=== PATIENT | male | born 1960 | race Caucasian/White ===

== ENCOUNTER 2020-10-18 13:08 | Inpatient (IN) | payer OTHER ==
[2020-10-18] MEDS ORDERED: NALOXONE 0.4 MG/ML 1 ML VIAL IVP STA (13:23)
[2020-10-18] MEDS ORDERED: ATROPINE SULFATE 0.1 MG/ML 10ML SYRINGE IV STA (13:24)
--- NOTE | 2020-10-18 13:26 | ED ---
General Adult HPI - General Chief complaint: Syncope Stated complaint: unresponsive Time Seen by Provider: 10/18/20 13:16 Source: EMS Mode of arrival: EMS Limitations: altered mental status - History of Present Illness Initial comments: Patient presents to the ED by ambulance for evaluation. Per EMS, the patient's friend found the patient in his residence unresponsive today and called for an ambulance. Per EMS, the patient has been minimally responsive since they have been with him. Per EMS, the patient was noted to be in sinus bradycardia with a heart rate in the 30s, so they attempted transcutaneous pacing. Per EMS, patient was given Versed 4 mg IV prior to attempted pacing. Patient was given a dose of atropine 0.5 mg IV on arrival to the ED, and his heart rate is currently in the 60s. Patient is minimally responsive at this time. Patient's blood glucose is in the 150s. Patient was given a dose of IV Narcan on arrival to the ED without any change in his condition. Patient is noted to be mildly hypothermic on arrival to the ED and external heating has been applied by ED nursing staff. Patient is unable to provide any history at this time secondary to altered mentation. - Related Data Allergies Allergy/AdvReac Type Severity Reaction Status Date / Time Unable to Assess Allergy Verified 10/18/20 13:23 Review of Systems ROS Statement: Those systems with pertinent positive or pertinent negative responses have been documented in the HPI. ROS Other: All systems not noted in ROS Statement are negative. Limitations: ROS unobtainable due to patients medical condition Past Medical History Past Medical History: Unable to Obtain History of Any Multi-Drug Resistant Organisms: None Reported Past Surgical History: Unable to Obtain Smoking Status: Unknown if ever smoked Past Alcohol Use History: Unable to Obtain Past Drug Use History: Unable to Obtain General Exam Limitations: altered mental status General appearance: other (Patient moans to painful stimulus, but is otherwise unresponsive) Head exam: Present: atraumatic, normocephalic Eye exam: Present: normal appearance, PERRL ENT exam: Present: mucous membranes moist Neck exam: Present: normal inspection, other (Trachea is in midline) Respiratory exam: Present: other (Equal breath sounds bilaterally; patient is tachypneic). Absent: wheezes, rales, rhonchi, stridor Cardiovascular Exam: Present: regular rate, normal rhythm, normal heart sounds, other (Normal radial pulses bilaterally) GI/Abdominal exam: Present: soft. Absent: distended, guarding Extremities exam: Absent: pedal edema Back exam: Present: normal inspection Neurological exam: Present: other (Patient is unresponsive except to painful stimulus; patient is moving all 4 extremities spontaneously; patient localizes to pain in all 4 extremities; pupils equal round and reactive to light) Skin exam: Present: dry, intact, normal color, other (Cool) Course Vital Signs 10/18/20 10/18/20 10/18/20 13:11 13:25 13:28 Temperature 94.1 F L 93.7 F L Pulse Rate 74 72 Respiratory 36 H 36 H 30 H Rate Blood Pressure 93/53 136/59 O2 Sat by Pulse 75 L 97 Oximetry 10/18/20 10/18/20 10/18/20 14:09 15:14 15:39 Temperature 93.9 F L 95.4 F L Pulse Rate 75 77 74 Respiratory 24 18 Rate Blood Pressure 132/74 137/77 O2 Sat by Pulse 95 93 L Oximetry - Reevaluation(s) Reevaluation #1: 10/18/20 13:54 Patient is now much more responsive and answering questions appropriately. Patient is able to tell me his name. Patient admits to feeling somewhat dyspneic, but he denies having any other symptoms at this time. Patient denies having any pain, fever, headache, chest pain, cough or cold symptoms, abdominal pain, nausea or vomiting, or any other symptoms or complaints. Patient denies alcohol or drug abuse. 10/18/20 15:37 Case, H&P, test results and ED management thus far were discussed with Dr. De Leon (cardiology). He agrees with heparin anticoagulation and hospital admission. He has no further recommendations at this time. 10/18/20 15:39 Patient remains alert and responsive. Patient's tachypnea has now improved. Patient's temperature has been improving with external warming measures. Patient denies development of any new symptoms while in the ED. Patient is aware of his test results, and he agrees with hospital admission at this time. 10/18/20 15:42 Case, H&P, test results, ED management thus far and my discussion with Dr. De Leon as above were discussed with Dr. Lewis. He accepts hospital admission. He agrees with cardiology and nephrology consultations. He has no further recommendations at this time. EKG Findings - EKG Comments: EKG Findings:: EKG is somewhat limited secondary to motion artifact (multiple attempts have been made); normal sinus rhythm, no ectopy, ventricular rate of 77 bpm, normal IN and QRS intervals, normal QT interval, lateral ST and T-wave abnormality Medical Decision Making - Medical Decision Making Patient is noted to have an elevated troponin of 15.4, which I suspect is likely secondary to NSTEMI. Patient denies having any chest pain. Patient has been treated with oral aspirin, as well as IV heparin anticoagulation. Cardiology has been consulted. Patient is also noted to have an elevated creatinine and a potassium level of 6.9. Patient was treated with IV calcium, as well as potassium lowering medications in the ED. A nephrology consultation order has been placed. Patient is also noted to have bilateral pulmonary infiltrates and leukocytosis. Patient has been treated with IV antibiotics in the ED. Patient's Covid is negative. I suspect that the patient's altered mental status noted on arrival to the ED was likely secondary to the IV Versed that he was given by EMS. Patient is currently alert and answering questions appropriately. Dr. Lewis has accepted hospital admission. - Lab Data Result diagrams: 10/18/20 13:34 10/18/20 13:34 Lab Results 10/18/20 10/18/20 10/18/20 Range/Units 13:14 13:34 13:34 WBC 16.5 H (3.8-10.6) k/uL RBC 4.07 L (4.30-5.90) m/uL Hgb 12.3 L (13.0-17.5) gm/dL Hct 40.5 (39.0-53.0) % MCV 99.6 (80.0-100.0) fL MCH 30.2 (25.0-35.0) pg MCHC 30.3 L (31.0-37.0) g/dL RDW 14.4 (11.5-15.5) % Plt Count 250 (150-450) k/uL MPV 8.7 Neutrophils % 87 % Lymphocytes % 6 % Monocytes % 6 % Eosinophils % 0 % Basophils % 0 % Neutrophils # 14.3 H (1.3-7.7) k/uL Lymphocytes # 1.0 (1.0-4.8) k/uL Monocytes # 1.0 (0-1.0) k/uL Eosinophils # 0.0 (0-0.7) k/uL Basophils # 0.0 (0-0.2) k/uL Hypochromasia Slight Macrocytosis Slight PT 11.9 (9.0-12.0) sec INR 1.1 (<1.2) APTT 21.1 L (22.0-30.0) sec D-Dimer 0.60 H (<0.60) mg/L FEU VBG pH (7.31-7.41) VBG pCO2 (37-51) mmHg VBG HCO3 (24-28) mmol/L Sodium (137-145) mmol/L Potassium (3.5-5.1) mmol/L Chloride (98-107) mmol/L Carbon Dioxide (22-30) mmol/L Anion Gap mmol/L BUN (9-20) mg/dL Creatinine (0.66-1.25) mg/dL Est GFR (CKD-EPI)AfAm (>60 ml/min/1.73 sqM) Est GFR (CKD-EPI)NonAf (>60 ml/min/1.73 sqM) Glucose (74-99) mg/dL POC Glucose (mg/dL) 158 H (75-99) mg/dL POC Glu Tool Filer Hand ID [place] Andersen Plasma Lactic Acid David (0.7-2.0) mmol/L Calcium (8.4-10.2) mg/dL Magnesium (1.6-2.3) mg/dL Total Bilirubin (0.2-1.3) mg/dL AST (17-59) U/L ALT (4-49) U/L Alkaline Phosphatase (38-126) U/L Ammonia (<30) umol/L Creatine Kinase (55-170) U/L Troponin I (0.000-0.034) ng/mL Total Protein (6.3-8.2) g/dL Albumin (3.5-5.0) g/dL Lipase (23-300) U/L TSH (0.465-4.680) mIU/L Urine Color Urine Appearance (Clear) Urine pH (5.0-8.0) Ur Specific [place] (1.001-1.035) Urine Protein (Negative) Urine Glucose (UA) (Negative) Urine Ketones (Negative) Urine Blood (Negative) Urine Nitrite (Negative) Urine Bilirubin (Negative) Urine Urobilinogen (<2.0) mg/dL Ur Leukocyte Esterase (Negative) Urine RBC (0-5) /hpf Urine WBC (0-5) /hpf Ur Squamous Epith Cells (0-4) /hpf Urine Bacteria (None) /hpf Hyaline Casts (0-2) /lpf Urine Mucus (None) /hpf Urine Yeast (Budding) (None) /hpf Urine Opiates Screen (NotDetected) Ur Oxycodone Screen (NotDetected) Urine Methadone Screen (NotDetected) Ur Propoxyphene Screen (NotDetected) Ur Barbiturates Screen (NotDetected) U Tricyclic Antidepress (NotDetected) Ur Phencyclidine Scrn (NotDetected) Ur Amphetamines Screen (NotDetected) U Methamphetamines Scrn (NotDetected) U Benzodiazepines Scrn (NotDetected) Urine Cocaine Screen (NotDetected) U Marijuana (THC) Screen (NotDetected) Serum Alcohol mg/dL Coronavirus (PCR) (Not Detectd) 10/18/20 10/18/20 10/18/20 Range/Units 13:34 13:34 13:34 WBC (3.8-10.6) k/uL RBC (4.30-5.90) m/uL Hgb (13.0-17.5) gm/dL Hct (39.0-53.0) % MCV (80.0-100.0) fL MCH (25.0-35.0) pg MCHC (31.0-37.0) g/dL RDW (11.5-15.5) % Plt Count (150-450) k/uL MPV Neutrophils % % Lymphocytes % % Monocytes % % Eosinophils % % Basophils % % Neutrophils # (1.3-7.7) k/uL Lymphocytes # (1.0-4.8) k/uL Monocytes # (0-1.0) k/uL Eosinophils # (0-0.7) k/uL Basophils # (0-0.2) k/uL Hypochromasia Macrocytosis PT (9.0-12.0) sec INR (<1.2) APTT (22.0-30.0) sec D-Dimer (<0.60) mg/L FEU VBG pH (7.31-7.41) VBG pCO2 (37-51) mmHg VBG HCO3 (24-28) mmol/L Sodium 139 (137-145) mmol/L Potassium 6.9 H* (3.5-5.1) mmol/L Chloride 106 (98-107) mmol/L Carbon Dioxide 20 L (22-30) mmol/L Anion Gap 13 mmol/L BUN 63 H (9-20) mg/dL Creatinine 4.38 H (0.66-1.25) mg/dL Est GFR (CKD-EPI)AfAm 16 (>60 ml/min/1.73 sqM) Est GFR (CKD-EPI)NonAf 14 (>60 ml/min/1.73 sqM) Glucose 153 H (74-99) mg/dL POC Glucose (mg/dL) (75-99) mg/dL POC Glu Tool Filer Hand ID Plasma Lactic Acid David (0.7-2.0) mmol/L Calcium 8.8 (8.4-10.2) mg/dL Magnesium 3.4 H (1.6-2.3) mg/dL Total Bilirubin 0.5 (0.2-1.3) mg/dL AST 302 H (17-59) U/L ALT 324 H (4-49) U/L Alkaline Phosphatase 58 (38-126) U/L Ammonia (<30) umol/L Creatine Kinase 353 H (55-170) U/L Troponin I 15.400 H* (0.000-0.034) ng/mL Total Protein 6.1 L (6.3-8.2) g/dL Albumin 3.5 (3.5-5.0) g/dL Lipase 35 (23-300) U/L TSH 1.590 (0.465-4.680) mIU/L Urine Color Yellow Urine Appearance Cloudy (Clear) Urine pH 5.5 (5.0-8.0) Ur Specific [place] 1.022 (1.001-1.035) Urine Protein 2+ H (Negative) Urine Glucose (UA) Negative (Negative) Urine Ketones Trace H (Negative) Urine Blood Trace H (Negative) Urine Nitrite Negative (Negative) Urine Bilirubin Negative (Negative) Urine Urobilinogen 2.0 (<2.0) mg/dL Ur Leukocyte Esterase Negative (Negative) Urine RBC 2 (0-5) /hpf Urine WBC 4 (0-5) /hpf Ur Squamous Epith Cells <1 (0-4) /hpf Urine Bacteria Rare H (None) /hpf Hyaline Casts 79 H (0-2) /lpf Urine Mucus Rare H (None) /hpf Urine Yeast (Budding) Occasional H (None) /hpf Urine Opiates Screen Not Detected (NotDetected) Ur Oxycodone Screen Not Detected (NotDetected) Urine Methadone Screen Not Detected (NotDetected) Ur Propoxyphene Screen Not Detected (NotDetected) Ur Barbiturates Screen Not Detected (NotDetected) U Tricyclic Antidepress Not Detected (NotDetected) Ur Phencyclidine Scrn Not Detected (NotDetected) Ur Amphetamines Screen Not Detected (NotDetected) U Methamphetamines Scrn Not Detected (NotDetected) U Benzodiazepines Scrn Not Detected (NotDetected) Urine Cocaine Screen Not Detected (NotDetected) U Marijuana (THC) Screen Not Detected (NotDetected) Serum Alcohol <10 mg/dL Coronavirus (PCR) (Not Detectd) 10/18/20 10/18/20 10/18/20 Range/Units 13:34 13:34 13:34 WBC (3.8-10.6) k/uL RBC (4.30-5.90) m/uL Hgb (13.0-17.5) gm/dL Hct (39.0-53.0) % MCV (80.0-100.0) fL MCH (25.0-35.0) pg MCHC (31.0-37.0) g/dL RDW (11.5-15.5) % Plt Count (150-450) k/uL MPV Neutrophils % % Lymphocytes % % Monocytes % % Eosinophils % % Basophils % % Neutrophils # (1.3-7.7) k/uL Lymphocytes # (1.0-4.8) k/uL Monocytes # (0-1.0) k/uL Eosinophils # (0-0.7) k/uL Basophils # (0-0.2) k/uL Hypochromasia Macrocytosis PT (9.0-12.0) sec INR (<1.2) APTT (22.0-30.0) sec D-Dimer (<0.60) mg/L FEU VBG pH 7.21 L (7.31-7.41) VBG pCO2 49 (37-51) mmHg VBG HCO3 19 L (24-28) mmol/L Sodium (137-145) mmol/L Potassium (3.5-5.1) mmol/L Chloride (98-107) mmol/L Carbon Dioxide (22-30) mmol/L Anion Gap mmol/L BUN (9-20) mg/dL Creatinine (0.66-1.25) mg/dL Est GFR (CKD-EPI)AfAm (>60 ml/min/1.73 sqM) Est GFR (CKD-EPI)NonAf (>60 ml/min/1.73 sqM) Glucose (74-99) mg/dL POC Glucose (mg/dL) (75-99) mg/dL POC Glu [employer]iler Hand ID Plasma Lactic Acid David 4.3 H* (0.7-2.0) mmol/L Calcium (8.4-10.2) mg/dL Magnesium (1.6-2.3) mg/dL Total Bilirubin (0.2-1.3) mg/dL AST (17-59) U/L ALT (4-49) U/L Alkaline Phosphatase (38-126) U/L Ammonia 14 (<30) umol/L Creatine Kinase (55-170) U/L Troponin I (0.000-0.034) ng/mL Total Protein (6.3-8.2) g/dL Albumin (3.5-5.0) g/dL Lipase (23-300) U/L TSH (0.465-4.680) mIU/L Urine Color Urine Appearance (Clear) Urine pH (5.0-8.0) Ur Specific [place] (1.001-1.035) Urine Protein (Negative) Urine Glucose (UA) (Negative) Urine Ketones (Negative) Urine Blood (Negative) Urine Nitrite (Negative) Urine Bilirubin (Negative) Urine Urobilinogen (<2.0) mg/dL Ur Leukocyte Esterase (Negative) Urine RBC (0-5) /hpf Urine WBC (0-5) /hpf Ur Squamous Epith Cells (0-4) /hpf Urine Bacteria (None) /hpf Hyaline Casts (0-2) /lpf Urine Mucus (None) /hpf Urine Yeast (Budding) (None) /hpf Urine Opiates Screen (NotDetected) Ur Oxycodone Screen (NotDetected) Urine Methadone Screen (NotDetected) Ur Propoxyphene Screen (NotDetected) Ur Barbiturates Screen (NotDetected) U Tricyclic Antidepress (NotDetected) Ur Phencyclidine Scrn (NotDetected) Ur Amphetamines Screen (NotDetected) U Methamphetamines Scrn (NotDetected) U Benzodiazepines Scrn (NotDetected) Urine Cocaine Screen (NotDetected) U Marijuana (THC) Screen (NotDetected) Serum Alcohol mg/dL Coronavirus (PCR) Not Detected (Not Detectd) - Radiology Data Radiology results: report reviewed (Chest x-ray: Diffuse bilateral infiltrates with pleural effusion correlate for diffuse pneumonia versus pulmonary edema) Critical Care Time Critical Care Time: Yes Total Critical Care Time: 80 (NSTEMI, hyperkalemia, renal insufficiency) Disposition Clinical Impression: Altered mental status, Sinus bradycardia, Hypothermia, Hyperkalemia, Renal ins ufficiency, Non-ST elevation [place] (NSTEMI) Narrative: Suspected pneumonia Disposition: ADMITTED IP TO THIS [facility] Condition: Stable Is patient prescribed a controlled substance at d/c from ED?: No Referrals: None,Stated [Primary Care Provider] - 1-2 days Time of Disposition: 15:43
[2020-10-18 13:35] LABS: Glucose,Whole Blood 158 mg/dL (75-99)
[2020-10-18 13:51] LABS: VBG PH 7.21 (7.31-7.41)
--- NOTE | 2020-10-18 13:55 | XR ---
EXAMINATION TYPE: XR chest 1V portable DATE OF EXAM: 10/18/2020 COMPARISON: NONE HISTORY: Altered mental status TECHNIQUE: Single frontal view of the chest is obtained. FINDINGS: Diffuse bilateral interstitial pattern with large areas of consolidation greater on the ri ght and small effusion. Atherosclerotic change aorta. No pneumonia thorax. Artifact overlies the righ t chest. IMPRESSION: Diffuse bilateral infiltrates with pleural effusion correlate for diffuse pneumonia vers us pulmonary edema.
[2020-10-18 14:02] LABS: ALT 324 U/L (4-49); AST 302 U/L (17-59); African American GFR (CKD) 16 (>60 ml/min/1.73 sqM); Albumin 3.5 g/dL (3.5-5.0); Alcohol <10 mg/dL; Alkaline Phosphatase 58 U/L (38-126); Anion Gap 13 mmol/L; Blood Urea Nitrogen 63 mg/dL (9-20); Calcium 8.8 mg/dL (8.4-10.2); Carbon Dioxide 20 mmol/L (22-30); Chloride 106 mmol/L (98-107); Creatine Kinase 353 U/L (55-170); Glucose 153 mg/dL (74-99); Lipase 35 U/L (23-300); Magnesium 3.4 mg/dL (1.6-2.3); Non-African American GFR(CKD) 14 (>60 ml/min/1.73 sqM); Sodium 139 mmol/L (137-145); Total Bilirubin 0.5 mg/dL (0.2-1.3); Total Protein 6.1 g/dL (6.3-8.2)
[2020-10-18 14:05] LABS: Appearance,Urine Cloudy (Clear); Bacteria,Urine Rare /hpf; Bilirubin,Urine Negative (Negative); Blood,Urine Trace (Negative); Budding Yeast,Urine Occasional /hpf; Color,Urine Yellow; Glucose,Urine (UA) Negative (Negative); Hyaline Casts,Urine 79 /lpf (0-2); Ketones,Urine Trace (Negative); Leukocyte Esterase,Urine Negative (Negative); Mucus,Urine Rare /hpf; Nitrite,Urine Negative (Negative); PH, Urine 5.5 (5.0-8.0); Protein,Urine 2+ (Negative); RBC,Urine 2 /hpf (0-5); Specific Gravity,Urine 1.022 (1.001-1.035); Squamous Epithelial Cell,Urine <1 /hpf (0-4); WBC,Urine 4 /hpf (0-5)
[2020-10-18 14:08] LABS: Lactic Acid, Venous 4.3 mmol/L (0.7-2.0)
[2020-10-18 14:09] LABS: Basophils % (A) 0 %; Eosinophils % (A) 0 %; HCT 40.5 % (39.0-53.0); HGB 12.3 gm/dL (13.0-17.5); Hypochromasia Slight; Lymphocytes % (A) 6 %; MCH 30.2 pg (25.0-35.0); MCHC 30.3 g/dL (31.0-37.0); MCV 99.6 fL (80.0-100.0); Macrocytosis Slight; Mean Platelet Volume 8.7; Monocytes % (A) 6 %; Neutrophils # (A) 14.3 k/uL (1.3-7.7); Neutrophils % (A) 87 %; Platelet Count 250 k/uL (150-450); RBC 4.07 m/uL (4.30-5.90); RDW 14.4 % (11.5-15.5); WBC 16.5 k/uL (3.8-10.6)
[2020-10-18 14:10] LABS: Amphetamine Screen,Urine Not Detected (NotDetected); Barbiturate Screen,Urine Not Detected (NotDetected); Benzodiazepines Screen,Urine Not Detected (NotDetected); Cocaine Screen,Urine Not Detected (NotDetected); Methadone Screen, Urine Not Detected (NotDetected); Opiate Screen,Urine Not Detected (NotDetected); Oxycodone Screen, Urine Not Detected (NotDetected); Phencyclidine Screen,Urine Not Detected (NotDetected); Potassium 6.9 mmol/L (3.5-5.1); Tricyclic Antidepressant,Urine Not Detected (NotDetected); Urn Cannabinoid Scrn Not Detected (NotDetected)
[2020-10-18] MEDS ORDERED: PIPERACILLIN-TAZOBACTAM 3.375 GM in SODIUM CHLORIDE 0.9% 100 ML IVPB STA (14:10)
[2020-10-18] MEDS ORDERED: SODIUM BICARB 8.4% 50 ML SYR (1 MEQ/ML) IV STA (14:11)
[2020-10-18] MEDS ORDERED: CALCIUM CHLORIDE 100 MG/ML 10 ML SYRINGE IVP STA (14:11)
[2020-10-18] MEDS ORDERED: DEXTROSE 50% SYRINGE 50 ML IVP STA ×2 (14:16→22:34)
[2020-10-18] MEDS ORDERED: ALBUTEROL NEBULIZED 2.5 MG/3 ML INHALATION STA (14:16)
[2020-10-18] MEDS ORDERED: INSULIN REGULAR 100 UNIT/ML VIAL (IV) IV STA (14:16)
[2020-10-18] MEDS ORDERED: VANCOMYCIN IV PER PHARMACY 1 EACH MISC MISCELLANE STA (14:17)
[2020-10-18 14:18] LABS: INR 1.1 (<1.2); Prothrombin Time 11.9 sec (9.0-12.0)
[2020-10-18 14:24] LABS: Partial Thromboplastin Time 21.1 sec (22.0-30.0)
[2020-10-18] MEDS ORDERED: VANCOMYCIN 1,500 MG in SODIUM CHLORIDE 0.9% 250 ML IVPB ONE (14:45)
--- NOTE | 2020-10-18 15:16 | CT ---
EXAMINATION TYPE: CT brain wo con DATE OF EXAM: 10/18/2020 COMPARISON: None HISTORY: Per RN found unresponsive with decreased heart rate. CT DLP: 1217.4 mGycm Automated exposure control for dose reduction was used. Images were obtained without contrast. There is cerebral cortical atrophy. There are small areas of hypodensity in the periventricular white matter. There is mucosal thickening in the ethmoid and right maxillary sinus. The calvarium appears intact. IMPRESSION: Cerebral atrophy. White matter hypodensity in the right thalamus and right internal capsule consisten t with chronic small vessel ischemia. No hemorrhage. Sinusitis. There are expansile changes of the right maxillary sinus consistent with a mucocele. There is mild thickening of the lateral wall right maxillary sinus.
[2020-10-18] MEDS ORDERED: HEPARIN SODIUM 1,000 UN/ML (10ML VL) IV PRN (15:29)
[2020-10-18] MEDS ORDERED: HEPARIN SODIUM 1,000 UN/ML (10ML VL) IV ONE (15:29)
[2020-10-18] MEDS ORDERED: ASPIRIN 81 MG PO STA (15:29)
[2020-10-18] MEDS ORDERED: ALBUTEROL NEBULIZED 2.5 MG/3 ML INHALATION SCH (16:00)
[2020-10-18] MEDS ORDERED: NALOXONE 0.4 MG/ML 1 ML VIAL IV PRN (16:34)
[2020-10-18] MEDS ORDERED: IPRATROPIUM-ALBUTEROL 3 ML NEB INHALATION PRN (16:35)
[2020-10-18] MEDS ORDERED: SODIUM CHLORIDE 0.9% 1,000 ML IV SCH (16:45)
[2020-10-18] MEDS ORDERED: SODIUM CHLORIDE 0.9% 1,000 ML IV STA ×2 (16:49→16:55)
--- NOTE | 2020-10-18 16:58 | P.HPIM ---
History of Present Illness H&P Date: 10/18/20 Chief Complaint: unresponsive 59 y/o male with unknown PMH presented earlier today after he was found in his residence unresponsive by his friend today. Per EMS, the patient was. Per EMS, the patient was noted to be in sinus bradycardia with a heart rate in the 30s, so they attempted transcutaneous pacing. Patient was also given a dose of atropine 0.5 mg IV. Patient is able to answer questions currently but he is confused and not coherent. He is not able to give a reliable hx. He was given a dose of IV Narcan on arrival to the ED without any change in his condition. Patient was also noted to be hypothermic on arrival to the ED with a temp of 94. The temp improved with bare hugger. Labs eval revealed WBC 86129, Cr 4.35, K 6.9, lactate 4.3, Trop 15. AST and ALT in the 300 range. Covid negative. Urine tox negative. Head CT showed no acute intracranial pathology. CXR showed diffuse infiltrates vs. edema. Review of Systems Complete review of system performed pertinent positives per HPI otherwise negative Past Medical History Past Medical History: Unable to Obtain History of Any Multi-Drug Resistant Organisms: None Reported Past Surgical History: Unable to Obtain Smoking Status: Unknown if ever smoked Past Alcohol Use History: Unable to Obtain Past Drug Use History: Unable to Obtain Medications and Allergies Allergies Allergy/AdvReac Type Severity Reaction Status Date / Time Unable to Assess Allergy Verified 10/18/20 13:23 Physical Exam Vitals: Vital Signs Temp Pulse Resp BP Pulse Ox 10/18/20 15:53 74 10/18/20 15:39 74 10/18/20 15:14 95.4 F L 77 18 137/77 93 L 10/18/20 14:09 93.9 F L 75 24 132/74 95 10/18/20 13:28 93.7 F L 72 30 H 136/59 97 10/18/20 13:25 36 H 10/18/20 13:11 94.1 F L 74 36 H 93/53 75 L Intake and Output 10/18/20 10/18/20 10/18/20 06:59 14:59 22:59 Other: Weight 80.286 kg Constitutional: No acute distress, conversant, pleasant Eyes:Anicteric sclerae, moist conjunctiva, no lid-lag, PERRLA, ENMT: Oropharynx clear, no erythema, exudates Neck: Supple, FROM, no masses, or JVD, No carotid bruits, No thyromegaly Lungs: Bilateral diffuse wheezing and rhonchi. Clear to percussion, Normal respiratory effort, no accessory muscle use Cardiovascular: Heart regular in rate and rhythm, No murmurs, gallops, or rubs, No peripheral edema Abdominal: Soft, nontender, no guarding, rebound or rigidity, Normoactive bowel sounds, No hepatomegaly, No splenomegaly, No palpable mass Skin: Normal temperature, tone, texture, turgor, no induration, No subcutaneous nodules, No rash, lesions, No ulcers Extremities: No digital cyanosis, No clubbing, Pedal pulses intact and symmetrical, Radial pulses intact and symmetrical, No calf tenderness Psychiatric: Alert and oriented to self only, impaired judgement Neuro: Muscles Strength 5/5 in all 4 extremities, Sensation to light touch grossly present throughout, Cranial nerves II-XII grossly intact, no focal sensory deficits Results CBC & Chem 7: 10/18/20 13:34 10/18/20 13:34 Labs: Abnormal Lab Results - Last 24 Hours (Table) 10/18/20 10/18/20 10/18/20 Range/Units 13:14 13:34 13:34 WBC 16.5 H (3.8-10.6) k/uL RBC 4.07 L (4.30-5.90) m/uL Hgb 12.3 L (13.0-17.5) gm/dL MCHC 30.3 L (31.0-37.0) g/dL Neutrophils # 14.3 H (1.3-7.7) k/uL APTT 21.1 L (22.0-30.0) sec D-Dimer 0.60 H (<0.60) mg/L FEU VBG pH (7.31-7.41) VBG HCO3 (24-28) mmol/L Potassium (3.5-5.1) mmol/L Carbon Dioxide (22-30) mmol/L BUN (9-20) mg/dL Creatinine (0.66-1.25) mg/dL Glucose (74-99) mg/dL POC Glucose (mg/dL) 158 H (75-99) mg/dL Plasma Lactic Acid David (0.7-2.0) mmol/L Magnesium (1.6-2.3) mg/dL AST (17-59) U/L ALT (4-49) U/L Creatine Kinase (55-170) U/L Troponin I (0.000-0.034) ng/mL Total Protein (6.3-8.2) g/dL Urine Protein (Negative) Urine Ketones (Negative) Urine Blood (Negative) Urine Bacteria (None) /hpf Hyaline Casts (0-2) /lpf Urine Mucus (None) /hpf Urine Yeast (Budding) (None) /hpf 10/18/20 10/18/20 10/18/20 Range/Units 13:34 13:34 13:34 WBC (3.8-10.6) k/uL RBC (4.30-5.90) m/uL Hgb (13.0-17.5) gm/dL MCHC (31.0-37.0) g/dL Neutrophils # (1.3-7.7) k/uL APTT (22.0-30.0) sec D-Dimer (<0.60) mg/L FEU VBG pH (7.31-7.41) VBG HCO3 (24-28) mmol/L Potassium 6.9 H* (3.5-5.1) mmol/L Carbon Dioxide 20 L (22-30) mmol/L BUN 63 H (9-20) mg/dL Creatinine 4.38 H (0.66-1.25) mg/dL Glucose 153 H (74-99) mg/dL POC Glucose (mg/dL) (75-99) mg/dL Plasma Lactic Acid David (0.7-2.0) mmol/L Magnesium 3.4 H (1.6-2.3) mg/dL AST 302 H (17-59) U/L ALT 324 H (4-49) U/L Creatine Kinase 353 H (55-170) U/L Troponin I 15.400 H* (0.000-0.034) ng/mL Total Protein 6.1 L (6.3-8.2) g/dL Urine Protein 2+ H (Negative) Urine Ketones Trace H (Negative) Urine Blood Trace H (Negative) Urine Bacteria Rare H (None) /hpf Hyaline Casts 79 H (0-2) /lpf Urine Mucus Rare H (None) /hpf Urine Yeast (Budding) Occasional H (None) /hpf 10/18/20 10/18/20 Range/Units 13:34 13:34 WBC (3.8-10.6) k/uL RBC (4.30-5.90) m/uL Hgb (13.0-17.5) gm/dL MCHC (31.0-37.0) g/dL Neutrophils # (1.3-7.7) k/uL APTT (22.0-30.0) sec D-Dimer (<0.60) mg/L FEU VBG pH 7.21 L (7.31-7.41) VBG HCO3 19 L (24-28) mmol/L Potassium (3.5-5.1) mmol/L Carbon Dioxide (22-30) mmol/L BUN (9-20) mg/dL Creatinine (0.66-1.25) mg/dL Glucose (74-99) mg/dL POC Glucose (mg/dL) (75-99) mg/dL Plasma Lactic Acid David 4.3 H* (0.7-2.0) mmol/L Magnesium (1.6-2.3) mg/dL AST (17-59) U/L ALT (4-49) U/L Creatine Kinase (55-170) U/L Troponin I (0.000-0.034) ng/mL Total Protein (6.3-8.2) g/dL Urine Protein (Negative) Urine Ketones (Negative) Urine Blood (Negative) Urine Bacteria (None) /hpf Hyaline Casts (0-2) /lpf Urine Mucus (None) /hpf Urine Yeast (Budding) (None) /hpf Assessment and Plan Plan: Acute severe sepsis Blood cultures sent in the ER IV fluids at 125 cc/hr Repeat lactate Keep bare hugger for hypothermia, monitor WBC CAP with diffuse wheezing Acute hypxic respiratory failrue Check ABG 100 NRB mask Start cefepime and vancomycin Blood cx as above PRIYANK with hyperkalemia IV fluids as above Elevated K treated in the ER, will repeat shortly Avoid nephrotoxic meds Follow cr in am Consult nephrology NSTEMI, sinus bradycardia D/W cardiology Cycle troponin Given aspirin in the ER Heparin gtt Further management per cardio Admitted to inpatient expected length of stay more than 2 midnights
[2020-10-18] MEDS ORDERED: CEFEPIME 1 GM in SODIUM CHLORIDE 0.9% 50 ML IVPB ONE (17:00)
[2020-10-18 17:11] LABS: ABG HCO3 24 mmol/L (21-25); ABG Oxygen Saturation 90.1 % (94-97); ABG PCO2 46 mmHg (35-45); ABG PH 7.33 (7.35-7.45); ABG PO2 61 mmHg (83-108); ABG TCO2 25 mmol/L (19-24); Allen Test Performed? Yes
[2020-10-18] MEDS: HEPARIN SOD,PORK IN 0.45% NACL 25,000 UNIT in 0.45% NACL 1 250ML.BAG IV SCH (17:12)
[2020-10-18] MEDS ORDERED: methylPREDNISolone SOD SUCCI 40 MG/ML 1 ML VIAL IV SCH (18:00)
[2020-10-18] MEDS ORDERED: VANCOMYCIN IV PER PHARMACY 1 EACH MISC MISCELLANE PRN (19:25)
[2020-10-18 19:27] LABS: Basophils % (A) 0 %; Eosinophils # (A) 0.1 k/uL (0-0.7); Eosinophils % (A) 0 %; HCT 39.3 % (39.0-53.0); HGB 12.9 gm/dL (13.0-17.5); Lymphocytes # (A) 1.3 k/uL (1.0-4.8); Lymphocytes % (A) 7 %; MCHC 32.7 g/dL (31.0-37.0); MCV 97.6 fL (80.0-100.0); Mean Platelet Volume 8.1; Monocytes % (A) 5 %; Neutrophils # (A) 16.9 k/uL (1.3-7.7); Neutrophils % (A) 87 %; Platelet Count 220 k/uL (150-450); RBC 4.02 m/uL (4.30-5.90); RDW 13.7 % (11.5-15.5); WBC 19.4 k/uL (3.8-10.6)
[2020-10-18] MEDS: methylPREDNISolone SOD SUCCI 40 MG/ML 1 ML VIAL IV SCH (19:27)
[2020-10-18 19:32] LABS: INR 1.2 (<1.2); Partial Thromboplastin Time 87.3 sec (22.0-30.0); Prothrombin Time 12.6 sec (9.0-12.0)
[2020-10-18 19:44] LABS: Potassium 5.6 mmol/L (3.5-5.1)
[2020-10-18 19:45] LABS: Albumin 3.8 g/dL (3.5-5.0); Calcium 9.6 mg/dL (8.4-10.2); Total Bilirubin 0.3 mg/dL (0.2-1.3)
[2020-10-18] MEDS: IPRATROPIUM-ALBUTEROL 3 ML NEB INHALATION SCH (20:16)
[2020-10-18] MEDS ORDERED: INSULIN REGULAR 100 UNIT/ML VIAL (IV) IV ONE (22:34)
[2020-10-19] MEDS: methylPREDNISolone SOD SUCCI 40 MG/ML 1 ML VIAL IV SCH ×4 (02:33→19:56)
--- NOTE | 2020-10-19 02:41 | XR ---
EXAM: XR Chest, 1 View CLINICAL HISTORY: ITS.REASON XR Reason: worsening hypoxemia TECHNIQUE: Frontal view of the chest. COMPARISON: 10/18/20 1347 hrs. FINDINGS: Lungs: Bilateral perihilar and lower lung interstitial and airspace disease. Similar to the prior. Pleural space: Unremarkable. No pneumothorax. Heart: Unremarkable. No cardiomegaly. Mediastinum: Unremarkable. Bones/joints: Unremarkable. IMPRESSION: Bilateral perihilar and lower lung interstitial and airspace disease. Similar to the prior. May represent pneumonia and/or pulmonary edema.
--- NOTE | 2020-10-19 03:34 | P.EN ---
patient developed tachycardia in the 130s range, EKG confirmed new onset afib patient is refusing any further treatment to the condition, i explained to him the new diagnosis , ppting factors, and prognosis . patient verbalized understanding, and he was firm regarding not starting any other treatments for it. he is concerned that this would prolong his hospital stay, and / or increase his medical bill. I tried to explain that we have social workers that can help in this matter, and that his health should be his priority at this time. However, patient firmly insisted that he understands but still refuses to start any treatment . his heart rate seemed to be averaging in the low 100, I explained that if it stays in the >125 range , then we will have to start him on a medication.
[2020-10-19 04:01] LABS: Basophils % (A) 0 %; Eosinophils % (A) 0 %; HCT 37.6 % (39.0-53.0); HGB 12.6 gm/dL (13.0-17.5); Lymphocytes # (A) 0.5 k/uL (1.0-4.8); Lymphocytes % (A) 3 %; MCH 32.8 pg (25.0-35.0); MCHC 33.6 g/dL (31.0-37.0); MCV 97.4 fL (80.0-100.0); Mean Platelet Volume 8.7; Monocytes # (A) 0.7 k/uL (0-1.0); Monocytes % (A) 4 %; Neutrophils # (A) 17.3 k/uL (1.3-7.7); Neutrophils % (A) 93 %; Platelet Count 221 k/uL (150-450); RBC 3.86 m/uL (4.30-5.90); RDW 13.6 % (11.5-15.5); WBC 18.7 k/uL (3.8-10.6)
[2020-10-19 04:31] LABS: INR 1.1 (<1.2); Prothrombin Time 11.9 sec (9.0-12.0)
[2020-10-19 04:35] LABS: Albumin 3.4 g/dL (3.5-5.0); Calcium 8.8 mg/dL (8.4-10.2); Potassium 4.9 mmol/L (3.5-5.1); Total Bilirubin 0.3 mg/dL (0.2-1.3); Total Protein 6.2 g/dL (6.3-8.2)
[2020-10-19] MEDS ORDERED: CEFEPIME 1 GM in SODIUM CHLORIDE 0.9% 50 ML IVPB SCH (06:00)
--- NOTE | 2020-10-19 08:18 | XR ---
EXAMINATION TYPE: XR chest 1V portable DATE OF EXAM: 10/19/2020 COMPARISON: 10/19/2020 HISTORY: Shortness of breath FINDINGS: There are bilateral pleural effusions with cardiomegaly and bibasilar infiltrate. There is a diffuse interstitial pattern. IMPRESSION: 1. Correlate for CHF or diffuse pneumonia.
[2020-10-19] MEDS: IPRATROPIUM-ALBUTEROL 3 ML NEB INHALATION SCH ×4 (08:42→19:45)
[2020-10-19] MEDS ORDERED: FUROSEMIDE 10 MG/ML 4 ML VIAL IV STA (09:53)
--- NOTE | 2020-10-19 11:39 | CONS ---
CONSULTATION REASON FOR CONSULT: Renal failure. HISTORY OF PRESENT ILLNESS: The patient is a 59-year-old male who was admitted to the hospital as he was found unresponsive by his friend. He was noted to be significantly bradycardic with heart rate in the 30s. Temperature was low currently and patient was maintained on a Katerine Hugger. He was dyspneic and started on BiPAP. His COVID PCR is negative. Serum creatinine was 4.35 and potassium was 6.9. On initial admission troponin was 15. Chest x-ray shows bilateral infiltrates. Patient currently has an indwelling Gann catheter. He has had about 150 mL documented. Blood pressure has not been low. His systolic blood pressure around 120s to 130s mmHg. However, it was low at 93/53 on initial admission. At this time patient is not able to give me a detailed history. His serum creatinine was 4.38 on admission. We do not have any prior labs available for comparison. Potassium was 6.9. It is down to 4.9 now. The patient has not received any IV Lasix. In fact, he got fluid boluses post admission. He is maintained on steroids as well. Last night, patient developed atrial fibrillation with RVR with heart rate in the 120s. However, he refused to take any medications and his heart rate is now about 115-117 beats per minute. PAST MEDICAL HISTORY: Unable to obtain. PAST SURGICAL HISTORY: Unable to obtain. Medication list is also not available. ALLERGIES: None. EXAMINATION: Patient is currently sleeping. He is arousable but goes back to sleep. He is maintained on BiPAP. Blood pressure this morning 135/89, heart rate 116 per minute. His O2 sats are 98%. Examination of the heart S1, S2. Examination of the lungs, bilateral breath sounds are heard. Decreased breath sounds at bases. Abdomen is soft, nontender. Examination of lower extremities shows no evidence of edema. 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 LAB: Show sodium 141, potassium 4.9, chloride 108, CO2 is 21, BUN 75, creatinine 4.68, hemoglobin 12.6 g/dL, troponin of 20.3. UA shows 2+ protein, casts 79, bacteria rare. ASSESSMENT: 1. Acute kidney injury versus chronic kidney disease, possibly cardiorenal and component of acute kidney injury, rule out obstructive uropathy. We will monitor urine output and check ultrasound of the kidneys, place Gann catheter, add diuretics and check ultrasound of the kidneys. 2. Acute hypoxic respiratory failure, currently maintained on BiPAP. Etiology congestive heart failure with possible pneumonia as well, maintained on antibiotics. 3. Atrial fibrillation with rapid ventricular response, heart rate now 115-117. Patient has refused to be started on any medications. 4. Hyperkalemia associated with acute kidney injury on admission, currently improved. 5. Non ST elevation myocardial infarction, maintained on IV heparin. 6. Severe bradycardia on initial admission with heart rate in the 30s, being followed by Cardiology, improved with correction of hyperkalemia. PLAN: Diurese patient. Monitor urine output. Check ultrasound of the kidneys. Avoid nephrotoxic medications. We will try to obtain further history when patient is more awake. Thank you for this consultation. Will continue to follow the patient with you during his hospitalization. MARIN / KELLYN: [id number] /
[2020-10-19] MEDS ORDERED: VANCOMYCIN 1,500 MG in SODIUM CHLORIDE 0.9% 250 ML IVPB ONE (12:00)
[2020-10-19] MEDS: PIPERACILLIN-TAZOBACTAM 3.375 GM in SODIUM CHLORIDE 0.9% 100 ML IVPB SCH (12:04)
[2020-10-19] MEDS: HEPARIN SOD,PORK IN 0.45% NACL 25,000 UNIT in 0.45% NACL 1 250ML.BAG IV SCH (14:08)
--- NOTE | 2020-10-19 14:50 | P.PN ---
Subjective Progress Note Date: 10/19/20 (Delayed charting seen at 10:30) Principal diagnosis: decreased responsiveness Patient is a 59-year-old male with history of hypertension, chronic constipation, ongoing tobacco abuse who was brought in after being found unresponsive. EMS noted that he was bradycardic with a heart rate in the 30s and attempted transcutaneous pacing. He was given a dose of atropine. They also attempted a dose of Narcan on arrival to the ED without change in condition. He was found to be hypothermic with a temperature of 94 and was placed on a bear hugger. He was hypoxic requiring a nonrebreather. Initial laboratory analysis showed white blood cell count 16.5, hemoglobin 12.3, d-dimer 0.6, potassium 6.9, BUN 63, creatinine 4.38, lactic acid 4.3, troponin 15.4, AST 302, ALT 324, and BNP was 34,300. Urine drug screen was negative. It and urinalysis seemed consistent with dehydration. Initial chest x-ray showed diffuse bilateral infiltrates with pleural effusion. CT head showed cerebral atrophy consistent with small vessel ischemic changes, and right maxillary sinu sitis. Cardiology was contacted. Patient had blood cultures sent and was started on IV fluids for possible sepsis. He was diagnosed with community- acquired pneumonia and started on vancomycin and cefepime. He was also found have achy I versus chronic kidney disease with hyperkalemia and nephrology was consulted. Non-STEMI was discussed with cardiology was started on a heparin drip and given aspirin. He was admitted to the ICU for further monitoring, but was held in the ER as ICU overflow. On the morning of 10/19 he was also noted to go into A. fib with RVR but refused treatment. On the morning of 10/19 patient more awake and alert. He denied any chest pain, shortness breath, nausea, or vomiting. He states he feels "fine". He states he takes a bunch of medications he is unsure which one. He reports that he last saw his primary care physician about 4-[address] is [address] Cervantes. General: ill appearing, no distress, appears at stated age Derm: warm, dry Head: atraumatic, normocephalic, symmetric Eyes: EOMI, no lid lag, anicteric sclera Mouth: no lip lesion, mucus membranes moist Cardiovascular: S1S2 reg, no murmur, positive posterior tibial pulse bilateral, Lungs: Rhonchi bilateral bases , no accessory muscle use Abdominal: soft, nontender to palpation, no guarding, no appreciable organomegaly Ext: no gross muscle atrophy, trace edema, no contractures Neuro: CN II-XI grossly intact, no focal neuro deficits Psych: Alert, oriented, appropriate affect Community-acquired pneumonia with diffuse wheezing, severe sepsis - Await blood cultures - Transition from Vanco and cefepime transitioned to zosyn by pulmonary, add doxycycline - Pulmonary recommendations - Check sputum culture - Mucinex -Patient's Propulsid troponin was elevated at 3.5 leading to possible bacterial pneumonia -COVID-19 testing was negative Non-STEMI, status post bradycardia, A. fib with RVR -Continue with heparin drip -Cardiology recommendations -Aspirin, Lipitor -Start beta marjan -Check echocardiogram, suspect pulmonary edema versus drop ejection fraction, continue Lasix PRIYANK vs CKD - Unknown baseline creatinine -Consider getting records from Dr. Cervantes's office on Tuesday -Nephrology recommendations -Avoid additional nephrotoxic agents -Hold losartan, hydrochlorothiazide, and furosemide -Continue with Lasix Acute hypoxic respiratory failure secondary to above -Continue with BiPAP, wean O2 as able -Pulmonary recommendations Hypertension -Hold losartan, hydrochlorothiazide, and Lasix secondary to a cat -Hold Norvasc will metoprolol initiated -Follow blood pressures Tobacco abuse -Cessation Anemia, mild, undetermined baseline -Follow CBC -No indication for transfusion at this time Shock liver likely secondary to hypoperfusion -Follow liver enzymes -If does not continue to improve consider hepatitis profile Hyperkalemia, resolved Altered mentation, resolved DVT prophylaxis: Heparin drip Discussed with: Patient, nursing, cardiology Anticipated discharge: 5-[address]: Home health versus nursing home A total of 65 minutes was spent on the care of this complex patient more than 50% of the time was spent in counseling and care coordination. Objective - Vital Signs Vital signs: Vital Signs Temp 98.6 F 10/19/20 11:06 Pulse 105 H 10/19/20 14:10 Resp 22 10/19/20 14:10 BP 124/82 10/19/20 14:10 Pulse Ox 96 10/19/20 14:10 Intake & Output 10/18/20 10/19/20 10/19/20 18:59 06:59 18:59 Intake Total 201.672 Output Total 150 650 Balance -150 -448.328 Weight 80.286 kg Intake: Intake, IV Titration 201.672 Amount Heparin Sod,Pork in 0.45% 201.672 NaCl 25,000 unit In 0.45 % NaCl 1 250ml.bag @ 12 UNITS/KG/HR 9.634 mls/hr IV .Q24H [facility] Rx#: [id number] Output: Urine 150 650 - Labs CBC & Chem 7: 10/19/20 03:47 10/19/20 03:47 Labs: Abnormal Lab Results - Last 24 Hours (Table) 10/18/20 10/18/20 10/18/20 Range/Units 13:34 16:57 19:10 WBC 19.4 H (3.8-10.6) k/uL RBC 4.02 L (4.30-5.90) m/uL Hgb 12.9 L (13.0-17.5) gm/dL Hct (39.0-53.0) % Neutrophils # 16.9 H (1.3-7.7) k/uL Lymphocytes # (1.0-4.8) k/uL PT (9.0-12.0) sec INR (<1.2) APTT (22.0-30.0) sec ABG pH 7.33 L (7.35-7.45) ABG pCO2 46 H (35-45) mmHg ABG pO2 61 L (83-108) mmHg ABG Total CO2 25 H (19-24) mmol/L ABG O2 Saturation 90.1 L (94-97) % Potassium (3.5-5.1) mmol/L Chloride (98-107) mmol/L Carbon Dioxide (22-30) mmol/L BUN (9-20) mg/dL Creatinine (0.66-1.25) mg/dL Glucose (74-99) mg/dL AST (17-59) U/L ALT (4-49) U/L Creatine Kinase (55-170) U/L Troponin I 15.400 H* (0.000-0.034) ng/mL Total Protein (6.3-8.2) g/dL Albumin (3.5-5.0) g/dL Procalcitonin (0.02-0.09) ng/mL 0510/18/20 10/18/20 Range/Units 19:10 19:10 19:10 WBC (3.8-10.6) k/uL RBC (4.30-5.90) m/uL Hgb (13.0-17.5) gm/dL Hct (39.0-53.0) % Neutrophils # (1.3-7.7) k/uL Lymphocytes # (1.0-4.8) k/uL PT 12.6 H (9.0-12.0) sec INR 1.2 H (<1.2) APTT 87.3 H (22.0-30.0) sec ABG pH (7.35-7.45) ABG pCO2 (35-45) mmHg ABG pO2 (83-108) mmHg ABG Total CO2 (19-24) mmol/L ABG O2 Saturation (94-97) % Potassium (3.5-5.1) mmol/L Chloride (98-107) mmol/L Carbon Dioxide (22-30) mmol/L BUN (9-20) mg/dL Creatinine (0.66-1.25) mg/dL Glucose (74-99) mg/dL AST (17-59) U/L ALT (4-49) U/L Creatine Kinase 378 H (55-170) U/L Troponin I 20.300 H* (0.000-0.034) ng/mL Total Protein (6.3-8.2) g/dL Albumin (3.5-5.0) g/dL Procalcitonin (0.02-0.09) ng/mL 10/18/20 10/18/20 10/18/20 Range/Units 19:10 22:57 22:57 WBC (3.8-10.6) k/uL RBC (4.30-5.90) m/uL Hgb (13.0-17.5) gm/dL Hct (39.0-53.0) % Neutrophils # (1.3-7.7) k/uL Lymphocytes # (1.0-4.8) k/uL PT (9.0-12.0) sec INR (<1.2) APTT 54.5 H (22.0-30.0) sec ABG pH (7.35-7.45) ABG pCO2 (35-45) mmHg ABG pO2 (83-108) mmHg ABG Total CO2 (19-24) mmol/L ABG O2 Saturation (94-97) % Potassium 5.6 H (3.5-5.1) mmol/L Chloride (98-107) mmol/L Carbon Dioxide (22-30) mmol/L BUN 66 H (9-20) mg/dL Creatinine 4.47 H (0.66-1.25) mg/dL Glucose 102 H (74-99) mg/dL AST 742 H (17-59) U/L ALT 816 H (4-49) U/L Creatine Kinase 352 H (55-170) U/L Troponin I (0.000-0.034) ng/mL Total Protein (6.3-8.2) g/dL Albumin (3.5-5.0) g/dL Procalcitonin (0.02-0.09) ng/mL 10/18/20 10/19/20 10/19/20 Range/Units 22:57 03:47 03:47 WBC 18.7 H (3.8-10.6) k/uL RBC 3.86 L (4.30-5.90) m/uL Hgb 12.6 L (13.0-17.5) gm/dL Hct 37.6 L (39.0-53.0) % Neutrophils # 17.3 H (1.3-7.7) k/uL Lymphocytes # 0.5 L (1.0-4.8) k/uL PT (9.0-12.0) sec INR (<1.2) APTT (22.0-30.0) sec ABG pH (7.35-7.45) ABG pCO2 (35-45) mmHg ABG pO2 (83-108) mmHg ABG Total CO2 (19-24) mmol/L ABG O2 Saturation (94-97) % Potassium (3.5-5.1) mmol/L Chloride 108 H (98-107) mmol/L Carbon Dioxide 21 L (22-30) mmol/L BUN 75 H (9-20) mg/dL Creatinine 4.68 H (0.66-1.25) mg/dL Glucose 183 H (74-99) mg/dL AST 433 H (17-59) U/L ALT 630 H (4-49) U/L Creatine Kinase 295 H (55-170) U/L Troponin I 17.400 H* (0.000-0.034) ng/mL Total Protein 6.2 L (6.3-8.2) g/dL Albumin 3.4 L (3.5-5.0) g/dL Procalcitonin (0.02-0.09) ng/mL 10/19/20 10/19/20 Range/Units 03:47 06:08 WBC (3.8-10.6) k/uL RBC (4.30-5.90) m/uL Hgb (13.0-17.5) gm/dL Hct (39.0-53.0) % Neutrophils # (1.3-7.7) k/uL Lymphocytes # (1.0-4.8) k/uL PT (9.0-12.0) sec INR (<1.2) APTT 53.1 H (22.0-30.0) sec ABG pH (7.35-7.45) ABG pCO2 (35-45) mmHg ABG pO2 (83-108) mmHg ABG Total CO2 (19-24) mmol/L ABG O2 Saturation (94-97) % Potassium (3.5-5.1) mmol/L Chloride (98-107) mmol/L Carbon Dioxide (22-30) mmol/L BUN (9-20) mg/dL Creatinine (0.66-1.25) mg/dL Glucose (74-99) mg/dL AST (17-59) U/L ALT (4-49) U/L Creatine Kinase (55-170) U/L Troponin I (0.000-0.034) ng/mL Total Protein (6.3-8.2) g/dL Albumin (3.5-5.0) g/dL Procalcitonin 3.51 H (0.02-0.09) ng/mL Microbiology - Last 24 Hours (Table) 10/18/20 14:49 Blood Culture - Final Blood
[2020-10-19] MEDS: DOXYCYCLINE 100 MG CAP PO SCH ×2 (15:24→19:57)
--- NOTE | 2020-10-19 15:35 | P.CNPUL ---
History of Present Illness Consult date: 10/19/20 Requesting physician: Baljeet Lewis Reason for consult: other (ICU management) Chief complaint: Unresponsiveness History of present illness: This is a 59-year-old white male with history of hypertension, chronic atrial fibrillation, patient is primarily a patient of Dr. Cervantes, patient was found unresponsive. EMS arrived to the scene patient was bradycardic, unresponsive and his heart rate was in the 30s. Attempted transcutaneous pacing, given atropine, given Narcan and brought into the ER. There was no change in his condition. Upon arrival to the ER, patient was found to be hypothermic, chest x-ray showed pulmonary edema cannot rule out underlying pneumonia. Patient was placed on a nonrebreather mask initially and later transitioned to BiPAP. Labs showed evidence of elevated BNP consistent with a picture of acute pulmonary edema his urine drug screen was negative. Lactic acid was elevated at 4.3. BUN was 63 and creatinine 4.38 consistent with acute kidney injury. D-dimer was 0.6. WBC count 16.5. CT of the head showed cerebral atrophy and right maxillary sinusitis. Patient was placed empirically on antibiotics which I have changed to Zosyn and discontinued his vancomycin and cefepime. A shunt was also noted to be hyperkalemic secondary to his acute kidney injury and his troponin was significantly elevated consistent with non-ST elevation myocardial infarcti on hence the patient was started on heparin and given aspirin. I saw the patient in the ER, and I had a long discussion with the patient about his condition, patient was noted to be in atrial fibrillation with RVR, and that is being addressed by cardiology on the case. Patient clearly requested that he has DO NOT RESUSCITATE CODE STATUS,, and according to the other physician's note patient even refused treatment of his atrial fibrillation with RVR. During my evaluation, patient was on BiPAP with IPAP of 12 and EPAP of 6 and on 70% FiO2, he was also on heparin drip. Based on the clinical history, his shortness of breath was relatively acute, it started around 2 AM few hours before the patient was brought into the ER unresponsive and bradycardic. Denied any symptoms to suggest ongoing pneumonia prior to this presentation that is no cough no fever no chills no hemoptysis but he did have some vague chest discomfort prior to all of this. Review of Systems Constitutional: Negative HEENT: Negative Cardiac: As noted in HPI Pulmonary: As noted in HPI GI: Negative Genitourinary: Negative Muscular skeletal: Negative Hematologic: Negative Endocrine: Negative Psychiatric: Negative Neurologic: Negative Skin: Negative Past Medical History Past Medical History: Unable to Obtain History of Any Multi-Drug Resistant Organisms: None Reported Past Surgical History: Unable to Obtain Smoking Status: Unknown if ever smoked Past Alcohol Use History: Unable to Obtain Past Drug Use History: Unable to Obtain Medications and Allergies Home Medications Medication Instructions Recorded Confirmed Type Docusate [Colace] 100 mg PO BID PRN 10/19/20 10/19/20 History Furosemide [Lasix] 20 mg PO DAILY PRN 10/19/20 10/19/20 History Losartan-Hctz 50-12.5 mg [Hyzaar 1 tab PO DAILY 10/19/20 10/19/20 History 50-12.5] amLODIPine [Norvasc] 10 mg PO DAILY 10/19/20 10/19/20 History polyethylene glycoL 3350 [Miralax] 17 gm PO DAILY PRN 10/19/20 10/19/20 History Allergies Allergy/AdvReac Type Severity Reaction Status Date / Time No Known Allergies Allergy Unverified 10/19/20 11:10 Physical Exam Vitals: Vital Signs Temp Pulse Resp BP Pulse Ox 10/19/20 15:09 106 H 21 125/74 96 10/19/20 14:10 105 H 22 124/82 96 10/19/20 12:00 98 18 126/76 95 10/19/20 11:49 94 10/19/20 11:34 97 10/19/20 11:06 98.6 F 108 H 21 124/62 96 10/19/20 10:05 112 H 22 139/50 95 10/19/20 09:33 116 H 18 135/89 98 10/19/20 08:52 101 H 10/19/20 08:42 90 10/19/20 08:00 114 H 18 120/70 98 10/19/20 07:16 112 H 18 124/62 95 10/19/20 06:47 98 F 117 H 20 124/78 94 L 10/19/20 06:19 98.1 F 10/19/20 05:32 114 H 18 117/84 94 L 10/19/20 04:34 97.3 F L 110 H 18 129/82 92 L 10/19/20 03:35 125 H 10/19/20 03:33 109 H 26 H 123/72 94 L 10/19/20 02:35 97.4 F L 77 26 H 128/72 90 L 10/19/20 02:01 78 10/19/20 01:46 75 10/19/20 01:35 75 L 10/19/20 01:30 75 20 116/72 88 L 10/19/20 00:35 97.5 F L 72 20 112/64 92 L 10/18/20 23:36 97.1 F L 94 18 124/76 92 L 10/18/20 22:44 92 18 127/67 95 10/18/20 21:33 89 18 125/74 90 L 10/18/20 20:38 97.5 F L 90 18 134/77 92 L 10/18/20 20:21 86 10/18/20 19:23 98.3 F 82 20 137/78 96 10/18/20 17:15 97.0 F L 77 18 134/72 92 L 10/18/20 16:00 74 18 133/77 96 10/18/20 15:53 74 10/18/20 15:39 74 Intake and Output 10/19/20 10/19/20 10/19/20 06:59 14:59 22:59 Intake Total 201.672 Output Total 150 650 Balance -150 -448.328 Intake: Intake, IV Titration 201.672 Amount Heparin Sod,Pork in 0.45% 201.672 NaCl 25,000 unit In 0.45 % NaCl 1 250ml.bag @ 12 UNITS/KG/HR 9.634 mls/hr IV .Q24H [facility] Rx#: [id number] Output: Urine 150 650 Constitutional: Revealed a 59-year-old white male on BiPAP, minimal shortness of breath noted with conversation mostly Eyes PERRLA, EOMI, nonicteric. ENMT: Dry mucous membranes, otherwise unremarkable. Neck: Supple no neck masses no JVD no stridor. Lungs: Crackles and wheezes noted bilaterally. Symmetrical chest expansion. Cardiovascular: Distant S1 and S2, irregular irregular rhythm, no S3 gallop. Abdominal: Obese, soft, nontender, no megaly, no rebound no guarding. Skin: No rashes, no ulcers, dry skin is noted. Extremities: No clubbing edema or cyanosis. Psychiatric: Normal mood, affect, normal mental status examination neurologic: Alert and oriented 3 focal deficits. Results - Laboratory Findings CBC and BMP: 10/19/20 03:47 10/19/20 03:47 ABG ABG pH 7.33 (7.35-7.45) L 10/18/20 16:57 ABG pCO2 46 mmHg (35-45) H 10/18/20 16:57 ABG pO2 61 mmHg (83-108) L 10/18/20 16:57 ABG O2 Saturation 90.1 % (94-97) L 10/18/20 16:57 PT/INR, D-dimer PT 11.9 sec (9.0-12.0) 10/19/20 03:47 INR 1.1 (<1.2) 10/19/20 03:47 D-Dimer 0.60 mg/L FEU (<0.60) H 10/18/20 13:34 Abnormal lab findings: Abnormal Labs 10/18/20 10/18/20 10/18/20 13:14 13:34 13:34 WBC 16.5 H RBC 4.07 L Hgb 12.3 L Hct MCHC 30.3 L Neutrophils # 14.3 H Lymphocytes # PT INR APTT 21.1 L D-Dimer 0.60 H ABG pH ABG pCO2 ABG pO2 ABG Total CO2 ABG O2 Saturation VBG pH VBG HCO3 Potassium Chloride Carbon Dioxide BUN Creatinine Glucose POC Glucose (mg/dL) 158 H Plasma Lactic Acid David Magnesium AST ALT Creatine Kinase Troponin I Total Protein Albumin Procalcitonin Urine Protein Urine Ketones Urine Blood Urine Bacteria Hyaline Casts Urine Mucus Urine Yeast (Budding) 10/18/20 10/18/20 10/18/20 13:34 13:34 13:34 WBC RBC Hgb Hct MCHC Neutrophils # Lymphocytes # PT INR APTT D-Dimer ABG pH ABG pCO2 ABG pO2 ABG Total CO2 ABG O2 Saturation VBG pH VBG HCO3 Potassium 6.9 H* Chloride Carbon Dioxide 20 L BUN 63 H Creatinine 4.38 H Glucose 153 H POC Glucose (mg/dL) Plasma Lactic Acid David Magnesium 3.4 H AST 302 H ALT 324 H Creatine Kinase 353 H Troponin I 15.400 H* Total Protein 6.1 L Albumin Procalcitonin Urine Protein 2+ H Urine Ketones Trace H Urine Blood Trace H Urine Bacteria Rare H Hyaline Casts 79 H Urine Mucus Rare H Urine Yeast (Budding) Occasional H 10/18/20 10/18/20 10/18/20 13:34 13:34 16:57 WBC RBC Hgb Hct MCHC Neutrophils # Lymphocytes # PT INR APTT D-Dimer ABG pH 7.33 L ABG pCO2 46 H ABG pO2 61 L ABG Total CO2 25 H ABG O2 Saturation 90.1 L VBG pH 7.21 L VBG HCO3 19 L Potassium Chloride Carbon Dioxide BUN Creatinine Glucose POC Glucose (mg/dL) Plasma Lactic Acid David 4.3 H* Magnesium AST ALT Creatine Kinase Troponin I Total Protein Albumin Procalcitonin Urine Protein Urine Ketones Urine Blood Urine Bacteria Hyaline Casts Urine Mucus Urine Yeast (Budding) 10/18/20 10/18/20 10/18/20 19:10 19:10 19:10 WBC 19.4 H RBC 4.02 L Hgb 12.9 L Hct MCHC Neutrophils # 16.9 H Lymphocytes # PT 12.6 H INR 1.2 H APTT 87.3 H D-Dimer ABG pH ABG pCO2 ABG pO2 ABG Total CO2 ABG O2 Saturation VBG pH VBG HCO3 Potassium Chloride Carbon Dioxide BUN Creatinine Glucose POC Glucose (mg/dL) Plasma Lactic Acid David Magnesium AST ALT Creatine Kinase 378 H Troponin I Total Protein Albumin Procalcitonin Urine Protein Urine Ketones Urine Blood Urine Bacteria Hyaline Casts Urine Mucus Urine Yeast (Budding) 10/18/20 10/18/20 10/18/20 19:10 19:10 22:57 WBC RBC Hgb Hct MCHC Neutrophils # Lymphocytes # PT INR APTT 54.5 H D-Dimer ABG pH ABG pCO2 ABG pO2 ABG Total CO2 ABG O2 Saturation VBG pH VBG HCO3 Potassium 5.6 H Chloride Carbon Dioxide BUN 66 H Creatinine 4.47 H Glucose 102 H POC Glucose (mg/dL) Plasma Lactic Acid David Magnesium AST 742 H ALT 816 H Creatine Kinase Troponin I 20.300 H* Total Protein Albumin Procalcitonin Urine Protein Urine Ketones Urine Blood Urine Bacteria Hyaline Casts Urine Mucus Urine Yeast (Budding) 10/18/20 10/18/20 10/19/20 22:57 22:57 03:47 WBC RBC Hgb Hct MCHC Neutrophils # Lymphocytes # PT INR APTT D-Dimer ABG pH ABG pCO2 ABG pO2 ABG Total CO2 ABG O2 Saturation VBG pH VBG HCO3 Potassium Chloride 108 H Carbon Dioxide 21 L BUN 75 H Creatinine 4.68 H Glucose 183 H POC Glucose (mg/dL) Plasma Lactic Acid David Magnesium AST 433 H ALT 630 H Creatine Kinase 352 H 295 H Troponin I 17.400 H* Total Protein 6.2 L Albumin 3.4 L Procalcitonin Urine Protein Urine Ketones Urine Blood Urine Bacteria Hyaline Casts Urine Mucus Urine Yeast (Budding) 10/19/20 10/19/20 10/19/20 03:47 03:47 06:08 WBC 18.7 H RBC 3.86 L Hgb 12.6 L Hct 37.6 L MCHC Neutrophils # 17.3 H Lymphocytes # 0.5 L PT INR APTT 53.1 H D-Dimer ABG pH ABG pCO2 ABG pO2 ABG Total CO2 ABG O2 Saturation VBG pH VBG HCO3 Potassium Chloride Carbon Dioxide BUN Creatinine Glucose POC Glucose (mg/dL) Plasma Lactic Acid David Magnesium AST ALT Creatine Kinase Troponin I Total Protein Albumin Procalcitonin 3.51 H Urine Protein Urine Ketones Urine Blood Urine Bacteria Hyaline Casts Urine Mucus Urine Yeast (Budding) - Diagnostic Findings Chest x-ray: image reviewed (Chest x-ray reviewed, consistent with pulmonary edema, underlying pneumonia is not entirely ruled out and felt to be less likely based on the clinical history.) Assessment and Plan Assessment: Impression: Acute hypoxic respiratory failure secondary to acute pulmonary edema and non-ST elevation myocardial infarction, with elevated troponin and elevated BNP level. Suspect aspiration pneumonia since the patient was unresponsive upon presentatio n and he was extremely bradycardic, but no clinical history to suggest pneumonia symptoms prior to this episode of unresponsiveness. Atrial fibrillation with RVR being addressed by cardiology. Suspect acute kidney injury/acute tubular necrosis , related to his cardiac presentation and bradycardia upon his initial presentation. Hypothermia, may be cardiac-related could also be related to sepsis, exact etiology is not clear, further workup is necessary including serum cortisol level and thyroid profile, and echocardiogram which is pending. History of benign essential hypertension Suspect underlying COPD, possible acute exacerbation of COPD Shock liver secondary to hypoperfusion upon his initial presentation. Acute hyperkalemia secondary to acute kidney injury Recommendation: Continue BiPAP. Continue antibiotics/Zosyn Bronchodilators in the form of [facility] to address his atrial fibrillation, I'm strongly recommending that the patient gets Cardizem or amiodarone. Echocardiogram to assess LV function patient may even eventually require further cardiac workup including cardiac catheterization although the patient may be extremely reluctant to do so. Continue heparin. Discussed CODE STATUS with the patient he requested to be DO NOT RESUSCITATE. Admit to ICU, and closely monitor his hemodynamic status. Renal status. Daily chest x-rays, daily labs, and awaiting the results of the echocardiogram. Prognosis is definitely poor and guarded. We'll continue to follow. Critical care time is over 1 hour. Time with Patient: Greater than 30
[2020-10-19] MEDS: FUROSEMIDE 10 MG/ML 4 ML VIAL IV SCH (19:56)
--- NOTE | 2020-10-19 20:34 | P.CRDCN ---
History of Present Illness History of present illness: HISTORY OF PRESENTING ILLNESS This is a pleasant 59-year-old with past medical history significant for stroke 1 year ago, hypertension, hyperlipidemia who presents after being found unrespon marie. Patient states that he does not recall any of the events that got him to the hospital. He states he remembered being near his friend and then woke up in the ambulance confused. Was found by his friend unresponsive and therefore called EMS. Patient was minimally responsive for EMS with sinus bradycardia, heart rates in the 30s and therefore they started transcutaneously pacing him and was also given Versed to help with sedation during pacing and also given atropine 0.5 mg IV. When patient arrived to emergency department he was minimally responsive, blood glucose was in the 150s, he was given IV Narcan without much change. He was noted to be mildly hypothermic and was rewarmed. Patient then became much more responsive and denied any chest pain, pressure, mildly short of breath. Patient states he had been feeling fairly well last few days, no recent fevers, chills, cough. Patient had extensive workup in the emergency department with white blood cell count 16.5, hemoglobin 12.3, d-dimer 0.6, potassium 6.9, BUN 63, creatinine 4.3, lactic acid 4.3, magnesium 3.4, troponin 15.4, 20.3, 17.4, AST 302, ALT 324, curtis virus not detected, urine drug screen negative. Brain CT showed cerebral atrophy, white matter hypodensity in the right thalamus and right internal capsule consistent with chronic small vessel ischemia, no hemorrhage. Chest x- ray showed diffuse bilateral infiltrates with pleural effusion correlate for pneumonia versus pulmonary edema. Patient was noted to go into atrial fibrillation in the emergency department and apparently had been refusing treatment for this. He is concerned about his medical bills. He was seen by nephrology. His blood pressure has been predominantly well-controlled. He denies any recent NSAID use. He is currently on BiPAP. He has had minimal urine output. He was given IV Lasix earlier today. Potassium is improved today at 4.9, creatinine 4.68, AST and ALT elevated, pro-BMP 32,000, pro-calcitonin 3.5 blood culture 1 of 2 is positive for coag-negative staph. EKG on admission shows normal sinus rhythm, Q waves V1 through V3, somewhat biphasic T waves V4 through V5. REVIEW OF SYSTEMS At the time of my exam: CONSTITUTIONAL: Denies fever or chills. CARDIOVASCULAR: Denies chest pain, +shortness of breath, denies orthopnea, PND or palpitations. RESPIRATORY: Denies cough. GASTROINTESTINAL: Denies abdominal pain, diarrhea, constipation, nausea or vomiting. MUSCULOSKELETAL: Denies myalgias. NEUROLOGIC: Denies numbness, tingling or weakness. ENDOCRINE: Denies fatigue, weight change, polydipsia or polyurina. GENITOURINARY: Denies burning, hematuria or urgency with micturation. HEMATOLOGIC: Denies history of anemia or bleeding. PHYSICAL EXAMINATION Vital signs reviewed. CONSTITUTIONAL: No apparent distress, ill appearing, poor insight HEENT: Head is normocephalic. Pupils are equal, round. Sclerae anicteric. Mucous membranes of the mouth are moist. No JVD. No carotid bruit. CHEST EXAMINATION: + Bilateral crackles at bases HEART EXAMINATION: Regular rate and rhythm. S1, S2 heard. No murmurs, gallops or rub. ABDOMEN: Soft, nontender. Positive bowel sounds. EXTREMITIES: 2+ peripheral pulses, no lower extremity edema and no calf tenderness. NEUROLOGIC EXAMINATION: Patient is awake, alert and oriented x3. ASSESSMENT 1. Non-STEMI 2. Syncope, unclear presentation however patient found unresponsive with heart rates in the 30s. May be related to hyperkalemia. 3. Bradycardia on presentation, unclear if this is related to hyperkalemia 4. Acute kidney injury, unclear baseline 5. History of stroke per patient 6. New-onset atrial fibrillation 7. Acute on chronic heart failure, unclear systolic or diastolic likely exacerbated by acute renal failure 8. Elevated liver enzymes, rule out hepatic congestion 9. Bilateral infiltrates on x-ray, rule out congestion versus pneumonia. Pro-calcitonin noted to be elevated PLAN Patient with unclear clinical picture of presentation. Mainly he was found unresponsive and has numerous abnormalities including new acute renal failure, non-STEMI. Currently he is denying any chest pain or pressure. EKG concerning for ischemia with ST depressions, biphasic T waves and Q waves anterior septal leads. Given no current chest pain we will continue to treat medically with heparin drip. It appears he is gone into new onset atrial fibrillation. Contin ue to monitor closely. Check 2-D echo. Nephrology recommendations. She did. Diuresis as able. Beta marjan if able. Past Medical History Past Medical History: Unable to Obtain History of Any Multi-Drug Resistant Organisms: None Reported Past Surgical History: Unable to Obtain Smoking Status: Unknown if ever smoked Past Alcohol Use History: Unable to Obtain Past Drug Use History: Unable to Obtain Medications and Allergies Home Medications Medication Instructions Recorded Confirmed Type Docusate [Colace] 100 mg PO BID PRN 10/19/20 10/19/20 History Furosemide [Lasix] 20 mg PO DAILY PRN 10/19/20 10/19/20 History Losartan-Hctz 50-12.5 mg [Hyzaar 1 tab PO DAILY 10/19/20 10/19/20 History 50-12.5] amLODIPine [Norvasc] 10 mg PO DAILY 10/19/20 10/19/20 History polyethylene glycoL 3350 [Miralax] 17 gm PO DAILY PRN 10/19/20 10/19/20 History Allergies Allergy/AdvReac Type Severity Reaction Status Date / Time No Known Allergies Allergy Unverified 10/19/20 11:10 Physical Exam Vitals: Vital Signs Temp Pulse Resp BP Pulse Ox 10/19/20 20:02 75 22 135/69 94 L 10/19/20 19:51 82 10/19/20 19:45 80 10/19/20 17:56 98.6 F 75 20 138/77 94 L 10/19/20 16:12 82 10/19/20 16:00 98.4 F 82 22 119/90 95 10/19/20 15:52 80 10/19/20 15:09 106 H 21 125/74 96 10/19/20 14:10 105 H 22 124/82 96 10/19/20 12:00 98 18 126/76 95 10/19/20 11:49 94 10/19/20 11:34 97 10/19/20 11:06 98.6 F 108 H 21 124/62 96 10/19/20 10:05 112 H 22 139/50 95 10/19/20 09:33 116 H 18 135/89 98 10/19/20 08:52 101 H 10/19/20 08:42 90 10/19/20 08:00 114 H 18 120/70 98 10/19/20 07:16 112 H 18 124/62 95 10/19/20 06:47 98 F 117 H 20 124/78 94 L 10/19/20 06:19 98.1 F 10/19/20 05:32 114 H 18 117/84 94 L 10/19/20 04:34 97.3 F L 110 H 18 129/82 92 L 10/19/20 03:35 125 H 10/19/20 03:33 109 H 26 H 123/72 94 L 10/19/20 02:35 97.4 F L 77 26 H 128/72 90 L 10/19/20 02:01 78 10/19/20 01:46 75 10/19/20 01:35 75 L 10/19/20 01:30 75 20 116/72 88 L 10/19/20 00:35 97.5 F L 72 20 112/64 92 L 10/18/20 23:36 97.1 F L 94 18 124/76 92 L 10/18/20 22:44 92 18 127/67 95 10/18/20 21:33 89 18 125/74 90 L 10/18/20 20:38 97.5 F L 90 18 134/77 92 L 10/18/20 20:21 86 Intake and Output 10/19/20 10/19/20 10/19/20 06:59 14:59 22:59 Intake Total 201.672 Output Total 150 650 300 Balance -150 -448.328 -300 Intake: Intake, IV Titration 201.672 Amount Heparin Sod,Pork in 0.45% 201.672 NaCl 25,000 unit In 0.45 % NaCl 1 250ml.bag @ 12 UNITS/KG/HR 9.634 mls/hr IV .Q24H [facility] Rx#: [id number] Output: Urine 150 650 300 Results 10/19/20 03:47 10/19/20 03:47 Cardiac Enzymes 10/18/20 10/19/20 Range/Units 22:57 03:47 AST 433 H (17-59) U/L Troponin I 17.400 H* (0.000-0.034) ng/mL Coagulation 10/18/20 10/19/20 10/19/20 Range/Units 22:57 03:47 06:08 PT 11.9 (9.0-12.0) sec APTT 54.5 H 53.1 H (22.0-30.0) sec CBC 10/19/20 Range/Units 03:47 WBC 18.7 H (3.8-10.6) k/uL RBC 3.86 L (4.30-5.90) m/uL Hgb 12.6 L (13.0-17.5) gm/dL Hct 37.6 L (39.0-53.0) % Plt Count 221 (150-450) k/uL Comprehensive Metabolic Panel 10/19/20 Range/Units 03:47 Sodium 141 (137-145) mmol/L Potassium 4.9 (3.5-5.1) mmol/L Chloride 108 H (98-107) mmol/L Carbon Dioxide 21 L (22-30) mmol/L BUN 75 H (9-20) mg/dL Creatinine 4.68 H (0.66-1.25) mg/dL Glucose 183 H (74-99) mg/dL Calcium 8.8 (8.4-10.2) mg/dL AST 433 H (17-59) U/L ALT 630 H (4-49) U/L Alkaline Phosphatase 60 (38-126) U/L Total Protein 6.2 L (6.3-8.2) g/dL Albumin 3.4 L (3.5-5.0) g/dL Current Medications Generic Name Dose Route Start Last Admin Trade Name Freq PRN Reason Stop Dose Admin Albuterol/Ipratropium 3 ml 10/18/20 20:00 10/19/20 19:45 Ipratropium-Albuterol 3 Ml Neb INHALATION 3 ml RT-QID NIKO Administration Albuterol/Ipratropium 3 ml 10/18/20 16:35 10/19/20 01:46 Ipratropium-Albuterol 3 Ml Neb INHALATION 3 ml RT-Q2H PRN Administration Shortness Of Breath Or Wheezing Doxycycline Monohydrate 100 mg 10/19/20 14:41 10/19/20 19:57 Doxycycline 100 Mg Cap PO 100 mg BID NIKO Administration Furosemide 40 mg 10/19/20 21:00 10/19/20 19:56 Furosemide 10 Mg/Ml 4 Ml Vial IV 40 mg Q12HR NIKO Administration Heparin Sodium (Porcine) 0 unit 10/18/20 15:29 Heparin Sodium 1,000 Un/Ml (10ml Vl) IV PER PROTOCOL PRN Low PTT Protocol Heparin Sodium/Sodium Chloride 250 mls @ 9.634 mls/hr 10/18/20 15:30 10/19/20 14:08 25,000 unit/ Sodium Chloride IV 12 units/kg/hr .Q24H NIKO 9.634 mls/hr Administration Protocol 12 UNITS/KG/HR Piperacillin Sod/Tazobactam 100 mls @ 25 mls/hr 10/19/20 12:00 10/19/20 12:04 Sod 3.375 gm/ Sodium Chloride IVPB 25 mls/hr Q12HR@0000,1200 NIKO Administration Methylprednisolone Sodium Succinate 40 mg 10/18/20 20:00 10/19/20 19:56 Methylprednisolone Sod Succi 40 Mg/Ml 1 Ml Vial IV 40 mg Q6H NIKO Administration Naloxone HCl 0.2 mg 10/18/20 16:34 Naloxone 0.4 Mg/Ml 1 Ml Vial IV Q2M PRN Opioid Reversal Intake and Output 10/19/20 10/19/20 10/19/20 06:59 14:59 22:59 Intake Total 201.672 Output Total 150 650 300 Balance -150 -448.328 -300 Intake: Intake, IV Titration 201.672 Amount Heparin Sod,Pork in 0.45% 201.672 NaCl 25,000 unit In 0.45 % NaCl 1 250ml.bag @ 12 UNITS/KG/HR 9.634 mls/hr IV .Q24H [facility] Rx#: [id number] Output: Urine 150 650 300 10/19/20 03:47 10/19/20 03:47
[2020-10-19 21:16] LABS: Glucose,Whole Blood 192 mg/dL (75-99)
[2020-10-20] MEDS: methylPREDNISolone SOD SUCCI 40 MG/ML 1 ML VIAL IV SCH ×2 (00:15→05:49)
[2020-10-20] MEDS: PIPERACILLIN-TAZOBACTAM 3.375 GM in SODIUM CHLORIDE 0.9% 100 ML IVPB SCH ×2 (00:15→11:21)
[2020-10-20 04:13] LABS: HCT 35.2 % (39.0-53.0); HGB 11.8 gm/dL (13.0-17.5); MCH 31.9 pg (25.0-35.0); MCHC 33.5 g/dL (31.0-37.0); MCV 95.4 fL (80.0-100.0); Mean Platelet Volume 8.8; Platelet Count 188 k/uL (150-450); RDW 13.7 % (11.5-15.5); WBC 11.5 k/uL (3.8-10.6)
[2020-10-20 04:36] LABS: Calcium 8.8 mg/dL (8.4-10.2); Magnesium 3.1 mg/dL (1.6-2.3); Potassium 4.8 mmol/L (3.5-5.1)
[2020-10-20 06:45] LABS: Glucose,Whole Blood 165 mg/dL (75-99)
[2020-10-20] MEDS: INSULIN ASPART (NovoLOG) 100 UNIT/ML VIAL SQ SCH ×4 (06:47→20:36)
[2020-10-20] MEDS: IPRATROPIUM-ALBUTEROL 3 ML NEB INHALATION SCH ×4 (07:44→20:04)
--- NOTE | 2020-10-20 08:42 | XR ---
EXAMINATION TYPE: XR chest 1V portable DATE OF EXAM: 10/20/2020 COMPARISON: Chest x-ray 10/19/2020 HISTORY: Congestive heart failure TECHNIQUE: Single frontal view of the chest is obtained. FINDINGS: Perihilar vascular indistinctness, abnormal increased attenuation present greater the lung bases. No evident pneumothorax. There is blunting the right costophrenic angle. Cardiac mediastinal silhouette shows a similar appearance, aorta is dense. There are overlying leads. There is interval i mproved aeration, improvement visualization of left hemidiaphragm. IMPRESSION: Findings consistent with congestive heart failure, probable associated effusion. Suspect some interval improvement in aeration.
[2020-10-20] MEDS: FUROSEMIDE 10 MG/ML 4 ML VIAL IV SCH (08:44)
[2020-10-20] MEDS: METOPROLOL TARTRATE 12.5 MG TAB PO SCH ×2 (08:44→20:36)
[2020-10-20] MEDS: DOXYCYCLINE 100 MG CAP PO SCH (08:45)
--- NOTE | 2020-10-20 10:51 | P.PN ---
Subjective Progress Note Date: 10/20/20 Principal diagnosis: Unresponsiveness This is a 59-year-old white male with history of hypertension, chronic atrial fibrillation, patient is primarily a patient of Dr. Cervantes, patient was found unresponsive. EMS arrived to the scene patient was bradycardic, unresponsive and his heart rate was in the 30s. Attempted transcutaneous pacing, given atropine, given Narcan and brought into the ER. There was no change in his condition. Upon arrival to the ER, patient was found to be hypothermic, chest x-ray showed pulmonary edema cannot rule out underlying pneumonia. Patient was placed on a nonrebreather mask initially and later transitioned to BiPAP. Labs showed evidence of elevated BNP consistent with a picture of acute pulmonary edema his urine drug screen was negative. Lactic acid was elevated at 4.3. BUN was 63 and creatinine 4.38 consistent with acute kidney injury. D-dimer was 0.6. WBC count 16.5. CT of the head showed cerebral atrophy and right maxillary sinusitis. Patient was placed empirically on antibiotics which I have changed to Zosyn and discontinued his vancomycin and cefepime. A shunt was also noted to be hyperkalemic secondary to his acute kidney injury and his troponin was significantly elevated consistent with non-ST elevation myocardial infarction hence the patient was started on heparin and given aspirin. I saw the patient in the ER, and I had a long discussion with the patient about his condition, patient was noted to be in atrial fibrillation with RVR, and that is being addressed by cardiology on the case. Patient clearly requested that he has DO NOT RESUSCITATE CODE STATUS,, and according to the other physician's note patient even refused treatment of his atrial fibrillation with RVR. During my evaluation, patient was on BiPAP with IPAP of 12 and EPAP of 6 and on 70% FiO2, he was also on heparin drip. Based on the clinical history, his shortness of breath was relatively acute, it started around 2 AM few hours before the patient was brought into the ER unresponsive and bradycardic. Denied any symptoms to suggest ongoing pneumonia prior to this presentation that is no cough no fever no chills no hemoptysis but he did have some vague chest discomfort prior to all of this. On 10/20/2020 patient seen in follow-up in the intensive care unit, on today's exam he is awake and alert, in no acute distress, he is answering questions appropriately, breathing after we, he is on 2 L of oxygen, with a pulse ox of 93%, he did not wear BiPAP last night however based on patient's history and presentation he could benefit from BiPAP support at bedtime, he is currently on 0.9 normal saline at a rate of 20 and her per hour, and heparin drip per weight- based protocol, no complaints of chest discomfort, no cough or hemoptysis, his been afebrile, he is in A. fib and the rate is still tachycardic ranging from 91-124 BPM, cardiology is following, and patient is currently on October All 12.5 mg twice daily. She did receive 1 dose of IV Lasix yesterday per nephrology, has diuresed in the last 24 hours he is in -1.7 NET fluid balance. Today's chest x- ray shows perihilar vascular indistinctness, blunting of the right costophrenic angle, interval improved aeration and improved visualization of the left hemidiaphragm. Today's labs have been reviewed, there is improvement in patient's white blood cell count and it is down to 11.500 today's labs, hemoglobin is 11.8, sodium is 140, potassium is 4.8, chloride is 109, CO2 is 18, BUN of 92, and creatinine is 4.9. Patient remains on empiric antibiotics in the form of Zosyn for possibility of pneumonia. His blood culture showed coagulase negative staph likely related to contamination, patient has been afebrile. Objective - Vital Signs Vital signs: Vital Signs Temp 98.2 F 10/20/20 08:00 Pulse 91 10/20/20 10:00 Resp 13 10/20/20 10:00 BP 116/74 10/20/20 10:00 Pulse Ox 93 L 10/20/20 10:00 Intake & Output 10/19/20 10/20/20 10/20/20 18:59 06:59 18:59 Intake Total 201.672 140 80 Output Total 950 1145 310 Balance -748.328 -1005 -230 Weight 79.7 kg Intake: IV 140 80 KVO 140 80 Intake, IV Titration 201.672 Amount Heparin Sod,Pork in 0.45% 201.672 NaCl 25,000 unit In 0.45 % NaCl 1 250ml.bag @ 12 UNITS/KG/HR 9.634 mls/hr IV .Q24H [facility] Rx#: [id number] Output: Urine 950 1145 310 Other: Voiding Method Indwelling Catheter Indwelling Catheter - Exam GENERAL EXAM: Alert, very pleasant, 59-year-old white male, on 93 L of oxygen and a pulse ox of 93-96%, comfortable in no apparent distress. HEAD: Normocephalic/atraumatic. EYES: Normal reaction of pupils, equal size. Conjunctiva pink, sclera white. NOSE: Clear with pink turbinates. THROAT: No erythema or exudates. NECK: No masses, no JVD, no thyroid enlargement, no adenopathy. CHEST: No chest wall deformity. Symmetrical expansion. LUNGS: Equal air entry with diminished breath sounds at the bases, with a few scattered rales CVS: Irregular rate and rhythm, normal S1 and S2, no gallops, no murmurs, no rubs ABDOMEN: Soft, nontender. No hepatosplenomegaly, normal bowel sounds, no guarding or rigidity. EXTREMITIES: No clubbing, no edema, no cyanosis, 2+ pulses and upper and lower extremities. MUSCULOSKELETAL: Muscle strength and tone normal. SPINE: No scoliosis or deformity SKIN: No rashes CENTRAL NERVOUS SYSTEM: Alert and oriented -3. No focal deficits, tone is normal in all 4 extremities. PSYCHIATRIC: Alert and oriented -3. Appropriate affect. Intact judgment and insight. - Labs CBC & Chem 7: 10/20/20 03:16 10/20/20 03:16 Labs: Abnormal Lab Results - Last 24 Hours (Table) 10/19/20 10/19/20 10/20/20 Range/Units 03:47 21:13 03:16 WBC 11.5 H (3.8-10.6) k/uL RBC 3.70 L (4.30-5.90) m/uL Hgb 11.8 L (13.0-17.5) gm/dL Hct 35.2 L (39.0-53.0) % APTT (22.0-30.0) sec Chloride (98-107) mmol/L Carbon Dioxide (22-30) mmol/L BUN (9-20) mg/dL Creatinine (0.66-1.25) mg/dL Glucose (74-99) mg/dL POC Glucose (mg/dL) 192 H (75-99) mg/dL Phosphorus (2.5-4.5) mg/dL Magnesium (1.6-2.3) mg/dL Procalcitonin 3.51 H (0.02-0.09) ng/mL 10/20/20 10/20/20 10/20/20 Range/Units 03:16 03:16 06:43 WBC (3.8-10.6) k/uL RBC (4.30-5.90) m/uL Hgb (13.0-17.5) gm/dL Hct (39.0-53.0) % APTT 44.8 H (22.0-30.0) sec Chloride 109 H (98-107) mmol/L Carbon Dioxide 18 L (22-30) mmol/L BUN 92 H (9-20) mg/dL Creatinine 4.90 H (0.66-1.25) mg/dL Glucose 166 H (74-99) mg/dL POC Glucose (mg/dL) 165 H (75-99) mg/dL Phosphorus 6.0 H (2.5-4.5) mg/dL Magnesium 3.1 H (1.6-2.3) mg/dL Procalcitonin (0.02-0.09) ng/mL Microbiology - Last 24 Hours (Table) 10/18/20 14:49 Blood Culture Gram Stain - Preliminary Blood Blood Culture - Preliminary Coagulase Negative Staph 10/18/20 14:49 Blood Culture - Final Blood Assessment and Plan Plan: Assessment: #1. Acute hypoxic respiratory failure secondary to acute pulmonary edema and non-ST elevated myocardial infarction, with elevated troponin and elevated BNP level #2. Suspect aspiration pneumonia, patient is currently covered with Zosyn #3. Altered level of consciousness, likely related to pneumonia with sepsis, and his mentation has improved. Brain CT showed no acute intracranial findings, but did show right maxillary sinusitis, and cerebral cortical atrophy #4. Acute kidney injury related to acute tubular necrosis #5. Hypothermia, could be related to pneumonia and sepsis, and could be related acute myocardial infarction, TSH level was within normal limits, no serum cortisol is available, currently patient is normothermic #6. History of benign essential hypertension #7. Suspect underlying COPD, with the possibility of acute exacerbation of COPD #8. Shock liver secondary to hypoperfusion #9. Acute hyperkalemia related to acute kidney injury, improving Plan: Patient is currently on 2-3 L of supplemental oxygen Use BiPAP support at bedtime Continue current antibiotics Hemodynamically stable Rate control medications and anticoagulation per cardiology Continue prednisone Stable for transfer out of intensive care unit today to [facility] care I performed a history & physical examination of the patient and discussed their management with my nurse practitioner, Rhoda Romero. I reviewed the nurse practitioner's note and agree with the documented findings and plan of care. Lung sounds are positive for diminished breath sounds with mild wheezing, and bibasilar crackles. The findings and the impression was discussed with the patient. I attest to the documentation by the nurse practitioner. Time with Patient: Greater than 30
--- NOTE | 2020-10-20 10:52 | PN ---
PROGRESS NOTE Patient is seen for followup for renal failure, most likely acute on top of chronic. We do not have any previous labs available for comparison. The patient was admitted to the hospital with dyspnea, hypoxic respiratory failure, serum creatinine 4.38 on admission. His chest x-ray showed evidence of CHF. Patient has been diuresed. His creatinine is up to 4.9. He is, however, off of BiPAP and feeling better. Currently maintained on 3 L nasal cannula. The patient has a Gann catheter, 24-hour urine output of about 2.0 L. Blood pressure has not been low systolic around 120 to 130. There is one reading of 95 mmHg early this morning. The patient denies any prior history of kidney diseases. PHYSICAL EXAMINATION: On examination today, blood pressure is 124/84, heart rate 124 per minute. He is afebrile. EXAMINATION OF THE HEART: S1, S2. EXAMINATION OF THE LUNGS: Bilateral breath sounds are heard. Decreased breath sounds at bases. No crackles or wheezing is heard. Abdomen is soft, nontender. Examination of lower extremities shows trace edema bilaterally. [employer] exam grossly intact. LABS: Labs show sodium 140, potassium 4.8, chloride 109, CO2 is 18, BUN 92, creatinine 4.9, hemoglobin 11.8 g/dL. Albumin 3.4. Random vancomycin level 10.6. Blood cultures grew coagulase-negative Staph. ASSESSMENT: 1. Acute kidney injury, acute tubular necrosis/cardiorenal. There were a couple of episodes of hypotension noted. The patient has been maintained on IV Lasix since yesterday. I will decrease it to once a day today. We will call Dr. Cervantes's office who is his PCP for his previous labs and baseline renal function. UA shows evidence of protein and trace blood. Ultrasound of the kidneys will be ordered as well. 2. Possible underlying chronic kidney disease secondary to nephrosclerosis. 3. Gram-positive bacteremia. Will await further cultures and susceptibility. PLAN: Check ultrasound of the kidneys and obtain previous labs from Dr. Cervantes's office. Repeat labs in a.m. Decrease Lasix to once a day. MMODL / IJN: [id number] /
[2020-10-20] MEDS: ASPIRIN 81 MG PO SCH (11:20)
--- NOTE | 2020-10-20 12:00 | P.PN ---
Subjective Progress Note Date: 10/20/20 HISTORY OF PRESENT ILLNESS: This is a pleasant 59-year-old with past medical history significant for stroke 1 year ago, hypertension, hyperlipidemia who presents after being found u nresponsive. Patient states that he does not recall any of the events that got him to the hospital. He states he remembered being near his friend and then woke up in the ambulance confused. Was found by his friend unresponsive and therefore called EMS. Patient was minimally responsive for EMS with sinus bradycardia, heart rates in the 30s and therefore they started transcutaneously pacing him and was also given Versed to help with sedation during pacing and also given atropine 0.5 mg IV. When patient arrived to emergency department he was minimally responsive, blood glucose was in the 150s, he was given IV Narcan without much change. He was noted to be mildly hypothermic and was rewarmed. Patient then became much more responsive and denied any chest pain, pressure, mildly short of breath. Patient states he had been feeling fairly well last few days, no recent fevers, chills, cough. Patient had extensive workup in the emergency department with white blood cell count 16.5, hemoglobin 12.3, d-dimer 0.6, potassium 6.9, BUN 63, creatinine 4.3, lactic acid 4.3, magnesium 3.4, troponin 15.4, 20.3, 17.4, AST 302, ALT 324, curtis virus not detected, urine drug screen negative. Brain CT showed cerebral atrophy, white matter hypodensity in the right thalamus and right internal cap calixto consistent with chronic small vessel ischemia, no hemorrhage. Chest x-ray showed diffuse bilateral infiltrates with pleural effusion correlate for pneumonia versus pulmonary edema. Patient was noted to go into atrial fibrillation in the emergency department and apparently had been refusing tr eatment for this. He is concerned about his medical bills. He was seen by nephrology. His blood pressure has been predominantly well-controlled. He denies any recent NSAID use. He is currently on BiPAP. He has had minimal urine output. He was given IV Lasix earlier today. Potassium is improved today at 4.9, creatinine 4.68, AST and ALT elevated, pro-BMP 32,000, pro-calcitonin 3.5 blood culture 1 of 2 is positive for coag-negative staph. EKG on admission shows normal sinus rhythm, Q waves V1 through V3, somewhat biphasic T waves V4 through V5. 10/20/2020 Patient examined this morning in the ICU. Patient remains in atrial fibrillation with controlled ventricular rates. He remains on IV heparin. Creatinine continues to increase. Creatinine 4.90 today. He remains on IV lasix 40mg daily per nephrology. PHYSICAL EXAM: VITAL SIGNS: Reviewed. GENERAL: Well-developed in no acute distress. NECK: Supple. No JVD or thyromegaly LUNGS: Respirations even and unlabored. Lungs diminished bilaterally. HEART: Irregular rate and rhythm. S1 and S2 heard. EXTREMITIES: Normal range of motion. No clubbing or cyanosis. Peripheral pulses intact. No lower extremity edema ASSESSMENT: 1. Non-STEMI 2. Syncope, unclear presentation however patient found unresponsive with heart rates in the 30s. May be related to hyperkalemia. 3. Bradycardia on presentation, unclear if this is related to hyperkalemia 4. Acute kidney injury, unclear baseline 5. History of stroke per patient 6. New-onset paroxysmal atrial fibrillation 7. Acute on chronic heart failure, unclear systolic or diastolic likely exacerbated by acute renal failure 8. Elevated liver enzymes, rule out hepatic congestion 9. Bilateral infiltrates on x-ray, rule out congestion versus pneumonia. Pro- calcitonin noted to be elevated 10. Ischemic cardiomyopathy PLAN: Continue IV heparin for today Continue telemetry monitoring Begin low dose beta marjan. Increase as tolerated Continue IV lasix per nephrology Monitor kidney function Begin aspirin 81mg daily Statin on hold secondary to LFTs CHAPARRO/ARB on hold due to acute renal failure Patient will require cardiac catheterization when he is medically stable Further recommendations pending patient's course Nurse practitioner note has been reviewed by physician. Signing provider agrees with the documented findings, assessment, and plan of care. Objective - Vital Signs Vital signs: Vital Signs Temp 98.2 F 10/20/20 08:00 Pulse 94 10/20/20 11:49 Resp 13 10/20/20 10:00 BP 116/74 10/20/20 10:00 Pulse Ox 93 L 10/20/20 10:00 Intake & Output 10/19/20 10/20/20 10/20/20 18:59 06:59 18:59 Intake Total 201.672 140 80 Output Total 950 1145 310 Balance -748.328 -1005 -230 Weight 79.7 kg Intake: IV 140 80 KVO 140 80 Intake, IV Titration 201.672 Amount Heparin Sod,Pork in 0.45% 201.672 NaCl 25,000 unit In 0.45 % NaCl 1 250ml.bag @ 12 UNITS/KG/HR 9.634 mls/hr IV .Q24H [facility] Rx#: [id number] Output: Urine 950 1145 310 Other: Voiding Method Indwelling Catheter Indwelling Catheter - Labs CBC & Chem 7: 10/20/20 03:16 10/20/20 03:16 Labs: Abnormal Lab Results - Last 24 Hours (Table) 10/19/20 10/19/20 10/20/20 Range/Units 03:47 21:13 03:16 WBC 11.5 H (3.8-10.6) k/uL RBC 3.70 L (4.30-5.90) m/uL Hgb 11.8 L (13.0-17.5) gm/dL Hct 35.2 L (39.0-53.0) % APTT (22.0-30.0) sec Chloride (98-107) mmol/L Carbon Dioxide (22-30) mmol/L BUN (9-20) mg/dL Creatinine (0.66-1.25) mg/dL Glucose (74-99) mg/dL POC Glucose (mg/dL) 192 H (75-99) mg/dL Phosphorus (2.5-4.5) mg/dL Magnesium (1.6-2.3) mg/dL Procalcitonin 3.51 H (0.02-0.09) ng/mL 10/20/20 10/20/20 10/20/20 Range/Units 03:16 03:16 06:43 WBC (3.8-10.6) k/uL RBC (4.30-5.90) m/uL Hgb (13.0-17.5) gm/dL Hct (39.0-53.0) % APTT 44.8 H (22.0-30.0) sec Chloride 109 H (98-107) mmol/L Carbon Dioxide 18 L (22-30) mmol/L BUN 92 H (9-20) mg/dL Creatinine 4.90 H (0.66-1.25) mg/dL Glucose 166 H (74-99) mg/dL POC Glucose (mg/dL) 165 H (75-99) mg/dL Phosphorus 6.0 H (2.5-4.5) mg/dL Magnesium 3.1 H (1.6-2.3) mg/dL Procalcitonin (0.02-0.09) ng/mL Microbiology - Last 24 Hours (Table) 10/18/20 14:49 Blood Culture Gram Stain - Preliminary Blood Blood Culture - Preliminary Coagulase Negative Staph 10/18/20 14:49 Blood Culture - Final Blood
--- NOTE | 2020-10-20 12:19 | ECHOF ---
Referral Reason:elevated troponin MEASUREMENTS -------- HEIGHT: 170.2 cm WEIGHT: 79.4 kg BP: 119/79 RVIDd: 2.0 cm (< 3.3) IVSd: 1.3 cm (0.6 - 1.1) LVIDd: 4.4 cm (3.9 - 5.3) LVPWd: 1.5 cm (0.6 - 1.1) IVSs: 1.4 cm LVIDs: 3.6 cm LVPWs: 2.2 cm Ao Diam: 2.7 cm (2.0 - 3.7) AV Cusp: 1.6 cm (1.5 - 2.6) LA Diam: 3.9 cm (2.7 - 3.8) MV EXCURSION: 19.783 mm (> 18.000) MV EF SLOPE: 138 mm/s (70 - 150) EPSS: 0.7 cm RAP: 5.00 mmHg RVSP: 11.42 mmHg FINDINGS -------- This was a technically difficult study with suboptimal views. The left ventricular size is normal. There is moderate concentric left ventricular hypertrophy. O verall left ventricular systolic function is severely impaired with, an EF between 20 - 25 %. Basal Segment Prasad only. Consider TAKATSUBO/apical ballooning syndrome The right ventricle is normal in size. The left atrial size is normal. The right atrial size is normal. xx ml of Lumason was utilized for enhancement of images. The aortic valve is trileaflet and appears structurally normal. The mitral valve is normal. There is trace mitral regurgitation. The tricuspid valve appears structurally normal. Trace tricuspid regurgitation present. Right yanni tricular systolic pressure is normal at < 35 mmHg. There is no pulmonic regurgitation present. The aortic root size is normal. Normal inferior vena cava with normal inspiratory collapse consistent with estimated right atrial pre ssure of 5 mmHg. There is no pericardial effusion. CONCLUSIONS -------- 1. The left ventricular size is normal. 2. There is moderate concentric left ventricular hypertrophy. 3. Overall left ventricular systolic function is severely impaired with, an EF between 20 - 25 %. 4. Basal Segment Prasad only. 5. There is trace mitral regurgitation. 6. Trace tricuspid regurgitation present. 7. There is no pericardial effusion. CERTIFIED SUBSTANCE ABUSE COUNSELOR: Nona Joseph RDCS
[2020-10-20 13:00] LABS: Glucose,Whole Blood 280 mg/dL (75-99)
--- NOTE | 2020-10-20 16:09 | P.PN ---
Subjective 68-year-old the male came in unresponsive found to be bradycardic with heart rates in 30s and the patient is found to have renal failure with highly elevated potassium which is believed to be responsible for his bradycardia. Patient also has elevated troponins patient is on heparin drip. Cardiology is following the patient. Patient baseline creatinine is not available at this time. Patient is also being treated for aspiration pneumonia with Zosyn. Patient has blood cultures that were positive for coag is negative staph which is a contamination. Patient does have leukocytosis doesn't have any fever. Patient had an echo cardiac exam which showed ejection fraction of 20-25% and takatsubo syndrome. Patient chest x-ray showing pulmonary edema patient is on IV Lasix at this time in patient does have some proteinuria concern for chronic kidney disease unable to stage at this time. She is also being treated for non-ST elevation micro infarction with the heparin drip patient the troponin went up to as high as 20. Patient doesn't want any further intervention for this doesn't want cardiac catheterization. Constitutional: Denied any fatigue denied any fever. Cardio vascular: denied any chest pain, palpitations Gastrointestinal denied any nausea vomiting Pulmonary: Denied any shortness of breath cough Neurologic denied any new focal deficits All inpatient medications were reviewed and appropriate changes in these medications as dictated in the interval history and assessment and plan. Objective - Vital Signs Vital signs: Vital Signs Temp 98.2 F 10/20/20 08:00 Pulse 92 10/20/20 15:43 Resp 18 10/20/20 12:00 BP 123/66 10/20/20 12:00 Pulse Ox 94 L 10/20/20 12:00 Intake & Output 10/19/20 10/20/20 10/20/20 18:59 06:59 18:59 Intake Total 201.672 140 80 Output Total 950 1145 310 Balance -748.328 -1005 -230 Weight 79.7 kg Intake: IV 140 80 KVO 140 80 Intake, IV Titration 201.672 Amount Heparin Sod,Pork in 0.45% 201.672 NaCl 25,000 unit In 0.45 % NaCl 1 250ml.bag @ 12 UNITS/KG/HR 9.634 mls/hr IV .Q24H [facility] Rx#: [id number] Output: Urine 950 1145 310 Other: Voiding Method Indwelling Catheter Indwelling Catheter - Exam PHYSICAL EXAMINATION: GENERAL: The patient is alert and oriented x3, not in any acute distress. Well developed, well nourished. HEENT: Pupils are round and equally reacting to light. EOMI. No scleral icterus. No conjunctival pallor. Normocephalic, atraumatic. No pharyngeal erythema. No thyromegaly. CARDIOVASCULAR: S1 and S2 present. No murmurs, rubs, or gallops. PULMONARY: Chest is clear to auscultation, no wheezing or crackles. ABDOMEN: Soft, nontender, nondistended, normoactive bowel sounds. No palpable organomegaly. MUSCULOSKELETAL: No joint swelling or deformity. EXTREMITIES: No cyanosis, clubbing, does have bilateral pitting pedal edema NEUROLOGICAL: Gross neurological examination did not reveal any focal deficits. SKIN: No rashes. - Labs CBC & Chem 7: 10/20/20 03:16 10/20/20 03:16 Labs: Abnormal Lab Results - Last 24 Hours (Table) 10/19/20 10/20/20 10/20/20 Range/Units 21:13 03:16 03:16 WBC 11.5 H (3.8-10.6) k/uL RBC 3.70 L (4.30-5.90) m/uL Hgb 11.8 L (13.0-17.5) gm/dL Hct 35.2 L (39.0-53.0) % APTT (22.0-30.0) sec Chloride 109 H (98-107) mmol/L Carbon Dioxide 18 L (22-30) mmol/L BUN 92 H (9-20) mg/dL Creatinine 4.90 H (0.66-1.25) mg/dL Glucose 166 H (74-99) mg/dL POC Glucose (mg/dL) 192 H (75-99) mg/dL Phosphorus 6.0 H (2.5-4.5) mg/dL Magnesium 3.1 H (1.6-2.3) mg/dL 10/20/20 10/20/20 10/20/20 Range/Units 03:16 06:43 12:58 WBC (3.8-10.6) k/uL RBC (4.30-5.90) m/uL Hgb (13.0-17.5) gm/dL Hct (39.0-53.0) % APTT 44.8 H (22.0-30.0) sec Chloride (98-107) mmol/L Carbon Dioxide (22-30) mmol/L BUN (9-20) mg/dL Creatinine (0.66-1.25) mg/dL Glucose (74-99) mg/dL POC Glucose (mg/dL) 165 H 280 H (75-99) mg/dL Phosphorus (2.5-4.5) mg/dL Magnesium (1.6-2.3) mg/dL Microbiology - Last 24 Hours (Table) 10/18/20 14:49 Blood Culture Gram Stain - Preliminary Blood Blood Culture - Preliminary Coagulase Negative Staph 10/18/20 14:49 Blood Culture - Final Blood Assessment and Plan Plan: -Acute hypoxic respiratory failure: Secondary to congestive heart failure with systolic dysfunction with acute exacerbation. Patient systolic dysfunction is probably secondary to takatsubo syndrome. Patient is being can you done IV Lasix at this time. -Elevated troponins with possibly of non-ST elevation myocardial infarction and troponin elevation can be secondary to stress-induced cardiomyopathy. Patient doesn't want any cardiac catheterization and stenting at this time and patient is presently on heparin aspirin and Lipitor -Renal failure with possibly acute tubular necrosis or cardiorenal syndrome patient is being continued on IV Lasix. Monitor kidney function nephrology is following the patient possibly of chronic kidney disease cannot stage C Lorena as baseline creatinine is unknown. Patient does have some proteinuria -Possible aspiration pneumonia for which patient is on Zosyn which will be continued swelling culture is pending -Hypertension -Elevated liver enzymes her transaminitis secondary to hepatic congestion -Bradycardia probably secondary to hyperkalemia which is again from renal dysfunction. -Metabolic encephalopathy which improved
--- NOTE | 2020-10-20 16:30 | US ---
EXAMINATION TYPE: US kidneys/renal and bladder DATE OF EXAM: 10/20/2020 COMPARISON: NONE CLINICAL HISTORY: RF. Exam done portable. EXAM MEASUREMENTS: Right Kidney: 9.3 x 4.9 x 4.0 cm Left Kidney: 9.5 x 6.3 x 5.7 cm Right Kidney: No hydronephrosis or masses seen Left Kidney: No hydronephrosis or masses seen Bladder: Gann catheter There is no evidence for hydronephrosis at this point in time. No nephrolithiasis is seen. No shanon s are identified. The urinary bladder is anechoic. There is a Gann catheter within urinary bladder. IMPRESSION: 1. No hydronephrosis or shadowing renal calculi. There is a Gann catheter within the urinary bladder .
[2020-10-20 16:45] LABS: Glucose,Whole Blood 217 mg/dL (75-99)
[2020-10-20] MEDS: HEPARIN SOD,PORK IN 0.45% NACL 25,000 UNIT in 0.45% NACL 1 250ML.BAG IV SCH (16:56)
[2020-10-20 20:18] LABS: Glucose,Whole Blood 268 mg/dL (75-99)
[2020-10-20 21:44] VITALS: RESP 18
[2020-10-21] MEDS: PIPERACILLIN-TAZOBACTAM 3.375 GM in SODIUM CHLORIDE 0.9% 100 ML IVPB SCH ×2 (00:25→13:18)
[2020-10-21 06:09] LABS: Glucose,Whole Blood 191 mg/dL (75-99)
[2020-10-21] MEDS: INSULIN ASPART (NovoLOG) 100 UNIT/ML VIAL SQ SCH ×4 (06:30→20:51)
[2020-10-21] MEDS: IPRATROPIUM-ALBUTEROL 3 ML NEB INHALATION SCH ×4 (07:23→19:55)
[2020-10-21] MEDS ORDERED: FUROSEMIDE 10 MG/ML 4 ML VIAL IV SCH (09:00)
[2020-10-21] MEDS: METOPROLOL TARTRATE 12.5 MG TAB PO SCH (09:48)
[2020-10-21] MEDS: ASPIRIN 81 MG PO SCH (09:48)
[2020-10-21 09:49] LABS: Calcium 8.5 mg/dL (8.4-10.2); Potassium 4.3 mmol/L (3.5-5.1)
[2020-10-21] MEDS: predniSONE 10 MG TAB PO SCH (09:49)
--- NOTE | 2020-10-21 11:35 | P.PN ---
Subjective Progress Note Date: 10/21/20 HISTORY OF PRESENT ILLNESS: This is a pleasant 59-year-old with past medical history significant for stroke 1 year ago, hypertension, hyperlipidemia who presents after being found u nresponsive. Patient states that he does not recall any of the events that got him to the hospital. He states he remembered being near his friend and then woke up in the ambulance confused. Was found by his friend unresponsive and therefore called EMS. Patient was minimally responsive for EMS with sinus bradycardia, heart rates in the 30s and therefore they started transcutaneously pacing him and was also given Versed to help with sedation during pacing and also given atropine 0.5 mg IV. When patient arrived to emergency department he was minimally responsive, blood glucose was in the 150s, he was given IV Narcan without much change. He was noted to be mildly hypothermic and was rewarmed. Patient then became much more responsive and denied any chest pain, pressure, mildly short of breath. Patient states he had been feeling fairly well last few days, no recent fevers, chills, cough. Patient had extensive workup in the emergency department with white blood cell count 16.5, hemoglobin 12.3, d-dimer 0.6, potassium 6.9, BUN 63, creatinine 4.3, lactic acid 4.3, magnesium 3.4, troponin 15.4, 20.3, 17.4, AST 302, ALT 324, curtis virus not detected, urine drug screen negative. Brain CT showed cerebral atrophy, white matter hypodensity in the right thalamus and right internal cap calixto consistent with chronic small vessel ischemia, no hemorrhage. Chest x-ray showed diffuse bilateral infiltrates with pleural effusion correlate for pneumonia versus pulmonary edema. Patient was noted to go into atrial fibrillation in the emergency department and apparently had been refusing tr eatment for this. He is concerned about his medical bills. He was seen by nephrology. His blood pressure has been predominantly well-controlled. He denies any recent NSAID use. He is currently on BiPAP. He has had minimal urine output. He was given IV Lasix earlier today. Potassium is improved today at 4.9, creatinine 4.68, AST and ALT elevated, pro-BMP 32,000, pro-calcitonin 3.5 blood culture 1 of 2 is positive for coag-negative staph. EKG on admission shows normal sinus rhythm, Q waves V1 through V3, somewhat biphasic T waves V4 through V5. 10/20/2020 Patient examined this morning in the ICU. Patient remains in atrial fibrillation with controlled ventricular rates. He remains on IV heparin. Creatinine continues to increase. Creatinine 4.90 today. He remains on IV lasix 40mg daily per nephrology. 10/21/2020 Patient examined this morning. He has been transferred to . He is in sinus mechanism this morning. He remains on IV heparin. Creatinine 4.99. He remains on IV lasix 40mg daily per nephrology. PHYSICAL EXAM: VITAL SIGNS: Reviewed. GENERAL: Well-developed in no acute distress. NECK: Supple. No JVD or thyromegaly LUNGS: Respirations even and unlabored. Lungs diminished bilaterally. HEART: Regular rate and rhythm. S1 and S2 heard. EXTREMITIES: Normal range of motion. No clubbing or cyanosis. Peripheral pulses intact. No lower extremity edema ASSESSMENT: 1. Non-STEMI 2. Syncope, unclear presentation however patient found unresponsive with heart rates in the 30s. May be related to hyperkalemia. 3. Bradycardia on presentation, unclear if this is related to hyperkalemia, resolved 4. Acute kidney injury, unclear baseline 5. History of stroke per patient 6. New-onset paroxysmal atrial fibrillation 7. Acute on chronic heart failure, unclear systolic or diastolic likely exacerbated by acute renal failure 8. Elevated liver enzymes, rule out hepatic congestion 9. Bilateral infiltrates on x-ray, rule out congestion versus pneumonia. Pro- calcitonin noted to be elevated 10. Ischemic cardiomyopathy PLAN: Continue IV heparin. Begin Coumadin per pharmacy dosing. Continue telemetry monitoring Increase metoprolol to 25mg BID Continue IV lasix per nephrology Monitor kidney function Continue aspirin 81mg daily Statin on hold secondary to LFTs CHAPARRO/ARB on hold due to acute renal failure Patient will require cardiac catheterization when he is medically stable Further recommendations pending patient's course Nurse practitioner note has been reviewed by physician. Signing provider agrees with the documented findings, assessment, and plan of care. Objective - Vital Signs Vital signs: Vital Signs Temp 97.9 F 10/21/20 04:00 Pulse 94 10/21/20 07:36 Resp 18 10/21/20 04:00 BP 118/62 10/21/20 04:00 Pulse Ox 95 10/21/20 04:00 Intake & Output 10/20/20 10/21/20 10/21/20 18:59 06:59 18:59 Intake Total 970 20 404.581 Output Total 1385 700 Balance -415 -680 404.581 Weight 75.6 kg Intake: IV 140 20 Invasive Line 3 20 KVO 80 heparin 60 Intake, IV Titration 350 164.581 Amount Heparin Sod,Pork in 0.45% 250 164.581 NaCl 25,000 unit In 0.45 % NaCl 1 250ml.bag @ 12 UNITS/KG/HR 9.634 mls/hr IV .Q24H [facility] Rx#: [id number] Piperacillin-Tazobactam 3 100 .375 gm In Sodium Chloride 0.9% 100 ml @ 25 mls/hr IVPB Q12HR@0000, 1200 [facility] Rx#:[id number] Oral 480 240 Output: Urine 1385 700 Uretheral (Gann) 300 Other: Voiding Method Indwelling Catheter Urinal # Voids 1 - Labs CBC & Chem 7: 10/20/20 03:16 10/21/20 07:30 Labs: Abnormal Lab Results - Last 24 Hours (Table) 10/20/20 10/20/20 10/20/20 Range/Units 12:58 16:43 20:12 APTT (22.0-30.0) sec Chloride (98-107) mmol/L Carbon Dioxide (22-30) mmol/L BUN (9-20) mg/dL Creatinine (0.66-1.25) mg/dL Glucose (74-99) mg/dL POC Glucose (mg/dL) 280 H 217 H 268 H (75-99) mg/dL 10/21/20 10/21/20 10/21/20 Range/Units 06:05 07:30 07:30 APTT 39.6 H (22.0-30.0) sec Chloride 109 H (98-107) mmol/L Carbon Dioxide 21 L (22-30) mmol/L BUN 100 H (9-20) mg/dL Creatinine 4.99 H (0.66-1.25) mg/dL Glucose 141 H (74-99) mg/dL POC Glucose (mg/dL) 191 H (75-99) mg/dL Microbiology - Last 24 Hours (Table) 10/18/20 14:49 Blood Culture Gram Stain - Final Blood Blood Culture - Final Coagulase Negative Staph Coagulase Negative Staph#2
--- NOTE | 2020-10-21 11:44 | PN ---
PROGRESS NOTE Patient is seen for followup for chronic kidney disease/acute kidney injury. The patient is being diuresed. His creatinine has increased further to 4.9. He denies any chest pains or shortness of breath. Lasix was decreased yesterday to once a day. I will discontinue the Lasix for now. We still do not have his previous labs available for comparison. Urine output for 24 hours was about 2 L. PHYSICAL EXAMINATION: On examination today, blood pressure was 130/66, heart rate 80 per minute. Patient is afebrile. EXAMINATION OF THE HEART: S1, S2. EXAMINATION OF THE LUNGS: Bilateral breath sounds are heard. Abdomen is soft, nontender. Examination lower extremities shows no significant edema. 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 LABS: Labs show sodium of 142, potassium 4.3, chloride 109, CO2 is 21, BUN 100, creatinine 4.9. ASSESSMENT: 1. Acute kidney injury component of cardiorenal acute kidney injury as well, status post diuresis. Lasix was decreased yesterday I will discontinue the Lasix for now. Ultrasound is unremarkable. We still trying to obtain previous labs for comparison of renal function. His ejection fraction is 20% to 25% on echocardiogram this admission. 2. Cardiomyopathy, ejection fraction 20% to 25%. 3. Congestive heart failure, acute on top of chronic, mostly systolic. 4. Gram-positive bacteremia. Blood culture grew coagulase-negative Staph, most likely contaminant. Patient was on vancomycin which is now discontinued. 5. Non ST elevation myocardial infarction. 6. New onset paroxysmal atrial fibrillation. 7. Bradycardia on initial admission. 8. Hyperkalemia associated with acute kidney injury on initial admission, currently improved. PLAN: Hold Lasix. Consider adding dobutamine. However, patient's volume status has currently improved. Therefore, we could hold off on the dobutamine at least for now. Repeat labs in a.m. and try to obtain old labs to establish patient's baseline renal function. MMODL / IJN: [id number] /
[2020-10-21 11:50] LABS: Glucose,Whole Blood 162 mg/dL (75-99)
--- NOTE | 2020-10-21 13:37 | P.PN ---
Subjective Progress Note Date: 10/21/20 Principal diagnosis: Non-ST segment elevation myocardial infarction, renal failure. This is a 59-year-old white male with history of hypertension, chronic atrial fibrillation, patient is primarily a patient of Dr. Cervantes, patient was found unresponsive. EMS arrived to the scene patient was bradycardic, unresponsive and his heart rate was in the 30s. Attempted transcutaneous pacing, given atropine, given Narcan and brought into the ER. There was no change in his condition. Upon arrival to the ER, patient was found to be hypothermic, chest x-ray showed pulmonary edema cannot rule out underlying pneumonia. Patient was placed on a nonrebreather mask initially and later transitioned to BiPAP. Labs showed evidence of elevated BNP consistent with a picture of acute pulmonary edema his urine drug screen was negative. Lactic acid was elevated at 4.3. BUN was 63 and creatinine 4.38 consistent with acute kidney injury. D-dimer was 0.6. WBC count 16.5. CT of the head showed cerebral atrophy and right maxillary sinusitis. Patient was placed empirically on antibiotics which I have changed to Zosyn and discontinued his vancomycin and cefepime. A shunt was also noted to be hyperkalemic secondary to his acute kidney injury and his troponin was significantly elevated consistent with non-ST elevation myocardial infarction hence the patient was started on heparin and given aspirin. I saw the patient in the ER, and I had a long discussion with the patient about his condition, patient was noted to be in atrial fibrillation with RVR, and that is being addressed by cardiology on the case. Patient clearly requested that he has DO NOT RESUSCITATE CODE STATUS,, and according to the other physician's note patient even refused treatment of his atrial fibrillation with RVR. During my evaluation, patient was on BiPAP with IPAP of 12 and EPAP of 6 and on 70% FiO2, he was also on heparin drip. Based on the clinical history, his shortness of breath was relatively acute, it started around 2 AM few hours before the patient was brought into the ER unresponsive and bradycardic. Denied any symptoms to suggest ongoing pneumonia prior to this presentation that is no cough no fever no chills no hemoptysis but he did have some vague chest discomfort prior to all of this. On 10/20/2020 patient seen in follow-up in the intensive care unit, on today's exam he is awake and alert, in no acute distress, he is answering questions appropriately, breathing after we, he is on 2 L of oxygen, with a pulse ox of 93%, he did not wear BiPAP last night however based on patient's history and presentation he could benefit from BiPAP support at bedtime, he is currently on 0.9 normal saline at a rate of 20 and her per hour, and heparin drip per weight- based protocol, no complaints of chest discomfort, no cough or hemoptysis, his been afebrile, he is in A. fib and the rate is still tachycardic ranging from 91-124 BPM, cardiology is following, and patient is currently on October All 12.5 mg twice daily. She did receive 1 dose of IV Lasix yesterday per nephrology, has diuresed in the last 24 hours he is in -1.7 NET fluid balance. Today's chest x- ray shows perihilar vascular indistinctness, blunting of the right costophrenic angle, interval improved aeration and improved visualization of the left hemidiaphragm. Today's labs have been reviewed, there is improvement in patient's white blood cell count and it is down to 11.500 today's labs, hemoglobin is 11.8, sodium is 140, potassium is 4.8, chloride is 109, CO2 is 18, BUN of 92, and creatinine is 4.9. Patient remains on empiric antibiotics in the form of Zosyn for possibility of pneumonia. His blood culture showed coagulase negative staph likely related to contamination, patient has been afebrile. Progress note dated 10/21/2020. The patient is seen today on the general medical floor. He is in room 356. Yesterday, he was in the intensive care unit. The patient seemed be doing much better. Currently, temperature 97.3, heart rate 80, respiratory rate 18, pressure 130/66, and 2 L saturation is 94%. Lab data today includes a sodium 142, potassium 4.3, chlorides 109, CO2 21, anion gap 12, BUN 100 and creatinine 4.99. Blood cultures from October 18 show coag-negative staph. He remains on Zosyn as an antibiotic. In addition, the patient is going to be started on Coumadin per cardiology. Objective - Vital Signs Vital signs: Vital Signs Temp 97.3 F L 10/21/20 08:00 Pulse 80 10/21/20 08:00 Resp 18 10/21/20 08:00 BP 130/66 10/21/20 08:00 Pulse Ox 94 L 10/21/20 08:00 Intake & Output 10/20/20 10/21/20 10/21/20 18:59 06:59 18:59 Intake Total 970 20 414.581 Output Total 1385 700 Balance -415 -680 414.581 Weight 75.6 kg Intake: IV 140 20 10 Invasive Line 3 20 10 KVO 80 heparin 60 Intake, IV Titration 350 164.581 Amount Heparin Sod,Pork in 0.45% 250 164.581 NaCl 25,000 unit In 0.45 % NaCl 1 250ml.bag @ 12 UNITS/KG/HR 9.634 mls/hr IV .Q24H [facility] Rx#: [id number] Piperacillin-Tazobactam 3 100 .375 gm In Sodium Chloride 0.9% 100 ml @ 25 mls/hr IVPB Q12HR@0000, 1200 [facility] Rx#:[id number] Oral 480 240 Output: Urine 1385 700 Uretheral (Gann) 300 Other: Voiding Method Indwelling Catheter Urinal # Voids 1 - Exam No acute distress, oriented 3. Currently on 2 L nasal cannula, without conversational dyspnea or use of accessory muscles. HEENT examination is grossly unremarkable. Neck supple. Full range of motion. No adenopathy thyromegaly or neck vein distention. Cardiovascular examination reveals an irregular rhythm and rate. S1-S2 normal. No S3 or S4. No discernible murmur noted. Heart rate is 80 bpm. Heart sounds are distant. Lungs reveal mild bibasilar crackles. A few scattered rhonchi. No wheezes. Breath sounds equal bilaterally. Abdomen soft bowel sounds are heard. No masses or tenderness. Extremities are intact. No cyanosis clubbing or edema. Skin is without rash or lesion. Neurologic examination is brief but nonfocal. - Labs CBC & Chem 7: 10/20/20 03:16 10/21/20 07:30 Labs: Abnormal Lab Results - Last 24 Hours (Table) 10/20/20 10/20/20 10/21/20 Range/Units 16:43 20:12 06:05 APTT (22.0-30.0) sec Chloride (98-107) mmol/L Carbon Dioxide (22-30) mmol/L BUN (9-20) mg/dL Creatinine (0.66-1.25) mg/dL Glucose (74-99) mg/dL POC Glucose (mg/dL) 217 H 268 H 191 H (75-99) mg/dL 10/21/20 10/21/20 10/21/20 Range/Units 07:30 07:30 11:49 APTT 39.6 H (22.0-30.0) sec Chloride 109 H (98-107) mmol/L Carbon Dioxide 21 L (22-30) mmol/L BUN 100 H (9-20) mg/dL Creatinine 4.99 H (0.66-1.25) mg/dL Glucose 141 H (74-99) mg/dL POC Glucose (mg/dL) 162 H (75-99) mg/dL Microbiology - Last 24 Hours (Table) 10/18/20 14:49 Blood Culture Gram Stain - Final Blood Blood Culture - Final Coagulase Negative Staph Coagulase Negative Staph#2 Assessment and Plan Assessment: #1. Acute hypoxic respiratory failure secondary to acute pulmonary edema and non-ST elevated myocardial infarction, with elevated troponin and elevated BNP level. #2. Suspect aspiration pneumonia, patient is currently covered with Zosyn. #3. Altered level of consciousness, likely related to pneumonia with sepsis, and his mentation has improved. Brain CT showed no acute intracranial findings, but did show right maxillary sinusitis, and cerebral cortical atrophy. #4. Acute kidney injury related to acute tubular necrosis. #5. Hypothermia, could be related to pneumonia and sepsis, and could be related acute myocardial infarction, TSH level was within normal limits, no serum cortisol is available, currently patient is normothermic. #6. History of benign essential hypertension. #7. Suspect underlying COPD, with the possibility of acute exacerbation of COPD. #8. Shock liver secondary to hypoperfusion. #9. Acute hyperkalemia related to acute kidney injury, improving. Plan: Plan dated 10/21/2020. The patient's doing much better. The patient has been started on Coumadin as per cardiology. IV heparin will be discontinued. The patient clinically is stable. Only on 2 L nasal cannula. He does use BiPAP support at bedtime. The patient's medications, labs, and problem list are all reviewed. The patient was in the intensive care unit yesterday. Today he is out on the floor. Additional recommendations and suggestions are forthcoming. Prognosis is guarded. We'll follow the patient and make recommendations were appropriate. Time with Patient: Less than 30
--- NOTE | 2020-10-21 13:41 | CT ---
EXAMINATION TYPE: CT brain wo con DATE OF EXAM: 10/21/2020 HISTORY: confusion CT DLP: 1091.4 mGycm. Automated Exposure Control for Dose Reduction was Utilized. TECHNIQUE: CT scan of the head is performed without contrast. COMPARISON: CT brain 3 days ago. FINDINGS: There is no acute intracranial hemorrhage or midline shift identified. There is moderate diffuse ventricular and sulcal prominence consistent with diffuse age-related cerebral atrophy. Ther e is moderate low-attenuation in the periventricular white matter consistent with chronic small vesse l ischemic change. Visualized portion of right maxillary sinus is heterogeneous material expanding si nus without bony destruction similar to prior. [id number] mucosal thickening throughout the eth moid sinuses bilaterally redemonstrated. IMPRESSION: No acute intracranial hemorrhage or midline shift. There is moderate diffuse cerebral a trophy and chronic small vessel ischemic change redemonstrated. No significant change from prior.
--- NOTE | 2020-10-21 14:18 | P.PN ---
Subjective 68-year-old the male came in unresponsive found to be bradycardic with heart rates in 30s and the patient is found to have renal failure with highly elevated potassium which is believed to be responsible for his bradycardia. Patient also has elevated troponins patient is on heparin drip. Cardiology is following the patient. Patient baseline creatinine is not available at this time. Patient is also being treated for aspiration pneumonia with Zosyn. Patient has blood cultures that were positive for coag is negative staph which is a contamination. Patient does have leukocytosis doesn't have any fever. Patient had an echo cardiac exam which showed ejection fraction of 20-25% and takatsubo syndrome. Patient chest x-ray showing pulmonary edema patient is on IV Lasix at this time in patient does have some proteinuria concern for chronic kidney disease unable to stage at this time. She is also being treated for non-ST elevation micro infarction with the heparin drip patient the troponin went up to as high as 20. Patient doesn't want any further intervention for this doesn't want cardiac catheterization. 10/21/2020 Patient remains on IV Lasix urinating well. Patient was pretty status significantly improved. Patient may is on IV antibiotics and the patient was started on Coumadin by cardiology patient remains on IV heparin. Constitutional: Denied any fatigue denied any fever. Cardio vascular: denied any chest pain, palpitations Gastrointestinal denied any nausea vomiting Pulmonary: Denied any shortness of breath cough Neurologic denied any new focal deficits All inpatient medications were reviewed and appropriate changes in these medications as dictated in the interval history and assessment and plan. Objective - Vital Signs Vital signs: Vital Signs Temp 97.3 F L 10/21/20 08:00 Pulse 80 10/21/20 08:00 Resp 18 10/21/20 08:00 BP 130/66 10/21/20 08:00 Pulse Ox 94 L 10/21/20 08:00 Intake & Output 10/20/20 10/21/20 10/21/20 18:59 06:59 18:59 Intake Total 970 20 414.581 Output Total 1385 700 450 Balance -415 -680 -35.419 Weight 75.6 kg Intake: IV 140 20 10 Invasive Line 3 20 10 KVO 80 heparin 60 Intake, IV Titration 350 164.581 Amount Heparin Sod,Pork in 0.45% 250 164.581 NaCl 25,000 unit In 0.45 % NaCl 1 250ml.bag @ 12 UNITS/KG/HR 9.634 mls/hr IV .Q24H [facility] Rx#: [id number] Piperacillin-Tazobactam 3 100 .375 gm In Sodium Chloride 0.9% 100 ml @ 25 mls/hr IVPB Q12HR@0000, 1200 [facility] Rx#:[id number] Oral 480 240 Output: Urine 1385 700 450 Uretheral (Gann) 300 Other: Voiding Method Indwelling Catheter Urinal # Voids 1 - Exam PHYSICAL EXAMINATION: GENERAL: The patient is alert and oriented x3, not in any acute distress. Well developed, well nourished. HEENT: Pupils are round and equally reacting to light. EOMI. No scleral icterus. No conjunctival pallor. Normocephalic, atraumatic. No pharyngeal erythema. No thyromegaly. CARDIOVASCULAR: S1 and S2 present. No murmurs, rubs, or gallops. PULMONARY: Chest is clear to auscultation, no wheezing or crackles. ABDOMEN: Soft, nontender, nondistended, normoactive bowel sounds. No palpable organomegaly. MUSCULOSKELETAL: No joint swelling or deformity. EXTREMITIES: No cyanosis, clubbing, does have bilateral pitting pedal edema NEUROLOGICAL: Gross neurological examination did not reveal any focal deficits. SKIN: No rashes. - Labs CBC & Chem 7: 10/20/20 03:16 10/21/20 07:30 Labs: Abnormal Lab Results - Last 24 Hours (Table) 10/20/20 10/20/20 10/21/20 Range/Units 16:43 20:12 06:05 APTT (22.0-30.0) sec Chloride (98-107) mmol/L Carbon Dioxide (22-30) mmol/L BUN (9-20) mg/dL Creatinine (0.66-1.25) mg/dL Glucose (74-99) mg/dL POC Glucose (mg/dL) 217 H 268 H 191 H (75-99) mg/dL 10/21/20 10/21/20 10/21/20 Range/Units 07:30 07:30 11:49 APTT 39.6 H (22.0-30.0) sec Chloride 109 H (98-107) mmol/L Carbon Dioxide 21 L (22-30) mmol/L BUN 100 H (9-20) mg/dL Creatinine 4.99 H (0.66-1.25) mg/dL Glucose 141 H (74-99) mg/dL POC Glucose (mg/dL) 162 H (75-99) mg/dL Microbiology - Last 24 Hours (Table) 10/18/20 14:49 Blood Culture Gram Stain - Final Blood Blood Culture - Final Coagulase Negative Staph Coagulase Negative Staph#2 Assessment and Plan Plan: -Acute hypoxic respiratory failure: Secondary to congestive heart failure with systolic dysfunction with acute exacerbation. Patient systolic dysfunction is probably secondary to takatsubo syndrome. Patient is being can you done IV Lasix at this time. -Elevated troponins with possibly of non-ST elevation myocardial infarction and troponin elevation can be secondary to stress-induced cardiomyopathy. Patient doesn't want any cardiac catheterization and stenting at this time and patient is presently on heparin aspirin and Lipitor -Renal failure with possibly acute tubular necrosis or cardiorenal syndrome patient is being continued on IV Lasix. Monitor kidney function nephrology is following the patient possibly of chronic kidney disease cannot stage C [place] as baseline creatinine is unknown. Patient does have some proteinuria -Possible aspiration pneumonia for which patient is on Zosyn which will be cont inued swelling culture is pending -Hypertension -Elevated liver enzymes her transaminitis secondary to hepatic congestion -Bradycardia probably secondary to hyperkalemia which is again from renal dysf unction. -Metabolic encephalopathy which improved Positive blood cultures secondary to contamination patient has a coagulase- negative staph. No further intervention at this time antibiotics are not needed
--- NOTE | 2020-10-21 16:38 | US ---
EXAMINATION TYPE: US carotid duplex BILAT DATE OF EXAM: 10/21/2020 COMPARISON: NONE CLINICAL HISTORY: CVA, AMS, Syncope. poor historian, AMS EXAM MEASUREMENTS: RIGHT: Peak Systolic Velocity (PSV) cm/sec ----- Right CCA: 69.7 ----- Right ICA: 128.8 ----- Right ECA: 146.1 ICA/CCA ratio: 1.8 RIGHT: End Diastole cm/sec ----- Right CCA: 11.5 ----- Right ICA: 28.4 ----- Right ECA: 27.6 LEFT: Peak Systolic Velocity (PSV) cm/sec ----- Left CCA: 72.6 ----- Left ICA: 153.1 ----- Left ECA: 247.9 ICA/CCA ratio: 2.1 LEFT: End Diastole cm/sec ----- Left CCA: 11.8 ----- Left ICA: 23.0 ----- Left ECA: 15.1 VERTEBRALS (direction of flow): Right Vertebral: Antegrade Left Vertebral: Antegrade Rhythm: Arrhythmia Bilateral wall thickening. Plaque seen in bilateral CCAs and bulbs. Bilateral elevated ECA velociti es. Left significant stenosis. IMPRESSION: Moderate to severe atherosclerotic changes bilaterally . Significant stenosis in the l eft internal carotid artery estimated greater than 50%. Further investigation with CTA or MRA of the neck is likely warranted. Note is made of underlying arrhythmia during real-time scanning per technol ogist. Correlate clinically. Criteria for Assigning % of Stenosis / Diameter reduction (Estimation based on the indirect measurements of the internal carotid artery velocities (ICA PSV). 1. Normal (no stenosis)=ICA PSV < 125 cm/s: ratio < 2.0: ICA EDV<40 cm/s. 2. Less than 50% stenosis=ICA PSV < 125 cm/s: ratio < 2.0: ICA EDV<40 cm/s. 3. 50 to 69% stenosis=ICA PSV of 125 to 230 cm/s: ration 2.0 ? 4.0: ICA EDV 40-100 cm/s. 4. Greater than 70% stenosis to near occlusion= ICA PSV > 230 cm/s: ratio > 4.0: ICA EDV > 100 cm/s. 5. Near occlusion= ICA PSV velocities may be low or undetectable: variable ratio and ICA EDV. 6. Total occlusion=unable to detect flow.
[2020-10-21 17:02] LABS: Glucose,Whole Blood 235 mg/dL (75-99)
[2020-10-21] MEDS: HEPARIN SOD,PORK IN 0.45% NACL 25,000 UNIT in 0.45% NACL 1 250ML.BAG IV SCH (17:42)
[2020-10-21] MEDS ORDERED: WARFARIN 5 MG TAB PO ONE (18:00)
[2020-10-21 20:37] LABS: Glucose,Whole Blood 153 mg/dL (75-99)
[2020-10-21] MEDS: METOPROLOL TARTRATE 25 MG TAB PO SCH (20:50)
[2020-10-21] MEDS ORDERED: polyethylene glycoL 3350 17 GM POWD.PACK PO SCH (21:00)
[2020-10-22] MEDS: PIPERACILLIN-TAZOBACTAM 3.375 GM in SODIUM CHLORIDE 0.9% 100 ML IVPB SCH ×2 (01:30→14:21)
[2020-10-22 06:19] LABS: Glucose,Whole Blood 120 mg/dL (75-99)
[2020-10-22] MEDS: INSULIN ASPART (NovoLOG) 100 UNIT/ML VIAL SQ SCH ×2 (06:25→14:09)
[2020-10-22 08:15] LABS: INR 1.2 (<1.2); Prothrombin Time 12.1 sec (9.0-12.0)
[2020-10-22 08:36] LABS: Albumin 3.6 g/dL (3.5-5.0); Calcium 8.9 mg/dL (8.4-10.2); Potassium 4.4 mmol/L (3.5-5.1); Total Bilirubin 0.5 mg/dL (0.2-1.3); Total Protein 6.1 g/dL (6.3-8.2)
[2020-10-22] MEDS: IPRATROPIUM-ALBUTEROL 3 ML NEB INHALATION SCH ×3 (08:43→15:32)
[2020-10-22] MEDS: ASPIRIN 81 MG PO SCH (09:02)
[2020-10-22] MEDS: METOPROLOL TARTRATE 25 MG TAB PO SCH (09:02)
[2020-10-22] MEDS: predniSONE 10 MG TAB PO SCH (09:03)
--- NOTE | 2020-10-22 09:03 | CDI ---
Documentation Clarification Form Date: 10/22/2020 08:40:30 AM From: Marilee Vieyra RN CCDS Admit Date: 10/18/2020 03:44:00 PM Patient Name: Eber Andersen Visit Number: [id number] Discharge Date: ATTENTION: The Clinical Documentation Specialists (CDI) and [facility] Coding Staff appreciate your assistance in clarifying documentation. Please respond to the clarification below the line at the bottom and electronically sign. The CDI & [facility] Coding staff will review the response and follow-up if needed. Please note: Queries are made part of the Legal Health Record. If you have any questions, please contact the author of this message via ITS. Dr. Sachin Irene Sepsis is documented 10/18 in the H&P but is not noted in subsequent documentation. Clarification is requested. History/Risk Factors: 59-year-old male presents to the ED via EMS after being found unresponsive by his friend. EMS found patient bradycardic heart rate in 30s. Admitting Diagnosis: Acute severe sepsis, CAP and NSTEMI. H&P 10/18 Clinical Indicators: VSS 10/18: B/P 93/53, HR 74, Temp 94.1 F Oral, RR 36, SpO2 75% Non-Rebreather 15L Labs 10/18: Wbc 16.5, Neutrophils 14.3, Bun 63, Cr 4.38, Lactic acid 4.3, Troponin 15.000, BNP 32031. CXR 10/18: Diffuse bilateral infiltrates with pleural effusion correlate for diffuse pneumonia versus pulmonary edema. Blood Culture 10/18: Coagulase Negative Staph. Treatment: 10/18 Cefepime HCL 1gm IVPB x1; 10/19 Cefepime 1gm IVPB Q12H d/cd 10/19. 10/18 Zosyn 3.375gm IVPB x1; 10/19 Zosyn 3.375gm IVPB Q12HR current, 10/18 Vancomycin 1,500mg IVPB x 1, Fluids: 10/18 0.9ns 125cc/hr Q8HR d/c 10/18. Please clarify if the Sepsis is: [ ] Sepsis confirmed, remains under treatment [ ] Sepsis confirmed, resolved [ ] Sepsis ruled out [ ] Other condition, please specify [ ] Unable to determine (Template Last Revised: August 2020) Sepsis confirmed, remains under treatment MTDD
--- NOTE | 2020-10-22 10:14 | P.CNNES ---
History of Present Illness Consult date: 10/21/20 Requesting physician: Sachin Irene Reason for Consult: Rule out CVA, confusion, aphasia History of Present Illness: Patient is a 59-year-old right-handed male came to the hospital actually on 10/18/2020, after patient's friend found the patient in his residence unresponsive. He had been minimally responsive since he was noted to be in sinus bradycardia with heart rate in the 30s. Patient's blood glucose was in 150. Patient was noted to be hypothermic. He was noted to be in acute renal failure, with hyperkalemia. Patient was also started on treatment for aspiration pneumonia with Zosyn. Patient was also diagnosed with acute hypoxic respiratory failure, secondary to congestive heart failure with systolic dysfunction with acute exacerbation. Patient's systolic dysfunction was probably secondary to Takatsubo syndrome. This morning when the nurse went to see him, patient was having difficulty with comprehension and expression. He was able to follow basic commands, but does not seem to comprehend questions to answer is appropriately. Patient does have history of a stroke, unsure of patient's baseline. Patient's computed tomography scan of head showed no acute intracranial hemorrhage or midline shift. There is moderate diffuse cerebral atrophy and chronic small vessel ischemic change redemonstrated. No significant change from prior. 2-D echo has been completed, in which his ejection fraction is 20-25%. Moderate concentric LVH and normal left-ventricular size. Abdominal ultrasound showed no hydronephrosis or shadowing renal calculi. There is a Gann catheter within the urinary bladder. Patient's blood test shows normal electrolytes, BUN is 100, creatinine 4.99. WBC 11.5 hemoglobin 11.8, platelets 188. INR 1.2, PTT 92.4. PH 7.33, pCO2 46, pO2 61. AST is 433, AST 630. Troponin is highly elevated 17.4. Urine drug screen negative. Blood alcohol level negative. Peacock virus PCR negative. Patient does admit that he lives by himself. Not able to provide any other hist ory. Review of Systems ROS unobtainable: due to mental status Past Medical History Past Medical History: CVA/TIA History of Any Multi-Drug Resistant Organisms: None Reported Past Surgical History: No Surgical Hx Reported Past Anesthesia/Blood Transfusion Reactions: No Reported Reaction Past Psychological History: No Psychological Hx Reported Smoking Status: Current every day smoker Past Alcohol Use History: Unable to Obtain Past Drug Use History: Unable to Obtain Medications and Allergies Home Medications Medication Instructions Recorded Confirmed Type Docusate [Colace] 100 mg PO BID PRN 10/19/20 10/19/20 History polyethylene glycoL 3350 [Miralax] 17 gm PO DAILY PRN 10/19/20 10/19/20 History Albuterol Inhaler [Ventolin Hfa 2 puff INHALATION RT-QID PRN #1 10/22/20 Rx Inhaler] inhaler Amoxicillin/Potassium Clav 1 tab PO Q12HR 4 Days #8 tab 10/22/20 Rx [Augmentin 875-125 Tablet] Budesonide-Formot 160-4.5 Mcg 2 puff INHALATION BID #1 inhaler 10/22/20 Rx [Symbicort 160-4.5 Mcg Inhaler] Furosemide [Lasix] 40 mg PO DAILY PRN #30 tab 10/22/20 Rx Losartan [Cozaar] 50 mg PO DAILY #30 tab 10/22/20 Rx Metoprolol Tartrate [Lopressor] 25 mg PO BID #60 tab 10/22/20 Rx Tiotropium [place] [Spiriva] 1 cap INHALATION DAILY #1 device 10/22/20 Rx Warfarin [Coumadin] 5 mg PO ONCE@1800 #30 tab 10/22/20 Rx Allergies Allergy/AdvReac Type Severity Reaction Status Date / Time No Known Allergies Allergy Unverified 10/19/20 11:10 Physical Examination - Vital Signs Vital Signs: Vital Signs Temp Pulse Pulse Resp BP Pulse Ox 10/21/20 08:00 97.3 F L 80 18 130/66 94 L 10/21/20 07:36 94 10/21/20 07:26 90 10/21/20 04:00 97.9 F 80 18 118/62 95 10/21/20 00:00 97.9 F 78 18 123/64 94 L 10/20/20 20:14 86 10/20/20 20:04 85 96 10/20/20 20:00 97.8 F 91 18 137/72 95 10/20/20 16:20 93 17 102/46 93 L 10/20/20 15:43 92 10/20/20 15:32 90 Intake and Output 10/20/20 10/21/20 10/21/20 22:59 06:59 14:59 Intake Total 740 10 414.581 Output Total 1075 700 450 Balance -335 -690 -35.419 Intake: IV 10 10 10 Invasive Line 3 10 10 10 Intake, IV Titration 250 164.581 Amount Heparin Sod,Pork in 0.45% 250 164.581 NaCl 25,000 unit In 0.45 % NaCl 1 250ml.bag @ 12 UNITS/KG/HR 9.634 mls/hr IV .Q24H [facility] Rx#: [id number] Oral 480 240 Output: Urine 1075 700 450 Uretheral (Gann) 300 Other: Voiding Method Urinal Urinal Weight 75.6 kg On examination patient is a middle aged male, laying in the bed, appears to be in mild distress. Patient is having expressive aphasia. He states few sentences which makes sense. "I just want to go home". "I don't know what the hell you call.." And then stopped without completing sentence. Patient knows his name Eber. States he is 54 years old. He knows that he is in [place] in [place] does not know the name of the hospital. When I asked about the month, states and when I asked about a year, states Tuesday. States his last name is Jeronimo. Patient could name objects like a pen, thumb. For eyeglasses, patient states "Dr. prescription". For gloves patient states "rubber", could not explain further. On cranial examination pupils are round and reacting, visual cardozo appears full, face is symmetric, tongue protrudes to the midline. Palatal elevation is normal, hearing is decreased, shoulder shrug normal on muscle strength testing there is no obvious drift. The strength appears normal in the arms and legs. Reflexes are 1+ in the upper limbs, 1 at the knees, 0 ankles and plantars downgoing. Sensory to touch appears equal although was not consistent. No obvious ataxia for [id number] testing, tone and bulk of muscles normal. No obvious bruit, S1 and S2 audible. Abdomen soft nontender. Chest is clear. Results - Laboratory Findings CBC and BMP: 10/20/20 03:16 10/22/20 06:54 Abnormal Lab Findings: Abnormal Labs 10/18/20 10/18/20 10/18/20 13:14 13:34 13:34 WBC 16.5 H RBC 4.07 L Hgb 12.3 L Hct MCHC 30.3 L Neutrophils # 14.3 H Lymphocytes # PT INR APTT 21.1 L D-Dimer 0.60 H ABG pH ABG pCO2 ABG pO2 ABG Total CO2 ABG O2 Saturation VBG pH VBG HCO3 Potassium Chloride Carbon Dioxide BUN Creatinine Glucose POC Glucose (mg/dL) 158 H Plasma Lactic Acid David Phosphorus Magnesium AST ALT Creatine Kinase Troponin I Total Protein Albumin Procalcitonin Urine Protein Urine Ketones Urine Blood Urine Bacteria Hyaline Casts Urine Mucus Urine Yeast (Budding) 10/18/20 10/18/20 10/18/20 13:34 13:34 13:34 WBC RBC Hgb Hct MCHC Neutrophils # Lymphocytes # PT INR APTT D-Dimer ABG pH ABG pCO2 ABG pO2 ABG Total CO2 ABG O2 Saturation VBG pH VBG HCO3 Potassium 6.9 H* Chloride Carbon Dioxide 20 L BUN 63 H Creatinine 4.38 H Glucose 153 H POC Glucose (mg/dL) Plasma Lactic Acid David Phosphorus Magnesium 3.4 H AST 302 H ALT 324 H Creatine Kinase 353 H Troponin I 15.400 H* Total Protein 6.1 L Albumin Procalcitonin Urine Protein 2+ H Urine Ketones Trace H Urine Blood Trace H Urine Bacteria Rare H Hyaline Casts 79 H Urine Mucus Rare H Urine Yeast (Budding) Occasional H 10/18/20 10/18/20 10/18/20 13:34 13:34 16:57 WBC RBC Hgb Hct MCHC Neutrophils # Lymphocytes # PT INR APTT D-Dimer ABG pH 7.33 L ABG pCO2 46 H ABG pO2 61 L ABG Total CO2 25 H ABG O2 Saturation 90.1 L VBG pH 7.21 L VBG HCO3 19 L Potassium Chloride Carbon Dioxide BUN Creatinine Glucose POC Glucose (mg/dL) Plasma Lactic Acid David 4.3 H* Phosphorus Magnesium AST ALT Creatine Kinase Troponin I Total Protein Albumin Procalcitonin Urine Protein Urine Ketones Urine Blood Urine Bacteria Hyaline Casts Urine Mucus Urine Yeast (Budding) 10/18/20 10/18/20 10/18/20 19:10 19:10 19:10 WBC 19.4 H RBC 4.02 L Hgb 12.9 L Hct MCHC Neutrophils # 16.9 H Lymphocytes # PT 12.6 H INR 1.2 H APTT 87.3 H D-Dimer ABG pH ABG pCO2 ABG pO2 ABG Total CO2 ABG O2 Saturation VBG pH VBG HCO3 Potassium Chloride Carbon Dioxide BUN Creatinine Glucose POC Glucose (mg/dL) Plasma Lactic Acid David Phosphorus Magnesium AST ALT Creatine Kinase 378 H Troponin I Total Protein Albumin Procalcitonin Urine Protein Urine Ketones Urine Blood Urine Bacteria Hyaline Casts Urine Mucus Urine Yeast (Budding) 10/18/20 10/18/20 10/18/20 19:10 19:10 22:57 WBC RBC Hgb Hct MCHC Neutrophils # Lymphocytes # PT INR APTT 54.5 H D-Dimer ABG pH ABG pCO2 ABG pO2 ABG Total CO2 ABG O2 Saturation VBG pH VBG HCO3 Potassium 5.6 H Chloride Carbon Dioxide BUN 66 H Creatinine 4.47 H Glucose 102 H POC Glucose (mg/dL) Plasma Lactic Acid David Phosphorus Magnesium AST 742 H ALT 816 H Creatine Kinase Troponin I 20.300 H* Total Protein Albumin Procalcitonin Urine Protein Urine Ketones Urine Blood Urine Bacteria Hyaline Casts Urine Mucus Urine Yeast (Budding) 10/18/20 10/18/20 10/19/20 22:57 22:57 03:47 WBC RBC Hgb Hct MCHC Neutrophils # Lymphocytes # PT INR APTT D-Dimer ABG pH ABG pCO2 ABG pO2 ABG Total CO2 ABG O2 Saturation VBG pH VBG HCO3 Potassium Chloride 108 H Carbon Dioxide 21 L BUN 75 H Creatinine 4.68 H Glucose 183 H POC Glucose (mg/dL) Plasma Lactic Acid David Phosphorus Magnesium AST 433 H ALT 630 H Creatine Kinase 352 H 295 H Troponin I 17.400 H* Total Protein 6.2 L Albumin 3.4 L Procalcitonin Urine Protein Urine Ketones Urine Blood Urine Bacteria Hyaline Casts Urine Mucus Urine Yeast (Budding) 10/19/20 10/19/20 10/19/20 03:47 03:47 06:08 WBC 18.7 H RBC 3.86 L Hgb 12.6 L Hct 37.6 L MCHC Neutrophils # 17.3 H Lymphocytes # 0.5 L PT INR APTT 53.1 H D-Dimer ABG pH ABG pCO2 ABG pO2 ABG Total CO2 ABG O2 Saturation VBG pH VBG HCO3 Potassium Chloride Carbon Dioxide BUN Creatinine Glucose POC Glucose (mg/dL) Plasma Lactic Acid David Phosphorus Magnesium AST ALT Creatine Kinase Troponin I Total Protein Albumin Procalcitonin 3.51 H Urine Protein Urine Ketones Urine Blood Urine Bacteria Hyaline Casts Urine Mucus Urine Yeast (Budding) 10/19/20 10/20/20 10/20/20 21:13 03:16 03:16 WBC 11.5 H RBC 3.70 L Hgb 11.8 L Hct 35.2 L MCHC Neutrophils # Lymphocytes # PT INR APTT D-Dimer ABG pH ABG pCO2 ABG pO2 ABG Total CO2 ABG O2 Saturation VBG pH VBG HCO3 Potassium Chloride 109 H Carbon Dioxide 18 L BUN 92 H Creatinine 4.90 H Glucose 166 H POC Glucose (mg/dL) 192 H Plasma Lactic Acid David Phosphorus 6.0 H Magnesium 3.1 H AST ALT Creatine Kinase Troponin I Total Protein Albumin Procalcitonin Urine Protein Urine Ketones Urine Blood Urine Bacteria Hyaline Casts Urine Mucus Urine Yeast (Budding) 10/20/20 10/20/20 10/20/20 03:16 06:43 12:58 WBC RBC Hgb Hct MCHC Neutrophils # Lymphocytes # PT INR APTT 44.8 H D-Dimer ABG pH ABG pCO2 ABG pO2 ABG Total CO2 ABG O2 Saturation VBG pH VBG HCO3 Potassium Chloride Carbon Dioxide BUN Creatinine Glucose POC Glucose (mg/dL) 165 H 280 H Plasma Lactic Acid David Phosphorus Magnesium AST ALT Creatine Kinase Troponin I Total Protein Albumin Procalcitonin Urine Protein Urine Ketones Urine Blood Urine Bacteria Hyaline Casts Urine Mucus Urine Yeast (Budding) 10/20/20 10/20/20 10/21/20 16:43 20:12 06:05 WBC RBC Hgb Hct MCHC Neutrophils # Lymphocytes # PT INR APTT D-Dimer ABG pH ABG pCO2 ABG pO2 ABG Total CO2 ABG O2 Saturation VBG pH VBG HCO3 Potassium Chloride Carbon Dioxide BUN Creatinine Glucose POC Glucose (mg/dL) 217 H 268 H 191 H Plasma Lactic Acid David Phosphorus Magnesium AST ALT Creatine Kinase Troponin I Total Protein Albumin Procalcitonin Urine Protein Urine Ketones Urine Blood Urine Bacteria Hyaline Casts Urine Mucus Urine Yeast (Budding) 10/21/20 10/21/20 10/21/20 07:30 07:30 11:49 WBC RBC Hgb Hct MCHC Neutrophils # Lymphocytes # PT INR APTT 39.6 H D-Dimer ABG pH ABG pCO2 ABG pO2 ABG Total CO2 ABG O2 Saturation VBG pH VBG HCO3 Potassium Chloride 109 H Carbon Dioxide 21 L BUN 100 H Creatinine 4.99 H Glucose 141 H POC Glucose (mg/dL) 162 H Plasma Lactic Acid David Phosphorus Magnesium AST ALT Creatine Kinase Troponin I Total Protein Albumin Procalcitonin Urine Protein Urine Ketones Urine Blood Urine Bacteria Hyaline Casts Urine Mucus Urine Yeast (Budding) Assessment and Plan Assessment: * Altered mental status, with expressive aphasia. Rule out CVA. Rule out toxic metabolic encephalopathy. * Acute renal failure * Acute hypoxic respiratory failure secondary to acute pulmonary edema in non-ST elevated IA. * Pneumonia, possible sepsis. * Acute IA * CHF due to Taktsubo * Hypertension * COPD * Shock liver Plan: * We will check carotid Doppler to rule out carotid stenosis. * MRI of the brain, MRA of head to evaluate for acute stroke, rule out intracranial stenosis. * EEG rule out epileptiform activity. * CT head showed no acute process. * 2-D echo from 10/20/2020 showed normal left-ventricular size. Moderate concentric LVH. EF is between 20-25%. Basal segmental vadim only. Trace MR. * Patient is currently on heparin IV, however PTT subtherapeutic 39.6, heparin infusion has been also started on Coumadin and aspirin 81 mg. INR is 1.1. * We will follow.
--- NOTE | 2020-10-22 10:55 | PN ---
PROGRESS NOTE Patient is seen for followup for acute kidney injury with possible underlying chronic kidney disease as well. We do not have a baseline creatinine. The patient was admitted with hypoxic respiratory failure. He was diuresed initially. Serum creatinine peaked at 4.9. It is now decreasing back to 4.6. Admission creatinine was 4.38. PHYSICAL EXAMINATION: On examination today, patient is comfortable, awake. He is not in any acute distress. Blood pressure 126/84, heart rate 84 per minute. He is afebrile. EXAMINATION OF THE HEART: S1, S2. EXAMINATION OF LUNGS: Decreased breath sounds at bases. Abdomen is soft, nontender. Examination of lower extremities shows no significant edema. 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 LABS: Labs show sodium 144, potassium 4.4, BUN 96, creatinine 4.6. INR was 1.2. ASSESSMENT: 1. Acute kidney injury, most likely cardiorenal, currently slightly improved with decreased dose of diuretics. Lasix is currently on hold. 2. Coagulase-negative staphylococcus bacteremia most likely contaminant. 3. Cardiomyopathy, ejection fraction 20% to 25%. 4. Congestive heart failure acute on top of chronic, mostly systolic. 5. Non ST elevation myocardial infarction. 6. New onset paroxysmal atrial fibrillation, currently being anticoagulated. INR was 1.2, Coumadin was started yesterday. 7. Hyperkalemia on initial admission, currently resolved. 8. Bradycardia associated with hyperkalemia, now resolved. PLAN: Still awaiting baseline creatinine from PCPs office. May continue off of Lasix for now. The patient will need close followup as outpatient. MMODL / IJN: [id number] /
[2020-10-22 11:25] VITALS: TEMP 97.5
[2020-10-22 11:45] LABS: Glucose,Whole Blood 163 mg/dL (75-99)
--- NOTE | 2020-10-22 11:54 | P.PN ---
Subjective Progress Note Date: 10/22/20 HISTORY OF PRESENT ILLNESS: This is a pleasant 59-year-old with past medical history significant for stroke 1 year ago, hypertension, hyperlipidemia who presents after being found u nresponsive. Patient states that he does not recall any of the events that got him to the hospital. He states he remembered being near his friend and then woke up in the ambulance confused. Was found by his friend unresponsive and therefore called EMS. Patient was minimally responsive for EMS with sinus bradycardia, heart rates in the 30s and therefore they started transcutaneously pacing him and was also given Versed to help with sedation during pacing and also given atropine 0.5 mg IV. When patient arrived to emergency department he was minimally responsive, blood glucose was in the 150s, he was given IV Narcan without much change. He was noted to be mildly hypothermic and was rewarmed. Patient then became much more responsive and denied any chest pain, pressure, mildly short of breath. Patient states he had been feeling fairly well last few days, no recent fevers, chills, cough. Patient had extensive workup in the emergency department with white blood cell count 16.5, hemoglobin 12.3, d-dimer 0.6, potassium 6.9, BUN 63, creatinine 4.3, lactic acid 4.3, magnesium 3.4, troponin 15.4, 20.3, 17.4, AST 302, ALT 324, curtis virus not detected, urine drug screen negative. Brain CT showed cerebral atrophy, white matter hypodensity in the right thalamus and right internal cap calixto consistent with chronic small vessel ischemia, no hemorrhage. Chest x-ray showed diffuse bilateral infiltrates with pleural effusion correlate for pneumonia versus pulmonary edema. Patient was noted to go into atrial fibrillation in the emergency department and apparently had been refusing tr eatment for this. He is concerned about his medical bills. He was seen by nephrology. His blood pressure has been predominantly well-controlled. He denies any recent NSAID use. He is currently on BiPAP. He has had minimal urine output. He was given IV Lasix earlier today. Potassium is improved today at 4.9, creatinine 4.68, AST and ALT elevated, pro-BMP 32,000, pro-calcitonin 3.5 blood culture 1 of 2 is positive for coag-negative staph. EKG on admission shows normal sinus rhythm, Q waves V1 through V3, somewhat biphasic T waves V4 through V5. 10/20/2020 Patient examined this morning in the ICU. Patient remains in atrial fibrillation with controlled ventricular rates. He remains on IV heparin. Creatinine continues to increase. Creatinine 4.90 today. He remains on IV lasix 40mg daily per nephrology. 10/21/2020 Patient examined this morning. He has been transferred to . He is in sinus mechanism this morning. He remains on IV heparin. Creatinine 4.99. He remains on IV lasix 40mg daily per nephrology. 10/22/2020 Patient examined this morning at the bedside. Patient is adament that he is leaving the hospital today and states he feels he is being held against this w ill at this facility. Patient remains on IV heparin. Coumadin started yesterday. INR 1.2. He remains in atrial fibrillation with controlled ventricular rates. PHYSICAL EXAM: VITAL SIGNS: Reviewed. GENERAL: Well-developed in no acute distress. NECK: Supple. No JVD or thyromegaly LUNGS: Respirations even and unlabored. Lungs diminished bilaterally. HEART: Regular rate and rhythm. S1 and S2 heard. EXTREMITIES: Normal range of motion. No clubbing or cyanosis. Peripheral pulses intact. No lower extremity edema ASSESSMENT: 1. Non-STEMI 2. Syncope, unclear presentation however patient found unresponsive with heart rates in the 30s. May be related to hyperkalemia. 3. Bradycardia on presentation, unclear if this is related to hyperkalemia, resolved 4. Acute kidney injury, unclear baseline 5. History of stroke per patient 6. New-onset paroxysmal atrial fibrillation 7. Acute on chronic heart failure, unclear systolic or diastolic likely exacerbated by acute renal failure 8. Elevated liver enzymes, rule out hepatic congestion 9. Bilateral infiltrates on x-ray, rule out congestion versus pneumonia. Pro- calcitonin noted to be elevated 10. Ischemic cardiomyopathy PLAN: Continue IV heparin. Continue Coumadin per pharmacy dosing. Continue telemetry monitoring Continue metoprolol to 25mg BID Monitor kidney function Continue aspirin 81mg daily Statin on hold secondary to LFTs CHAPARRO/ARB on hold due to acute renal failure Recommend cardiac catheterization when he is medically stable, however he is r efusing. Further recommendations pending patient's course Nurse practitioner note has been reviewed by physician. Signing provider agrees with the documented findings, assessment, and plan of care. Objective - Vital Signs Vital signs: Vital Signs Temp 97.5 F L 10/22/20 08:00 Pulse 80 10/22/20 08:55 Resp 18 10/22/20 08:00 BP 131/74 10/22/20 08:00 Pulse Ox 100 10/22/20 08:00 Intake & Output 10/21/20 10/22/20 10/22/20 18:59 06:59 18:59 Intake Total 510.000 140.794 Output Total 1175 250 Balance -665.000 -109.206 Weight 74 kg Intake: IV 20 20 Invasive Line 3 20 20 Intake, IV Titration 250.000 120.794 Amount Heparin Sod,Pork in 0.45% 250.000 120.794 NaCl 25,000 unit In 0.45 % NaCl 1 250ml.bag @ 12 UNITS/KG/HR 9.634 mls/hr IV .Q24H [facility] Rx#: [id number] Oral 240 Output: Urine 1175 250 Other: Voiding Method Urinal Urinal - Labs CBC & Chem 7: 10/20/20 03:16 10/22/20 06:54 Labs: Abnormal Lab Results - Last 24 Hours (Table) 10/21/20 10/21/20 10/21/20 Range/Units 11:49 16:48 16:51 PT (9.0-12.0) sec INR (<1.2) APTT 32.2 H (22.0-30.0) sec Chloride (98-107) mmol/L BUN (9-20) mg/dL Creatinine (0.66-1.25) mg/dL Glucose (74-99) mg/dL POC Glucose (mg/dL) 162 H 235 H (75-99) mg/dL AST (17-59) U/L ALT (4-49) U/L Total Protein (6.3-8.2) g/dL 10/21/20 10/22/20 10/22/20 Range/Units 20:33 01:38 06:17 PT (9.0-12.0) sec INR (<1.2) APTT 92.4 H (22.0-30.0) sec Chloride (98-107) mmol/L BUN (9-20) mg/dL Creatinine (0.66-1.25) mg/dL Glucose (74-99) mg/dL POC Glucose (mg/dL) 153 H 120 H (75-99) mg/dL AST (17-59) U/L ALT (4-49) U/L Total Protein (6.3-8.2) g/dL 10/22/20 10/22/20 10/22/20 Range/Units 06:54 06:54 09:03 PT 12.1 H (9.0-12.0) sec INR 1.2 H (<1.2) APTT 44.4 H (22.0-30.0) sec Chloride 109 H (98-107) mmol/L BUN 96 H (9-20) mg/dL Creatinine 4.66 H (0.66-1.25) mg/dL Glucose 118 H (74-99) mg/dL POC Glucose (mg/dL) (75-99) mg/dL AST 71 H (17-59) U/L ALT 354 H (4-49) U/L Total Protein 6.1 L (6.3-8.2) g/dL Microbiology - Last 24 Hours (Table) 10/18/20 14:49 Blood Culture Gram Stain - Final Blood Blood Culture - Final Coagulase Negative Staph Coagulase Negative Staph#2
--- NOTE | 2020-10-22 13:57 | P.PN ---
Subjective Progress Note Date: 10/22/20 Principal diagnosis: Non-ST segment elevation myocardial infarction, renal failure This is a 59-year-old white male with history of hypertension, chronic atrial fibrillation, patient is primarily a patient of Dr. Cervantes, patient was found unresponsive. EMS arrived to the scene patient was bradycardic, unresponsive and his heart rate was in the 30s. Attempted transcutaneous pacing, given atropine, given Narcan and brought into the ER. There was no change in his condition. Upon arrival to the ER, patient was found to be hypothermic, chest x-ray showed pulmonary edema cannot rule out underlying pneumonia. Patient was placed on a nonrebreather mask initially and later transitioned to BiPAP. Labs showed evidence of elevated BNP consistent with a picture of acute pulmonary edema his urine drug screen was negative. Lactic acid was elevated at 4.3. BUN was 63 and creatinine 4.38 consistent with acute kidney injury. D-dimer was 0.6. WBC count 16.5. CT of the head showed cerebral atrophy and right maxillary sinusitis. Patient was placed empirically on antibiotics which I have changed to Zosyn and discontinued his vancomycin and cefepime. A shunt was also noted to be hyperkalemic secondary to his acute kidney injury and his troponin was significantly elevated consistent with non-ST elevation myocardial infarction hence the patient was started on heparin and given aspirin. I saw the patient in the ER, and I had a long discussion with the patient about his condition, patient was noted to be in atrial fibrillation with RVR, and that is being addressed by cardiology on the case. Patient clearly requested that he has DO NOT RESUSCITATE CODE STATUS,, and according to the other physician's note patient even refused treatment of his atrial fibrillation with RVR. During my evaluation, patient was on BiPAP with IPAP of 12 and EPAP of 6 and on 70% FiO2, he was also on heparin drip. Based on the clinical history, his shortness of breath was relatively acute, it started around 2 AM few hours before the patient was brought into the ER unresponsive and bradycardic. Denied any symptoms to suggest ongoing pneumonia prior to this presentation that is no cough no fever no chills no hemoptysis but he did have some vague chest discomfort prior to all of this. On 10/20/2020 patient seen in follow-up in the intensive care unit, on today's exam he is awake and alert, in no acute distress, he is answering questions appropriately, breathing after we, he is on 2 L of oxygen, with a pulse ox of 93%, he did not wear BiPAP last night however based on patient's history and presentation he could benefit from BiPAP support at bedtime, he is currently on 0.9 normal saline at a rate of 20 and her per hour, and heparin drip per weight- based protocol, no complaints of chest discomfort, no cough or hemoptysis, his been afebrile, he is in A. fib and the rate is still tachycardic ranging from 91-124 BPM, cardiology is following, and patient is currently on October All 12.5 mg twice daily. She did receive 1 dose of IV Lasix yesterday per nephrology, has diuresed in the last 24 hours he is in -1.7 NET fluid balance. Today's chest x- ray shows perihilar vascular indistinctness, blunting of the right costophrenic angle, interval improved aeration and improved visualization of the left hemidiaphragm. Today's labs have been reviewed, there is improvement in derick temple's white blood cell count and it is down to 11.500 today's labs, hemoglobin is 11.8, sodium is 140, potassium is 4.8, chloride is 109, CO2 is 18, BUN of 92, and creatinine is 4.9. Patient remains on empiric antibiotics in the form of Zosyn for possibility of pneumonia. His blood culture showed coagulase negative staph likely related to contamination, patient has been afebrile. Progress note dated 10/21/2020. The patient is seen today on the general medical floor. He is in room 356. Yesterday, he was in the intensive care unit. The patient seemed be doing much better. Currently, temperature 97.3, heart rate 80, respiratory rate 18, pressure 130/66, and 2 L saturation is 94%. Lab data today includes a sodium 142, potassium 4.3, chlorides 109, CO2 21, anion gap 12, BUN 100 and creatinine 4.99. Blood cultures from October 18 show coag-negative staph. He remains on Zosyn as an antibiotic. In addition, the patient is going to be started on Coumadin per cardiology. The patient is seen today 10/22/2020 in follow-up on the selective care unit. He is currently resting fairly comfortably in bed. Awake and alert in no acute distress. Currently on 2 L nasal cannula and maintaining O2 saturation in the 90s. 0.9 normal saline at 20 ML's per hour. Remains on Zosyn. Carotid Dopplers revealed moderate to severe atherosclerotic changes bilaterally. Computed tomography scan of the brain revealed no acute intracranial hemorrhage or midline shift. Moderate diffuse cerebral atrophy and chronic small vessel changes remain demonstrated. No significant change from previous. Blood culture with coag-negative staph. INR 1.2. Sodium 134. Potassium 4.4. Creatinine 4.66. AST 71. ALT 354. He remains on a heparin drip. Continued on bronchodilators, prednisone. Initiated on warfarin. Objective - Vital Signs Vital signs: Vital Signs Temp 97.5 F L 10/22/20 08:00 Pulse 82 10/22/20 12:00 Resp 18 10/22/20 08:00 BP 131/74 10/22/20 08:00 Pulse Ox 100 10/22/20 08:00 Intake & Output 10/21/20 10/22/20 10/22/20 18:59 06:59 18:59 Intake Total 510.000 140.794 10 Output Total 1175 250 Balance -665.000 -109.206 10 Weight 74 kg Intake: IV 20 20 10 Invasive Line 3 20 20 10 Intake, IV Titration 250.000 120.794 Amount Heparin Sod,Pork in 0.45% 250.000 120.794 NaCl 25,000 unit In 0.45 % NaCl 1 250ml.bag @ 12 UNITS/KG/HR 9.634 mls/hr IV .Q24H [facility] Rx#: [id number] Oral 240 Output: Urine 1175 250 Other: Voiding Method Urinal Urinal Urinal - Exam No acute distress, oriented 3. Pleasant 59-year-old gentleman. Currently on 2 L nasal cannula, without conversational dyspnea or use of accessory muscles. HEENT examination is grossly unremarkable. Neck supple. Full range of motion. No adenopathy thyromegaly or neck vein distention. Cardiovascular examination reveals an irregular rhythm and rate. S1-S2 normal. No S3 or S4. No discernible murmur noted. Heart rate is 80 bpm. Heart sounds are distant. Lungs reveal mild bibasilar crackles. A few scattered rhonchi. No wheezes. Breath sounds equal bilaterally. Abdomen soft bowel sounds are heard. No masses or tenderness. Extremities are intact. No cyanosis clubbing or edema. Skin is without rash or lesion. Neurologic examination is brief but nonfocal. - Labs CBC & Chem 7: 10/20/20 03:16 10/22/20 06:54 Labs: Abnormal Lab Results - Last 24 Hours (Table) 10/21/20 10/21/20 10/21/20 Range/Units 16:48 16:51 20:33 PT (9.0-12.0) sec INR (<1.2) APTT 32.2 H (22.0-30.0) sec Chloride (98-107) mmol/L BUN (9-20) mg/dL Creatinine (0.66-1.25) mg/dL Glucose (74-99) mg/dL POC Glucose (mg/dL) 235 H 153 H (75-99) mg/dL AST (17-59) U/L ALT (4-49) U/L Total Protein (6.3-8.2) g/dL 10/22/20 10/22/20 10/22/20 Range/Units 01:38 06:17 06:54 PT 12.1 H (9.0-12.0) sec INR 1.2 H (<1.2) APTT 92.4 H (22.0-30.0) sec Chloride (98-107) mmol/L BUN (9-20) mg/dL Creatinine (0.66-1.25) mg/dL Glucose (74-99) mg/dL POC Glucose (mg/dL) 120 H (75-99) mg/dL AST (17-59) U/L ALT (4-49) U/L Total Protein (6.3-8.2) g/dL 10/22/20 10/22/20 10/22/20 Range/Units 06:54 09:03 11:44 PT (9.0-12.0) sec INR (<1.2) APTT 44.4 H (22.0-30.0) sec Chloride 109 H (98-107) mmol/L BUN 96 H (9-20) mg/dL Creatinine 4.66 H (0.66-1.25) mg/dL Glucose 118 H (74-99) mg/dL POC Glucose (mg/dL) 163 H (75-99) mg/dL AST 71 H (17-59) U/L ALT 354 H (4-49) U/L Total Protein 6.1 L (6.3-8.2) g/dL Microbiology - Last 24 Hours (Table) 10/18/20 14:49 Blood Culture Gram Stain - Final Blood Blood Culture - Final Coagulase Negative Staph Coagulase Negative Staph#2 Assessment and Plan Assessment: 1 Acute hypoxic respiratory failure secondary to acute pulmonary edema and non- ST elevated myocardial infarction, with elevated troponin and elevated BNP level. 2 Suspect aspiration pneumonia, patient is currently covered with Zosyn. 3 Altered level of consciousness, likely related to pneumonia with sepsis, and his mentation has improved. Brain CT showed no acute intracranial findings, but did show right maxillary sinusitis, and cerebral cortical atrophy. 4 Acute kidney injury related to acute tubular necrosis. 5 Hypothermia, could be related to pneumonia and sepsis, and could be related acute myocardial infarction, TSH level was within normal limits, no serum c ortisol is available, currently patient is normothermic. 6 History of benign essential hypertension. 7 Suspect underlying COPD, with the possibility of acute exacerbation of COPD. 8 Shock liver secondary to hypoperfusion. 9 Acute hyperkalemia related to acute kidney injury, improving. Plan: The patient was seen and evaluated by Dr. Guzman He is currently stable from the pulmonary standpoint Titrate down the FiO2 as tolerated Continue Zosyn Transitioning to warfarin We will see as needed I, the cosigning physician, performed a history & physical examination of the p atient. Lungs sounds with few scattered rhonchi. Maintaining good O2 saturations in the 90s on 2 L/m per nasal cannula. I discussed the assessment and plan of care with my nurse practitioner, Virgen Rhodes. I attest to the above note as dictated by her.
[2020-10-22 14:39] VITALS: BP 142/77
--- NOTE | 2020-10-22 15:25 | P.DS ---
Providers Date of admission: 10/18/20 15:44 Attending physician: Tara Arango Consults: 10/18/20 15:45 Consult Physician Urgent Consulting Provider: Adair De Leon Consult Reason/Comments: NSTEMI, sinus bradycardia Do you want consulting provider notified?: Already Contacted Consult Physician Urgent Consulting Provider: Sridevi Lee Consult Reason/Comments: renal insufficiency, hyperkalemia Do you want consulting provider notified?: Yes 10/18/20 17:06 Consult Physician Urgent Consulting Provider: Gary Nathan Consult Reason/Comments: ICU Management Do you want consulting provider notified?: Yes 10/19/20 03:34 Consult Physician Routine Consulting Provider: Norman Rhodes Consult Reason/Comments: new onset a fib Do you want consulting provider notified?: Yes, Notify in am 10/21/20 12:23 Consult Physician Routine Consulting Provider: Dusty Valdez Consult Reason/Comments: R/O CVA, confusion , aphasia Do you want consulting provider notified?: Yes Primary care physician: Billy Horan [facility] Course: 68-year-old the male came in unresponsive found to be bradycardic with heart rates in 30s and the patient is found to have renal failure with highly elevated potassium which is believed to be responsible for his bradycardia. Patient also has elevated troponins patient is on heparin drip. Cardiology is following the patient. Patient baseline creatinine is not available at this time. Patient is also being treated for aspiration pneumonia with Zosyn. Patient has blood cultures that were positive for coag is negative staph which is a contamination. Patient does have leukocytosis doesn't have any fever. Patient had an echo cardiac exam which showed ejection fraction of 20-25% and takatsubo syndrome. Patient chest x-ray showing pulmonary edema patient is on IV Lasix at this time in patient does have some proteinuria concern for chronic kidney disease unable to stage at this time. She is also being treated for non-ST elevation microinfarction with the heparin drip patient the troponin went up to as high as 20. Patient doesn't want any further intervention for this doesn't want cardiac catheterization. 10/21/2020 Patient remains on IV Lasix urinating well. Patient was pretty status significantly improved. Patient may is on IV antibiotics and the patient was started on Coumadin by cardiology patient remains on IV heparin. 10/22/2020 I believe one more day of possible additional benefit the patient but patient is not willing to stay in the hospital patient will be discharged today on the oral Lasix 40 mg as recorded by nephrology. Patient will be discharged on Coumadin and repeat INR will be obtained in about the 3-4 days. Basic volley profile will be up and is a patient appears to be highly noncompliant. Extensive counseling was provided. Patient was confused yesterday this confusion improved today. As her confusion neurology evaluated the patient recommended MRI but patient is not willing to get an MRI. Etiology of the head did not show any significant abnormality. Carotid Doppler was done as today which did show about 50% stenosis on the left. Internal carotid and some moderate atherosclerotic changes in the right internal carotid PHYSICAL EXAMINATION: GENERAL: The patient is alert and oriented x3, not in any acute distress. Well developed, well nourished. HEENT: Pupils are round and equally reacting to light. EOMI. No scleral icterus. No conjunctival pallor. Normocephalic, atraumatic. No pharyngeal erythema. No thyromegaly. CARDIOVASCULAR: S1 and S2 present. No murmurs, rubs, or gallops. PULMONARY: Chest is clear to auscultation, no wheezing or crackles. ABDOMEN: Soft, nontender, nondistended, normoactive bowel sounds. No palpable organomegaly. MUSCULOSKELETAL: No joint swelling or deformity. EXTREMITIES: No cyanosis, clubbing, does have bilateral pitting pedal edema NEUROLOGICAL: Gross neurological examination did not reveal any focal deficits. SKIN: No rashes. Assessment and Plan Plan: -Acute hypoxic respiratory failure: Secondary to congestive heart failure with systolic dysfunction with acute exacerbation. Patient systolic dysfunction is probably secondary to takatsubo syndrome. Patient is being can you done IV Lasix at this time. -Elevated troponins with possibly of non-ST elevation myocardial infarction and troponin elevation can be secondary to stress-induced cardiomyopathy. Patient doesn't want any cardiac catheterization and stenting at this time and patient is presently on heparin aspirin and Lipitor -Renal failure with possibly acute tubular necrosis or cardiorenal syndrome she was a valid by nephrology and patient will follow-up with nephrology as an outpatient. -Possible aspiration pneumonia for which she is being discharged on the fourth more days of Augmentin -Hypertension -Elevated liver enzymes her transaminitis secondary to hepatic congestion -Bradycardia probably secondary to hyperkalemia which is again from renal d ysfunction. -Metabolic encephalopathy which improved Positive blood cultures secondary to contamination patient has a coagulase- negative staph. No further intervention at this time antibiotics are not needed Patient Condition at Discharge: Stable Plan - Discharge Summary Discharge Rx Participant: No New Discharge Prescriptions: New Tiotropium [place] [Spiriva] 1 cap INHALATION DAILY #1 device Amoxicillin/Potassium Clav [Augmentin 875-125 Tablet] 1 tab PO Q12HR 4 Days #8 tab Warfarin [Coumadin] 5 mg PO ONCE@1800 #30 tab Losartan [Cozaar] 50 mg PO DAILY #30 tab Metoprolol Tartrate [Lopressor] 25 mg PO BID #60 tab Budesonide-Formot 160-4.5 Mcg [Symbicort 160-4.5 Mcg Inhaler] 2 puff I NHALATION BID #1 inhaler Albuterol Inhaler [Ventolin Hfa Inhaler] 2 puff INHALATION RT-QID PRN #1 inhaler PRN Reason: Shortness Of Breath Or Wheezing Continue polyethylene glycoL 3350 [Miralax] 17 gm PO DAILY PRN PRN Reason: Constipation Docusate [Colace] 100 mg PO BID PRN PRN Reason: Constipation Changed Furosemide [Lasix] 40 mg PO DAILY PRN #30 tab PRN Reason: Edema Discontinued amLODIPine [Norvasc] 10 mg PO DAILY Losartan-Hctz 50-12.5 mg [Hyzaar 50-12.5] 1 tab PO DAILY Discharge Medication List Docusate [Colace] 100 mg PO BID PRN 10/19/20 [History] polyethylene glycoL 3350 [Miralax] 17 gm PO DAILY PRN 10/19/20 [History] Albuterol Inhaler [Ventolin Hfa Inhaler] 2 puff INHALATION RT-QID PRN #1 inhaler 10/22/20 [Rx] Amoxicillin/Potassium Clav [Augmentin 875-125 Tablet] 1 tab PO Q12HR 4 Days #8 tab 10/22/20 [Rx] Budesonide-Formot 160-4.5 Mcg [Symbicort 160-4.5 Mcg Inhaler] 2 puff INHALATION BID #1 inhaler 10/22/20 [Rx] Furosemide [Lasix] 40 mg PO DAILY PRN #30 tab 10/22/20 [Rx] Losartan [Cozaar] 50 mg PO DAILY #30 tab 10/22/20 [Rx] Metoprolol Tartrate [Lopressor] 25 mg PO BID #60 tab 10/22/20 [Rx] Tiotropium [place] [Spiriva] 1 cap INHALATION DAILY #1 device 10/22/20 [Rx] Warfarin [Coumadin] 5 mg PO ONCE@1800 #30 tab 10/22/20 [Rx] Follow up Appointment(s)/Referral(s): Sridevi Lee MD [STAFF PHYSICIAN] - 11/12/20 9:20 am (With nurse practitioner, Elizabeth) Tom Cervantes MD [Primary Care Provider] - 10/29/20 10:30 am Adair De Leon DO [STAFF PHYSICIAN] - 1 Week (Office will call to make a follow-up appointment) [facility], [NON-STAFF] - Ambulatory/Diagnostic Orders: Basic Metabolic Panel [LAB.AMB] Time Frame: 3 Days, Location: None Selected Prothrombin Time INR [LAB.AMB] Time Frame: 3 Days, Location: None Selected Discharge/Stand Alone Forms: Who Do I Call? Discharge Disposition: HOME SELF-CARE
[2020-10-22 15:44] VITALS: PULSE 82
[2020-10-22] MEDS ORDERED: WARFARIN 5 MG TAB PO ONE (18:00)
== END 2020-10-22 17:12 | disposition home or self-care (01) | DRG 871 ==
LOC: EC 13:08 → 3SCARD 15:44 → 2SICU 17:05 → 3SCARD 10-20 10:58
PROVIDERS: ADMIT Hospitalist; ATTEND Hospitalist
PROC: 5A09457 Assistance with Respiratory Ventilation, 24-96 Consecutive Hours, Continuous Positive Airway Pressure (ICD-10-PCS; principal; 2020-10-19)
DX: A41.89 Other specified sepsis (principal); I21.4 Non-ST elevation (NSTEMI) myocardial infarction; N17.0 Acute kidney failure with tubular necrosis; J96.01 Acute respiratory failure with hypoxia; J69.0 Pneumonitis due to inhalation of food and vomit; K72.00 Acute and subacute hepatic failure without coma; G93.41 Metabolic encephalopathy; I50.43 Acute on chronic combined systolic (congestive) and diastolic (congestive) heart failure; I13.0 Hypertensive heart and chronic kidney disease with heart failure and stage 1 through stage 4 chronic kidney disease, or unspecified chronic kidney disease; I48.20 Chronic atrial fibrillation, unspecified; R47.01 Aphasia; R65.20 Severe sepsis without septic shock; E87.5 Hyperkalemia; N18.9 Chronic kidney disease, unspecified; R00.1 Bradycardia, unspecified; R68.0 Hypothermia, not associated with low environmental temperature; Z20.822 Contact with and (suspected) exposure to COVID-19; I48.0 Paroxysmal atrial fibrillation; Z66 Do not resuscitate; J32.0 Chronic maxillary sinusitis; D64.9 Anemia, unspecified; E78.5 Hyperlipidemia, unspecified; E86.0 Dehydration; I25.5 Ischemic cardiomyopathy; J44.9 Chronic obstructive pulmonary disease, unspecified; Z79.01 Long term (current) use of anticoagulants; Z79.51 Long term (current) use of inhaled steroids; Z86.73 Personal history of transient ischemic attack (TIA), and cerebral infarction without residual deficits; F17.200 Nicotine dependence, unspecified, uncomplicated; K76.1 Chronic passive congestion of liver
CPT/HCPCS: 36415; 36600; 70450; 71045; 76770; 80048; 80053; 80202; 80306; 80320; 81001; 82140; 82550; 82803; 82805; 83605; 83690; 83735; 83880; 84100; 84145; 84443; 84484; 85025; 85027; 85379; 85610; 85730; 87040; 87635; 93005; 93306; 93880; 94640; 94660; 94760; 96365; 96375; 99291; 99292

== ENCOUNTER 2021-04-24 11:31 | Emergency (ER) | payer OTHER ==
[2021-04-24 12:11] VITALS: TEMP 97.9
[2021-04-24 12:58] LABS: Albumin 4.8 g/dL (3.5-5.0); Calcium 9.4 mg/dL (8.4-10.2); Potassium 4.7 mmol/L (3.5-5.1); Total Bilirubin 0.4 mg/dL (0.2-1.3)
[2021-04-24 13:05] LABS: Basophils # (A) 0.1 k/uL (0-0.2); Basophils % (A) 1 %; Eosinophils # (A) 0.3 k/uL (0-0.7); Eosinophils % (A) 5 %; HGB 12.6 gm/dL (13.0-17.5); Lymphocytes # (A) 1.9 k/uL (1.0-4.8); Lymphocytes % (A) 29 %; MCH 32.2 pg (25.0-35.0); MCV 92.1 fL (80.0-100.0); Monocytes # (A) 0.5 k/uL (0-1.0); Monocytes % (A) 7 %; Neutrophils # (A) 3.5 k/uL (1.3-7.7); Neutrophils % (A) 53 %; Platelet Count 348 k/uL (150-450); RDW 13.8 % (11.5-15.5); WBC 6.5 k/uL (3.8-10.6)
--- NOTE | 2021-04-24 14:02 | ED ---
Recheck HPI - General Chief Complaint: Recheck/Abnormal Lab/Rx Stated Complaint: Kidney problems Time Seen by Provider: 04/24/21 12:15 Source: patient, RN notes reviewed Mode of arrival: wheelchair Limitations: no limitations - History of Present Illness Initial Comments: Patient is a 60-year-old male that presents to the emergency department complaining of abnormal labs at routine checkup at his primary care. He notes he was called by his primary care doctor Dr. Cervantes who told to come emergency room to get redraw's of his labs. Patient denied any symptoms or complaints at this time. He was otherwise well-appearing in no apparent distress. He denied chest pain shortness of breath headache nausea vomiting diarrhea constipation fever fatigue chills. - Related Data Home Medications Medication Instructions Recorded Confirmed Ascorbic Acid [Vitamin C] 500 mg PO DAILY 04/24/21 04/24/21 Aspirin EC [Ecotrin] 325 mg PO DAILY 04/24/21 04/24/21 Budesonide-Formot 160-4.5 Mcg 2 puff INHALATION RT-BID 04/24/21 04/24/21 [Symbicort 160-4.5 Mcg Inhaler] Cholecalciferol [Vitamin D3 (25 50 mcg PO DAILY 04/24/21 04/24/21 Mcg = 1000 Iu)] Clindamycin [Cleocin] 150 mg PO TID 04/24/21 04/24/21 Folic Acid 0.4 mg PO DAILY 04/24/21 04/24/21 Furosemide [Lasix] 20 mg PO BID 04/24/21 04/24/21 Losartan-Hctz 50-12.5 mg [Hyzaar 1 tab PO DAILY 04/24/21 04/24/21 50-12.5] Nystatin 100,000 Unit/ml Susp 4 ml PO QID 04/24/21 04/24/21 [Mycostatin Oral Susp] Super Beta Prostate 1 tab PO BID 04/24/21 04/24/21 Warfarin [Coumadin] 5 mg PO DAILY 04/24/21 04/24/21 Zinc 50 mg PO DAILY 04/24/21 04/24/21 Previous Rx's Medication Instructions Recorded Albuterol Inhaler [Ventolin Hfa 2 puff INHALATION RT-QID PRN #1 10/22/20 Inhaler] inhaler Metoprolol Tartrate [Lopressor] 25 mg PO BID #60 tab 10/22/20 Allergies Allergy/AdvReac Type Severity Reaction Status Date / Time No Known Allergies Allergy Verified 04/24/21 13:25 Review of Systems ROS Statement: Those systems with pertinent positive or pertinent negative responses have been documented in the HPI. ROS Other: All systems not noted in ROS Statement are negative. Past Medical History Past Medical History: CVA/TIA, Hypertension History of Any Multi-Drug Resistant Organisms: None Reported Past Surgical History: No Surgical Hx Reported Past Anesthesia/Blood Transfusion Reactions: No Reported Reaction Past Psychological History: No Psychological Hx Reported Smoking Status: Current every day smoker Past Alcohol Use History: None Reported Past Drug Use History: None Reported General Exam Limitations: no limitations General appearance: alert, in no apparent distress Head exam: Present: atraumatic, normocephalic, normal inspection Eye exam: Present: normal appearance, PERRL, EOMI. Absent: scleral icterus, conjunctival injection, periorbital swelling ENT exam: Present: normal exam, mucous membranes moist Neck exam: Present: normal inspection Respiratory exam: Present: normal lung sounds bilaterally. Absent: respiratory distress, wheezes, rales, rhonchi, stridor Cardiovascular Exam: Present: regular rate, normal rhythm, normal heart sounds. Absent: systolic murmur, diastolic murmur, rubs, gallop, clicks GI/Abdominal exam: Present: soft, normal bowel sounds. Absent: distended, tenderness, guarding, rebound, rigid Extremities exam: Present: normal inspection, full ROM, normal capillary refill. Absent: tenderness, pedal edema, joint swelling, calf tenderness Neurological exam: Present: alert, oriented X3 Psychiatric exam: Present: normal affect, normal mood Skin exam: Present: warm, dry, intact, normal color. Absent: rash Course Vital Signs 04/24/21 12:07 Temperature 97.9 F Pulse Rate 68 Respiratory 16 Rate Blood Pressure 151/79 O2 Sat by Pulse 100 Oximetry Medical Decision Making - Medical Decision Making 60-year-old male here to recheck abnormal labs at his primary care office. Basic labs ordered. Labs all comparable to prior studies within the past 3 years no acute differenc es. Patient is a remote discharge home. Case discussed with Dr. Amador, patient discharge home follow-up to primary care. - Lab Data Result diagrams: 04/24/21 12:32 11/19/21 12:32 Lab Results 04/24/21 04/24/21 Range/Units 12:32 12:32 WBC 6.5 (3.8-10.6) k/uL RBC 3.90 L (4.30-5.90) m/uL Hgb 12.6 L (13.0-17.5) gm/dL Hct 36.0 L (39.0-53.0) % MCV 92.1 (80.0-100.0) fL MCH 32.2 (25.0-35.0) pg MCHC 35.0 (31.0-37.0) g/dL RDW 13.8 (11.5-15.5) % Plt Count 348 (150-450) k/uL MPV 7.0 Neutrophils % 53 % Lymphocytes % 29 % Monocytes % 7 % Eosinophils % 5 % Basophils % 1 % Neutrophils # 3.5 (1.3-7.7) k/uL Lymphocytes # 1.9 (1.0-4.8) k/uL Monocytes # 0.5 (0-1.0) k/uL Eosinophils # 0.3 (0-0.7) k/uL Basophils # 0.1 (0-0.2) k/uL Sodium 133 L (137-145) mmol/L Potassium 4.7 (3.5-5.1) mmol/L Chloride 97 L (98-107) mmol/L Carbon Dioxide 26 (22-30) mmol/L Anion Gap 10 mmol/L BUN 57 H (9-20) mg/dL Creatinine 3.66 H (0.66-1.25) mg/dL Est GFR (CKD-EPI)AfAm 19 (>60 ml/min/1.73 sqM) Est GFR (CKD-EPI)NonAf 17 (>60 ml/min/1.73 sqM) Glucose 120 H (74-99) mg/dL Calcium 9.4 (8.4-10.2) mg/dL Total Bilirubin 0.4 (0.2-1.3) mg/dL AST 27 (17-59) U/L ALT 15 (4-49) U/L Alkaline Phosphatase 52 (38-126) U/L Total Protein 8.0 (6.3-8.2) g/dL Albumin 4.8 (3.5-5.0) g/dL Disposition Clinical Impression: Renal insufficiency Disposition: HOME SELF-CARE Condition: Stable Instructions (If sedation given, give patient instructions): Chronic Kidney Disease (ED) Additional Instructions: Please return to the Emergency Department if symptoms worsen or any other concerns. All with primary care 1-2 days. Is patient prescribed a controlled substance at d/c from ED?: No Referrals: Tom Cervantes MD [Primary Care Provider] - 1-2 days Time of Disposition: 14:02
[2021-04-24 14:13] VITALS: BP 126/82; PULSE 69; RESP 18
== END 2021-04-24 14:06 | disposition home or self-care (01) ==
LOC: EC 11:31
DX: N28.9 Disorder of kidney and ureter, unspecified (principal); I10 Essential (primary) hypertension; F17.200 Nicotine dependence, unspecified, uncomplicated; Z79.82 Long term (current) use of aspirin; Z79.01 Long term (current) use of anticoagulants; Z86.73 Personal history of transient ischemic attack (TIA), and cerebral infarction without residual deficits
CPT/HCPCS: 80053; 85025; 99283

== ENCOUNTER 2021-05-19 14:42 | Emergency (ER) | payer OTHER ==
[2021-05-19 16:06] VITALS: BP 174/75; PULSE 73; RESP 18; TEMP 98.5
--- NOTE | 2021-05-19 17:25 | ED ---
General Adult HPI - General Chief complaint: Skin/Abscess/Foreign Body Stated complaint: Oral Issue Time Seen by Provider: 05/19/21 17:05 Source: patient, RN notes reviewed, old records reviewed Mode of arrival: ambulatory Limitations: no limitations - History of Present Illness Initial comments: This is a well-appearing 60-year-old male that was presents to the emergency room with complaints of fungal infection to his tongue since November. Patient did see Dr. Cervantes his primary care doctor and was put on nystatin. This is his third dose of nystatin that was prescribed on May 16. He states that it is getting better but it is not gone. Patient was concerned that he may need additional medications. He denies any other rashes. He is no longer using albuterol which was the causative agent. -: month(s) (7) Location: mouth (tongue) Severity scale (1-10): 0 Associated Symptoms: denies other symptoms - Related Data Home Medications Medication Instructions Recorded Confirmed Ascorbic Acid [Vitamin C] 500 mg PO DAILY 04/24/21 04/24/21 Aspirin EC [Ecotrin] 325 mg PO DAILY 04/24/21 04/24/21 Budesonide-Formot 160-4.5 Mcg 2 puff INHALATION RT-BID 04/24/21 04/24/21 [Symbicort 160-4.5 Mcg Inhaler] Cholecalciferol [Vitamin D3 (25 50 mcg PO DAILY 04/24/21 04/24/21 Mcg = 1000 Iu)] Clindamycin [Cleocin] 150 mg PO TID 04/24/21 04/24/21 Folic Acid 0.4 mg PO DAILY 04/24/21 04/24/21 Furosemide [Lasix] 20 mg PO BID 04/24/21 04/24/21 Losartan-Hctz 50-12.5 mg [Hyzaar 1 tab PO DAILY 04/24/21 04/24/21 50-12.5] Nystatin 100,000 Unit/ml Susp 4 ml PO QID 04/24/21 04/24/21 [Mycostatin Oral Susp] Super Beta Prostate 1 tab PO BID 04/24/21 04/24/21 Warfarin [Coumadin] 5 mg PO DAILY 04/24/21 04/24/21 Zinc 50 mg PO DAILY 04/24/21 04/24/21 Previous Rx's Medication Instructions Recorded Albuterol Inhaler [Ventolin Hfa 2 puff INHALATION RT-QID PRN #1 10/22/20 Inhaler] inhaler Metoprolol Tartrate [Lopressor] 25 mg PO BID #60 tab 10/22/20 Allergies Allergy/AdvReac Type Severity Reaction Status Date / Time No Known Allergies Allergy Verified 04/24/21 13:25 Review of Systems ROS Statement: Those systems with pertinent positive or pertinent negative responses have been documented in the HPI. ROS Other: All systems not noted in ROS Statement are negative. Past Medical History Past Medical History: CVA/TIA, Hypertension History of Any Multi-Drug Resistant Organisms: None Reported Past Surgical History: No Surgical Hx Reported Past Anesthesia/Blood Transfusion Reactions: No Reported Reaction Past Psychological History: No Psychological Hx Reported Smoking Status: Current every day smoker Past Alcohol Use History: None Reported Past Drug Use History: None Reported General Exam Limitations: no limitations General appearance: alert, in no apparent distress Head exam: Present: atraumatic, normocephalic, normal inspection Eye exam: Present: normal appearance, EOMI ENT exam: Present: mucous membranes moist, other (Ramirez coating to the mid and posterior tongue, no lesions) Neck exam: Present: normal inspection, full ROM. Absent: tenderness, meningis mus, lymphadenopathy, thyromegaly Cardiovascular Exam: Present: regular rate Neurological exam: Present: alert, oriented X3 Psychiatric exam: Present: normal affect, normal mood Skin exam: Present: warm, dry, intact, normal color. Absent: rash, cyanosis Course Vital Signs 05/19/21 16:01 Temperature 98.5 F Pulse Rate 73 Respiratory 18 Rate Blood Pressure 174/75 O2 Sat by Pulse 99 Oximetry Medical Decision Making - Medical Decision Making 60-year-old male that presents to the emergency room with complaints of ramirez coating to his tongue sine November after using Albuterol. He has seen his primary care doctor and he has been on nystatin. He states that it is getting better. He has no open oral lesions, no other rashes. He is no longer using albuterol which was the offending agent. Patient was instructed to continue the medication since it is improving the thrush. States he has concerns for oral cancer and states that he does have an appointment with his dentist in 5 days. He is discharged home to follow up with his primary care doctor next week. Case discussed with Dr. Norris. Disposition Clinical Impression: Thrush, oral Disposition: HOME SELF-CARE Condition: Good Instructions (If sedation given, give patient instructions): Oral Candidiasis ( ED) Additional Instructions: Follow-up with primary care doctor this week. Continue medications as prescribed. Return to emergency room for any new or worsening symptoms Is patient prescribed a controlled substance at d/c from ED?: No Referrals: Tom Cervantes MD [Primary Care Provider] - 1-2 days Time of Disposition: 17:24
== END 2021-05-19 17:40 | disposition home or self-care (01) ==
LOC: EC 14:42
DX: B37.0 Candidal stomatitis (principal); F17.200 Nicotine dependence, unspecified, uncomplicated; I10 Essential (primary) hypertension; Z86.73 Personal history of transient ischemic attack (TIA), and cerebral infarction without residual deficits; Z79.899 Other long term (current) drug therapy; Z79.01 Long term (current) use of anticoagulants; Z79.82 Long term (current) use of aspirin
CPT/HCPCS: 99282

== ENCOUNTER → 2021-10-08 | Outpatient (CLI) | payer OTHER ==
[2021-10-08 13:57] LABS: Creatinine,Urine Random 57.9 mg/dL; Protein/Creatinine Ratio,Urine 2.625
[2021-10-08 19:50] LABS: African American GFR (CKD) 24.7 (60.0-200.0); Albumin 4.3 g/dL (3.8-4.9); Albumin/Globulin Ratio 1.59 (1.60-3.17); Anion Gap 9.1 mmol/L (10.00-18.00); BUN/Creat Ratio 9.03 Ratio (12.00-20.00); Blood Urea Nitrogen 27.1 mg/dL (9.0-27.0); Calcium 9.1 mg/dL (8.7-10.3); Carbon Dioxide 24.9 mmol/L (20.0-27.5); Globulin 2.7 g/dL (1.6-3.3); Magnesium 2.7 mg/dL (1.5-2.4); Non-African American GFR(CKD) 21.3 (60.0-200.0); Phosphorus 3.9 mg/dL (2.4-5.1); Potassium 5.5 mmol/L (3.5-5.5); Total Bilirubin 0.2 mg/dL (0.30-1.20)
[2021-10-08 19:51] LABS: Basophils # (A) 0.07 X 10*3/uL (0.00-0.10); Basophils % (A) 1.1 %; Eosinophils # (A) 0.47 X 10*3/uL (0.04-0.35); Eosinophils % (A) 7.4 %; HCT 36.8 % (39.6-50.0); HGB 11.8 g/dL (13.0-17.0); Immature Grans, Automated 0.2 %; Lymphocytes # (A) 1.98 X 10*3/uL (0.90-5.00); MCH 31.1 pg (27.0-32.0); MCHC 32.1 g/dL (32.0-37.0); MCV 97.1 fL (80.0-97.0); Mean Platelet Volume 10.4 fL (9.5-12.2); Monocytes # (A) 0.81 X 10*3/uL (0.20-1.00); Monocytes % (A) 12.7 %; NRBC Per 100 WBC 0 /100 WBCS (0.0-0.0); Neutrophils # (A) 3.04 X 10*3/uL (1.80-7.70); Neutrophils % (A) 47.6 %; Platelet Count 255 X 10*3/uL (140-440); RBC 3.79 X 10*6/uL (4.40-5.60); RDW 13.8 % (11.5-14.5); WBC 6.38 X 10*3/uL (4.50-10.00)
[2021-10-08 22:34] LABS: Appearance,Urine Clear (Clear); Bacteria,Urine None Seen /HPF (None Seen); Bilirubin,Urine Negative (Negative); Blood,Urine Negative (Negative); Color,Urine Yellow (Yellow); Ketones,Urine Negative (Negative); Nitrite,Urine Negative (Negative); PH, Urine 7.5 (5.0-8.0); Specific Gravity,Urine 1.009 (1.001-1.030); Urobilinogen,Urine 0.2 (0.2,1.0)
== END | disposition home or self-care (01) ==
LOC: LABWHC1 10:01
PROVIDERS: ATTEND Internal Medicine Nephrology
DX: D64.9 Anemia, unspecified (principal); N18.4 Chronic kidney disease, stage 4 (severe); N39.0 Urinary tract infection, site not specified; R80.9 Proteinuria, unspecified
CPT/HCPCS: 36415; 80053; 81001; 82570; 83735; 84100; 84156; 85025

== ENCOUNTER → 2021-12-08 | Outpatient (CLI) | payer OTHER ==
[2021-12-08 12:21] LABS: Creatinine,Urine Random 90.9 mg/dL; Protein/Creatinine Ratio,Urine 2.079
[2021-12-08 14:31] LABS: Basophils # (A) 0.06 X 10*3/uL (0.00-0.10); Basophils % (A) 0.9 %; Eosinophils # (A) 0.33 X 10*3/uL (0.04-0.35); HCT 37.2 % (39.6-50.0); HGB 11.8 g/dL (13.0-17.0); Immature Grans, Automated 0.3 %; Lymphocytes # (A) 2.03 X 10*3/uL (0.90-5.00); Lymphocytes % (A) 30.6 %; MCH 29.9 pg (27.0-32.0); MCHC 31.7 g/dL (32.0-37.0); MCV 94.4 fL (80.0-97.0); Mean Platelet Volume 10.5 fL (9.5-12.2); Monocytes # (A) 0.63 X 10*3/uL (0.20-1.00); Monocytes % (A) 9.5 %; NRBC Per 100 WBC 0 /100 WBCS (0.0-0.0); Neutrophils # (A) 3.57 X 10*3/uL (1.80-7.70); Neutrophils % (A) 53.7 %; Platelet Count 245 X 10*3/uL (140-440); RBC 3.94 X 10*6/uL (4.40-5.60); RDW 13.4 % (11.5-14.5); WBC 6.64 X 10*3/uL (4.50-10.00)
[2021-12-08 14:48] LABS: Magnesium 2.3 mg/dL (1.5-2.4); Phosphorus 3.9 mg/dL (2.4-5.1); Uric Acid 5.8 mg/dL (3.7-8.7)
[2021-12-08 14:59] LABS: African American GFR (CKD) 25.7 (60.0-200.0); Anion Gap 11.4 mmol/L (10.00-18.00); BUN/Creat Ratio 10.69 Ratio (12.00-20.00); Carbon Dioxide 21.6 mmol/L (20.0-27.5); Non-African American GFR(CKD) 22.2 (60.0-200.0); Potassium 4.7 mmol/L (3.5-5.5)
[2021-12-08 18:53] LABS: Appearance,Urine Clear (Clear); Bilirubin,Urine Negative (Negative); Blood,Urine Negative (Negative); Color,Urine Yellow (Yellow); Ketones,Urine Negative (Negative); Nitrite,Urine Negative (Negative); Specific Gravity,Urine 1.013 (1.001-1.030); Urobilinogen,Urine 0.2 (0.2,1.0)
[2021-12-08 19:01] LABS: Bacteria,Urine None Seen /HPF (None Seen)
== END | disposition home or self-care (01) ==
LOC: LABWHC1 09:34
PROVIDERS: ATTEND Ophthalmology
DX: E55.9 Vitamin D deficiency, unspecified (principal); D64.9 Anemia, unspecified; N39.0 Urinary tract infection, site not specified; N25.81 Secondary hyperparathyroidism of renal origin; N18.4 Chronic kidney disease, stage 4 (severe); M10.9 Gout, unspecified; R80.9 Proteinuria, unspecified
CPT/HCPCS: 36415; 80048; 81001; 82306; 82570; 83036; 83735; 83970; 84100; 84156; 84550; 85025

== ENCOUNTER 2022-11-11 10:15 | Emergency (ER) | payer MEDICARE, OTHER ==
[2022-11-11 10:30] VITALS: TEMP 98.1
[2022-11-11] MEDS ORDERED: SODIUM CHLORIDE 0.9% 1,000 ML IV STA (10:35)
--- NOTE | 2022-11-11 11:13 | XR ---
EXAMINATION TYPE: XR KUB DATE OF EXAM: 11/11/2022 Comparison: None Clinical History: 61-year-old male constipation Findings: Dextro convex scoliosis. Scattered mild stool. Air extends distally to the rectum. Nonobstructive bow el gas pattern. No dilated small bowel seen. No evidence for free intraperitoneal air. Vascular calci fications in the pelvis. Impression: Scattered mild stool. No evidence for free air or bowel obstruction. Dextroconvex scoliosis lumbar sp ine.
--- NOTE | 2022-11-11 11:22 | ED ---
General Adult HPI - General Chief complaint: Abdominal Pain Stated complaint: constipation, abd pain Time Seen by Provider: 11/11/22 10:32 Source: patient Mode of arrival: ambulatory Limitations: no limitations - History of Present Illness Initial comments: Patient is a 61-year-old male who presents the emergency department for constipation. Despite triage note patient has no abdominal pain whatsoever. He has not had a bowel movement in 2-3 days which is not unusual for him. He did speak to his primary care and pharmacist about it who stated he might be constipated. Patient then came in for evaluation. He has not tried any [id number] medications although he has used MiraLAX in the past with success. He denies nausea, vomiting, fever, chills. He does not use any narcotic medication. - Related Data Home Medications Medication Instructions Recorded Confirmed Ascorbic Acid [Vitamin C] 500 mg PO DAILY 04/24/21 04/24/21 Aspirin EC [Ecotrin] 325 mg PO DAILY 04/24/21 04/24/21 Budesonide-Formot 160-4.5 Mcg 2 puff INHALATION RT-BID 04/24/21 04/24/21 [Symbicort 160-4.5 Mcg Inhaler] Cholecalciferol [Vitamin D3 (25 50 mcg PO DAILY 04/24/21 04/24/21 Mcg = 1000 Iu)] Clindamycin [Cleocin] 150 mg PO TID 04/24/21 04/24/21 Folic Acid 0.4 mg PO DAILY 04/24/21 04/24/21 Furosemide [Lasix] 20 mg PO BID 04/24/21 04/24/21 Losartan-Hctz 50-12.5 mg [Hyzaar 1 tab PO DAILY 04/24/21 04/24/21 50-12.5] Nystatin 100,000 Unit/ml Susp 4 ml PO QID 04/24/21 04/24/21 [Mycostatin Oral Susp] Super Beta Prostate 1 tab PO BID 04/24/21 04/24/21 Warfarin [Coumadin] 5 mg PO DAILY 04/24/21 04/24/21 Zinc 50 mg PO DAILY 04/24/21 04/24/21 Previous Rx's Medication Instructions Recorded Albuterol Inhaler [Ventolin Hfa 2 puff INHALATION RT-QID PRN #1 10/22/20 Inhaler] inhaler Metoprolol Tartrate [Lopressor] 25 mg PO BID #60 tab 10/22/20 polyethylene glycoL 3350 [Miralax] 17 gm PO DAILY #4 packet 11/11/22 Allergies Allergy/AdvReac Type Severity Reaction Status Date / Time No Known Allergies Allergy Verified 11/11/22 10:30 Review of Systems ROS Statement: Those systems with pertinent positive or pertinent negative responses have been documented in the HPI. ROS Other: All systems not noted in ROS Statement are negative. Past Medical History Past Medical History: CVA/TIA, Hypertension History of Any Multi-Drug Resistant Organisms: None Reported Past Surgical History: No Surgical Hx Reported Past Anesthesia/Blood Transfusion Reactions: No Reported Reaction Past Psychological History: No Psychological Hx Reported Smoking Status: Current every day smoker Past Alcohol Use History: None Reported Past Drug Use History: None Reported General Exam Limitations: no limitations General appearance: alert, in no apparent distress Head exam: Present: atraumatic, normocephalic, normal inspection Respiratory exam: Present: normal lung sounds bilaterally. Absent: respiratory distress, wheezes, rales, rhonchi, stridor Cardiovascular Exam: Present: regular rate, normal rhythm, normal heart sounds. Absent: systolic murmur, diastolic murmur, rubs, gallop, clicks GI/Abdominal exam: Present: soft, normal bowel sounds. Absent: distended, tenderness, guarding, rebound, rigid Neurological exam: Present: alert, oriented X3, CN II-XII intact Psychiatric exam: Present: normal affect, normal mood Skin exam: Present: warm, dry, intact, normal color. Absent: rash Course Vital Signs 11/11/22 11/11/22 10:27 11:44 Temperature 98.1 F Pulse Rate 66 80 Respiratory 20 18 Rate Blood Pressure 142/72 124/78 O2 Sat by Pulse 99 100 Oximetry Medical Decision Making - Medical Decision Making Was pt. sent in by a medical professional or institution (, PA, ORGANIZATIONAL CONSULTANT, urgent care, hospital, or [facility]...) When possible be specific @ -No Did you speak to anyone other than the patient for history (EMS, parent, family, police, friend...)? What history was obtained from this source @ -No Did you review nursing and triage notes (agree or disagree)? Why? @ -[I reviewed and somewhat agree. Patient does not have abdominal pain Were old charts reviewed (outside hosp., previous admission, EMS record, old EKG, old radiological studies, urgent care reports/EKG's, [facility] records)? Report findings @ -No old charts were reviewed Differential Diagnosis (chest pain, altered mental status, abdominal pain women, abdominal pain men, vaginal bleeding, weakness, fever, dyspnea, syncope, headache, dizziness, GI bleed, back pain, seizure, CVA, palpatations, mental health)? @ -Differential Abdominal Pain Men: Appendicitis, cholecystitis, diverticulosis, ischemic bowel, pancreatitis, hepatitis, UTI, gastroenteritis, AAA, incarcerated hernia, bowel obstruction, constipation, inflammatory bowel, hepatitis, peptic ulcer disease, splenic infarction, perforated viscus, testicular torsion, this is not meant to be an all-inclusive list EKG interpreted by me (3pts min.). @ -As above X-rays interpreted by me (1pt min.). @ -Scattered mild stool no evidence of free air or bowel obstruction CT interpreted by me (1pt min.). @ -None done U/S interpreted by me (1pt. min.). @ -None done What testing was considered but not performed or refused? (CT, X-rays, U/S, labs)? Why? @ -None What meds were considered but not given or refused? Why? @ -None Did you discuss the management of the patient with other professionals (professionals i.e. , PA, ORGANIZATIONAL CONSULTANT, lab, RT, psych nurse, social science analyst, drier and grinder tender, teacher, intelligence support officer, case therapist)? Give summary @ -No Was smoking cessation discussed for >3mins.? @ -No Was critical care preformed (if so, how long)? @ -No Were there social determinants of health that impacted care today? How? (Home lessness, low income, unemployed, alcoholism, drug addiction, transportation, low edu. Level, literacy, decrease access to med. care, half-way, rehab)? @ -No Was there de-escalation of care discussed even if they declined (Discuss DNR or withdrawal of care, Hospice)? DNR status @ -No What co-morbidities impacted this encounter? (DM, HTN, Smoking, COPD, CAD, Cancer, CVA, ARF, Chemo, Hep., AIDS, mental health diagnosis, sleep apnea, morbid obesity)? @ -None Was patient admitted / discharged? Hospital course, mention meds given and route, prescriptions, significant lab abnormalities, going to OR and other pertinent info. @ - discharged. KUB x-ray interpreted by myself/radiology showing scattered mild stool no evidence of free air or bowel obstruction. Patient does not have abdominal pain. We discussed treatment options in the emergency department I did offer an enema patient would like to try MiraLAX at home. He is discharged with a prescription. We discussed constipation in detail patient increase fluid and fiber intake Undiagnosed new problem with uncertain prognosis? @ -No Drug Therapy requiring intensive monitoring for toxicity (Heparin, Nitro, Insulin, Cardizem)? @ -No Were any procedures done? @ -No Diagnosis/symptom? @ -Constipation Acute, or Chronic, or Acute on Chronic? @ Acute Uncomplicated (without systemic symptoms) or Complicated (systemic symptoms)? @ -Uncomplicated Side effects of treatment? @ -No Exacerbation, Progression, or Severe Exacerbation? @ -No Poses a threat to life or bodily function? How? (Chest pain, [place], [place], pneumonia, PE, COPD, DKA, ARF, appy, cholecystitis, CVA, Diverticulitis, Homicidal, Suicidal, threat to staff... and all critical care pts) @ -No Dr. Mckinley is my attending Disposition Clinical Impression: Constipation Disposition: HOME SELF-CARE Condition: Good Instructions (If sedation given, give patient instructions): Constipation (ED), High Fiber Diet (ED) Additional Instructions: Increase water and fiber intake. Use MiraLAX as needed. Follow-up with primary care provider in one to 2 days. Return to the emergency department if you experience new, concerning, or worsening symptoms. Prescriptions: polyethylene glycoL 3350 [Miralax] 17 gm PO DAILY #4 packet Is patient prescribed a controlled substance at d/c from ED?: No Referrals: Tom Cervantes MD [Primary Care Provider] - 1-2 days
[2022-11-11 11:45] VITALS: BP 124/78; PULSE 80; RESP 18
== END 2022-11-11 11:44 | disposition home or self-care (01) ==
LOC: EC 10:15
DX: K59.00 Constipation, unspecified (principal); I10 Essential (primary) hypertension; Z86.73 Personal history of transient ischemic attack (TIA), and cerebral infarction without residual deficits; F17.200 Nicotine dependence, unspecified, uncomplicated; Z79.82 Long term (current) use of aspirin; Z79.899 Other long term (current) drug therapy
CPT/HCPCS: 74018; 99284

== ENCOUNTER → 2023-01-04 | Outpatient (CLI) | payer OTHER ==
[2023-01-04 16:02] LABS: BUN/Creat Ratio 11.09 Ratio (12.00-20.00); Blood Urea Nitrogen 38.8 mg/dL (9.0-27.0); Calcium 9.7 mg/dL (8.7-10.3); Carbon Dioxide 22.8 mmol/L (21.6-31.8); Chloride 106 mmol/L (96-109); Glucose 91 mg/dL (70-110); Potassium 5.3 mmol/L (3.5-5.5); Sodium 140 mmol/L (135-145)
== END | disposition home or self-care (01) ==
LOC: LABWHC1 09:16
PROVIDERS: ATTEND Internal Medicine Nephrology
DX: N18.4 Chronic kidney disease, stage 4 (severe) (principal)
CPT/HCPCS: 36415; 80048

== ENCOUNTER → 2023-01-19 | Outpatient (CLI) | payer OTHER ==
--- NOTE | 2023-01-19 14:32 | US ---
EXAMINATION TYPE: US kidneys/renal and bladder DATE OF EXAM: 01/19/2023 COMPARISON: US 2020 CLINICAL INDICATION: Male, 62 years old with history of N18.4 CHRONIC KIDNEY DISEASE, STAGE 4 (SEVERE ); EXAM MEASUREMENTS: Right Kidney: 8.3 x 4.0 x 5.5 cm Left Kidney: 9.5 x 5.5 x 5.2 cm Right Kidney: No hydronephrosis or masses seen Left Kidney: No hydronephrosis or masses seen Bladder: wnl Bilateral Jets seen: yes Note is made of cholelithiasis. IMPRESSION: 1. Normal renal ultrasound. 2. Cholelithiasis noted during the exam
== END | disposition home or self-care (01) ==
LOC: RADUSWWP 13:06
PROVIDERS: ATTEND Internal Medicine Nephrology
DX: N18.4 Chronic kidney disease, stage 4 (severe) (principal); K80.20 Calculus of gallbladder without cholecystitis without obstruction
CPT/HCPCS: 76770

== ENCOUNTER 2023-06-04 11:19 | Emergency (ER) | payer OTHER ==
[2023-06-04 11:33] VITALS: RESP 18; TEMP 98.2
[2023-06-04] MEDS ORDERED: PROPARACAINE 0.5% OPHTH DROPS 15 ML BTL LEFT EYE STA (12:44)
[2023-06-04] MEDS ORDERED: FLUORESCEIN STRIPS 1 MG STRIP LEFT EYE ONE (12:45)
[2023-06-04] MEDS ORDERED: POLYMYXIN B-TRIMETHOPRIM SULF (10,000-1) OPHTH DROPS 10 ML BTL LEFT EYE STA (13:00)
--- NOTE | 2023-06-04 13:02 | ED ---
Eye Problem HPI - General Chief complaint: Eye Problems Stated complaint: Eye pain Time Seen by Provider: 06/04/23 12:34 Source: patient, RN notes reviewed, old records reviewed Mode of arrival: ambulatory Limitations: no limitations - History of Present Illness Initial comments: This is a 62-year-old male to the emergency department for evaluation of eye swelling redness significant redness of the eye stye has redness swelling and pain. Very minimal drainage but no trauma. Minimal drainage no change in vision MD chief complaint: eye pain, eye redness -: days(s) Location: left eye Place: home If Injury: none Eye Symptoms: redness Severity: moderate Severity scale (1-10): 4 Consistency: constant Associated Symptoms: none Treatments Prior to Arrival: none - Related Data Home Medications Medication Instructions Recorded Confirmed Ascorbic Acid [Vitamin C] 500 mg PO DAILY 04/24/21 04/24/21 Aspirin EC [Ecotrin] 325 mg PO DAILY 04/24/21 04/24/21 Budesonide-Formot 160-4.5 Mcg 2 puff INHALATION RT-BID 04/24/21 04/24/21 [Symbicort 160-4.5 Mcg Inhaler] Cholecalciferol [Vitamin D3 (25 50 mcg PO DAILY 04/24/21 04/24/21 Mcg = 1000 Iu)] Clindamycin [Cleocin] 150 mg PO TID 04/24/21 04/24/21 Folic Acid 0.4 mg PO DAILY 04/24/21 04/24/21 Furosemide [Lasix] 20 mg PO BID 04/24/21 04/24/21 Losartan-Hctz 50-12.5 mg [Hyzaar 1 tab PO DAILY 04/24/21 04/24/21 50-12.5] Nystatin 100,000 Unit/ml Susp 4 ml PO QID 04/24/21 04/24/21 [Mycostatin Oral Susp] Super Beta Prostate 1 tab PO BID 04/24/21 04/24/21 Warfarin [Coumadin] 5 mg PO DAILY 04/24/21 04/24/21 Zinc 50 mg PO DAILY 04/24/21 04/24/21 Previous Rx's Medication Instructions Recorded Albuterol Inhaler [Ventolin Hfa 2 puff INHALATION RT-QID PRN #1 10/22/20 Inhaler] inhaler Metoprolol Tartrate [Lopressor] 25 mg PO BID #60 tab 10/22/20 polyethylene glycoL 3350 [Miralax] 17 gm PO DAILY #4 packet 11/11/22 Allergies Allergy/AdvReac Type Severity Reaction Status Date / Time No Known Allergies Allergy Verified 06/04/23 11:27 Review of Systems ROS Statement: Those systems with pertinent positive or pertinent negative responses have been documented in the HPI. ROS Other: All systems not noted in ROS Statement are negative. Past Medical History Past Medical History: CVA/TIA, Hypertension History of Any Multi-Drug Resistant Organisms: None Reported Past Surgical History: No Surgical Hx Reported Past Anesthesia/Blood Transfusion Reactions: No Reported Reaction Past Psychological History: No Psychological Hx Reported Smoking Status: Current every day smoker Past Alcohol Use History: None Reported Past Drug Use History: None Reported General Exam Limitations: no limitations General appearance: alert, in no apparent distress Head exam: Present: atraumatic, normocephalic, normal inspection Eye exam: Present: normal appearance, PERRL, EOMI, other (Patient does have conjunctivitis of the eye). Absent: scleral icterus, conjunctival injection, periorbital swelling ENT exam: Present: normal exam, mucous membranes moist Neck exam: Present: normal inspection. Absent: tenderness, meningismus, lymphadenopathy Respiratory exam: Present: normal lung sounds bilaterally. Absent: respiratory distress, wheezes, rales, rhonchi, stridor Cardiovascular Exam: Present: regular rate, normal rhythm, normal heart sounds. Absent: systolic murmur, diastolic murmur, rubs, gallop, clicks GI/Abdominal exam: Present: soft, normal bowel sounds. Absent: distended, tenderness, guarding, rebound, rigid Extremities exam: Present: normal inspection, full ROM, normal capillary refill. Absent: tenderness, pedal edema, joint swelling, calf tenderness Back exam: Present: normal inspection Neurological exam: Present: alert, oriented X3, CN II-XII intact Psychiatric exam: Present: normal affect, normal mood Skin exam: Present: warm, dry, intact, normal color. Absent: rash Course Vital Signs 06/04/23 06/04/23 11:24 13:43 Temperature 98.2 F Pulse Rate 64 80 Respiratory 18 18 Rate Blood Pressure 204/80 188/76 O2 Sat by Pulse 98 95 Oximetry - Reevaluation(s) Reevaluation #4: Was pt. sent in by a medical professional or institution (LOPEZ Aragon, EQUIPMENT TECHNICIAN, urgent care, hospital, or senior care...) When possible be specific @ -no Did you speak to anyone other than the patient for history (EMS, parent, family, police, friend...)? What history was obtained from this source @ -no Did you review nursing and triage notes (agree or disagree)? Why? @ -agree Are old charts reviewed (outside hosp., previous admission, EMS record, old EKG, old radiological studies, urgent care reports/EKG's, senior care records)? Report findings @ -yes Differential Diagnosis (chest pain, altered mental status, abdominal pain women, abdominal pain men, vaginal bleeding, weakness, fever, dyspnea, syncope, headache, dizziness, GI bleed, back pain, seizure, CVA, palpatations, mental health, musculoskeletal)? @ -prior EKG interpreted by me (3pts min.). @ -yes X-rays interpreted by me (1pt min.). @ -yes CT interpreted by me (1pt min.). @ -no U/S interpreted by me (1pt. min.). @ -no What testing was considered but not performed or refused? (CT, X-rays, U/S, labs)? Why? @ -none What meds were considered but not given or refused? Why? @ -none Did you discuss the management of the patient with other professionals (professionals i.e. LOPEZ Aragon, EQUIPMENT TECHNICIAN, lab, RT, psych nurse, social work case manager, chicken vaccinator, teacher, equal employment opportunity officer, case supervisor)? Give summary @ -no Was smoking cessation discussed for >3mins.? @ -no Was critical care preformed (if so, how long)? @ -no Were there social determinants of health that impacted care today? How? (Homelessness, low income, unemployed, alcoholism, drug addiction, transportation, low edu. Level, literacy, decrease access to med. care, prison, rehab)? @ -none Was there de-escalation of care discussed even if they declined (Discuss DNR or withdrawal of care, Hospice)? DNR status @ -no What co-morbidities impacted this encounter? (DM, HTN, Smoking, COPD, CAD, Cancer, CVA, ARF, Chemo, Hep., AIDS, mental health diagnosis, sleep apnea, morbid obesity)? @ -none Was patient admitted / discharged? Hospital course, mention meds given and route, prescriptions, significant lab abnormalities, going to OR and other pertinent info. @ - Undiagnosed new problem with uncertain prognosis? @ -no Drug Therapy requiring intensive monitoring for toxicity (Heparin, Nitro, Insulin, Cardizem)? @ -no Were any procedures done? @ -no Diagnosis/symptom? @ - Acute, or Chronic, or Acute on Chronic? @ -Acute Uncomplicated (without systemic symptoms) or Complicated (systemic symptoms)? @ -Complicated Side effects of treatment? @ -no Exacerbation, Progression, or Severe Exacerbation? @ -exacerbation Poses a threat to life or bodily function? How? (Chest pain, [place], [place], pneumonia, PE, COPD, DKA, ARF, appy, cholecystitis, CVA, Diverticulitis, Homicidal, Suicidal, threat to staff... and all critical care pts) @ -yes Medical Decision Making - Medical Decision Making 62 male to the emergency department for evaluation of left eye conjunctivitis, patient is placed on eyedrops, patient will follow-up with ophthalmology as an outpatient Disposition Clinical Impression: Conjunctivitis, left eye, Pterygium of left eye Disposition: HOME SELF-CARE Condition: Good Instructions (If sedation given, give patient instructions): Pterygium (ED), Conjunctivitis (ED) Is patient prescribed a controlled substance at d/c from ED?: No Referrals: Tom Cervantes MD [Primary Care Provider] - 1-2 days Bakari Macias MD [STAFF PHYSICIAN] - 1-2 days Time of Disposition: 13:30
[2023-06-04 13:49] VITALS: BP 188/76; PULSE 80
== END 2023-06-04 13:43 | disposition home or self-care (01) ==
LOC: EC 11:19
DX: H11.002 Unspecified pterygium of left eye (principal); H10.9 Unspecified conjunctivitis; I10 Essential (primary) hypertension; F17.200 Nicotine dependence, unspecified, uncomplicated; Z79.82 Long term (current) use of aspirin; Z86.73 Personal history of transient ischemic attack (TIA), and cerebral infarction without residual deficits; Z79.01 Long term (current) use of anticoagulants
CPT/HCPCS: 99283

== ENCOUNTER → 2023-09-06 | Outpatient (CLI) | payer OTHER ==
[2023-09-06 17:00] LABS: INR 1.36 sec (0.93-1.11); Prothrombin Time 14.4 sec (9.9-11.9)
== END | disposition home or self-care (01) ==
LOC: LABWHC1 12:08
PROVIDERS: ATTEND Internal Medicine
DX: Z79.01 Long term (current) use of anticoagulants (principal)
CPT/HCPCS: 36415; 85610

== ENCOUNTER → 2023-09-29 | Outpatient (CLI) | payer OTHER ==
--- NOTE | 2023-09-29 14:15 | XR ---
EXAMINATION TYPE: XR Hip Complete LT DATE OF EXAM: 09/29/2023 CLINICAL HISTORY: pain TECHNIQUE: AP and frogleg views of the left hip are obtained. COMPARISON: None. FINDINGS: There is no acute fracture/dislocation evident. The joint space appears within normal li mits. The overlying soft tissue appears unremarkable. IMPRESSION: 1. There is no acute fracture or dislocation.ICD 10 NO FRACTURE, INITIAL EVALUATION
== END | disposition home or self-care (01) ==
LOC: RADXRMAIN 10:54
PROVIDERS: ATTEND Internal Medicine
DX: M25.552 Pain in left hip (principal)
CPT/HCPCS: 73502

== ENCOUNTER 2024-04-07 10:22 | Inpatient (IN) | payer MEDICARE, OTHER ==
--- NOTE | 2024-04-07 10:36 | ED ---
General Adult HPI - General Chief complaint: Altered Mental Status Stated complaint: Weakness Time Seen by Provider: 04/07/24 10:33 Source: patient, EMS Mode of arrival: EMS Limitations: no limitations, altered mental status - History of Present Illness Initial comments: Dictation was produced using [employer] dictation software. please excuse any grammatical, word or spelling errors. Chief Complaint: 63-year-old male with altered mental status History of Present Illness: Patient is a 63-year-old male he is a poor historian he lives at home by himself. Patient allegedly according to EMS states that patient called police to do a wellness check on patient's neighbor. Dispatch had difficulty understanding the patient and police ended up doing a wellness check on the patient. EMS was called by police and patient was brought to the ER. Patient has history of stroke. He is a poor historian. EMS states that patient lives by himself. Patient has no complaints The ROS documented in this emergency department record has been reviewed and confirmed by me. Those systems with pertinent positive or negative responses have been documented in the HPI. All other systems are other negative and/or noncontributory. - Related Data Home Medications Medication Instructions Recorded Confirmed Ascorbic Acid [Vitamin C] 500 mg PO DAILY 04/24/21 04/24/21 Aspirin EC [Ecotrin] 325 mg PO DAILY 04/24/21 04/24/21 Budesonide-Formot 160-4.5 Mcg 2 puff INHALATION RT-BID 04/24/21 04/24/21 [Symbicort 160-4.5 Mcg Inhaler] Cholecalciferol [Vitamin D3 (25 50 mcg PO DAILY 04/24/21 04/24/21 Mcg = 1000 Iu)] Clindamycin [Cleocin] 150 mg PO TID 04/24/21 04/24/21 Folic Acid 0.4 mg PO DAILY 04/24/21 04/24/21 Furosemide [Lasix] 20 mg PO BID 04/24/21 04/24/21 Losartan-Hctz 50-12.5 mg [Hyzaar 1 tab PO DAILY 04/24/21 04/24/21 50-12.5] Nystatin 100,000 Unit/ml Susp 4 ml PO QID 04/24/21 04/24/21 [Mycostatin Oral Susp] Super Beta Prostate 1 tab PO BID 04/24/21 04/24/21 Warfarin [Coumadin] 5 mg PO DAILY 04/24/21 04/24/21 Zinc 50 mg PO DAILY 04/24/21 04/24/21 Previous Rx's Medication Instructions Recorded Albuterol Inhaler [Ventolin Hfa 2 puff INHALATION RT-QID PRN #1 10/22/20 Inhaler] inhaler Metoprolol Tartrate [Lopressor] 25 mg PO BID #60 tab 10/22/20 polyethylene glycoL 3350 [Miralax] 17 gm PO DAILY #4 packet 11/11/22 Allergies Allergy/AdvReac Type Severity Reaction Status Date / Time No Known Allergies Allergy Verified 06/04/23 11:27 Review of Systems ROS Statement: Those systems with pertinent positive or pertinent negative responses have been documented in the HPI. ROS Other: All systems not noted in ROS Statement are negative. Past Medical History Past Medical History: CVA/TIA, Hypertension History of Any Multi-Drug Resistant Organisms: None Reported Past Surgical History: No Surgical Hx Reported Past Anesthesia/Blood Transfusion Reactions: No Reported Reaction Past Psychological History: No Psychological Hx Reported Smoking Status: Current every day smoker Past Alcohol Use History: None Reported Past Drug Use History: None Reported General Exam - General Exam Comments Initial Comments: PHYSICAL EXAM: General Impression: Alert and oriented x3, not in acute distress HEENT: Normocephalic atraumatic, extra-ocular movements intact, pupils equal and reactive to light bilaterally, mucous membranes moist. Cardiovascular: Heart regular rate and rhythm Chest: Able to complete full sentences, no retractions, no tachypnea Abdomen: abdomen soft, non-tender, non-distended, no organomegaly Musculoskeletal: Pulses present and equal in all extremities, no peripheral edema Motor: no focal deficits noted Neurological: left facial droop, no focal motor or sensory deficits noted Skin: Intact with no visualized rashes Psych: Normal affect and mood Limitations: no limitations, altered mental status Course Vital Signs 04/07/24 04/07/24 10:28 11:11 Temperature 97.6 F Pulse Rate 66 64 Respiratory 16 19 Rate Blood Pressure 166/71 161/75 O2 Sat by Pulse 100 99 Oximetry EKG Findings - EKG Comments: EKG Findings:: My EKG interpretation: Ventricular rate 66, sinus rhythm,. 240, QRS 83, QTc 416. No NM prolongation, no QTC prolongation, no ST or T-wave change s noted. Overall, this EKG is unremarkable Medical Decision Making - Medical Decision Making Was pt. sent in by a medical professional or institution (, PA, HOME ECONOMICS TEACHER, urgent care, hospital, or fci...) When possible be specific @ -No Did you speak to anyone other than the patient for history (EMS, parent, family, police, friend...)? What history was obtained from this source @ -No Did you review nursing and triage notes (agree or disagree)? Why? @ -I reviewed and agree with nursing and triage notes Were old charts reviewed (outside hosp., previous admission, EMS record, old EKG, old radiological studies, urgent care reports/EKG's, fci records)? Report findings @ -No old charts were reviewed Differential Diagnosis (chest pain, altered mental status, abdominal pain women, abdominal pain men, vaginal bleeding, musculoskeletal, weakness, fever, dyspnea, syncope, headache, dizziness, GI bleed, back pain, seizure, CVA, palpatations, mental health)? @ -Differential Altered Mental Status: Hypoglycemia, DKA, hypercapnia, ETOH, overdose, CO poisoning, trauma, myxedema coma, HTN encephalopathy, infection, encephalitis, psychosis, intercranial hemorrhage, hepatic encephalopathy, meningitis, CVA, this is not meant to be an all-inclusive list EKG interpreted by me (3pts min.). @ -See above X-rays interpreted by me (1pt min.). @ -None done CT interpreted by me (1pt min.). @ -CT brain shows stable cerebellar i injury U/S interpreted by me (1pt. min.). @ -None done What testing was considered but not performed or refused? (CT, X-rays, U/S, labs)? Why? @ -None What meds were considered but not given or refused? Why? @ -None Was smoking cessation discussed for >3mins.? @ -No Were there social determinants of health that impacted care today? How? (Homelessness, low income, unemployed, alcoholism, drug addiction, transportation, low edu. Level, literacy, decrease access to med. care, residential, rehab)? @ -No Was there de-escalation of care discussed even if they declined (Discuss DNR or withdrawal of care, Hospice)? DNR status @ -No What co-morbidities impacted this encounter? (DM, HTN, Smoking, COPD, CAD, Cancer, CVA, ARF, Chemo, Hep., AIDS, mental health diagnosis, sleep apnea, morbid obesity)? @ -CVA/TIA Was patient admitted / discharged? Hospital course, mention meds given and route, prescriptions, significant lab abnormalities, going to OR and other pertinent info. @ -63-year-old male presents to the emergency department for chief complaint of altered mental status. Patient denies any complaints however he does appear to be altered at the bedside. Is unclear how long his symptoms have been ongoing. Vital signs stable. Patient is an unreliable historian. Physical examination shows male in no acute distress. He does have some facial droop. It is unclear when that facial droop started. Labs obtained. There does appear to be acute kidney injury with creatinine of 5.9 and BUN of 75. Unclear patient has history of end-stage renal disease. Did you discuss the management of the patient with other professionals (professionals i.e. , PA, HOME ECONOMICS TEACHER, lab, RT, psych nurse, social worker health services, minister assistant, teacher, home lending officer, shelter case manager)? Give summary @ -Case discussed with hospitalist for admission. Nephrology and nephrology will be consulted Was critical care preformed (if so, how long)? @ -No Undiagnosed new problem with uncertain prognosis? @ -No Drug Therapy requiring intensive monitoring for toxicity (Heparin, Nitro, Insulin, Cardizem)? @ -No Were any procedures done? @ -No Diagnosis/symptom? Acute, or Chronic, or Acute on Chronic? Uncomplicated (without systemic symptoms) or Complicated (systemic symptoms)? @ -Altered mental status, acute kidney injury Side effects of treatment? @ -No Exacerbation, Progression, or Severe Exacerbation? @ -No Poses a threat to life or bodily function? How? (Chest pain, [place], [place], pneumonia, PE, COPD, DKA, ARF, appy, cholecystitis, CVA, Diverticulitis, Homicidal, Suicidal, threat to staff... and all critical care pts) @ -yes - Lab Data Result diagrams: 04/07/24 10:44 04/07/24 11:48 Lab Results 04/07/24 04/07/24 Range/Units 10:44 11:48 WBC 7.0 (3.8-10.6) k/uL RBC 3.25 L (4.30-5.90) m/uL Hgb 10.2 L (13.0-17.5) gm/dL Hct 30.8 L (39.0-53.0) % MCV 94.7 (80.0-100.0) fL MCH 31.4 (25.0-35.0) pg MCHC 33.1 (31.0-37.0) g/dL RDW 15.7 H (11.5-15.5) % Plt Count 222 (150-450) k/uL MPV 7.9 Neutrophils % 65 % Lymphocytes % 19 % Monocytes % 8 % Eosinophils % 4 % Basophils % 0 % Neutrophils # 4.6 (1.3-7.7) k/uL Lymphocytes # 1.4 (1.0-4.8) k/uL Monocytes # 0.6 (0-1.0) k/uL Eosinophils # 0.3 (0-0.7) k/uL Basophils # 0.0 (0-0.2) k/uL Sodium 139 (137-145) mmol/L Potassium 5.5 H (3.5-5.1) mmol/L Chloride 113 H (98-107) mmol/L Carbon Dioxide 16 L (22-30) mmol/L Anion Gap 10 mmol/L BUN 75 H (9-20) mg/dL Creatinine 5.92 H (0.66-1.25) mg/dL Est GFR (CKD-EPI)AfAm 11 (>60 ml/min/1.73 sqM) Est GFR (CKD-EPI)NonAf 9 (>60 ml/min/1.73 sqM) Glucose 104 H (74-99) mg/dL Calcium 8.4 (8.4-10.2) mg/dL Magnesium 2.5 H (1.6-2.3) mg/dL Disposition Clinical Impression: AMS (altered mental status) Disposition: ADMITTED IP TO THIS HOSP Condition: Fair Referrals: [facility] [Primary Care Provider] - 1-2 days Decision Time: 12:43
[2024-04-07 11:09] LABS: Basophils % (A) 0 %; Eosinophils # (A) 0.3 k/uL (0-0.7); Eosinophils % (A) 4 %; HCT 30.8 % (39.0-53.0); HGB 10.2 gm/dL (13.0-17.5); Lymphocytes # (A) 1.4 k/uL (1.0-4.8); Lymphocytes % (A) 19 %; MCH 31.4 pg (25.0-35.0); MCHC 33.1 g/dL (31.0-37.0); MCV 94.7 fL (80.0-100.0); Mean Platelet Volume 7.9; Monocytes # (A) 0.6 k/uL (0-1.0); Monocytes % (A) 8 %; Neutrophils # (A) 4.6 k/uL (1.3-7.7); Neutrophils % (A) 65 %; Platelet Count 222 k/uL (150-450); RBC 3.25 m/uL (4.30-5.90); RDW 15.7 % (11.5-15.5)
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
[2024-04-07 12:18] LABS: African American GFR (CKD) 11 (>60 ml/min/1.73 sqM); Anion Gap 10 mmol/L; Blood Urea Nitrogen 75 mg/dL (9-20); Calcium 8.4 mg/dL (8.4-10.2); Carbon Dioxide 16 mmol/L (22-30); Chloride 113 mmol/L (98-107); Glucose 104 mg/dL (74-99); Magnesium 2.5 mg/dL (1.6-2.3); Non-African American GFR(CKD) 9 (>60 ml/min/1.73 sqM); Potassium 5.5 mmol/L (3.5-5.1); Sodium 139 mmol/L (137-145)
[2024-04-07] MEDS ORDERED: NALOXONE 0.4 MG/ML 1 ML VIAL IV PRN (12:39)
[2024-04-07] MEDS: SODIUM CHLORIDE 0.9% 1,000 ML IV SCH (13:06)
--- NOTE | 2024-04-07 14:27 | ED ---
Medical Decision Making - Lab Data Result diagrams: 04/07/24 10:44 04/07/24 11:48 Lab Results 04/07/24 04/07/24 Range/Units 10:44 11:48 WBC 7.0 (3.8-10.6) k/uL RBC 3.25 L (4.30-5.90) m/uL Hgb 10.2 L (13.0-17.5) gm/dL Hct 30.8 L (39.0-53.0) % MCV 94.7 (80.0-100.0) fL MCH 31.4 (25.0-35.0) pg MCHC 33.1 (31.0-37.0) g/dL RDW 15.7 H (11.5-15.5) % Plt Count 222 (150-450) k/uL MPV 7.9 Neutrophils % 65 % Lymphocytes % 19 % Monocytes % 8 % Eosinophils % 4 % Basophils % 0 % Neutrophils # 4.6 (1.3-7.7) k/uL Lymphocytes # 1.4 (1.0-4.8) k/uL Monocytes # 0.6 (0-1.0) k/uL Eosinophils # 0.3 (0-0.7) k/uL Basophils # 0.0 (0-0.2) k/uL Sodium 139 (137-145) mmol/L Potassium 5.5 H (3.5-5.1) mmol/L Chloride 113 H (98-107) mmol/L Carbon Dioxide 16 L (22-30) mmol/L Anion Gap 10 mmol/L BUN 75 H (9-20) mg/dL Creatinine 5.92 H (0.66-1.25) mg/dL Est GFR (CKD-EPI)AfAm 11 (>60 ml/min/1.73 sqM) Est GFR (CKD-EPI)NonAf 9 (>60 ml/min/1.73 sqM) Glucose 104 H (74-99) mg/dL Calcium 8.4 (8.4-10.2) mg/dL Magnesium 2.5 H (1.6-2.3) mg/dL Disposition Clinical Impression: AMS (altered mental status) Disposition: ADMITTED IP TO THIS HOSP Condition: Fair Procedures - Restraint - Face to Face Restraint Occurrence 1 Patient's Immediate Situation: Endangers self safety, Endangers others' safety, Endangers staff safety Patient's Reaction to the Intervention: Uncooperative Patient's Medical & Behavioral Condition: Awake, Agitated Need to Continue or Terminate Restraint or Seclusion: Continue Face to Face Eval of Restraint Date: 04/07/24 Face to Face Eval of Restraint Time: 13:49
[2024-04-07] MEDS ORDERED: hydrALAZINE HCL 20 MG/ML 1 ML VIAL IVP PRN (15:11)
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
[2024-04-07 15:25] LABS: INR 2.5 (<1.2); Prothrombin Time 24.3 sec (10.0-12.5)
[2024-04-07] MEDS: ASPIRIN 325 MG TAB PO STA (16:11)
[2024-04-07] MEDS: LORazepam 2 MG/ML INJ IV PRN (16:12)
[2024-04-07] MEDS: METOPROLOL TARTRATE 12.5 MG TAB PO SCH (20:38)
[2024-04-08 07:12] LABS: HCT 26.8 % (39.0-53.0); MCH 31.4 pg (25.0-35.0); MCHC 32.6 g/dL (31.0-37.0); MCV 96.4 fL (80.0-100.0); Mean Platelet Volume 7.7; Platelet Count 188 k/uL (150-450); RBC 2.78 m/uL (4.30-5.90); RDW 15.6 % (11.5-15.5); WBC 6.2 k/uL (3.8-10.6)
[2024-04-08 07:14] LABS: HGB 8.7 gm/dL (13.0-17.5)
[2024-04-08 07:16] LABS: INR 2.7 (<1.2); Prothrombin Time 26.8 sec (10.0-12.5)
[2024-04-08 07:22] LABS: African American GFR (CKD) 11 (>60 ml/min/1.73 sqM); Anion Gap 9 mmol/L; Blood Urea Nitrogen 67 mg/dL (9-20); Calcium 8.5 mg/dL (8.4-10.2); Carbon Dioxide 15 mmol/L (22-30); Chloride 116 mmol/L (98-107); Glucose 68 mg/dL (74-99); Non-African American GFR(CKD) 9 (>60 ml/min/1.73 sqM); Potassium 5.1 mmol/L (3.5-5.1); Sodium 140 mmol/L (137-145)
[2024-04-08] MEDS: NICOTINE 21MG/24HR PATCH TRANSDERM SCH (08:50)
--- NOTE | 2024-04-08 09:07 | US ---
EXAMINATION TYPE: US carotid duplex BILAT DATE OF EXAM: 04/08/2024 COMPARISON: US CLINICAL INDICATION: Male, 63 years old with history of stroke; Stroke Additional History: .... TECHNIQUE: Grayscale, color Doppler and spectral Doppler evaluation of the bilateral carotid systems and vertebral arteries.Indirect Doppler criteria was utilized. FINDINGS: EXAM MEASUREMENTS: RIGHT: Peak Systolic Velocity (PSV) cm/sec ----- Right CCA: 122 ----- Right ICA: 352 ----- Right ECA: 292 ICA/CCA ratio: 2.9 RIGHT: End Diastole cm/sec ----- Right CCA: 22.0 ----- Right ICA: 31.5 ----- Right ECA: 26.5 LEFT: Peak Systolic Velocity (PSV) cm/sec ----- Left CCA: 92.6 ----- Left ICA: 331 ----- Left ECA: 391 ICA/CCA ratio: 3.6 LEFT: End Diastole cm/sec ----- Left CCA: 17.2 ----- Left ICA: 57.4 ----- Left ECA: 33.7 VERTEBRALS (direction of flow): Right Vertebral: Not visualized Left Vertebral: Antegrade Rhythm: Normal HEALTH DIRECTOR NOTES: Heterogeneous plaque bilaterally with elevated velocities and ratios bilaterally IMPRESSION: Right: Greater than 70% stenosis of the carotid bifurcation. Greater than 70% stenosis to near occlusion= ICA PSV > 230 cm/s: ratio > 4.0: ICA EDV > 100 cm/s. Left: Greater than 70% stenosis of the carotid bifurcation. Greater than 70% stenosis to near occlusion= ICA PSV > 230 cm/s: ratio > 4.0: ICA EDV > 100 cm/s. Criteria for Assigning % of Stenosis / Diameter reduction (Estimation based on the indirect measurements of the internal carotid artery velocities (ICA PSV). 1. Normal (no stenosis)=ICA PSV < 125 cm/s: ratio < 2.0: ICA EDV<40 cm/s. 2. Less than 50% stenosis=ICA PSV < 125 cm/s: ratio < 2.0: ICA EDV<40 cm/s. 3. 50 to 69% stenosis=ICA PSV of 125 to 230 cm/s: ration 2.0 ? 4.0: ICA EDV 40-100 cm/s. 4. Greater than 70% stenosis to near occlusion= ICA PSV > 230 cm/s: ratio > 4.0: ICA EDV > 100 cm/s. 5. Near occlusion= ICA PSV velocities may be low or undetectable: variable ratio and ICA EDV. 6. Total occlusion=unable to detect flow. [facility], , 04/08/2024 9:05 AM
--- NOTE | 2024-04-08 10:54 | P.NPCON ---
History of Present Illness - Reason for Consult Consult date: 04/08/24 - Chief Complaint AMS - History of Present Illness Patient is a 63-year-old male was brought into the ED for aphasia. Currently patient is a poor historian due to the aphasia. Per ED note patient called EMS to check on his neighbor however the dispatch person was having a difficult time understanding the patient so the police went to his house to do a wellness check. The police then brought the patient to the hospital for further evaluation. Patient seen at bedside, awake and alert. Answers some questions but tangentle in thought process. He does not appear overtly uremic and states his kidneys are doing fine and wants to go home. Patient is awake. 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 Review of Systems Constitutional: Reports as per HPI Past Medical History Past Medical History: CVA/TIA, Hypertension History of Any Multi-Drug Resistant Organisms: None Reported Past Surgical History: No Surgical Hx Reported Past Anesthesia/Blood Transfusion Reactions: No Reported Reaction Past Psychological History: No Psychological Hx Reported Smoking Status: Current every day smoker Past Alcohol Use History: None Reported Past Drug Use History: None Reported Medications and Allergies Home Medications Medication Instructions Recorded Confirmed Type Baclofen 5 mg PO TID PRN 04/07/24 04/07/24 History Famotidine 20 mg PO BID 04/07/24 04/07/24 History Ibuprofen [Motrin] 400 mg PO Q3H PRN 04/07/24 04/07/24 History Metoprolol Tartrate [Lopressor] 12.5 mg PO BID 04/07/24 04/07/24 History Valsartan [Diovan] 80 mg PO DAILY 04/07/24 04/07/24 History Warfarin [Coumadin] 2.5 mg PO SUWESA 04/07/24 04/07/24 History Warfarin [Coumadin] 5 mg PO MOTUTHFR 04/07/24 04/07/24 History amLODIPine [Norvasc] 10 mg PO DAILY 04/07/24 04/07/24 History Allergies Allergy/AdvReac Type Severity Reaction Status Date / Time No Known Allergies Allergy Verified 04/07/24 13:15 Physical Exam Vitals: Vital Signs Temp Pulse Pulse Resp BP BP Pulse Ox 04/08/24 08:38 97.4 F L 78 16 169/75 95 04/08/24 04:00 97.4 F L 72 16 167/92 95 04/08/24 00:19 98.0 F 63 16 159/75 94 L 04/07/24 21:42 97.2 F L 65 16 153/68 95 04/07/24 21:26 97.9 F 60 19 178/83 98 04/07/24 20:30 70 20 176/93 94 L 04/07/24 18:22 69 17 137/80 99 04/07/24 17:00 60 15 167/86 96 04/07/24 16:20 72 18 162/86 99 04/07/24 15:20 70 16 155/76 97 04/07/24 14:44 73 22 169/80 98 04/07/24 14:42 98.9 F 73 22 169/80 98 04/07/24 13:52 88 18 141/74 04/07/24 13:02 65 17 158/74 98 04/07/24 12:00 65 18 162/69 100 04/07/24 11:11 64 19 161/75 99 04/07/24 10:28 97.6 F 66 16 166/71 100 Intake and Output 04/07/24 04/08/24 04/08/24 23:59 06:59 14:59 Output Total Balance Output: Urine Post Void Residual Other: Weight Results - Lab Results Most recent lab results Calcium 8.5 mg/dL (8.4-10.2) 04/08/24 06:14 Magnesium 2.5 mg/dL (1.6-2.3) H 04/07/24 11:48 04/08/24 06:14 04/08/24 06:14 Assessment and Plan Assessment: 1. Non-oliguric PRIYANK vs progression of CKD. Creatinine was 3.5 2022. Presented 5.9-->5.8. Possible component of UR PVR 350 now with Gann. Ibuprofen reported on home medications. 2. Expressive aphasia with possible CVA 3. CKD Stage 4, previous creatinine 3.5 mg/dL GFR 19 (01/04/23) 4. Hyperkalemia due to PRIYANK along with Valsartan use-Improved 5. Anemia with CKD goal Hb 10-11.5 6. HTN with CKD Plan: OK to continue gentle IVF for now Does not appear uremic Check Renal US, UA Avoid NSAIDs Maintain Gann for strict I/O's given retention Hold Valsartan given PRIYANK and hyperkalemia May need HD in near future if renal function does not improve Planning MRI brain without contrast for possible CVA
[2024-04-08] MEDS: WARFARIN 2.5 MG TAB PO SCH (11:02)
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
--- NOTE | 2024-04-08 11:46 | US ---
EXAMINATION TYPE: US kidneys/renal and bladder DATE OF EXAM: 04/08/2024 COMPARISON: US CLINICAL INDICATION: Male, 63 years old with history of PRIYANK; PRIYANK TECHNIQUE: Grayscale imaging of the bilateral kidneys and urinary bladder: FINDINGS: EXAM MEASUREMENTS: Right Kidney: 9.0 x 4.6 x 5.2 cm Left Kidney: 9.5 x 5.6 x 4.9 cm Right Kidney: No evidence of hydro, hypoechoic lesion medial/upper pole= 1.3 x 1.3 x 1.2 cm Left Kidney: No evidence of hydro Bladder: wnl Bilateral Jets seen: No There is no evidence for hydronephrosis at this point in time. No nephrolithiasis is seen. No solid masses are identified. The urinary bladder is anechoic. IMPRESSION: 1. No evidence for obstructive uropathy. 2. Right renal probable cyst. [facility], , 04/08/2024 11:44 AM
[2024-04-08 14:12] LABS: Appearance,Urine Clear (Clear); Bacteria,Urine Rare /hpf; Bilirubin,Urine Negative (Negative); Blood,Urine Moderate (Negative); Color,Urine Colorless; Glucose,Urine (UA) 1+ (Negative); Ketones,Urine Negative (Negative); Leukocyte Esterase,Urine Negative (Negative); Nitrite,Urine Negative (Negative); Protein,Urine 2+ (Negative); RBC,Urine 3 /hpf (0-5); Specific Gravity,Urine 1.008 (1.001-1.035); Urobilinogen,Urine <2.0 mg/dL (<2.0); WBC,Urine 1 /hpf (0-5)
--- NOTE | 2024-04-08 16:22 | P.PN ---
Progress Note - Text Progress Note Date: 04/08/24 I have evaluated patient this afternoon for capacity to make medical decisions. At this time, patient LACKS capacity to make medical decisions. Due to the severity of his medical condition and resulting delirium which is impairing his ability to make sound decisions, it would be reasonable to treat emergently until patient either returns to his baseline functioning or a surrogate decision maker, who has patient's best interest in mind, can be identified. At this time, patient reports his brother is not someone whom he feels comfortable making medical decisions for him. At this time, patient may NOT leave AMA. If patient attempts to leave, please petition. Continue sitter to maintain safety. Full consult note to follow. Dr. Flood Psychiatry
[2024-04-08] MEDS ORDERED: QUEtiapine 25 MG TAB PO PRN (16:23)
[2024-04-08 17:19] LABS: Chol/HDL Ratio 3.29 Ratio; LDL Cholesterol,Calculated 101.5 mg/dL (0.0-131.0); VLDL Calculation 11.28 mg/dL (5.00-40.00)
[2024-04-08] MEDS: QUEtiapine 25 MG TAB PO SCH (20:05)
--- NOTE | 2024-04-08 23:14 | P.CN ---
Psychiatric Consult - . Consult date: 04/08/24 Consult:: IDENTIFYING DATA: This patient is a single 63 yo male with limited social support, never , no children, lives alone. REASON FOR REFERRAL: Psychiatry was consulted for "competency evaluation" HISTORY OF PRESENT ILLNESS: Per ED note, "Patient is a 63-year-old male he is a poor historian he lives at home by himself. Patient allegedly according to EMS states that patient called police to do a wellness check on patient's neighbor. Dispatch had difficulty understanding the patient and police ended up doing a wellness check on the patient. EMS was called by police and patient was brought to the ER. Patient has history of stroke. He is a poor historian. EMS states that patient lives by himself. Patient has no complaints." Patient was admitted to the medical floor due to expressive aphasia for which he is undergoing a stroke work-up, and acute kidney injury on top of CKD stage IV with creatinine on admission at 5.92. Nephrology and neurology are also consulted. Patient was very agitated, wanted to go home, attempted to leave the hospital, was placed in 4 point restraints yesterday and given Ativan 0.5 mg IV x 1 for agitation. On my evaluation today, patient is found calmly laying in bed with sitter at bedside to maintain safety. He is oriented to person and place but not time. He can correctly state the year is 2023, but thinks today is March 28. His thought process is disorganized, nonsensical, and he is easily confused. He is a poor historian. When asked why he was brought to the hospital because "cousin called the window of your dad's window and he didn't....my dad was off for 3 months and he .... Was going to tell her she don't know he's so I walked in the kitchen to tell her he is and gone." When asked if he is having problems with his kidneys, he states "I say no..." He states he had problems with his kidneys "before" and was told he "would only have 2 days to live" but he talked to God and God let him "live for 4 more years" and so he believes he doesn't "have kidney problems anymore". He lacks understanding of his severe medical condition and is not able to state the treatment options available to him, or the consequences of not receiving treatment. He believes he "can leave to go home and live for a long time". When asked if he could if he were to go home without appropriate treatment, he states that he "would not " because he "believes in God". He incorrectly claims he is 60 years old (real age is 63 years old). He claims his father 3 months ago at the age of 60 yo. He incorrectly believes that the sitter at bedside is his "girlfriend" and "friend", and incorrectly claims they have known each other "for 3 weeks or more than that". There is evidence of delusional thinking, and auditory/visual hallucinations. The diane reports to me that earlier in the day patient had talked to her about being abducted by aliens. He also claimed that the devil ripped his heart out and got gave it back to him. He admits to auditory hallucinations of hearing a voice at his house of a young girl coming from the refrigerator; reports this a new experience that started over the past week. When asked if he thinks he is confused, he denies he is confused. Diane also reports that he has not slept for 2 nights, and he has hardly eaten so far today. When asked about his family, he states his mother and father have . He initially states he has 3 siblings but then provides 6 names. He claims his sisters Leena, Liz, and peter are . He claims his brother Duong is . He claims to have 2 brothers who are still alive: Darvin and Khanh. He states he has not had a relationship with his brothers for over 20 years. When asked if he would feel comfortable having his brother make medical decisions for him he states "oh no". He is not able to identify anyone else at this time who could serve as surrogate decision maker. He denies depressed mood. At this time patient denies any suicidal or homicidal ideations, intent or plan. Patients denies drug or alcohol use. He is a daily smoker. PAST PSYCHIATRIC HISTORY: Patient denies being on any psychiatric medications. Patient denies any previous psychiatric hospitalizations. Patient denies any psychiatric outpatient follow- up. Patient denies any history of suicide attempts in the past. PAST MEDICAL HISTORY: Past Medical History: CVA/TIA, Hypertension History of Any Multi-Drug Resistant Organisms: None Reported Past Surgical History: No Surgical Hx Reported Past Anesthesia/Blood Transfusion Reactions: No Reported Reaction Past Psychological History: No Psychological Hx Reported Smoking Status: Current every day smoker Past Alcohol Use History: None Reported Past Drug Use History: None Reported ALLERGIES: as per EMR. CHEMICAL DEPENDENCY HISTORY: as per HPI. FAMILY PSYCHIATRIC/SUBSTANCE USE HISTORY: denies SOCIAL HISTORY: Lives alone in a house he owns. Never , no children. No support system he can identify. Has 1, possibly 2, living brothers that he has not had a relationship with in over 20 years. MENTAL STATUS EXAM: General Appearance: Patient appears to be older than stated age, with pallor, disheveled. Behavior: Patient is calmly lying in bed without any agitated behavior, attempts to cooperate, mostly pleasant with good eye contact, smiles, but is very c onfused. Speech: Patient's speech is fluent and non-pressured. Mood/Affect: Patient reports their mood is "good", affect is currently euthymic Suicidality/Homicidality: Patient denies having any suicidal or homicidal ideation intent or plan. Perceptions: Patient denies any visual hallucinations and reports auditory hallucinations. Though content/process: There is evidence of delusional thinking, and thought process is disorganized and nonsensical. Memory and concentration: Alert and oriented to person and place. He is not oriented to time. His immediate and recent recall is poor. Attention is impaired. Judgment and insight: Very poor IMPRESSIONS: Delirium, multifactorial (due to severe kidney disease, CVA, anemia) with perceptual disturbances and agitation PLAN: -At this time, patient DOES NOT appear to meet criteria for inpatient psychiatric admission. -Patient DOES NOT have decision making capacity at this time and is unable to reason through and communicate/appreciate the risks, benefits and alternatives to treatment. -Due to the severity of his medical condition and resulting delirium which is impairing his ability to make sound decisions, it would be reasonable to treat emergently until the patient either returns to his baseline functioning or a surrogate decision maker, who has patient's best interest in mind, can be identified. At this time, patient reports his brother is not someone whom he feels comfortable making medical decisions for him. 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 -Would recommend the following medication changes/additions: Discontinue PRN Ativan for agitation due to poor renal function, risk of falls and potential of benzos to worsen delirium. Start Seroquel 12.5 mg BID for delirium/psychosis/agitation. Start Seroquel 25 mg QHS PRN for insomnia. -Continue 1:1 sitter for safety. -Cannot leave AMA at this time. Patient will need a petition and certification if attempting to leave AMA. -When medically stable, patient is eligible for transfer to a psych bed when available. -Communicated plan to patient's nurse. -Will continue to follow along -Please contact with any questions.
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
[2024-04-09 05:23] LABS: INR 3.6 (<1.2); Prothrombin Time 34.9 sec (10.0-12.5)
[2024-04-09 06:46] LABS: T4, Free (Free Thyroxine) 1.28 ng/dL (0.78-2.19)
[2024-04-09 08:07] LABS: HCT 30.2 % (39.0-53.0); HGB 9.7 gm/dL (13.0-17.5); Hypochromasia Slight; MCH 31.3 pg (25.0-35.0); MCV 97.7 fL (80.0-100.0); Mean Platelet Volume 7.3; Platelet Count 195 k/uL (150-450); RBC 3.09 m/uL (4.30-5.90); RDW 15.1 % (11.5-15.5); WBC 8.4 k/uL (3.8-10.6)
--- NOTE | 2024-04-09 10:08 | P.PN ---
Subjective Patient is seen in follow-up for acute kidney injury on chronic kidney disease. Resting in bed. Awake and alert. Nonoliguric. Urine output over 1 L overnight. Receiving IV fluids. Vital signs are stable. General: No acute distress. HEENT: Head exam is unremarkable. LUNGS: No audible rhonchi or wheezes. HEART: Rate and Rhythm are regular. ABDOMEN: Nontender. EXTREMITITES: No edema. Objective - Vital Signs Vital signs: Vital Signs Temp 97.7 F 04/09/24 08:00 Pulse 76 04/09/24 08:00 Resp 16 04/09/24 08:00 BP 163/75 04/09/24 08:00 Pulse Ox 97 04/09/24 08:00 FiO2 Intake & Output 04/08/24 04/09/24 04/09/24 18:59 06:59 18:59 Intake Total 180 180 Output Total 2100 1100 Balance -1920 -920 Weight 75.2 kg Intake: Oral 180 180 Output: Urine 2100 1100 Uretheral (Gann) 400 Other: Voiding Method Toilet Toilet Urinal Urinal # Voids 1 - Labs CBC & Chem 7: 04/09/24 07:23 04/08/24 06:14 Labs: Abnormal Lab Results - Last 24 Hours (Table) 04/08/24 04/09/24 04/09/24 Range/Units 14:00 04:53 04:53 RBC (4.30-5.90) m/uL Hgb (13.0-17.5) gm/dL Hct (39.0-53.0) % PT 34.9 H (10.0-12.5) sec INR 3.6 H (<1.2) Troponin I (0.000-0.034) ng/mL TSH 0.262 L (0.465-4.680) mIU/L Urine Protein 2+ H (Negative) Urine Glucose (UA) 1+ H (Negative) Urine Blood Moderate H (Negative) Urine Bacteria Rare H (None) /hpf 04/09/24 04/09/24 04/09/24 Range/Units 04:53 07:23 07:23 RBC 3.09 L (4.30-5.90) m/uL Hgb 9.7 L (13.0-17.5) gm/dL Hct 30.2 L (39.0-53.0) % PT (10.0-12.5) sec INR (<1.2) Troponin I 0.166 H* 0.196 H* (0.000-0.034) ng/mL TSH (0.465-4.680) mIU/L Urine Protein (Negative) Urine Glucose (UA) (Negative) Urine Blood (Negative) Urine Bacteria (None) /hpf Assessment and Plan Plan: Assessment: 1. Acute kidney injury secondary to ATN versus progression of underlying chronic kidney disease. Creatinine 5.92 on admission and was 5.85 yesterday. No hydronephrosis noted on kidney ultrasound. Nonoliguric. 2. Chronic kidney disease stage IV with baseline creatinine near 3.5. Refused kidney biopsy in the past. 3. Hypertension with chronic kidney disease. Stable. 4. Hyperkalemia secondary to acute kidney injury, metabolic acidosisand losartan use. Improved. 5. Anemia of chronic kidney disease. 6. Metabolic acidosis secondary to acute kidney injury and IV fluids. Plan: Change IV fluids to bicarb drip. Check iron studies. Monitor bladder scans to make sure no urinary retention. Avoid nephrotoxins. Continue to monitor renal function and urine output. Renal replacement therapy discussed with patient. Patient refusing at this time. Will continue to assess on daily basis.
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
[2024-04-09] MEDS ORDERED: WARFARIN 5 MG TAB PO SCH (12:00)
[2024-04-09] MEDS: DEXTROSE 5% IN WATER 1,000 ML with SODIUM BICARB (1 MEQ/ML) 150 ML IV SCH (12:10)
[2024-04-09] MEDS: WARFARIN 0.5 MG TAB PO ONE (12:37)
--- NOTE | 2024-04-09 12:40 | P.CRDCN ---
History of Present Illness Consult date: 04/09/24 Consult reason: chest pain History of present illness: This is a 63-year-old male with past medical history of stroke, hypertension, hyperlipidemia, history of NSTEMI in October 2020 at which time he presented with a syncopal episode with unresponsive episode along with bradycardia, found to have new onset of atrial fibrillation, acute heart failure and acute kidney injury. Patient was offered a cardiac catheterization in October 2020 when he presented with NSTEMI but he refused at that time. We have been asked to evaluate the patient for chest pain. Patient apparently called the police to do a welfare check on his neighbors but patient seemed to be confused with slurred speech and he was brought into the emergency center for further evaluation. Patient was apparently still confused that he required 4-point restraints in the emergency center. Patient denies having any chest pain. He has also been found to have acute kidney injury and is undergoing neurology workup. Patient denies any lightheadedness or dizziness. He is an active smoker of 1 pack/day. Blood pressure 163/75, heart rate 76, pulse ox 97% on room air. EKG: Sinus rhythm with first-degree block CT brain no acute intracranial process. Nonspecific white matter changes secondary to small vessel ischemic disease. Stable remote right cerebellar hemisphere injury. Carotid ultrasound: Greater than 70% stenosis. Renal ultrasound revealed no evidence of obstructive uropathy. Right renal probable cyst. Laboratory studies: WBC 8.4, hemoglobin 9.7. INR 3.6. BUN 67 creatinine 5.85, initial potassium 5.5 now 5.1. Troponins 0.166 and 0.196. Triglycerides 56, cholesterol 162, LDL 101. TSH 0.262 with normal free T4. Home cardiac medications: Amlodipine 10 mg daily, Lopressor 12.5 mg twice daily, valsartan 80 mg daily, warfarin 5 and 2.5 mg alternating Review Of Systems: At the time of my exam: CONSTITUTIONAL: Denies fever or chills. HEENT: Denies blurred vision, vision changes, or eye pain. Denies hemoptysis CARDIOVASCULAR: Denies chest pain. Denies orthopnea. Denies PND. Denies palpitations RESPIRATORY: Denies shortness of breath. GASTROINTESTINAL: Denies abdominal pain. Denies nausea or vomiting. HEMATOLOGIC: Denies bleeding disorders. GENITOURINARY: Denies any blood in urine. SKIN: Denies puritis. Denies rash. Physical examination: Gen: This is a 63-year-old male appears to be in no acute distress VS: reviewed HEENT: Head is atraumatic, normocephalic. Pupils equal, round. Sclerae is anicteric. NECK: Supple. No JVD. LUNGS: Mild bilateral wheeze. No intercostal retractions. HEART: Regular rate and rhythm. No murmur. ABDOMEN: Soft No tenderness. EXTREMITIES: 12+ lower extremity edema. No calf tenderness. NEUROLOGICAL: Patient is awake, alert and oriented to person place time. Assessment: Elevated troponins due to poor renal clearance, type II [place] Expressive aphasia, rule out acute CVA Metabolic encephalopathy Acute kidney injury with chronic kidney disease stage IV Hypercoagulopathy Paroxysmal atrial fibrillation currently in sinus rhythm Bilateral internal carotid artery stenosis Hypertension Hyperlipidemia History of stroke History of NSTEMI 10/2020 Plan: Resume patient's home cardiac medications: Amlodipine 10 mg daily, Lopressor 12.5 mg twice daily Valsartan on hold due to acute kidney injury Pharmacy is managing Coumadin dosing Obtain 2-D echocardiogram and Doppler study to assess cardiac structure and function Continue neurowork-up Further recommendations to follow based upon clinical course Thank you kindly for this consultation. Nurse practitioner note has been reviewed, I agree with documented findings and plan of care. Patient was seen and examined. Past Medical History Past Medical History: CVA/TIA, Hypertension History of Any Multi-Drug Resistant Organisms: None Reported Past Surgical History: No Surgical Hx Reported Past Anesthesia/Blood Transfusion Reactions: No Reported Reaction Past Psychological History: No Psychological Hx Reported Smoking Status: Current every day smoker Past Alcohol Use History: None Reported Past Drug Use History: None Reported Medications and Allergies Home Medications Medication Instructions Recorded Confirmed Type Baclofen 5 mg PO TID PRN 04/07/24 04/07/24 History Famotidine 20 mg PO BID 04/07/24 04/07/24 History Ibuprofen [Motrin] 400 mg PO Q3H PRN 04/07/24 04/07/24 History Metoprolol Tartrate [Lopressor] 12.5 mg PO BID 04/07/24 04/07/24 History Valsartan [Diovan] 80 mg PO DAILY 04/07/24 04/07/24 History Warfarin [Coumadin] 2.5 mg PO SUWESA 04/07/24 04/07/24 History Warfarin [Coumadin] 5 mg PO MOTUTHFR 04/07/24 04/07/24 History amLODIPine [Norvasc] 10 mg PO DAILY 04/07/24 04/07/24 History Allergies Allergy/AdvReac Type Severity Reaction Status Date / Time No Known Allergies Allergy Verified 04/07/24 13:15 Physical Exam Vitals: Vital Signs Temp Pulse Resp BP Pulse Ox 04/09/24 08:00 97.7 F 76 16 163/75 97 04/09/24 03:14 97.5 F L 68 16 169/76 95 04/09/24 01:08 16 04/08/24 23:24 98.2 F 66 16 153/65 96 04/08/24 20:00 16 04/08/24 19:59 97.4 F L 78 16 180/80 93 L 04/08/24 15:18 98.3 F 74 16 189/84 98 04/08/24 14:22 68 16 04/08/24 11:00 97.9 F 68 16 180/75 97 Intake and Output 04/08/24 04/09/24 04/09/24 22:59 06:59 14:59 Intake Total 180 Output Total 2100 1100 Balance -1920 -1100 Intake: Oral 180 Output: Urine 2099 1100 Uretheral (Gann) 400 Other: Voiding Method Toilet Toilet Urinal Urinal Weight 75.2 kg Results 04/09/24 07:23 04/08/24 06:14 Cardiac Enzymes 04/09/24 04/09/24 Range/Units 04:53 07:23 Troponin I 0.166 H* 0.196 H* (0.000-0.034) ng/mL Coagulation 04/09/24 Range/Units 04:53 PT 34.9 H (10.0-12.5) sec Lipids 04/08/24 Range/Units 06:14 Triglycerides 56.40 (0.00-149.00) mg/dL Cholesterol 162.00 (0.00-200.00) mg/dL HDL Cholesterol 49.20 (40.00-60.00) mg/dL Cholesterol/HDL Ratio 3.29 Ratio CBC 04/09/24 Range/Units 07:23 WBC 8.4 (3.8-10.6) k/uL RBC 3.09 L (4.30-5.90) m/uL Hgb 9.7 L (13.0-17.5) gm/dL Hct 30.2 L (39.0-53.0) % Plt Count 195 (150-450) k/uL Current Medications Generic Name Dose Route Start Last Admin Trade Name Freq PRN Reason Stop Dose Admin Hydralazine HCl 10 mg 04/07/24 15:11 Hydralazine Hcl 20 Mg/Ml 1 Ml Vial IVP Q4HR PRN Blood Pressure - High Sodium Chloride 1,000 mls @ 75 mls/hr 04/07/24 12:45 04/09/24 03:10 Saline 0.9% IV 75 mls/hr .[id number] NIKO Administration Metoprolol Tartrate 12.5 mg 04/07/24 21:00 04/09/24 08:33 Metoprolol Tartrate 12.5 Mg Tab PO 12.5 mg BID NIKO Administration Miscellaneous Information 1 each 04/07/24 14:41 Warfarin Per Pharmacy MISCELLANE DIRECTED PRN Per Protocol Protocol Naloxone HCl 0.2 mg 04/07/24 12:39 Naloxone 0.4 Mg/Ml 1 Ml Vial IV Q2M PRN Opioid Reversal Nicotine 1 patch 04/08/24 09:00 04/09/24 08:33 Nicotine 21mg/24hr Patch TRANSDERM 1 patch DAILY NIKO Administration Quetiapine Fumarate 12.5 mg 04/08/24 21:00 04/09/24 08:33 Quetiapine 25 Mg Tab PO 12.5 mg BID NIKO Administration Quetiapine Fumarate 25 mg 04/08/24 16:23 Quetiapine 25 Mg Tab PO HS PRN Insomnia Warfarin Sodium 2.5 mg 04/08/24 12:00 04/08/24 11:02 Warfarin 2.5 Mg Tab PO 2.5 mg [id number] NIKO Administration Warfarin Sodium 5 mg 04/09/24 12:00 Warfarin 5 Mg Tab PO [id number]@1200 [facility] Intake and Output 04/08/24 04/09/24 04/09/24 22:59 06:59 14:59 Intake Total 180 Output Total 2100 1100 Balance -192 -1100 Intake: Oral 180 Output: Urine 2099 1100 Uretheral (Gann) 400 Other: Voiding Method Toilet Toilet Urinal Urinal Weight 75.2 kg 04/09/24 07:23 04/08/24 06:14
--- NOTE | 2024-04-09 13:12 | P.PN ---
Subjective Progress Note Date: 04/09/24 63 year old M with PMH CVA, HTN, AFib, GERD presents to the ED for aphasia. Apparently patient did not have any issues with aphasia and that this all new. Patient in the ED was upset and wanted to go home. Patient was put in four point restraints in the ED as he was trying to leave. In the ED CT head showed old infarct in the cerebellum. His creatinine was 5.92. Last creatinine in our system is 3.5 on 01/04/2023. Patient was admitted to the medicine service. On bladder scan patient was found to be retaining his urine, Gann catheter was placed. Psychiatry consulted, patient does not have decision making capacity at this time. Nephrology following the patient for acute kidney injury. Renal US no obstruction. Started on D5W with sodium bicarb. Carotid doppler > 70% stenosis bilaterally of the carotid bifurcation. Vascular surgery consulted, recommending medical management at this time. Troponins elevated at 0.166, 0.196. Cardiology consulted, Echo ordered, recommended medical management for Type II [place] due to poor renal clearance. Neurology on board for CVA workup. A1c 5.2. Lipid panel LDL 101.5. MRI brain currently pending. 04/09 Patient was seen and examined. Sitter at bedside. Patient aphasic. Has no complaints. CBC shows WBC 3.09, Hg 9.7, Hct 30.2. TSH 0.262, FT4 1.28. General: non toxic, no distress, appears at stated age Derm: warm, dry Head: atraumatic, normocephalic, symmetric Eyes: EOMI, no lid lag, anicteric sclera Mouth: no lip lesion, mucus membranes moist Cardiovascular: S1S2 reg, no murmur Lungs: Decreased BS bilaterally, no rhonchi, no rales , no accessory muscle use Neuro: no focal neuro deficits besides expressive aphasia Psych: Alert, oriented, appropriate affect Based on my assessment of this patient, this patient meets a high complexity level of care. Expressive aphasia likely due to CVA: Lipitor 40 mg PO QHS. Start ASA [address] brain, A1c, Lipid panel and CUS as above. MRI brain and Echo pending. Telemetry monitoring. Neurology on board. Acute metabolic encephalopathy likely due to above worsened with uremia Carotid stenosis: ASA and Lipitor as above. Vascular surgery on board. PRIYANK on CKD stage IV: D5W with sodium bicarb at 75 cc/hr per Nephrology. Urinary retention: Discontinue Gann catheter and attempt voiding trail when a ble. Hypertension: Amlodipine 10 mg PO QD. A-Fib: Metoprolol 12.5 mg PO BID. Coumadin dosed per pharmacy for AC. Nicotine abuse: Nicotine patch offered. CODE STATUS: FULL CODE. DVT Prophylaxis: Warfarin. GI Prophylaxis: Designated medical POA if patient is not able to make medical decisions for emselves: I have reviewed the following senior sales consultant notes: Cardiology, Nephrology. I have reviewed the results of the following tests: CBC, TSH, FT4. I have ordered the following tests: I have discussed the care of this patient with the following independent historian: Case management. I have independently interpreted the following test below: I have discussed the management of this patient with the following physician: Objective - Vital Signs Vital signs: Vital Signs Temp 98.2 F 04/09/24 12:00 Pulse 65 04/09/24 12:00 Resp 16 04/09/24 12:00 BP 181/80 04/09/24 12:00 Pulse Ox 97 04/09/24 12:00 FiO2 Intake & Output 04/08/24 04/09/24 04/09/24 18:59 06:59 18:59 Intake Total 180 180 360 Output Total 2100 1100 Balance -1920 -920 360 Weight 75.2 kg Intake: Oral 180 180 360 Output: Urine 2100 1100 Uretheral (Gann) 400 Other: Voiding Method Toilet Toilet Urinal Urinal # Voids 1 - Labs CBC & Chem 7: 04/09/24 07:23 04/08/24 06:14 Labs: Abnormal Lab Results - Last 24 Hours (Table) 04/08/24 04/09/24 04/09/24 Range/Units 14:00 04:53 04:53 RBC (4.30-5.90) m/uL Hgb (13.0-17.5) gm/dL Hct (39.0-53.0) % PT 34.9 H (10.0-12.5) sec INR 3.6 H (<1.2) Troponin I (0.000-0.034) ng/mL TSH 0.262 L (0.465-4.680) mIU/L Urine Protein 2+ H (Negative) Urine Glucose (UA) 1+ H (Negative) Urine Blood Moderate H (Negative) Urine Bacteria Rare H (None) /hpf 04/09/24 04/09/24 04/09/24 Range/Units 04:53 07:23 07:23 RBC 3.09 L (4.30-5.90) m/uL Hgb 9.7 L (13.0-17.5) gm/dL Hct 30.2 L (39.0-53.0) % PT (10.0-12.5) sec INR (<1.2) Troponin I 0.166 H* 0.196 H* (0.000-0.034) ng/mL TSH (0.465-4.680) mIU/L Urine Protein (Negative) Urine Glucose (UA) (Negative) Urine Blood (Negative) Urine Bacteria (None) /hpf
[2024-04-09] MEDS: amLODIPine 10 MG TAB PO SCH (13:45)
[2024-04-09 13:55] LABS: African American GFR (CKD) 12 (>60 ml/min/1.73 sqM); Anion Gap 5 mmol/L; Blood Urea Nitrogen 59 mg/dL (9-20); Calcium 8.4 mg/dL (8.4-10.2); Carbon Dioxide 17 mmol/L (22-30); Chloride 116 mmol/L (98-107); Glucose 109 mg/dL (74-99); Magnesium 2.2 mg/dL (1.6-2.3); Non-African American GFR(CKD) 10 (>60 ml/min/1.73 sqM); Potassium 5.3 mmol/L (3.5-5.1); Sodium 138 mmol/L (137-145)
--- NOTE | 2024-04-09 15:46 | P.PN ---
Subjective Progress Note Date: 04/09/24 I am seeing the patient for the first time during this admission. Please refer to Dr. Valdez's note for further details. The patient has delirium. The patient is sitting having his lunch and feels he is doing better. Objective - Vital Signs Vital signs: Vital Signs Temp 98.2 F 04/09/24 12:00 Pulse 65 04/09/24 12:00 Resp 16 04/09/24 12:00 BP 181/80 04/09/24 12:00 Pulse Ox 97 04/09/24 12:00 FiO2 Intake & Output 04/08/24 04/09/24 04/09/24 18:59 06:59 18:59 Intake Total 180 180 720 Output Total 2100 1100 Balance -1920 -920 720 Weight 75.2 kg Intake: Oral 180 180 720 Output: Urine 2100 1100 Uretheral (Gann) 400 Other: Voiding Method Toilet Toilet Urinal Urinal # Voids 1 - Exam General patient sitting up in his bed having his lunch and is not in acute distress Neuro patient is awake, alert oriented to self place. He correctly stated the year but stated the month is March. He is following simple commands. No aphasia from limited language. Pupils are round equal reactive to light. Visual cardozo are full to confrontation. No facial weakness. No dysarthria. Motor strength is lifted all extremities above gravity equally. - Labs CBC & Chem 7: 04/09/24 07:23 04/09/24 12:43 Labs: Abnormal Lab Results - Last 24 Hours (Table) 04/09/24 04/09/24 04/09/24 Range/Units 04:53 04:53 04:53 RBC (4.30-5.90) m/uL Hgb (13.0-17.5) gm/dL Hct (39.0-53.0) % PT 34.9 H (10.0-12.5) sec INR 3.6 H (<1.2) Potassium (3.5-5.1) mmol/L Chloride (98-107) mmol/L Carbon Dioxide (22-30) mmol/L BUN (9-20) mg/dL Creatinine (0.66-1.25) mg/dL Glucose (74-99) mg/dL Troponin I 0.166 H* (0.000-0.034) ng/mL TSH 0.262 L (0.465-4.680) mIU/L 04/09/24 04/09/24 04/09/24 Range/Units 07:23 07:23 12:43 RBC 3.09 L (4.30-5.90) m/uL Hgb 9.7 L (13.0-17.5) gm/dL Hct 30.2 L (39.0-53.0) % PT (10.0-12.5) sec INR (<1.2) Potassium (3.5-5.1) mmol/L Chloride (98-107) mmol/L Carbon Dioxide (22-30) mmol/L BUN (9-20) mg/dL Creatinine (0.66-1.25) mg/dL Glucose (74-99) mg/dL Troponin I 0.196 H* 0.259 H* (0.000-0.034) ng/mL TSH (0.465-4.680) mIU/L 04/09/24 Range/Units 12:43 RBC (4.30-5.90) m/uL Hgb (13.0-17.5) gm/dL Hct (39.0-53.0) % PT (10.0-12.5) sec INR (<1.2) Potassium 5.3 H (3.5-5.1) mmol/L Chloride 116 H (98-107) mmol/L Carbon Dioxide 17 L (22-30) mmol/L BUN 59 H (9-20) mg/dL Creatinine 5.30 H (0.66-1.25) mg/dL Glucose 109 H (74-99) mg/dL Troponin I (0.000-0.034) ng/mL TSH (0.465-4.680) mIU/L Assessment and Plan Assessment: * Altered mental status, likely due to acute delirium/metabolic encephalopathy. Reasons multifactorial as mentioned below. * Rule out underlying cognitive impairment * Acute on chronic renal failure * Atrial fibrillation, on Coumadin * Hyperkalemia * Anemia, due to CKD * Hypertension * Tobacco use Plan: * UA negative. * Carotid Doppler revealed greater than 70% stenosis of carotid bifurcation bilaterally. Right vertebral artery not visualized, left vertebral artery with antegrade flow. * vascular surgery team is consulted. * Primary team has initiated MRI of the brain. * Lipid panel with cholesterol 162, LDL 101, HDL 49, triglycerides 56. We will start Lipitor 40 mg daily. Target LDL < 70. * Continue Coumadin, INR therapeutic 2.7. * Optimize control of blood pressure as per IM. * B12: 424, folate 10.1, TSH 0.262 and free T4 1.25. Hemoglobin A1c: 5.2 * Psychiatry has seen the patient, and patient does not have mental capacity to make decision. * We will try to contact family members troponin collateral history. Time with Patient: Less than 30
[2024-04-09] MEDS: SODIUM ZIRCONIUM CYCLOSILICATE 10 GM PACKET PO ONE (17:42)
--- NOTE | 2024-04-09 17:59 | CA ---
Transthoracic Echo Report Name: Eber Andersen Age: 63 Gender: M : 1960 Exam Date: 04/09/2024 10:51 Exam Location: [place] [facility] Ht (in): 63 Wt (lb): 170 Ordering Physician: Zara Brantley MD Attending/Referring Phys: Power Plant Engineer Shy Mittal RDCS Procedure CPT: Indications: stroke Cardiac Hx: Technical Quality: Fair Contrast 1: Definity Total Dose (mL): 2 Contrast 2: Agitated Saline Total Dose (mL): MEASUREMENTS (Male / Female) Normal Values 2D ECHO LV Diastolic Diameter PLAX 5.4 cm 4.2 - 5.9 / 3.9 - 5.3 cm LV Systolic Diameter PLAX 4.5 cm IVS Diastolic Thickness 1.0 cm 0.6 - 1.0 / 0.6 - 0.9 cm LVPW Diastolic Thickness 1.2 cm 0.6 - 1.0 / 0.6 - 0.9 cm LV Relative Wall Thickness 0.4 RV Internal Dim ED PLAX 1.7 cm LA Systolic Diameter LX 4.5 cm 3.0 - 4.0 / 2.7 - 3.8 cm LV Diastolic Volume MOD 4C 126.5 cm??? LV Systolic Volume MOD 4C 102.6 cm??? LV Ejection Fraction MOD 4C 18.9 % LV Cardiac Index MOD 4C 791.2 cm???/min???m??? LV Diastolic Length 4C 8.4 cm LV Systolic Length 4C 8.2 cm LA Volume 83.5 cm??? 18 - 58 / 22 - 52 cm??? LA Volume Index 44.5 cm???/m??? 16 - 28 cm???/m??? M-MODE Aortic Root Diameter MM 2.9 cm LA Systolic Diameter MM 4.4 cm LA Ao Ratio MM 1.5 AV Cusp Separation MM 1.9 cm DOPPLER MV Area PHT 2.7 cm??? Mitral E Point Velocity 89.0 cm/s Mitral A Point Velocity 108.8 cm/s Mitral E to A Ratio 0.8 MV Deceleration Time 282.1 ms TR Peak Velocity 286.6 cm/s TR Peak Gradient 32.9 mmHg FINDINGS Left Ventricle Left ventricular ejection fraction is estimated at 30-35%. Left ventricular wall thickness normal. Left ventricular cavity size normal. Moderately reduced global left ventricular systolic function. Hypokinetic septum. [place] akinetic Right Ventricle Normal right ventricular size. Right ventricular systolic pressure within normal limits. Right Atrium Mild right atrial dilatation. Negative agitated saline bubble study for right to left shunt. Left Atrium Mildly increased left atrial diameter. Severely increased left atrial volume. Mildly increased left atrial area. Mitral Valve Structurally normal mitral valve. Mitral valve thickened. [id number] mitral regurgitation. Aortic Valve Trileaflet aortic valve. No aortic stenosis. No aortic regurgitation. Tricuspid Valve Structurally normal tricuspid valve. Mild tricuspid regurgitation. No tricuspid stenosis. Pulmonic Valve Structurally normal pulmonic valve. Trace pulmonic regurgitation. No pulmonic stenosis. Pericardium No pericardial or pleural effusion. Aorta Normal size aortic root and proximal ascending aorta. CONCLUSIONS Severe LV systolic dysfunction with an ejection fraction of30- 35% Akinetic apex Negative agitated saline bubble study Mild to moderate mitral regurgitation Previewed by: Dr. William Gatica MD (Electronically Signed) Final Date: 09 April 2024 17:57
[2024-04-09] MEDS: ATORVASTATIN 40 MG TAB PO SCH (19:31)
[2024-04-09 20:30] LABS: % Iron Saturation 24.89 (15.00-50.00); Iron 56 UG/DL (65-175); Total Iron Binding Capacity 225 UG/DL (228-460)
[2024-04-10 07:41] LABS: INR 2.3 (<1.2); Prothrombin Time 22.8 sec (10.0-12.5)
[2024-04-10 07:51] LABS: African American GFR (CKD) 13 (>60 ml/min/1.73 sqM); Anion Gap 6 mmol/L; Blood Urea Nitrogen 56 mg/dL (9-20); Carbon Dioxide 22 mmol/L (22-30); Chloride 110 mmol/L (98-107); Glucose 88 mg/dL (74-99); Non-African American GFR(CKD) 11 (>60 ml/min/1.73 sqM); Potassium 4.8 mmol/L (3.5-5.1); Sodium 138 mmol/L (137-145)
[2024-04-10] MEDS: ASPIRIN 81 MG PO SCH (08:25)
[2024-04-10] MEDS: DAPAGLIFLOZIN PROPANEDIOL 10 MG TABLET PO SCH (08:35)
--- NOTE | 2024-04-10 10:16 | P.PN ---
Subjective Patient is seen in follow-up for acute kidney injury on chronic kidney disease. Sitting up in chair. Not a very reliable historian. Receiving IV fluids. Nonoliguric. Vital signs are stable. General: No acute distress. HEENT: Head exam is unremarkable. LUNGS: No audible rhonchi or wheezes. HEART: Rate and Rhythm are regular. ABDOMEN: Nontender. EXTREMITITES: No edema. Objective - Vital Signs Vital signs: Vital Signs Temp 97.8 F 04/10/24 07:43 Pulse 96 04/10/24 08:20 Resp 16 04/10/24 07:43 BP 175/72 04/10/24 07:43 Pulse Ox 95 04/10/24 02:58 FiO2 Intake & Output 04/09/24 04/10/24 04/10/24 18:59 06:59 18:59 Intake Total 840 Output Total 150 400 Balance 690 -400 Weight 75 kg Intake: Oral 840 Output: Urine 150 400 Other: Voiding Method Toilet Toilet Urinal Urinal # Voids 1 0 # Bowel Movements 1 - Labs CBC & Chem 7: 04/09/24 07:23 04/10/24 06:34 Labs: Abnormal Lab Results - Last 24 Hours (Table) 04/09/24 04/09/24 04/10/24 Range/Units 12:43 12:43 06:34 PT 22.8 H (10.0-12.5) sec INR 2.3 H (<1.2) Potassium 5.3 H (3.5-5.1) mmol/L Chloride 116 H (98-107) mmol/L Carbon Dioxide 17 L (22-30) mmol/L BUN 59 H (9-20) mg/dL Creatinine 5.30 H (0.66-1.25) mg/dL Glucose 109 H (74-99) mg/dL Calcium (8.4-10.2) mg/dL Iron 56 L (65-175) UG/DL TIBC 225 L (228-460) UG/DL Transferrin 161.0 L (204.0-354.0) mg/dL Troponin I 0.259 H* (0.000-0.034) ng/mL 04/10/24 Range/Units 06:34 PT (10.0-12.5) sec INR (<1.2) Potassium (3.5-5.1) mmol/L Chloride 110 H (98-107) mmol/L Carbon Dioxide (22-30) mmol/L BUN 56 H (9-20) mg/dL Creatinine 5.15 H (0.66-1.25) mg/dL Glucose (74-99) mg/dL Calcium 8.0 L (8.4-10.2) mg/dL Iron (65-175) UG/DL TIBC (228-460) UG/DL Transferrin (204.0-354.0) mg/dL Troponin I (0.000-0.034) ng/mL Assessment and Plan Plan: Assessment: 1. Acute kidney injury secondary to ATN versus progression of underlying chronic kidney disease. Creatinine 5.92 on admission and is 5.15 today. No hydronephrosis noted on kidney ultrasound. Nonoliguric. 2. Chronic kidney disease stage IV with baseline creatinine near 3.5. Refused kidney biopsy in the past. 3. Hypertension with chronic kidney disease. 4. Hyperkalemia secondary to acute kidney injury, metabolic acidosisand losartan use. Improved. 5. Anemia of chronic kidney disease. Iron replete. 6. Metabolic acidosis secondary to acute kidney injury and IV fluids. Improved with bicarb drip. Plan: Stop bicarb drip. Start normal saline at 75 cc an hour. Add oral bicarb. Add Aranesp. Stop Farxiga due to severely depressed GFR. Change metoprolol to Coreg. Avoid nephrotoxins. Continue to monitor renal function and urine output. Continue to assess daily for need for renal replacement therapy. No urgency at this time. Will likely need guardianship.
--- NOTE | 2024-04-10 10:34 | P.PN ---
Subjective Progress Note Date: 04/10/24 Principal diagnosis: Carotid stenosis Patient is seen and examined today as a follow-up. He continues to have a sitter at the bedside. MRI is ordered but not completed yet. He denies any focal deficits. No acute changes reported through the night. Patient had elevated troponins x 3 and seen by cardiology reporting secondary to kidney disease. Echocardiogram reports severe LV systolic dysfunction with an EF of 30 to 35%. Akinetic apex, negative agitated saline bubble study, mild to moderate mitral regurgitation. Objective - Vital Signs Vital signs: Vital Signs Temp 97.8 F 04/10/24 07:43 Pulse 96 04/10/24 07:43 Resp 16 04/10/24 07:43 BP 175/72 04/10/24 07:43 Pulse Ox 95 04/10/24 02:58 FiO2 Intake & Output 04/09/24 04/10/24 04/10/24 18:59 06:59 18:59 Intake Total 840 Output Total 150 400 Balance 690 -400 Weight 75 kg Intake: Oral 840 Output: Urine 150 400 Other: Voiding Method Toilet Urinal # Voids 1 0 # Bowel Movements 1 - Exam General appearance: The patient is alert, oriented, appears in no acute distress. HET: Head is normocephalic and atraumatic. Pupils are equal and reactive. Neck: Supple. Heart: Regular. Lungs: Equal expansion, normal respiratory effort. Abdomen: Soft, nontender, nondistended. Extremities: Normal skin color and turgor. Neurological: No focal deficits. Strength and sensation are grossly intact. - Labs CBC & Chem 7: 04/09/24 07:23 04/10/24 06:34 Labs: Abnormal Lab Results - Last 24 Hours (Table) 04/09/24 04/09/24 04/10/24 Range/Units 12:43 12:43 06:34 PT 22.8 H (10.0-12.5) sec INR 2.3 H (<1.2) Potassium 5.3 H (3.5-5.1) mmol/L Chloride 116 H (98-107) mmol/L Carbon Dioxide 17 L (22-30) mmol/L BUN 59 H (9-20) mg/dL Creatinine 5.30 H (0.66-1.25) mg/dL Glucose 109 H (74-99) mg/dL Calcium (8.4-10.2) mg/dL Iron 56 L (65-175) UG/DL TIBC 225 L (228-460) UG/DL Transferrin 161.0 L (204.0-354.0) mg/dL Troponin I 0.259 H* (0.000-0.034) ng/mL 04/10/24 Range/Units 06:34 PT (10.0-12.5) sec INR (<1.2) Potassium (3.5-5.1) mmol/L Chloride 110 H (98-107) mmol/L Carbon Dioxide (22-30) mmol/L BUN 56 H (9-20) mg/dL Creatinine 5.15 H (0.66-1.25) mg/dL Glucose (74-99) mg/dL Calcium 8.0 L (8.4-10.2) mg/dL Iron (65-175) UG/DL TIBC (228-460) UG/DL Transferrin (204.0-354.0) mg/dL Troponin I (0.000-0.034) ng/mL Assessment and Plan Assessment: 1. Bilateral internal carotid artery stenosis 2. Altered mental status changes likely secondary to acute delirium/metabolic encephalopathy 3. Acute on chronic renal failure 4. Atrial fibrillation on Coumadin 5. Hypertension 6. Tobacco use 6. Anemia likely secondary to chronic disease/kidney disease Plan: 1. Recommend medical management at this time 2. Agree with speech therapy evaluation, OT and PT 3. Recommend smoking cessation 4. Atorvastatin 40 mg daily 5. Patient cannot have a CT angiogram head and neck secondary to kidney function 6. Further recommendations forthcoming per vascular surgeon Thank you for this consultation, we will continue to follow. The impression and plan of care has been dictated as directed. I performed a history and examination of this patient, discussed the same with the dictator. I agree with the dictator's note ,documented as a scribe. Any additional findings or plans will be noted.
[2024-04-10] MEDS: SODIUM CHLORIDE 0.9% 1,000 ML IV SCH (11:03)
[2024-04-10] MEDS: carvediloL 12.5 MG TAB PO SCH (11:03)
[2024-04-10] MEDS: DARBEPOETIN ALFA 40 MCG/0.4 ML SYRINGE SQ SCH (11:03)
[2024-04-10] MEDS: SODIUM BICARBONATE TAB 650 MG TAB PO SCH (11:03)
[2024-04-10] MEDS: WARFARIN 2.5 MG TAB PO ONE (11:05)
[2024-04-10] MEDS: hydrALAZINE HCL 25 MG TAB PO SCH (14:17)
--- NOTE | 2024-04-10 14:40 | P.PN ---
Subjective Progress Note Date: 04/10/24 This is a 63-year-old male with past medical history of stroke, hypertension, hyperlipidemia, history of NSTEMI in October 2020 at which time he presented with a syncopal episode with unresponsive episode along with bradycardia, found to have new onset of atrial fibrillation, acute heart failure and acute kidney injury. Patient was offered a cardiac catheterization in October 2020 when he presented with NSTEMI but he refused at that time. We have been asked to evaluate the patient for chest pain. Patient apparently called the police to do a welfare check on his neighbors but patient seemed to be confused with slurred speech and he was brought into the emergency center for further evaluation. Patient was apparently still confused that he required 4-point restraints in the emergency center. Patient denies having any chest pain. He has also been found to have acute kidney injury and is undergoing neurology workup. Patient denies any lightheadedness or dizziness. He is an active smoker of 1 pack/day. Blood pressure 163/75, heart rate 76, pulse ox 97% on room air. EKG: Sinus rhythm with first-degree block CT brain no acute intracranial process. Nonspecific white matter changes secondary to small vessel ischemic disease. Stable remote right cerebellar hemisphere injury. Carotid ultrasound: Greater than 70% stenosis. Renal ultrasound revealed no evidence of obstructive uropathy. Right renal probable cyst. Laboratory studies: WBC 8.4, hemoglobin 9.7. INR 3.6. BUN 67 creatinine 5.85, initial potassium 5.5 now 5.1. Troponins 0.166 and 0.196. Triglycerides 56, cholesterol 162, LDL 101. TSH 0.262 with normal free T4. Home cardiac medications: Amlodipine 10 mg daily, Lopressor 12.5 mg twice daily, valsartan 80 mg daily, warfarin 5 and 2.5 mg alternating Number 10/24/2023 Patient is seen and examined at bedside this a.m. Mentally he is more oriented. He is following commands. He is eager to go home. BP 149 over 70 mmHg, heart rate 65 bpm. Does not appear volume overloaded. BUN 56, creatinine 5.15. Yesterday creatinine was 5.0. Baseline is around 4. Physical examination: Gen: This is a 63-year-old male appears to be in no acute distress VS: reviewed HEENT: Head is atraumatic, normocephalic. Pupils equal, round. Sclerae is anicteric. NECK: Supple. No JVD. LUNGS: Mild bilateral wheeze. No intercostal retractions. HEART: Regular rate and rhythm. No murmur. ABDOMEN: Soft No tenderness. EXTREMITIES: 12+ lower extremity edema. No calf tenderness. NEUROLOGICAL: Patient is awake, alert and oriented to person place time. Assessment: Elevated troponins due to poor renal clearance, type II [place] Cardiomyopathy with known EF of 30 to 35% in 2020. Acute kidney injury with chronic kidney disease stage IV Expressive aphasia, now resolved, Metabolic encephalopathy Paroxysmal atrial fibrillation currently in sinus rhythm Bilateral 70% internal carotid artery stenosis Hypertension Hyperlipidemia History of stroke History of NSTEMI 10/2020 Cardiac testing Echocardiogram EF 30 to 35%, akinetic apex, moderate mitral regurgitation Plan: Patient was found to have cardiomyopathy in 2020 when he was admitted with syncope fall concerns of NSTEMI. At that time he did not underwent cardiac catheterization because of poor renal clearance and patient's unwillingness to have a invasive procedure. At this time goal is to treat her medically for cardiomyopathy with appropriate blood pressure control with goal BP less than 130 over 70 mmHg. Continue aspirin 81, amlodipine 10 mg, atorvastatin 40 mg. Discontinue Lopressor and start Coreg 12.5 mg twice daily. Start hydralazine 25 mg 4 times daily. Stop SGLT2 and CHAPARRO ARB's Continue INR monitoring with goal of 2-3 with pharmacy dosing warfarin. Appreciate nephrology recommendations on PRIYANK and CKD. Objective - Vital Signs Vital signs: Vital Signs Temp 98.0 F 04/10/24 11:06 Pulse 98 04/10/24 12:47 Resp 18 04/10/24 11:06 BP 149/70 04/10/24 14:15 Pulse Ox 95 04/10/24 11:06 FiO2 Intake & Output 04/09/24 04/10/24 04/10/24 18:59 06:59 18:59 Intake Total 840 118 Output Total 043 178 1615 Balance 651 -400 -177 Weight 75 kg Intake: Oral 840 118 Output: Urine 034 311 1423 Other: Voiding Method Toilet Toilet Urinal Urinal # Voids 1 0 # Bowel Movements 1 - Labs CBC & Chem 7: 04/09/24 07:23 04/10/24 06:34 Labs: Abnormal Lab Results - Last 24 Hours (Table) 04/09/24 04/10/2424 Range/Units 12:43 06:34 06:34 PT 22.8 H (10.0-12.5) sec INR 2.3 H (<1.2) Chloride 110 H (98-107) mmol/L BUN 56 H (9-20) mg/dL Creatinine 5.15 H (0.66-1.25) mg/dL Calcium 8.0 L (8.4-10.2) mg/dL Iron 56 L (65-175) UG/DL TIBC 225 L (228-460) UG/DL Transferrin 161.0 L (204.0-354.0) mg/dL
--- NOTE | 2024-04-10 14:52 | P.PN ---
Subjective Progress Note Date: 04/10/24 I am following-up with patient and he feels he is doing well. Denies any new neurological issues. Objective - Vital Signs Vital signs: Vital Signs Temp 98.0 F 04/10/24 11:06 Pulse 98 04/10/24 12:47 Resp 18 04/10/24 11:06 BP 149/70 04/10/24 14:15 Pulse Ox 95 04/10/24 11:06 FiO2 Intake & Output 04/09/24 04/10/24 04/10/24 18:59 06:59 18:59 Intake Total 840 118 Output Total 087 152 5545 Balance 950 -907 -011 Weight 75 kg Intake: Oral 840 118 Output: Urine 965 069 3703 Other: Voiding Method Toilet Toilet Urinal Urinal # Voids 1 0 # Bowel Movements 1 - Exam General: Sitting up in a recliner chair and is not in acute distress Neuro patient is awake, alert oriented to self place. He correctly stated the year but stated the month is March. He is following simple commands. No aphasia from limited language. Pupils are round equal reactive to light. Visual cardozo are full to confrontation. No facial weakness. No dysarthria. Motor strength is lifted all extremities above gravity equally. - Labs CBC & Chem 7: 04/09/24 07:23 04/10/24 06:34 Labs: Abnormal Lab Results - Last 24 Hours (Table) 04/09/24 04/10/24 04/10/24 Range/Units 12:43 06:34 06:34 PT 22.8 H (10.0-12.5) sec INR 2.3 H (<1.2) Chloride 110 H (98-107) mmol/L BUN 56 H (9-20) mg/dL Creatinine 5.15 H (0.66-1.25) mg/dL Calcium 8.0 L (8.4-10.2) mg/dL Iron 56 L (65-175) UG/DL TIBC 225 L (228-460) UG/DL Transferrin 161.0 L (204.0-354.0) mg/dL Assessment and Plan Assessment: * Altered mental status, likely due to acute delirium/metabolic encephalopathy. Reasons multifactorial as mentioned below. * Rule out underlying cognitive impairment * Acute on chronic renal failure * Atrial fibrillation, on Coumadin * Hyperkalemia * Anemia, due to CKD * Hypertension * Tobacco use Plan: * UA negative. * Carotid Doppler revealed greater than 70% stenosis of carotid bifurcation bilaterally. Right vertebral artery not visualized, left vertebral artery with antegrade flow. Spoke with vascular team and they stated no acute intervention. * vascular surgery team is consulted. * Primary team has initiated MRI of the brain. * Lipid panel with cholesterol 162, LDL 101, HDL 49, triglycerides 56. We will start Lipitor 40 mg daily. Target LDL < 70. * Continue Coumadin, INR therapeutic 2.7. * Optimize control of blood pressure as per IM. * B12: 424, folate 10.1, TSH 0.262 and free T4 1.25. Hemoglobin A1c: 5.2 * Psychiatry has seen the patient, and patient does not have mental capacity to make decision. * We will try to contact family members troponin collateral history. Time with Patient: Less than 30
--- NOTE | 2024-04-10 16:58 | P.PN ---
Subjective Progress Note Date: 04/10/24 63 year old M with PMH CVA, HTN, AFib, GERD presents to the ED for aphasia. Apparently patient did not have any issues with aphasia and that this all new. Patient in the ED was upset and wanted to go home. Patient was put in four point restraints in the ED as he was trying to leave. In the ED CT head showed old infarct in the cerebellum. His creatinine was 5.92. Last creatinine in our system is 3.5 on 01/04/2023. Patient was admitted to the medicine service. On bladder scan patient was found to be retaining his urine, Gann catheter was placed. Psychiatry consulted, patient does not have decision making capacity at this time. Nephrology following the patient for acute kidney injury. Renal US no obstruction. Started on D5W with sodium bicarb. Carotid doppler > 70% stenosis bilaterally of the carotid bifurcation. Vascular surgery consulted, recommending medical management at this time. Troponins elevated at 0.166, 0.196. Cardiology consulted, Echo ordered, recommended medical management for Type II [place] due to poor renal clearance. Echo showed EF 30-35%, hypokinetic septum and apex, mild-mod MR. Neurology on board for CVA workup. A1c 5.2. Lipid panel LDL 101.5. MRI brain currently pending. 04/10 Patient was seen and examined. Sitter at bedside. Patient aphasic. Has no complaints. PT 22.8, INR 2.3. BMP Cl 110, BUN 56, Cr 5.15, Ca 8. General: non toxic, no distress, appears at stated age Derm: warm, dry Head: atraumatic, normocephalic, symmetric Eyes: EOMI, no lid lag, anicteric sclera Mouth: no lip lesion, mucus membranes moist Cardiovascular: S1S2 reg, no murmur Lungs: Decreased BS bilaterally, no rhonchi, no rales , no accessory muscle use Neuro: no focal neuro deficits besides expressive aphasia Psych: Alert, oriented, appropriate affect Based on my assessment of this patient, this patient meets a high complexity level of care. Expressive aphasia likely due to CVA: Lipitor 40 mg PO QHS. ASA [address] brain, A1c, Lipid panel, Echo and CUS as above. MRI brain pending. Telemetry monitoring. Neurology on board. HFrEF: Euvolemic. Metoprolol as below. ACEi on hold due to PRIYANK. Aldactone on hold due to PRIYANK. Start Farxiga 10 mg PO QD. Cardiology on board. Troponin elevation: ASA, Lipitor as above. Metoprolol as below. Echo as above. Cardiology on board. Acute metabolic encephalopathy likely due to above worsened with uremia Carotid stenosis: ASA and Lipitor as above. Vascular surgery on board. PRIYANK on CKD stage IV: D5W with sodium bicarb at 75 cc/hr per Nephrology. Urinary retention: Discontinue Gann catheter and attempt voiding trail when able. Hypertension: Amlodipine 10 mg PO QD. Metoprolol as below. A-Fib: Metoprolol 12.5 mg PO BID. Coumadin dosed per pharmacy for AC. Nicotine abuse: Nicotine patch offered. CODE STATUS: FULL CODE. DVT Prophylaxis: Warfarin. GI Prophylaxis: Designated medical POA if patient is not able to make medical decisions for themselves: I have reviewed the following customer care voice consultant notes: Vascular, Cardiology, Nephro logy, Neurology. I have reviewed the results of the following tests: CBC, TSH, FT4. I have ordered the following tests: I have discussed the care of this patient with the following independent histor angelina: I have independently interpreted the following test below: I have discussed the management of this patient with the following physician: Objective - Vital Signs Vital signs: Vital Signs Temp 97.8 F 04/10/24 07:43 Pulse 96 04/10/24 07:43 Resp 16 04/10/24 07:43 BP 175/72 04/10/24 07:43 Pulse Ox 95 04/10/24 02:58 FiO2 Intake & Output 04/09/24 04/10/24 04/10/24 18:59 06:59 18:59 Intake Total 840 Output Total 150 400 Balance 690 -400 Weight 75 kg Intake: Oral 840 Output: Urine 150 400 Other: Voiding Method Toilet Urinal # Voids 1 0 # Bowel Movements 1 - Labs CBC & Chem 7: 04/09/24 07:23 04/10/24 06:34 Labs: Abnormal Lab Results - Last 24 Hours (Table) 04/09/24 04/09/24 04/09/24 Range/Units 07:23 12:43 12:43 PT (10.0-12.5) sec INR (<1.2) Potassium 5.3 H (3.5-5.1) mmol/L Chloride 116 H (98-107) mmol/L Carbon Dioxide 17 L (22-30) mmol/L BUN 59 H (9-20) mg/dL Creatinine 5.30 H (0.66-1.25) mg/dL Glucose 109 H (74-99) mg/dL Calcium (8.4-10.2) mg/dL Iron 56 L (65-175) UG/DL TIBC 225 L (228-460) UG/DL Transferrin 161.0 L (204.0-354.0) mg/dL Troponin I 0.196 H* 0.259 H* (0.000-0.034) ng/mL 04/10/24 04/10/24 Range/Units 06:34 06:34 PT 22.8 H (10.0-12.5) sec INR 2.3 H (<1.2) Potassium (3.5-5.1) mmol/L Chloride 110 H (98-107) mmol/L Carbon Dioxide (22-30) mmol/L BUN 56 H (9-20) mg/dL Creatinine 5.15 H (0.66-1.25) mg/dL Glucose (74-99) mg/dL Calcium 8.0 L (8.4-10.2) mg/dL Iron (65-175) UG/DL TIBC (228-460) UG/DL Transferrin (204.0-354.0) mg/dL Troponin I (0.000-0.034) ng/mL
[2024-04-11 08:16] LABS: African American GFR (CKD) 13 (>60 ml/min/1.73 sqM); Anion Gap 6 mmol/L; Blood Urea Nitrogen 54 mg/dL (9-20); Calcium 8.3 mg/dL (8.4-10.2); Carbon Dioxide 20 mmol/L (22-30); Chloride 110 mmol/L (98-107); Glucose 80 mg/dL (74-99); Non-African American GFR(CKD) 12 (>60 ml/min/1.73 sqM); Phosphorus 4.3 mg/dL (2.5-4.5); Potassium 4.7 mmol/L (3.5-5.1); Sodium 136 mmol/L (137-145)
[2024-04-11 08:17] LABS: INR 1.7 (<1.2); Prothrombin Time 17.4 sec (10.0-12.5)
--- NOTE | 2024-04-11 10:43 | P.PN ---
Subjective Patient is seen in follow-up for acute kidney injury on chronic kidney disease. Resting in bed. Renal function slowly improving. Receiving IV fluids. Nonoliguric. Vital signs are stable. General: No acute distress. HEENT: Head exam is unremarkable. LUNGS: No audible rhonchi or wheezes. HEART: Rate and Rhythm are regular. ABDOMEN: Nontender. EXTREMITITES: No edema. Objective - Vital Signs Vital signs: Vital Signs Temp 98.3 F 04/11/24 07:36 Pulse 74 04/11/24 08:38 Resp 18 04/11/24 07:36 BP 139/72 04/11/24 07:36 Pulse Ox 93 L 04/11/24 07:36 FiO2 Intake & Output 04/10/24 04/11/24 04/11/24 18:59 06:59 18:59 Intake Total 236 Output Total 1400 810 Balance -1164 -810 Weight 76.8 kg Intake: Oral 236 Output: Urine 1400 660 Post Void Residual 150 Other: Voiding Method Toilet Toilet Toilet Urinal Urinal - Labs CBC & Chem 7: 04/09/24 07:23 04/11/24 07:21 Labs: Abnormal Lab Results - Last 24 Hours (Table) 04/11/24 04/11/24 Range/Units 07:21 07:21 PT 17.4 H (10.0-12.5) sec INR 1.7 H (<1.2) Sodium 136 L (137-145) mmol/L Chloride 110 H (98-107) mmol/L Carbon Dioxide 20 L (22-30) mmol/L BUN 54 H (9-20) mg/dL Creatinine 4.86 H (0.66-1.25) mg/dL Calcium 8.3 L (8.4-10.2) mg/dL Assessment and Plan Plan: Assessment: 1. Acute kidney injury secondary to ATN versus progression of underlying chronic kidney disease. Creatinine 5.92 on admission and is 4.86 today. No hydronephrosis noted on kidney ultrasound. Nonoliguric. 2. Chronic kidney disease stage IV with baseline creatinine near 3.5. Refused kidney biopsy in the past. 3. Hypertension with chronic kidney disease. Stable. 4. Hyperkalemia secondary to acute kidney injury, metabolic acidosisand losartan use. Improved. 5. Anemia of chronic kidney disease. Iron replete. On Aranesp. 6. Metabolic acidosis secondary to acute kidney injury and IV fluids. Improved with bicarb drip. Now on oral bicarb. Plan: Maintain IV fluids. Stopped Farxiga due to severely depressed GFR. Change metoprolol to Coreg. Avoid nephrotoxins. Continue to monitor renal function and urine output. Continue to assess daily for need for renal replacement therapy. Patient refusing. No urgency at this time. Will likely need guardianship.
[2024-04-11] MEDS: ISOSORBIDE MONONITRATE ER 30 MG TAB.ER.24H PO SCH (11:05)
[2024-04-11] MEDS: WARFARIN 2 MG TAB PO ONE (11:05)
--- NOTE | 2024-04-11 12:32 | P.PN ---
Subjective Progress Note Date: 04/11/24 This is a 63-year-old male with past medical history of stroke, hypertension, hyperlipidemia, history of NSTEMI in October 2020 at which time he presented with a syncopal episode with unresponsive episode along with bradycardia, found to have new onset of atrial fibrillation, acute heart failure and acute kidney injury. Patient was offered a cardiac catheterization in October 2020 when he presented with NSTEMI but he refused at that time. We have been asked to evaluate the patient for chest pain. Patient apparently called the police to do a welfare check on his neighbors but patient seemed to be confused with slurred speech and he was brought into the emergency center for further evaluation. Patient was apparently still confused that he required 4-point restraints in the emergency center. Patient denies having any chest pain. He has also been found to have acute kidney injury and is undergoing neurology workup. Patient denies any lightheadedness or dizziness. He is an active smoker of 1 pack/day. Blood pressure 163/75, heart rate 76, pulse ox 97% on room air. EKG: Sinus rhythm with first-degree block CT brain no acute intracranial process. Nonspecific white matter changes secondary to small vessel ischemic disease. Stable remote right cerebellar hemisphere injury. Carotid ultrasound: Greater than 70% stenosis. Renal ultrasound revealed no evidence of obstructive uropathy. Right renal probable cyst. Laboratory studies: WBC 8.4, hemoglobin 9.7. INR 3.6. BUN 67 creatinine 5.85, initial potassium 5.5 now 5.1. Troponins 0.166 and 0.196. Triglycerides 56, cholesterol 162, LDL 101. TSH 0.262 with normal free T4. Home cardiac medications: Amlodipine 10 mg daily, Lopressor 12.5 mg twice daily, valsartan 80 mg daily, warfarin 5 and 2.5 mg alternating Number 2023 Patient is seen and examined at bedside this a.m. Mentally he is more oriented. He is following commands. He is eager to go home. BP 149 over 70 mmHg, heart rate 65 bpm. Does not appear volume overloaded. BUN 56, creatinine 5.15. Yesterday creatinine was 5.0. Baseline is around 4. 04/11 Patient is seen and examined. Blood pressure readings are improved but not quite to goal. Blood pressure 144/64, heart rate 67, pulse ox 93% on room air. INR is 1.7. Pharmacy is dosing Coumadin. BUN 54 creatinine 4.86.. Physical examination: Gen: This is a 63-year-old male appears to be in no acute distress VS: reviewed HEENT: Head is atraumatic, normocephalic. Pupils equal, round. Sclerae is anicteric. NECK: Supple. No JVD. LUNGS: Mild bilateral wheeze. No intercostal retractions. HEART: Regular rate and rhythm. No murmur. ABDOMEN: Soft No tenderness. EXTREMITIES: 12+ lower extremity edema. No calf tenderness. NEUROLOGICAL: Patient is awake, alert and oriented to person place time. Assessment: Elevated troponins due to poor renal clearance, type II [place] Cardiomyopathy with known EF of 30 to 35% in 2020. Acute kidney injury with chronic kidney disease stage IV Expressive aphasia, now resolved, Metabolic encephalopathy Paroxysmal atrial fibrillation currently in sinus rhythm Bilateral 70% internal carotid artery stenosis Hypertension Hyperlipidemia History of stroke History of NSTEMI 10/2020 Cardiac testing Echocardiogram EF 30 to 35%, akinetic apex, moderate mitral regurgitation Plan: Patient was found to have cardiomyopathy in 2020 when he was admitted with syncope fall concerns of NSTEMI. At that time he did not underwent cardiac catheterization because of poor renal clearance and patient's unwillingness to have a invasive procedure. At this time goal is to treat medically for cardiomyopathy with appropriate blood pressure control with goal BP less than 130 over 70 mmHg. Continue aspirin 81, amlodipine 10 mg, atorvastatin 40 mg. Continue Coreg 12.5 mg twice daily, hydralazine 25 mg 4 times daily. Start patient on Imdur 30 mg daily and continue hydralazine Stop SGLT2 and CHAPARRO ARB's Continue INR monitoring with goal of 2-3 with pharmacy dosing warfarin. Cardiology will sign off this case and follow on an as-needed basis. Please reconsult for any new concerns. Patient may follow-up in the office in one to 2 weeks. Nurse practitioner note has been reviewed, I agree with documented findings and plan of care. Patient was seen and examined. Objective - Vital Signs Vital signs: Vital Signs Temp 98.3 F 04/11/24 07:36 Pulse 74 04/11/24 08:38 Resp 18 04/11/24 07:36 BP 139/72 04/11/24 07:36 Pulse Ox 93 L 04/11/24 07:36 FiO2 Intake & Output 11/10/2704/11/24 04/11/24 18:59 06:59 18:59 Intake Total 236 Output Total 1400 810 Balance -1164 -810 Weight 76.8 kg Intake: Oral 236 Output: Urine 1400 660 Post Void Residual 150 Other: Voiding Method Toilet Toilet Toilet Urinal Urinal - Labs CBC & Chem 7: 04/09/24 07:23 04/11/24 07:21 Labs: Abnormal Lab Results - Last 24 Hours (Table) 04/11/24 04/11/24 Range/Units 07:21 07:21 PT 17.4 H (10.0-12.5) sec INR 1.7 H (<1.2) Sodium 136 L (137-145) mmol/L Chloride 110 H (98-107) mmol/L Carbon Dioxide 20 L (22-30) mmol/L BUN 54 H (9-20) mg/dL Creatinine 4.86 H (0.66-1.25) mg/dL Calcium 8.3 L (8.4-10.2) mg/dL
--- NOTE | 2024-04-11 13:18 | P.PN ---
Subjective Progress Note Date: 04/11/24 Principal diagnosis: Carotid stenosis Patient is seen and examined today as a follow-up. He continues to have a sitter at the bedside. MRI was ordered however not completed apparently as they do not know patient's history. He denies any focal deficits. No acute changes reported through the night. Objective - Vital Signs Vital signs: Vital Signs Temp 98.3 F 04/11/24 07:36 Pulse 74 04/11/24 08:38 Resp 18 04/11/24 07:36 BP 139/72 04/11/24 07:36 Pulse Ox 93 L 04/11/24 07:36 FiO2 Intake & Output 04/10/24 04/11/24 04/11/24 18:59 06:59 18:59 Intake Total 236 Output Total 1400 810 Balance -1164 -810 Weight 76.8 kg Intake: Oral 236 Output: Urine 1400 660 Post Void Residual 150 Other: Voiding Method Toilet Toilet Toilet Urinal Urinal - Exam General appearance: The patient is alert, oriented, appears in no acute distress. HET: Head is normocephalic and atraumatic. Pupils are equal and reactive. Neck: Supple. Heart: Regular. Lungs: Equal expansion, normal respiratory effort. Abdomen: Soft, nontender, nondistended. Extremities: Normal skin color and turgor. Neurological: No focal deficits. Strength and sensation are grossly intact. - Labs CBC & Chem 7: 04/09/24 07:23 04/11/24 07:21 Labs: Abnormal Lab Results - Last 24 Hours (Table) 04/11/24 04/11/24 Range/Units 07:21 07:21 PT 17.4 H (10.0-12.5) sec INR 1.7 H (<1.2) Sodium 136 L (137-145) mmol/L Chloride 110 H (98-107) mmol/L Carbon Dioxide 20 L (22-30) mmol/L BUN 54 H (9-20) mg/dL Creatinine 4.86 H (0.66-1.25) mg/dL Calcium 8.3 L (8.4-10.2) mg/dL Assessment and Plan Assessment: 1. Bilateral internal carotid artery stenosis 2. Altered mental status changes likely secondary to acute delirium/metabolic encephalopathy 3. Acute on chronic renal failure 4. Atrial fibrillation on Coumadin 5. Hypertension 6. Tobacco use 6. Anemia likely secondary to chronic disease/kidney disease Plan: 1. Recommend medical management at this time 2. Agree with speech therapy evaluation, OT and PT 3. Recommend smoking cessation 4. Atorvastatin 40 mg daily 5. Patient cannot have a CT angiogram head and neck secondary to kidney function 6. Patient being followed by nephrology for acute on chronic kidney disease, wh o recommended renal replacement therapy. Patient is refusing at this time. 7. No plans at this time for any vascular surgical intervention. Recommend outpatient follow-up Thank you for this consultation, we we will sign off at this time. Please do not hesitate to call us back if further needed. The impression and plan of care has been dictated as directed. Dr. Gann I performed a history and examination of this patient, discussed the same with the dictator. I agree with the dictator's note ,documented as a scribe. Any additional findings or plans will be noted.
--- NOTE | 2024-04-11 14:10 | P.PN ---
Progress Note - Text Progress Note Date: 04/11/24 Interval History: Patient was seen today for psychiatric follow-up regarding patient's delirium. freelance writer recieved contact from patient's nurse today and also hospitalist claiming that patient has been more cooperative, delirium has been clearing is still on a one-to-one and requesting reevaluation. Patient was seen today laying in bed agreeable to speak to freelance writer. He appears to have improvement in his attention, answered most questions appropriately. He was alert and oriented x 3 today. He claims that he does live alone, claims that he does his own cooking cleaning and also paying his bills. He spoke in general about his treatment in the hospital, believes that the doctors do have his best interest in mind and he will be taking medications. He is open to different discharge ideas and plans. Denies any depression or anxiety. Claims that he slept fairly last night, has a fair a ppetite. At this time patient denies any suicidal or homical ideations, intent or plan. Patient denies any auditory, visual hallucinations and denies any paranoia or delusions. Patient denies any side effects from the medications and has been compliant with meds. Mental Status Exam: General Appearance: Patient appears to be balding, laying in bed, stated age is alert, directable, and temps to be cooperative. Behavior: Patient is calmly seated without any agitated behavior. Attempts to cooperate. Speech: Patient's speech is fluent and nonpressured. Hesitant at times Mood/Affect: Mood is improving mildly, affect is congruent Suicidality/Homicidality: Patient denies having any suicidal or homicidal ideation intent or plan. Perceptions: Patient denies any visual hallucinations and denies any auditory hallucinations Though content/process: There is no evidence of any delusional thought content and thought process is linear and goal-directed. Memory and concentration: AOX3, grossly intact for the purposes of this session Judgment and insight: Improving mildly Assessment Delirium, unknown etiology, resolving Plan: -At this time patient DOES NOT meet criteria for inpatient psychiatric admission. -Patient DOES have general decision making capacity at this time and is able to reason through mostly and communicate/appreciate the risks, benefits and alternatives to his care. -Delirium precautions recommended with patient including - avoiding use of narcotics and HR PAYROLL COORDINATOR sedatives, limit anticholinergic medications when possible, frequent re-orientation, minimize use of restraints, open window shades during the day and close them at night -Would recommend the following medication changes/additions: Can continue with current psychiatric meds as prescribed. -Can discontinue 1:1 sitter at this time as patient is not currently an imminent threat to themselves -dairy farm worker to provide patient with outpatient mental health/psychiatry resources for appropriate follow up upon discharge -Communicated plan to patient's nurse -Psychiatry will sign off at this time -Please contact with any questions.
--- NOTE | 2024-04-11 17:03 | CT ---
EXAMINATION TYPE: CT brain wo con DATE OF EXAM: 04/11/2024 4:50 PM COMPARISON: 04/07/2024. CLINICAL INDICATION: Male, 63 years old with history of altered mental status. TECHNIQUE: Brain: Axial CT images of the brain were obtained with coronal and sagittal reformats created and rev iewed. Contrast used: None. Oral contrast used: None. CT DLP: 1180.4 mGycm, Automated exposure control for dose reduction was used. FINDINGS: Brain: Extra-axial spaces: No abnormal extra-axial fluid collections. Ventricular system: Dilatation in proportion to cerebral atrophy. Cerebral parenchyma: Cerebral atrophy. No acute intraparenchymal hemorrhage or mass effect. The copeland -white junction is well differentiated. Scattered hypoattenuating areas are seen within the white mat ter. Cerebellum: Remote injury to the superior aspect of the right cerebral hemisphere similar to Mass effect: No evidence of midline shift. Intracranial vasculature: unremarkable Soft tissues: Normal. Calvarium/osseous structures: No depressed skull fracture. Paranasal sinuses and mastoid air cells: Mild scattered paranasal sinus disease. Visualized orbits: Bilateral aphakia. IMPRESSION: 1. No acute intracranial process. 2. Nonspecific white matter changes, likely secondary to chronic small vessel ischemic disease. [facility], , 04/11/2024 5:01 PM
[2024-04-12] MEDS ORDERED: ALBUTEROL NEBULIZED 2.5 MG/3 ML INHALATION PRN (02:38)
[2024-04-12] MEDS ORDERED: IPRATROPIUM-ALBUTEROL 3 ML NEB INHALATION PRN (02:44)
--- NOTE | 2024-04-12 03:43 | XR ---
EXAM: XR Chest, 1 View CLINICAL HISTORY: ITS.REASON XR Reason: respiratory distress TECHNIQUE: Frontal view of the chest. COMPARISON: XR Chest dated 10/20/20 FINDINGS: Lungs: Increased perihilar opacities/vascular congestion. Increased interstitial markings and right basilar opacity. Finding somewhat similar on the prior. Also small patchy opacities in the left upper and mid lung. Pleural space: Unremarkable. No pneumothorax. Heart: Unremarkable. No cardiomegaly. Mediastinum: Unremarkable. Normal mediastinal contour. Bones/joints: Unremarkable. No acute fracture. IMPRESSION: Increased perihilar opacities/vascular congestion. Increased interstitial markings and right basilar opacity. Finding somewhat similar on the prior. Also small patchy opacities in the left upper and mid lung. Broad differential including pulmonary edema, infectious/inflammatory/neoplastic process. Consider follow-up.
[2024-04-12] MEDS: IPRATROPIUM-ALBUTEROL 3 ML NEB INHALATION SCH (04:39)
[2024-04-12 06:53] LABS: INR 2.2 (<1.2); Prothrombin Time 22.1 sec (10.0-12.5)
[2024-04-12 07:02] LABS: African American GFR (CKD) 11 (>60 ml/min/1.73 sqM); Anion Gap 10 mmol/L; Blood Urea Nitrogen 59 mg/dL (9-20); Calcium 8.7 mg/dL (8.4-10.2); Carbon Dioxide 18 mmol/L (22-30); Chloride 110 mmol/L (98-107); Glucose 109 mg/dL (74-99); Magnesium 1.9 mg/dL (1.6-2.3); Non-African American GFR(CKD) 10 (>60 ml/min/1.73 sqM); Potassium 5.4 mmol/L (3.5-5.1); Sodium 138 mmol/L (137-145)
--- NOTE | 2024-04-12 09:30 | P.PN ---
Subjective Patient is seen in follow-up for acute kidney injury on chronic kidney disease. Became short of breath last night and received a dose of IV Lasix. Off IV fluids. Has been voiding. Renal function worse with creatinine 5.65 today. Vital signs are stable. General: No acute distress. HEENT: Head exam is unremarkable. LUNGS: No audible rhonchi or wheezes. HEART: Rate and Rhythm are regular. ABDOMEN: Nontender. EXTREMITITES: No edema. Objective - Vital Signs Vital signs: Vital Signs Temp 98.3 F 04/12/24 04:00 Pulse 84 04/12/24 08:27 Resp 21 04/12/24 04:00 BP 118/71 04/12/24 04:00 Pulse Ox 81 L 04/12/24 08:16 FiO2 21 04/12/24 08:16 Intake & Output 04/11/24 04/12/24 04/12/24 18:59 06:59 18:59 Intake Total 50 Output Total 775 400 Balance -775 -350 Weight 79.5 kg Intake: Oral 50 Output: Urine 525 400 Post Void Residual 250 Other: Voiding Method Toilet Toilet # Voids 1 # Bowel Movements 1 - Labs CBC & Chem 7: 04/09/24 07:23 04/12/24 05:43 Labs: Abnormal Lab Results - Last 24 Hours (Table) 04/12/24 04/12/24 Range/Units 05:43 05:43 PT 22.1 H (10.0-12.5) sec INR 2.2 H (<1.2) Potassium 5.4 H (3.5-5.1) mmol/L Chloride 110 H (98-107) mmol/L Carbon Dioxide 18 L (22-30) mmol/L BUN 59 H (9-20) mg/dL Creatinine 5.65 H (0.66-1.25) mg/dL Glucose 109 H (74-99) mg/dL Assessment and Plan Plan: Assessment: 1. Acute kidney injury secondary to ATN versus progression of underlying chronic kidney disease. Creatinine 5.92 on admission and is 5.65 today. No hydronephrosis noted on kidney ultrasound. Nonoliguric. 2. Chronic kidney disease stage IV with baseline creatinine near 3.5. Refused kidney biopsy in the past. 3. Hypertension with chronic kidney disease. Stable. 4. Hyperkalemia secondary to acute kidney injury, metabolic acidosis and losartan use. 5. Anemia of chronic kidney disease. Iron replete. On Aranesp. 6. Metabolic acidosis secondary to acute kidney injury and IV fluids. s/p bicarb drip. Now on oral bicarb. Plan: Status post IV Lasix last night. Off IV fluids. Stopped Farxiga due to severely depressed GFR. 2 amp sodium bicarb IV push today. Lokelma 10 g once today. Avoid nephrotoxins. Continue to monitor renal function and urine output. Discussed at length the need for renal replacement therapy due to significantly impaired renal function, acidosis, hyperkalemia. Patient refusing renal replacement therapy and states he wants to go home. It was discussed that this can be life-threatening which she understands. RN also present at bedside.
[2024-04-12 10:30] VITALS: RESP 20; TEMP 97.6
--- NOTE | 2024-04-12 12:28 | P.DS ---
Providers Date of admission: 04/07/24 12:39 Expected date of discharge: 04/11/24 Attending physician: Zara Brantley MD Consults: 04/07/24 12:39 Consult Physician Routine Consulting Provider: Dusty Valdez Consult Reason/Comments: ams Do you want consulting provider notified?: Yes Consult Physician Routine Consulting Provider: Jack Esteban Consult Reason/Comments: priyank Do you want consulting provider notified?: Yes 04/07/24 14:46 Consult Physician Routine Consulting Provider: Kings Triplett Consult Reason/Comments: competancy evaluation Do you want consulting provider notified?: Yes 04/09/24 00:45 Consult Physician Routine Consulting Provider: Harriet Gann Consult Reason/Comments: Bilateral ICA stenosis Do you want consulting provider notified?: Yes, Notify in am 04/09/24 04:20 Consult Physician Routine Consulting Provider: Norman Rhodes Consult Reason/Comments: chest pressure Do you want consulting provider notified?: Yes, Notify in am Primary care physician: [facility] Hospital Course: 63 year old M with PMH CVA, HTN, AFib, GERD presents to the ED for aphasia. Apparently patient did not have any issues with aphasia and that this all new. Patient in the ED was upset and wanted to go home. Patient was put in four point restraints in the ED as he was trying to leave. In the ED, he underwent extensive evaluation. BP 166/71, HR 66, T 97.6F, RR 16, 100% on RA. CBC, Coag panel, CMP significant for RBC 3.25, Hg 10.2, Hct 30.8, PT 24.3, INR 2.5, K 5.5, Cl 113, bicarb 16, BUN 75, Cr 5.92, glu 104. Mag 2.5. CT head showed old infarct in the cerebellum. His creatinine was 5.92. Last creatinine in our system is 3.5 on 01/04/2023. Patient was admitted to the medicine service. On bladder scan patient was found to be retaining his urine, Gann catheter was placed. Psychiatry consulted, patient does not have decision making capacity at this time. Sitter was ordered for safety. Nephrology following the patient for acute kidney injury. Renal US no obstruction. Started on D5W with sodium bicarb and eventually switched to NS. Carotid doppler > 70% stenosis bilaterally of the carotid bifurcation. Vascular surgery consulted, recommending medical management at this time. Troponins elevated at 0.166, 0.196, 0.259. Cardiology consulted, Echo ordered, recommended medical management for Type II ND due to poor renal clearance. Echo showed EF 30-35%, hypokinetic septum and apex, mild-mod MR. Cardiology recommended medical management due to his chronic kidney disease. Neurology on board for CVA workup. A1c 5.2. Lipid panel LDL 101.5. MRI brain unable to be done because MRI form cannot be filled out at this time. 04/11 Patient was seen and examined. Sitter at bedside. Patient slightly aphasic but is alert and oriented to person place and time. Has no complaints besides wanting to go home. He is refusing hemodialysis and understands the risks of doing so including . Discussed with Dr. Triplett regarding re-evaluation of patient since his mentation has seemed to have significantly improved since being evaluated on 04/08. I believe patient has decision making capacity and we have plans to discharge him home if cleared by Psychiatry. Discharge Plan: Discontinue Ibuprofen, Metoprolol and Valsartan. Continue Coumadin, Amlodipine and Pepcid. Prescribed Hydralazine, Imdur, ASA, Lipitor, Coreg and sodium bicarb. Follow up with PCP within 1-2 days and Vascular, Nephrology and Cardiology within 1 week of discharge. General: non toxic, no distress, appears at stated age Derm: warm, dry Head: atraumatic, normocephalic, symmetric Eyes: EOMI, no lid lag, anicteric sclera Mouth: no lip lesion, mucus membranes moist Cardiovascular: S1S2 reg, no murmur Lungs: Decreased BS bilaterally, no rhonchi, no rales , no accessory muscle use Neuro: no focal neuro deficits besides expressive aphasia Psych: Alert, oriented, appropriate affect Discharge Diagnosis: Expressive aphasia likely due to CVA HFrEF Troponin elevation Acute metabolic encephalopathy likely due to above worsened with uremia Carotid stenosis PRIYANK on CKD stage IV Urinary retention Hypertension A-Fib Nicotine abuse This complex discharge took 35 minutes to complete. Patient Condition at Discharge: Fair Plan - Discharge Summary Discharge Rx Participant: No New Discharge Prescriptions: New hydrALAZINE HCL [Apresoline] 25 mg PO QID #120 tab Isosorbide Mononitrate ER [Imdur] 30 mg PO DAILY #30 tab Atorvastatin [Lipitor] 40 mg PO HS #30 tab Aspirin 81 mg PO DAILY #30 tab carvediloL [Coreg*] 12.5 mg PO BID-W/MEALS #60 tab Sodium Bicarbonate Tab 650 mg PO BID #60 tab Continue Baclofen 5 mg PO TID PRN PRN Reason: Muscle Spasm Warfarin [Coumadin] 2.5 mg PO SUWESA amLODIPine [Norvasc] 10 mg PO DAILY Famotidine 20 mg PO BID Warfarin [Coumadin] 5 mg PO MOTUTHFR Discontinued Valsartan [Diovan] 80 mg PO DAILY Ibuprofen [Motrin] 400 mg PO Q3H PRN PRN Reason: Pain Metoprolol Tartrate [Lopressor] 12.5 mg PO BID Discharge Medication List Baclofen 5 mg PO TID PRN 04/07/24 [History] Famotidine 20 mg PO BID 04/07/24 [History] Warfarin [Coumadin] 2.5 mg PO SUWESA 04/07/24 [History] Warfarin [Coumadin] 5 mg PO MOTUTHFR 04/07/24 [History] amLODIPine [Norvasc] 10 mg PO DAILY 04/07/24 [History] Aspirin 81 mg PO DAILY #30 tab 04/11/24 [Rx] Atorvastatin [Lipitor] 40 mg PO HS #30 tab 04/11/24 [Rx] Isosorbide Mononitrate ER [Imdur] 30 mg PO DAILY #30 tab 04/11/24 [Rx] Sodium Bicarbonate Tab 650 mg PO BID #60 tab 04/11/24 [Rx] carvediloL [Coreg*] 12.5 mg PO BID-W/MEALS #60 tab 04/11/24 [Rx] hydrALAZINE HCL [Apresoline] 25 mg PO QID #120 tab 04/11/24 [Rx] Follow up Appointment(s)/Referral(s): Harriet Gann DO [STAFF PHYSICIAN] - [address] [facility] Provider[facility] - 1-2 days
[2024-04-12] MEDS: WARFARIN 2 MG TAB PO ONE (13:06)
[2024-04-12] MEDS: SODIUM BICARB 8.4% 50 ML SYR (1 MEQ/ML) IV STA (13:07)
[2024-04-12] MEDS: SODIUM ZIRCONIUM CYCLOSILICATE 10 GM PACKET PO ONE (13:07)
[2024-04-12 13:29] VITALS: BP 127/56; PULSE 64
--- NOTE | 2024-04-12 16:22 | P.DS ---
Providers Date of admission: 04/07/24 12:39 Expected date of discharge: 04/12/24 Attending physician: Zara Brantley MD Consults: 04/07/24 12:39 Consult Physician Routine Consulting Provider: Dusty Valdez Consult Reason/Comments: ams Do you want consulting provider notified?: Yes Consult Physician Routine Consulting Provider: Jack Esteban Consult Reason/Comments: priyank Do you want consulting provider notified?: Yes 04/07/24 14:46 Consult Physician Routine Consulting Provider: Kings Triplett Consult Reason/Comments: competancy evaluation Do you want consulting provider notified?: Yes 04/09/24 04:20 Consult Physician Routine Consulting Provider: Norman Rhodes Consult Reason/Comments: chest pressure Do you want consulting provider notified?: Yes, Notify in am Primary care physician: [facility] Hospital Course: AMA note: 63 year old M with PMH CVA, HTN, AFib, GERD presents to the ED for aphasia. Apparently patient did not have any issues with aphasia and that this all new. Patient in the ED was upset and wanted to go home. Patient was put in four point restraints in the ED as he was trying to leave. In the ED, he underwent extensive evaluation. BP 166/71, HR 66, T 97.6F, RR 16, 100% on RA. CBC, Coag panel, CMP significant for RBC 3.25, Hg 10.2, Hct 30.8, PT 24.3, INR 2.5, K 5.5, Cl 113, bicarb 16, BUN 75, Cr 5.92, glu 104. Mag 2.5. CT head showed old infarct in the cerebellum. His creatinine was 5.92. Last creatinine in our system is 3.5 on 01/04/2023. Patient was admitted to the medicine service. On bladder scan patient was found to be retaining his urine, Gann catheter was placed. Psychiatry consulted, patient does not have decision making capacity at this time. Sitter was ordered for safety. Nephrology following the patient for acute kidney injury. Renal US no obstruction. Started on D5W with sodium bicarb and eventually switched to NS. Carotid doppler > 70% stenosis bilaterally of the carotid bifurcation. Vascular surgery consulted, recommending medical management at this time. Troponins elevated at 0.166, 0.196, 0.259. Cardiology consulted, Echo ordered, recommended medical management for Type II [place] due to poor renal clearance. Echo showed EF 30-35%, hypokinetic septum and apex, mild-mod MR. Cardiology recommended medical management due to his chronic kidney disease. Neurology on board for CVA workup. A1c 5.2. Lipid panel LDL 101.5. MRI brain unable to be done because MRI form cannot be filled out at this time. 04/11 Psychiatry was re-consulted, patient does have decision making capacity, s itter was discontinued. 04/12 Blood work this morning showed bicarb of 18 and K of 5.4. He was given 2 amps of bicarb and 10g Lokelma. Again, refusing hemodialysis. Home O2 eval performed, O2 delivered to his room. Unfortunately, patient signed out AMA prior to me seeing him. Discontinue Ibuprofen, Metoprolol and Valsartan. Continue Coumadin, Amlodipine and Pepcid. Prescribed Hydralazine, Imdur, ASA, Lipitor, Coreg and sodium bicarb. Follow up with PCP within 1-2 days and Vascular, Nephrology and Cardiology within 1 week of discharge. Discharge Diagnosis: Expressive aphasia likely due to CVA HFrEF Troponin elevation Acute metabolic encephalopathy likely due to above worsened with uremia Carotid stenosis PRIYANK on CKD stage IV Urinary retention Hypertension A-Fib Nicotine abuse Patient Condition at Discharge: Poor Plan - Discharge Summary Discharge Rx Participant: No New Discharge Prescriptions: New hydrALAZINE HCL [Apresoline] 25 mg PO QID #120 tab Isosorbide Mononitrate ER [Imdur] 30 mg PO DAILY #30 tab Atorvastatin [Lipitor] 40 mg PO HS #30 tab Aspirin 81 mg PO DAILY #30 tab carvediloL [Coreg*] 12.5 mg PO BID-W/MEALS #60 tab Sodium Bicarbonate Tab 650 mg PO BID #60 tab Continue Baclofen 5 mg PO TID PRN PRN Reason: Muscle Spasm Warfarin [Coumadin] 2.5 mg PO SUWESA amLODIPine [Norvasc] 10 mg PO DAILY Famotidine 20 mg PO BID Warfarin [Coumadin] 5 mg PO MOTUTHFR Discontinued Valsartan [Diovan] 80 mg PO DAILY Ibuprofen [Motrin] 400 mg PO Q3H PRN PRN Reason: Pain Metoprolol Tartrate [Lopressor] 12.5 mg PO BID Discharge Medication List Baclofen 5 mg PO TID PRN 04/07/24 [History] Famotidine 20 mg PO BID 04/07/24 [History] Warfarin [Coumadin] 2.5 mg PO SUWESA 04/07/24 [History] Warfarin [Coumadin] 5 mg PO MOTUTHFR 04/07/24 [History] amLODIPine [Norvasc] 10 mg PO DAILY 04/07/24 [History] Aspirin 81 mg PO DAILY #30 tab 04/11/24 [Rx] Atorvastatin [Lipitor] 40 mg PO HS #30 tab 04/11/24 [Rx] Isosorbide Mononitrate ER [Imdur] 30 mg PO DAILY #30 tab 04/11/24 [Rx] Sodium Bicarbonate Tab 650 mg PO BID #60 tab 04/11/24 [Rx] carvediloL [Coreg*] 12.5 mg PO BID-W/MEALS #60 tab 04/11/24 [Rx] hydrALAZINE HCL [Apresoline] 25 mg PO QID #120 tab 04/11/24 [Rx] Follow up Appointment(s)/Referral(s): Jasper Hernandez MD [Medical Doctor] - 1 Week Enedina Hernández MD [STAFF PHYSICIAN] - 1 Week Harriet Gann DO [STAFF PHYSICIAN] - 2 Weeks Eduin Claudio DO [STAFF PHYSICIAN] - 1 Week [facility] Visiting Nurse, [NON-STAFF] - Discharge/Stand Alone Forms: Community Resources, Outpatient Counseling, Outpatient Therapy List Discharge Disposition: LEFT AGAINST MEDICAL ADVICE
== END 2024-04-12 13:25 | disposition left against medical advice (07) | DRG 64 ==
LOC: EC 10:22 → 4SSUR 12:39 → 3SCARD 20:53
PROVIDERS: ADMIT Internal Medicine; ATTEND Internal Medicine
DX: I63.9 Cerebral infarction, unspecified (principal); G93.41 Metabolic encephalopathy; I21.A1 Myocardial infarction type 2; E87.20 Acidosis, unspecified; I50.20 Unspecified systolic (congestive) heart failure; N17.9 Acute kidney failure, unspecified; N18.4 Chronic kidney disease, stage 4 (severe); F05 Delirium due to known physiological condition; I13.0 Hypertensive heart and chronic kidney disease with heart failure and stage 1 through stage 4 chronic kidney disease, or unspecified chronic kidney disease; I42.9 Cardiomyopathy, unspecified; D68.59 Other primary thrombophilia; R45.1 Restlessness and agitation; R33.9 Retention of urine, unspecified; R11.10 Vomiting, unspecified; I65.23 Occlusion and stenosis of bilateral carotid arteries; Z78.1 Physical restraint status; R47.01 Aphasia; N28.1 Cyst of kidney, acquired; K21.9 Gastro-esophageal reflux disease without esophagitis; D63.1 Anemia in chronic kidney disease; E78.5 Hyperlipidemia, unspecified; E87.5 Hyperkalemia; F17.210 Nicotine dependence, cigarettes, uncomplicated; I25.2 Old myocardial infarction; I34.0 Nonrheumatic mitral (valve) insufficiency; I44.0 Atrioventricular block, first degree; I48.0 Paroxysmal atrial fibrillation; Z53.29 Procedure and treatment not carried out because of patient's decision for other reasons; Z60.2 Problems related to living alone
CPT/HCPCS: 36415; 51798; 70450; 71045; 76770; 80048; 80061; 81001; 82607; 82728; 82746; 83036; 83540; 83550; 83735; 84100; 84439; 84443; 84484; 85025; 85027; 85610; 93005; 93306; 93880; 94640; 94664; 94760; 96374; 99285

== ENCOUNTER 2024-04-14 05:20 | Inpatient (IN) | payer MEDICARE, OTHER ==
[2024-04-14] MEDS: ALBUTEROL NEBULIZED 2.5 MG/3 ML INHALATION STA (05:31)
[2024-04-14] MEDS: MORPHINE SULFATE 4 MG/ML SYRINGE IV STA (05:33)
[2024-04-14] MEDS: NITROGLYCERIN OINT 1 INCH/GM PACKET TOPICAL STA (05:33)
[2024-04-14 05:47] LABS: VBG PH 7.23 (7.31-7.41)
--- NOTE | 2024-04-14 05:55 | ED ---
SOB HPI - General Chief Complaint: Shortness of Breath Stated Complaint: NADIR Time Seen by Provider: 04/14/24 05:25 Source: EMS Mode of arrival: EMS Limitations: physical limitation (Due to severe dyspnea) - History of Present Illness Initial Comments: Patient is a 63-year-old man who is brought to have evaluation for shortness of breath. On EMS arrival they found the patient very dyspneic. He had pulse oximetry below 80% on room air. The patient was placed on CPAP and transported to emergency. Patient complains of dyspnea, palpitations, bilateral leg edema. MD Complaint: shortness of breath -: hour(s) Severity scale (1-10): 0 Consistency: constant Improves With: nothing Worsens With: nothing Known History Of: COPD, congestive heart failure Associated Symptoms: denies other symptoms Treatments Prior to Arrival: oxygen, bronchodilator - Related Data Home Oxygen Therapy: Yes Home Medications Medication Instructions Recorded Confirmed Famotidine 20 mg PO BID 04/07/24 04/14/24 amLODIPine [Norvasc] 10 mg PO DAILY 04/07/24 04/14/24 Previous Rx's Medication Instructions Recorded Aspirin 81 mg PO DAILY #30 tab 04/11/24 Atorvastatin [Lipitor] 40 mg PO HS #30 tab 04/11/24 Isosorbide Mononitrate ER [Imdur] 30 mg PO DAILY #30 tab 04/11/24 hydrALAZINE HCL [Apresoline] 25 mg PO QID #120 tab 04/11/24 Allergies Allergy/AdvReac Type Severity Reaction Status Date / Time No Known Allergies Allergy Verified 04/14/24 10:56 Review of Systems ROS Statement: Those systems with pertinent positive or pertinent negative responses have been documented in the HPI. ROS Other: All systems not noted in ROS Statement are negative. Limitations: ROS unobtainable due to patients medical condition (Dyspnea) Constitutional: Reports: weakness. Denies: fever Respiratory: Reports: dyspnea. Denies: cough, hemoptysis Cardiovascular: Reports: palpitations, orthopnea, edema. Denies: chest pain, syncope Gastrointestinal: Denies: abdominal pain, vomiting, diarrhea Genitourinary: Denies: dysuria, hematuria Musculoskeletal: Denies: back pain Skin: Denies: rash Neurological: Denies: headache Past Medical History Past Medical History: CVA/TIA, Hypertension History of Any Multi-Drug Resistant Organisms: None Reported Past Surgical History: No Surgical Hx Reported Past Anesthesia/Blood Transfusion Reactions: No Reported Reaction Past Psychological History: No Psychological Hx Reported Smoking Status: Current every day smoker Past Alcohol Use History: None Reported Past Drug Use History: None Reported General Exam General appearance: alert, in distress Head exam: Present: atraumatic, normocephalic Eye exam: Present: normal appearance. Absent: scleral icterus, conjunctival injection Neck exam: Present: normal inspection Respiratory exam: Present: respiratory distress, wheezes, rhonchi, accessory muscle use. Absent: rales, stridor, chest wall tenderness, decreased breath sounds Cardiovascular Exam: Present: regular rate, normal rhythm, normal heart sounds. Absent: systolic murmur, diastolic murmur, rubs, gallop GI/Abdominal exam: Present: soft. Absent: distended, tenderness, guarding, rebound, rigid, mass Extremities exam: Present: normal inspection, normal capillary refill, pedal edema. Absent: calf tenderness Back exam: Present: normal inspection. Absent: CVA tenderness (R), CVA tenderness (L) Neurological exam: Present: alert Skin exam: Present: warm, dry, intact, normal color. Absent: rash Course Vital Signs 04/14/24 04/14/24 04/14/24 05:21 05:25 05:27 Temperature 97.8 F Pulse Rate 66 Respiratory 26 H 26 H Rate Blood Pressure 156/83 O2 Sat by Pulse 100 Oximetry Fraction of 50 Inspired Oxygen (FIO2) 04/14/24 04/14/24 04/14/24 05:33 05:40 06:30 Temperature Pulse Rate 75 74 70 Respiratory 22 Rate Blood Pressure 144/79 O2 Sat by Pulse 95 Oximetry Fraction of Inspired Oxygen (FIO2) 04/14/24 04/14/24 04/14/24 07:22 07:24 08:38 Temperature Pulse Rate 75 Respiratory 18 Rate Blood Pressure 131/75 O2 Sat by Pulse 90 L Oximetry Fraction of 40 30 Inspired Oxygen (FIO2) 04/14/24 04/14/24 04/14/24 11:15 12:07 12:40 Temperature 98 F Pulse Rate 62 75 Respiratory 14 18 Rate Blood Pressure 138/69 173/82 O2 Sat by Pulse 95 94 L Oximetry Fraction of 30 Inspired Oxygen (FIO2) Medical Decision Making - Medical Decision Making Was pt. sent in by a medical professional or institution (Dr., PA, CORK INSULATION SETTER, urgent care, hospital, or custodial...) When possible be specific @ -[No] Did you speak to anyone other than the patient for history (EMS, parent, family, police, friend...)? What history was obtained from this source @ -EMS did contribute history Did you review nursing and triage notes (agree or disagree)? Why? @ -[I reviewed and agree with nursing and triage notes] Were old charts reviewed (outside hosp., previous admission, EMS record, old EKG, old radiological studies, urgent care reports/EKG's, custodial records)? Report findings @ -[Yes old charts were reviewed] Differential Diagnosis (chest pain, altered mental status, abdominal pain women, abdominal pain men, vaginal bleeding, weakness, fever, dyspnea, syncope, headache, dizziness, GI bleed, back pain, seizure, CVA, palpatations, mental health, musculoskeletal)? @ -[Differential Dyspnea: Coronary syndrome, arrhythmia, tamponade, asthma, COPD, pulmonary embolism, pneumonia, pneumothorax, pulmonary effusion, anaphylaxis, diabetic ketoacidosis, flailed chest, pulmonary contusion, diaphragmatic rupture, anemia, neuromuscular, this is not meant to be an all-inclusive list. EKG interpreted by me (3pts min.). @ -[I interpreted as above] X-rays interpreted by me (1pt min.). @ -[I interpreted as above CT interpreted by me (1pt min.). @ -[None done] U/S interpreted by me (1pt. min.). @ -[None done] What testing was considered but not performed or refused? (CT, X-rays, U/S, labs)? Why? @ -[None] What meds were considered but not given or refused? Why? @ -[None] Did you discuss the management of the patient with other professionals (professionals i.e. LOPEZ Aragon, CORK INSULATION SETTER, lab, RT, psych nurse, healthcare social worker, fructose loader, teacher, drug abuse resistance education officer, case management assistant)? Give summary @ -[No] Was smoking cessation discussed for >3mins.? @ -[No] Was critical care preformed (if so, how long)? @ -[yes, 30 minutes Were there social determinants of health that impacted care today? How? (Homelessness, low income, unemployed, alcoholism, drug addiction, transportation, low edu. Level, literacy, decrease access to med. care, fdc, rehab)? @ -[No] Was there de-escalation of care discussed even if they declined (Discuss DNR or withdrawal of care, Hospice)? DNR status @ -[No] What co-morbidities impacted this encounter? (DM, HTN, Smoking, COPD, CAD, Cancer, CVA, ARF, Chemo, Hep., AIDS, mental health diagnosis, sleep apnea, morbid obesity)? @ -[Chronic renal disease, cardiomyopathy, congestive heart failure Was patient admitted / discharged? Hospital course, mention meds given and route, prescriptions, significant lab abnormalities, going to OR and other pertinent info. @ -[Patient is a 63-year-old man with dyspnea he does appear to have congestive heart failure/volume overload. The patient's workup does reveal elevated troponin, suspect that patient had missed SC/NSTEMI as his second troponin while he was holding in the department is slightly lower than the first. Undiagnosed new problem with uncertain prognosis? @ -[No] Drug Therapy requiring intensive monitoring for toxicity (Heparin, Nitro, In sulin, Cardizem)? @ -[No] Were any procedures done? @ -[No] Diagnosis/symptom? @ -[Dyspnea Acute exacerbation of congestive heart failure/volume overload Acute on chronic renal failure NSTEMI versus missed SC Acute, or Chronic, or Acute on Chronic? @ -[ Uncomplicated (without systemic symptoms) or Complicated (systemic symptoms)? @ -[Complicated by dyspnea Side effects of treatment? @ -[No] Exacerbation, Progression, or Severe Exacerbation? @ -[No] Poses a threat to life or bodily function? How? (Chest pain, USA, SC, pneumonia, PE, COPD, DKA, ARF, appy, cholecystitis, CVA, Diverticulitis, Homicidal, Suicidal, threat to staff... and all critical care pts) @ -[Yes - Lab Data Result diagrams: 04/17/24 06:04 04/17/24 06:04 Lab Results 04/14/24 04/14/24 04/14/24 Range/Units 05:34 05:42 05:42 WBC 7.5 (3.8-10.6) k/uL RBC 3.00 L (4.30-5.90) m/uL Hgb 9.3 L (13.0-17.5) gm/dL Hct 29.1 L (39.0-53.0) % MCV 96.8 (80.0-100.0) fL MCH 31.0 (25.0-35.0) pg MCHC 32.1 (31.0-37.0) g/dL RDW 15.4 (11.5-15.5) % Plt Count 238 (150-450) k/uL MPV 8.2 Neutrophils % 75 % Lymphocytes % 11 % Monocytes % 10 % Eosinophils % 0 % Basophils % 0 % Neutrophils # 5.7 (1.3-7.7) k/uL Lymphocytes # 0.8 L (1.0-4.8) k/uL Monocytes # 0.8 (0-1.0) k/uL Eosinophils # 0.0 (0-0.7) k/uL Basophils # 0.0 (0-0.2) k/uL PT 31.9 H (10.0-12.5) sec INR 3.3 H (<1.2) APTT 41.9 H (22.0-30.0) sec D-Dimer 0.31 (<0.60) mg/L FEU VBG pH 7.23 L (7.31-7.41) VBG pCO2 44 (37-51) mmHg VBG HCO3 19 L (24-28) mmol/L Sodium (137-145) mmol/L Potassium (3.5-5.1) mmol/L Chloride (98-107) mmol/L Carbon Dioxide (22-30) mmol/L Anion Gap mmol/L BUN (9-20) mg/dL Creatinine (0.66-1.25) mg/dL Est GFR (CKD-EPI)AfAm (>60 ml/min/1.73 sqM) Est GFR (CKD-EPI)NonAf (>60 ml/min/1.73 sqM) Glucose (74-99) mg/dL Plasma Lactic Acid David (0.7-2.0) mmol/L Calcium (8.4-10.2) mg/dL Total Bilirubin (0.2-1.3) mg/dL AST (17-59) U/L ALT (4-49) U/L Alkaline Phosphatase (38-126) U/L Troponin I (0.000-0.034) ng/mL NT-Pro-B Natriuret Pep pg/mL Total Protein (6.3-8.2) g/dL Albumin (3.5-5.0) g/dL Hep Bs Antigen (Nonreactive) Hep Bs Antibody (Negative) Hep Bs Antibody, Quant mIU/mL 04/14/24 04/14/24 04/14/24 Range/Units 05:42 05:42 05:42 WBC (3.8-10.6) k/uL RBC (4.30-5.90) m/uL Hgb (13.0-17.5) gm/dL Hct (39.0-53.0) % MCV (80.0-100.0) fL MCH (25.0-35.0) pg MCHC (31.0-37.0) g/dL RDW (11.5-15.5) % Plt Count (150-450) k/uL MPV Neutrophils % % Lymphocytes % % Monocytes % % Eosinophils % % Basophils % % Neutrophils # (1.3-7.7) k/uL Lymphocytes # (1.0-4.8) k/uL Monocytes # (0-1.0) k/uL Eosinophils # (0-0.7) k/uL Basophils # (0-0.2) k/uL PT (10.0-12.5) sec INR (<1.2) APTT (22.0-30.0) sec D-Dimer (<0.60) mg/L FEU VBG pH (7.31-7.41) VBG pCO2 (37-51) mmHg VBG HCO3 (24-28) mmol/L Sodium 143 (137-145) mmol/L Potassium 4.7 (3.5-5.1) mmol/L Chloride 113 H (98-107) mmol/L Carbon Dioxide 17 L (22-30) mmol/L Anion Gap 13 mmol/L BUN 71 H (9-20) mg/dL Creatinine 6.03 H (0.66-1.25) mg/dL Est GFR (CKD-EPI)AfAm 10 (>60 ml/min/1.73 sqM) Est GFR (CKD-EPI)NonAf 9 (>60 ml/min/1.73 sqM) Glucose 119 H (74-99) mg/dL Plasma Lactic Acid David 1.0 (0.7-2.0) mmol/L Calcium 8.5 (8.4-10.2) mg/dL Total Bilirubin 0.4 (0.2-1.3) mg/dL AST 45 (17-59) U/L ALT 29 (4-49) U/L Alkaline Phosphatase 43 (38-126) U/L Troponin I 12.300 H* (0.000-0.034) ng/mL NT-Pro-B Natriuret Pep 40710 pg/mL Total Protein 6.4 (6.3-8.2) g/dL Albumin 4.0 (3.5-5.0) g/dL Hep Bs Antigen (Nonreactive) Hep Bs Antibody (Negative) Hep Bs Antibody, Quant mIU/mL 04/14/24 Range/Units 05:42 WBC (3.8-10.6) k/uL RBC (4.30-5.90) m/uL Hgb (13.0-17.5) gm/dL Hct (39.0-53.0) % MCV (80.0-100.0) fL MCH (25.0-35.0) pg MCHC (31.0-37.0) g/dL RDW (11.5-15.5) % Plt Count (150-450) k/uL MPV Neutrophils % % Lymphocytes % % Monocytes % % Eosinophils % % Basophils % % Neutrophils # (1.3-7.7) k/uL Lymphocytes # (1.0-4.8) k/uL Monocytes # (0-1.0) k/uL Eosinophils # (0-0.7) k/uL Basophils # (0-0.2) k/uL PT (10.0-12.5) sec INR (<1.2) APTT (22.0-30.0) sec D-Dimer (<0.60) mg/L FEU VBG pH (7.31-7.41) VBG pCO2 (37-51) mmHg VBG HCO3 (24-28) mmol/L Sodium (137-145) mmol/L Potassium (3.5-5.1) mmol/L Chloride (98-107) mmol/L Carbon Dioxide (22-30) mmol/L Anion Gap mmol/L BUN (9-20) mg/dL Creatinine (0.66-1.25) mg/dL Est GFR (CKD-EPI)AfAm (>60 ml/min/1.73 sqM) Est GFR (CKD-EPI)NonAf (>60 ml/min/1.73 sqM) Glucose (74-99) mg/dL Plasma Lactic Acid David (0.7-2.0) mmol/L Calcium (8.4-10.2) mg/dL Total Bilirubin (0.2-1.3) mg/dL AST (17-59) U/L ALT (4-49) U/L Alkaline Phosphatase (38-126) U/L Troponin I (0.000-0.034) ng/mL NT-Pro-B Natriuret Pep pg/mL Total Protein (6.3-8.2) g/dL Albumin (3.5-5.0) g/dL Hep Bs Antigen Nonreactive (Nonreactive) Hep Bs Antibody (Negative) Hep Bs Antibody, Quant 3.5 mIU/mL - EKG Data -: EKG Interpreted by Pr EKG shows normal: sinus rhythm, axis (Normal), intervals (Normal), QRS complexes (Old anteroseptal infarct), ST-T waves (Lateral T inversions, possible ischemia) Rate: normal (Rate 78 bpm) Disposition Clinical Impression: Altered mental status, Non-ST elevation SC (NSTEMI), CHF (congestive heart failure), Acute on chronic renal failure Disposition: ADMITTED IP TO THIS HOSP Condition: Poor Is patient prescribed a controlled substance at d/c from ED?: No
[2024-04-14 05:59] LABS: ALT 29 U/L (4-49); AST 45 U/L (17-59); African American GFR (CKD) 10 (>60 ml/min/1.73 sqM); Alkaline Phosphatase 43 U/L (38-126); Anion Gap 13 mmol/L; Basophils % (A) 0 %; Blood Urea Nitrogen 71 mg/dL (9-20); Calcium 8.5 mg/dL (8.4-10.2); Carbon Dioxide 17 mmol/L (22-30); Chloride 113 mmol/L (98-107); Eosinophils % (A) 0 %; Glucose 119 mg/dL (74-99); HCT 29.1 % (39.0-53.0); HGB 9.3 gm/dL (13.0-17.5); Lymphocytes # (A) 0.8 k/uL (1.0-4.8); Lymphocytes % (A) 11 %; MCHC 32.1 g/dL (31.0-37.0); MCV 96.8 fL (80.0-100.0); Mean Platelet Volume 8.2; Monocytes # (A) 0.8 k/uL (0-1.0); Monocytes % (A) 10 %; Neutrophils # (A) 5.7 k/uL (1.3-7.7); Neutrophils % (A) 75 %; Non-African American GFR(CKD) 9 (>60 ml/min/1.73 sqM); Platelet Count 238 k/uL (150-450); Potassium 4.7 mmol/L (3.5-5.1); RDW 15.4 % (11.5-15.5); Sodium 143 mmol/L (137-145); Total Bilirubin 0.4 mg/dL (0.2-1.3); Total Protein 6.4 g/dL (6.3-8.2); WBC 7.5 k/uL (3.8-10.6)
[2024-04-14 06:01] LABS: INR 3.3 (<1.2); Partial Thromboplastin Time 41.9 sec (22.0-30.0); Prothrombin Time 31.9 sec (10.0-12.5)
[2024-04-14] MEDS ORDERED: HEPARIN SODIUM 1,000 UN/ML (10ML VL) IV PRN (06:23)
[2024-04-14 06:32] LABS: NT-Pro-B-Type Natriuretic Pept 51100 pg/mL
[2024-04-14] MEDS ORDERED: NITROGLYCERIN SL TABS 0.4 MG TAB SUBLINGUAL PRN (06:34)
--- NOTE | 2024-04-14 06:38 | XR ---
EXAMINATION TYPE: XR chest 1V portable DATE OF EXAM: 04/14/2024 COMPARISON: 04/12/2024 HISTORY: Dyspnea TECHNIQUE: Single frontal view of the chest is obtained. FINDINGS: There is no change in the diffuse prominent interstitial markings possibly chronic in nature. The rig ht lower lobe infiltrate seen on the prior study is significantly smaller in size but persists. There has been interval development of a few small focal opacities in the left mid and upper lung zone. There is mild cardiomegaly. There is no pneumothorax or pleural effusion. The osseous structures are intact. IMPRESSION: Acute cardiopulmonary disease as described above. Differential includes an infectious process or pulm onary edema. [facility], , 04/14/2024 6:36 AM
[2024-04-14] MEDS: HEPARIN SOD,PORK IN 0.45% NACL 25,000 UNIT in 0.45% NACL 1 250ML.BAG IV SCH (06:45)
[2024-04-14] MEDS: HEPARIN SODIUM 1,000 UN/ML (10ML VL) IV ONE (06:45)
--- NOTE | 2024-04-14 09:35 | P.NPCON ---
History of Present Illness - Reason for Consult acute renal failure, chronic renal failure - History of Present Illness Reason for consultation: Acute kidney injury on chronic kidney disease History of present illness: Patient is a 63-year-old male seen in renal consultation for acute kidney injury on chronic kidney disease. Patient has chronic kidney disease stage IV with baseline creatinine near 3.5. Patient was recently admitted at this facility and it was discussed at length to initiate renal replacement therapy but refused and ended up leaving AMA. Patient comes back to the hospital due to shortness of breath. Patient states he was resting in bed and suddenly got short of breath and was brought to the hospital by the ambulance. He is currently on BiPAP. Patient denies history of diabetes or coronary artery disease. Chest x- ray suggestive of fluid overload. Creatinine 6.03. proBNP elevated at 51,100. Recent echocardiogram showed ejection fraction of 30 to 35% with mild to modera te mitral regurgitation. He has been waiting. Admits to worsening edema in the lower extremities. Vital signs are stable. General: No acute distress. HEENT: Head exam is unremarkable. On BiPAP. LUNGS: Scattered rhonchi. HEART: Rate and Rhythm are regular. ABDOMEN: Nontender. EXTREMITITES: 2+ edema. Past Medical History Past Medical History: CVA/TIA, Hypertension History of Any Multi-Drug Resistant Organisms: None Reported Past Surgical History: No Surgical Hx Reported Past Anesthesia/Blood Transfusion Reactions: No Reported Reaction Past Psychological History: No Psychological Hx Reported Smoking Status: Current every day smoker Past Alcohol Use History: None Reported Past Drug Use History: None Reported Medications and Allergies Home Medications Medication Instructions Recorded Confirmed Type Baclofen 5 mg PO TID PRN 04/07/24 04/07/24 History Famotidine 20 mg PO BID 04/07/24 04/07/24 History Warfarin [Coumadin] 2.5 mg PO SUWESA 04/07/24 04/07/24 History Warfarin [Coumadin] 5 mg PO MOTUTHFR 04/07/24 04/07/24 History amLODIPine [Norvasc] 10 mg PO DAILY 04/07/24 04/07/24 History Aspirin 81 mg PO DAILY #30 tab 04/11/24 Rx Atorvastatin [Lipitor] 40 mg PO HS #30 tab 04/11/24 Rx Isosorbide Mononitrate ER [Imdur] 30 mg PO DAILY #30 tab 04/11/24 Rx Sodium Bicarbonate Tab 650 mg PO BID #60 tab 04/11/24 Rx carvediloL [Coreg*] 12.5 mg PO BID-W/MEALS #60 tab 04/11/24 Rx hydrALAZINE HCL [Apresoline] 25 mg PO QID #120 tab 04/11/24 Rx Allergies Allergy/AdvReac Type Severity Reaction Status Date / Time No Known Allergies Allergy Verified 04/14/24 05:26 Physical Exam Vitals: Vital Signs Temp Pulse Resp BP Pulse Ox FiO2 04/14/24 08:38 75 18 131/75 90 L 04/14/24 07:24 30 04/14/24 07:22 40 04/14/24 06:30 70 22 144/79 95 04/14/24 05:40 74 04/14/24 05:33 75 04/14/24 05:27 26 H 04/14/24 05:25 50 04/14/24 05:21 97.8 F 66 26 H 156/83 100 Intake and Output 04/13/24 04/14/24 04/14/24 22:59 06:59 14:59 Other: Weight 68.084 kg Results - Lab Results Most recent lab results Calcium 8.5 mg/dL (8.4-10.2) 04/14/24 05:42 04/14/24 05:42 04/14/24 05:42 Assessment and Plan Plan: Assessment: 1. Acute kidney injury secondary to ATN secondary to cardiorenal syndrome versus progression of underlying chronic kidney disease. Creatinine 6.03 today. Ultrasound from this month showed no evidence of obstructive uropathy. 2. Chronic kidney disease stage IV with baseline creatinine at 3.5. Patient refused kidney biopsy in the past. 3. Acute hypoxic respiratory failure secondary to volume overload. 4. Acute on chronic systolic CHF ejection fraction of 30 to 35% with mild to moderate mitral regurgitation. 5. Anemia of chronic kidney disease. 6. Metabolic acidosis secondary to acute kidney injury. Plan: Add IV Lasix 80 mg twice daily. Check iron studies. Add oral bicarb. Again discussed at length the need for renal replacement therapy due to significantly depressed GFR and volume overload. He is agreeable to start. Consult vascular surgery for permacath placement. Plan for first treatment of hemodialysis today and second treatment tomorrow. Thank you for the consultation. I will continue to follow the patient with you during his hospital stay.
[2024-04-14] MEDS: SODIUM BICARBONATE TAB 650 MG TAB PO SCH (11:19)
[2024-04-14] MEDS: FUROSEMIDE 10 MG/ML 10 ML VIAL IV SCH (11:19)
--- NOTE | 2024-04-14 12:59 | P.GSCN ---
History of Present Illness History of present illness: 63-year-old gentleman came to the emergency room with history of acute kidney injury secondary to cardiorenal related syndrome and came with shortness of breath and also patient started on heparin which has been stopped because placement of dialysis catheter patient has acute hypoxic respiratory failure and also patient has a congestive heart failure along with metabolic acidosis plan is placement of a dialysis catheter his creatinine 6.3 Procardia and shows 3035% ejection fraction Patient was seen emergency room neck is supple no bruit appreciated Chest few crackles lung bases. Second sound present Abdomen soft nontender Femoral 1+ bilateral Plan is placement catheter risk and complication discussed Past Medical History Past Medical History: CVA/TIA, Hypertension History of Any Multi-Drug Resistant Organisms: None Reported Past Surgical History: No Surgical Hx Reported Past Anesthesia/Blood Transfusion Reactions: No Reported Reaction Past Psychological History: No Psychological Hx Reported Smoking Status: Current every day smoker Past Alcohol Use History: None Reported Past Drug Use History: None Reported Medications and Allergies Home Medications Medication Instructions Recorded Confirmed Type Baclofen 5 mg PO TID PRN 04/07/24 04/14/24 History Famotidine 20 mg PO BID 04/07/24 04/14/24 History Warfarin [Coumadin] 2.5 mg PO SUWESA 04/07/24 04/14/24 History Warfarin [Coumadin] 5 mg PO MOTUTHFR 04/07/24 04/14/24 History amLODIPine [Norvasc] 10 mg PO DAILY 04/07/24 04/14/24 History Aspirin 81 mg PO DAILY #30 tab 04/11/24 04/14/24 Rx Atorvastatin [Lipitor] 40 mg PO HS #30 tab 04/11/24 04/14/24 Rx Isosorbide Mononitrate ER [Imdur] 30 mg PO DAILY #30 tab 04/11/24 04/14/24 Rx Sodium Bicarbonate Tab 650 mg PO BID #60 tab 04/11/24 04/14/24 Rx carvediloL [Coreg*] 12.5 mg PO BID-W/MEALS #60 tab 04/11/24 04/14/24 Rx hydrALAZINE HCL [Apresoline] 25 mg PO QID #120 tab 04/11/24 04/14/24 Rx Allergies Allergy/AdvReac Type Severity Reaction Status Date / Time No Known Allergies Allergy Verified 04/14/24 10:56 Surgical - Exam Vital Signs Temp Pulse Resp BP Pulse Ox 97.8 F 66 26 H 156/83 100 04/14/24 05:21 04/14/24 05:21 04/14/24 05:21 04/14/24 05:21 04/14/24 05:21 Results - Labs 04/14/24 05:42 04/14/24 05:42 Abnormal Lab Results - Last 24 Hours (Table) 04/14/24 04/14/24 04/14/24 Range/Units 05:34 05:42 05:42 RBC 3.00 L (4.30-5.90) m/uL Hgb 9.3 L (13.0-17.5) gm/dL Hct 29.1 L (39.0-53.0) % Lymphocytes # 0.8 L (1.0-4.8) k/uL PT 31.9 H (10.0-12.5) sec INR 3.3 H (<1.2) APTT 41.9 H (22.0-30.0) sec VBG pH 7.23 L (7.31-7.41) VBG HCO3 19 L (24-28) mmol/L Chloride (98-107) mmol/L Carbon Dioxide (22-30) mmol/L BUN (9-20) mg/dL Creatinine (0.66-1.25) mg/dL Glucose (74-99) mg/dL Troponin I (0.000-0.034) ng/mL 04/14/24 04/14/24 04/14/24 Range/Units 05:42 05:42 09:44 RBC (4.30-5.90) m/uL Hgb (13.0-17.5) gm/dL Hct (39.0-53.0) % Lymphocytes # (1.0-4.8) k/uL PT (10.0-12.5) sec INR (<1.2) APTT (22.0-30.0) sec VBG pH (7.31-7.41) VBG HCO3 (24-28) mmol/L Chloride 113 H (98-107) mmol/L Carbon Dioxide 17 L (22-30) mmol/L BUN 71 H (9-20) mg/dL Creatinine 6.03 H (0.66-1.25) mg/dL Glucose 119 H (74-99) mg/dL Troponin I 12.300 H* 11.800 H* (0.000-0.034) ng/mL Diabetes panel 04/14/24 Range/Units 05:42 Sodium 143 (137-145) mmol/L Potassium 4.7 (3.5-5.1) mmol/L Chloride 113 H (98-107) mmol/L Carbon Dioxide 17 L (22-30) mmol/L BUN 71 H (9-20) mg/dL Creatinine 6.03 H (0.66-1.25) mg/dL Glucose 119 H (74-99) mg/dL Calcium 8.5 (8.4-10.2) mg/dL AST 45 (17-59) U/L ALT 29 (4-49) U/L Alkaline Phosphatase 43 (38-126) U/L Total Protein 6.4 (6.3-8.2) g/dL Albumin 4.0 (3.5-5.0) g/dL Calcium panel 04/14/24 Range/Units 05:42 Calcium 8.5 (8.4-10.2) mg/dL Albumin 4.0 (3.5-5.0) g/dL Pituitary panel 04/14/24 Range/Units 05:42 Sodium 143 (137-145) mmol/L Potassium 4.7 (3.5-5.1) mmol/L Chloride 113 H (98-107) mmol/L Carbon Dioxide 17 L (22-30) mmol/L BUN 71 H (9-20) mg/dL Creatinine 6.03 H (0.66-1.25) mg/dL Glucose 119 H (74-99) mg/dL Calcium 8.5 (8.4-10.2) mg/dL Adrenal panel 04/14/24 Range/Units 05:42 Sodium 143 (137-145) mmol/L Potassium 4.7 (3.5-5.1) mmol/L Chloride 113 H (98-107) mmol/L Carbon Dioxide 17 L (22-30) mmol/L BUN 71 H (9-20) mg/dL Creatinine 6.03 H (0.66-1.25) mg/dL Glucose 119 H (74-99) mg/dL Calcium 8.5 (8.4-10.2) mg/dL Total Bilirubin 0.4 (0.2-1.3) mg/dL AST 45 (17-59) U/L ALT 29 (4-49) U/L Alkaline Phosphatase 43 (38-126) U/L Total Protein 6.4 (6.3-8.2) g/dL Albumin 4.0 (3.5-5.0) g/dL
[2024-04-14] MEDS: LIDOCAINE 1% INJ 10MG/ML (20 ML MDV) SQ ONE (13:06)
--- NOTE | 2024-04-14 13:14 | P.PCN ---
Description of Procedure: Preop diagnosis acute chronic renal failure Postop the same procedure placement of a 30 cm dialysis catheter Right femoral approach ultrasound-guided and was prepped and draped in Prestel manner 1% lidocaine were infiltrated sound guided micropuncture introducer right common femoral vein micropuncture guide was passed and then we passed a 4 Lao sheath then we passed a regular guidewire we used the dilator and then we placed 30 cm dialysis cath in top of the guidewire flushed with heparin saline hep- locked secured with 3-0 nylon patient tarted the procedure well
--- NOTE | 2024-04-14 14:07 | IR ---
IR CVC inserted nontunneled catheter. HISTORY: Renal failure. COMPARISON: None. TECHNIQUE: Fluoroscopy of the abdomen and pelvis is obtained for the placement of a nontunneled centr al venous catheter. FINDINGS: Fluoroscopy demonstrates interval insertion of a right common femoral vein central venous catheter th e tip of which is in the distal IVC. IMPRESSION: Insertion of a nontunneled right common femoral vein central venous catheter. [facility], , 04/14/2024 2:05 PM
[2024-04-14 17:18] LABS: % Iron Saturation 6.25 (15.00-50.00)
[2024-04-14] MEDS: METOPROLOL SUCCINATE (ER) 25 MG TAB.ER.24H PO SCH (21:06)
[2024-04-14 23:38] LABS: Hepatitis B Surface Antigen Nonreactive (Nonreactive)
[2024-04-14 23:45] LABS: Hepatitis B Surface AB- Quant 3.5 mIU/mL
[2024-04-15] MEDS: amLODIPine 10 MG TAB PO SCH (08:10)
[2024-04-15] MEDS: hydrALAZINE HCL 25 MG TAB PO SCH (08:10)
[2024-04-15] MEDS: ISOSORBIDE MONONITRATE ER 30 MG TAB.ER.24H PO SCH (08:10)
[2024-04-15] MEDS: FAMOTIDINE 20 MG TAB PO SCH (08:10)
[2024-04-15] MEDS: ASPIRIN 81 MG PO SCH (08:10)
[2024-04-15] MEDS ORDERED: ASPIRIN 325 MG TAB PO SCH (09:00)
--- NOTE | 2024-04-15 09:23 | P.PN ---
Subjective Patient is seen in follow-up for acute kidney injury on chronic kidney disease. Started on hemodialysis April 14, 2024. Tolerated 2 L ultrafiltration. Now on 3 L nasal cannula. Denies chest pain or shortness of breath. Nonoliguric. Vital signs are stable. General: No acute distress. HEENT: Head exam is unremarkable. On nasal cannula. LUNGS: No audible rhonchi or wheezes. HEART: Rate and Rhythm are regular. ABDOMEN: Nontender. EXTREMITITES: 1+ edema. Objective - Vital Signs Vital signs: Vital Signs Temp 98.3 F 04/15/24 08:07 Pulse 78 04/15/24 08:07 Resp 18 04/15/24 08:07 BP 119/72 04/15/24 08:07 Pulse Ox 99 04/15/24 09:07 FiO2 40 04/14/24 14:52 Intake & Output 04/14/24 04/15/24 04/15/24 18:59 06:59 18:59 Intake Total 42.484 2400 Output Total 600 2900 700 Balance -557.516 -500 -700 Weight 68.084 kg 71.4 kg Intake: Intake, IV Titration 42.484 Amount Heparin Sod,Pork in 0.45% 42.484 NaCl 25,000 unit In 0.45 % NaCl 1 250ml.bag @ 12 UNITS/KG/HR 8.17 mls/hr IV .Q24H [facility] Rx#: [id number] Hemodialysis 2400 Output: Urine 600 500 700 Hemodialysis 400 Hemodialysis Net Amount 2000 Other: Voiding Method Urinal - Labs CBC & Chem 7: 04/14/24 05:42 04/14/24 05:42 Labs: Abnormal Lab Results - Last 24 Hours (Table) 04/14/24 04/14/24 Range/Units 09:44 09:44 Iron 12 L (65-175) UG/DL TIBC 192 L (228-460) UG/DL % Saturation 6.25 L (15.00-50.00) Transferrin 137.0 L (204.0-354.0) mg/dL Ferritin 336.0 H (22.0-322.0) ng/mL Troponin I 11.800 H* (0.000-0.034) ng/mL Assessment and Plan Plan: Assessment: 1. Acute kidney injury secondary to ATN secondary to cardiorenal syndrome versus progression of underlying chronic kidney disease. Creatinine 6.03 on adm ission. Ultrasound from this month showed no evidence of obstructive uropathy. Started on hemodialysis April 14, 2024 via temporary dialysis catheter. 2. Chronic kidney disease stage IV with baseline creatinine at 3.5. Patient refused kidney biopsy in the past. 3. Acute hypoxic respiratory failure secondary to volume overload. Improved. 4. Acute on chronic systolic CHF ejection fraction of 30 to 35% with mild to moderate mitral regurgitation. 5. Anemia of chronic kidney disease. Iron deficiency noted. 6. Metabolic acidosis secondary to acute kidney injury. Expect improvement postdialysis. On oral bicarb. Plan: Hemodialysis tomorrow. Maintain IV Lasix. Add IV iron. Avoid nephrotoxins. Continue to monitor renal function and urine output.
[2024-04-15 10:30] LABS: Basophils % (A) 0 %; Eosinophils % (A) 0 %; HCT 25.6 % (39.0-53.0); HGB 8.3 gm/dL (13.0-17.5); Lymphocytes # (A) 0.7 k/uL (1.0-4.8); Lymphocytes % (A) 13 %; MCH 31.1 pg (25.0-35.0); MCHC 32.5 g/dL (31.0-37.0); MCV 95.7 fL (80.0-100.0); Mean Platelet Volume 8.7; Monocytes # (A) 0.5 k/uL (0-1.0); Monocytes % (A) 9 %; Neutrophils % (A) 74 %; Platelet Count 190 k/uL (150-450); RBC 2.67 m/uL (4.30-5.90); RDW 15.3 % (11.5-15.5); WBC 5.4 k/uL (3.8-10.6)
[2024-04-15 10:42] LABS: African American GFR (CKD) 13 (>60 ml/min/1.73 sqM); Anion Gap 9 mmol/L; Blood Urea Nitrogen 60 mg/dL (9-20); Calcium 7.9 mg/dL (8.4-10.2); Carbon Dioxide 25 mmol/L (22-30); Chloride 105 mmol/L (98-107); Glucose 118 mg/dL (74-99); Non-African American GFR(CKD) 11 (>60 ml/min/1.73 sqM); Potassium 3.8 mmol/L (3.5-5.1); Sodium 139 mmol/L (137-145)
[2024-04-15] MEDS: SODIUM FERRIC GLUCONAT-SUCROSE 125 MG in SODIUM CHLORIDE 0.9% 100 ML IVPB SCH (11:44)
--- NOTE | 2024-04-15 12:07 | P.HPIM ---
History of Present Illness H&P Date: 04/15/24 We were not informed of this admission by the ER provider. This led to a delay in care. 63 year old M with PMH CVA, HTN, AFib, GERD, CKD, HFrEF, Carotid stenosis presents to the ED for shortness of breath and chest pain. Previously admitted for aphasia, CT head showed old infarct in the cerebellum. His creatinine was 5.92 (Last creatinine in our system is 3.5 on 01/04/2023). Psychiatry consulted on admission, patient does not have decision making capacity at this time. Nephrology following the patient for acute kidney injury on CKD, Renal US no obstruction, patient refused HD. Carotid doppler > 70% stenosis bilaterally of the carotid bifurcation. Vascular surgery consulted, recommending medical management at this time. Troponins elevated at 0.166, 0.196. Cardiology consulted, Echo showed EF 30-35%, hypokinetic septum and apex, mild-mod MR, recommended medical management for Type II NM due to poor renal clearance. MRI brain was unable to be done due to inability for patient to fill out the MRI form. Psyc re-evaluated the patient the day before discharge and reported the patient has decision making capacity. He left AMA on 04/12. He presents back the ED on 04/14 for shortness of breath and chest pain. He underwent extensive evaluation. BP 156/83, RR 26, T 97.8F, HR 66, 100% on BiPAP. CBC, Coag panel, CMP significant for RBC 3, Hg 9.3, Hct 29.1, PT 31.9, INR 3.3, APTT 41.9, Cl 113, bicarb 17, BUN 71, Cr 6.03, glu 119. VBG pH 7.23, pCO2 44. Trop 12.3, 11.8. BNP 45666. EKG sinus rhythm with Q wave and ST T wave changes. CXR shows pulmonary edema. Underwent R femoral permacath with Dr. Snow on 04/14. Underwent HD yesterday. Plans for HD tomorrow. 04/15 Patient was seen and examined. Confused today. CBC and BMP significant for RBC 2.67, Hg 8.3, Hct 25.6, BUN 60, Cr 5.06, Ca 7.9. General: non toxic, no distress, appears at stated age Derm: warm, dry Head: atraumatic, normocephalic, symmetric Eyes: EOMI, no lid lag, anicteric sclera Mouth: no lip lesion, mucus membranes moist Cardiovascular: S1S2 reg, no murmur Lungs: Decreased BS bilaterally, no rhonchi, no rales , no accessory muscle use Neuro: no focal neuro deficits besides expressive aphasia Psych: Confused, AO x 2 Based on my assessment of this patient, this patient meets a high complexity level of care. Acute metabolic encephalopathy likely due to old CVA + uremia: His mentation appears to wax and wane. On discharge he appeared to have decision making capacity. Today, he appears confused. Hopeful improvement with HD. If not, will need to re-address guardianship. He is NOT capable of making decisions at this time. Acute kidney injury on CKD stage V: Patient agreeable for HD. Underwent R femoral permacath with Dr. Snow on 04/14. Underwent HD yesterday. Plans for HD tomorrow. Nephrology on board. NSTEMI: Heparin drip, monitor APTT. ASA 81 mg PO QD. Lipitor 40 mg PO QHS. Metoprolol 25 mg PO QD. Discussed with JALEEL Fontanez for cardiac cath if patient agreeable. HFrEF: Euvolemic. Metoprolol as above. Imdur 30 mg PO QD. No ACEi or Aldactone or SGLT2 due to renal disease. Cardiology on board. Carotid stenosis: ASA and Lipitor as above. Outpatient Vascular follow up. Hypertension: Amlodipine 10 mg PO QD. Imdur as above. Hydralazine 25 mg PO QID. Metoprolol as above. A-Fib: Metoprolol 25 mg PO QD. Heparin drip as above. CODE STATUS: FULL CODE. DVT Prophylaxis: Heparin infusion. GI Prophylaxis: Designated medical POA if patient is not able to make medical decisions for themselves: I have reviewed the following data management consultant notes: Vascular, Nephrology. I have reviewed the results of the following tests: As above. I have ordered the following tests: As above. I have discussed the care of this patient with the following independent historian: I have independently interpreted the following test below: CXR I have discussed the management of this patient with the following physician: Dr. Hernandez Past Medical History Past Medical History: CVA/TIA, Hypertension History of Any Multi-Drug Resistant Organisms: None Reported Past Surgical History: No Surgical Hx Reported Additional Past Surgical History / Comment(s): diallysis catheter placed Past Anesthesia/Blood Transfusion Reactions: No Reported Reaction Smoking Status: Current every day smoker Medications and Allergies Home Medications Medication Instructions Recorded Confirmed Type Baclofen 5 mg PO TID PRN 04/07/24 04/14/24 History Famotidine 20 mg PO BID 04/07/24 04/14/24 History Warfarin [Coumadin] 2.5 mg PO SUWESA 04/07/24 04/14/24 History Warfarin [Coumadin] 5 mg PO MOTUTHFR 04/07/24 04/14/24 History amLODIPine [Norvasc] 10 mg PO DAILY 04/07/24 04/14/24 History Aspirin 81 mg PO DAILY #30 tab 04/11/24 04/14/24 Rx Atorvastatin [Lipitor] 40 mg PO HS #30 tab 04/11/24 04/14/24 Rx Isosorbide Mononitrate ER [Imdur] 30 mg PO DAILY #30 tab 04/11/24 04/14/24 Rx Sodium Bicarbonate Tab 650 mg PO BID #60 tab 04/11/24 04/14/24 Rx carvediloL [Coreg*] 12.5 mg PO BID-W/MEALS #60 tab 04/11/24 04/14/24 Rx hydrALAZINE HCL [Apresoline] 25 mg PO QID #120 tab 04/11/24 04/14/24 Rx Allergies Allergy/AdvReac Type Severity Reaction Status Date / Time No Known Allergies Allergy Verified 04/14/24 10:56 Physical Exam Vitals: Vital Signs Temp Pulse Pulse Pulse Resp BP BP 04/15/24 04:00 99.6 F 59 L 17 109/58 04/14/24 23:52 98.5 F 60 17 112/70 04/14/24 21:00 97.8 F 70 17 118/70 04/14/24 20:45 36.7 F L 18 118/77 04/14/24 17:14 98.3 F 75 16 145/90 04/14/24 16:57 98.3 F 75 16 145/90 04/14/24 14:52 04/14/24 12:40 98 F 75 18 173/82 04/14/24 12:07 04/14/24 11:15 62 14 138/69 11/09/24 08:38 75 18 131/75 Pulse Ox FiO2 04/15/24 04:00 99 04/14/24 23:52 96 04/14/24 21:00 97 04/14/24 20:45 04/14/24 17:14 95 04/14/24 16:57 95 04/14/24 14:52 40 04/14/24 12:40 94 L 04/14/24 12:07 30 04/14/24 11:15 95 04/14/24 08:38 90 L Intake and Output 04/14/24 04/15/24 04/15/24 22:59 06:59 14:59 Intake Total 2400 Output Total 3300 200 Balance -900 -200 Intake: Hemodialysis 2400 Output: Urine 900 200 Hemodialysis 400 Hemodialysis Net Amount 2000 Other: Voiding Method Urinal Urinal Weight 68.084 kg 71.4 kg Results CBC & Chem 7: 04/15/24 09:57 04/15/24 09:57 Labs: Abnormal Lab Results - Last 24 Hours (Table) 04/14/24 04/14/24 Range/Units 09:44 09:44 Iron 12 L (65-175) UG/DL TIBC 192 L (228-460) UG/DL % Saturation 6.25 L (15.00-50.00) Transferrin 137.0 L (204.0-354.0) mg/dL Ferritin 336.0 H (22.0-322.0) ng/mL Troponin I 11.800 H* (0.000-0.034) ng/mL
[2024-04-15 14:05] LABS: Chol/HDL Ratio 2.62 Ratio; LDL Cholesterol,Calculated 57.3 mg/dL (0.0-131.0); VLDL Calculation 14.48 mg/dL (5.00-40.00)
--- NOTE | 2024-04-15 15:05 | P.CRDCN ---
History of Present Illness Consult date: 04/15/24 History of present illness: HISTORY OF PRESENTING ILLNESS Patient with past medical history of stroke, hypertension, dyslipidemia, history of NSTEMI in 2020 with cardiomyopathy. He also has history of paroxysmal atrial fibrillation. Last week he presented to the hospital because of altered mental status. During the hospital admission he was noted to be in acute chronic kidney injury. On last admission patient denied any treatments at including getting hemodialy sis or any cardiac testing or procedures done. We performed an echocardiogram which showed cardiomyopathy with a EF of 25 to 30%. He also had evidence of elevated troponin which was most likely due to type II NSTEMI. He presents the hospital again for mental status changes. He was brought in by EMS which was most likely activated by a home care facility nurse. This hospital admission again patient is denying any cardiovascular procedures to be done. He wants only conservative management and would like to go home eagerly. He was agreeable to get hemodialysis catheter and get at least 1-2 sessions of hemodialysis. ECG shows Q waves in anteroseptal leads with ST changes concerning of old anteroseptal infarct REVIEW OF SYSTEMS 14 point review of system is negative except what is mentioned above in HPI. PHYSICAL EXAMINATION Vital signs reviewed. Head: Normocephalic. Eyes: Sclerae nonicteric. Neck: Brisk carotid upstroke, no jugular venous distention. Lungs: Clear to auscultation. Heart: Regular rate and rhythm, S1-S2, no S3, no murmur or rub. Abdomen: Soft nontender, positive bowel sounds. Extremities: No edema, intact distal pulses. Neuro: Alert, oritented, no focal deficits. Detailed neuro exam was not performed. ASSESSMENT NSTEMI, likely type II PRIYANK with oliguric ATN, currently requiring hemodialysis History of NSTEMI in 2020 with cardiomyopathy. Denied cardiac treatment at that time. Concern of altered mental status, due to metabolic encephalopathy Patient is denying medical treatment Atrial fibrillation, rate controlled Plan I had an extensive discussion with the patient at bedside. Unfortunately there is no contact listed in the chart who could be contacted. Patient reports that he does not have any family. He has 2 brothers who are not in good relationship with him. He reports that he understands that his heart is weak and he would need medications and card catheterization procedure and without them he will . But he is agreeable to these risks and would prefer the nature take its course rather than getting treated. Is unsure if patient is competent to make his own decisions or not. Would request primary care team to get him evaluated for this. Continue aspirin, Lipitor, Imdur 30 mg, hydralazine 25 mg 4 times daily, metoprolol succinate 25 mg daily Continue IV heparin drip. Start Plavix 100 mg daily instead Jasper Hernandez MD, FACC, RPVI Thank you for allowing [facility] to participate in this patient's care. Feel free to reach out in case of any followup questions. Past Medical History Past Medical History: CVA/TIA, Hypertension History of Any Multi-Drug Resistant Organisms: None Reported Past Surgical History: No Surgical Hx Reported Additional Past Surgical History / Comment(s): diallysis catheter placed Past Anesthesia/Blood Transfusion Reactions: No Reported Reaction Smoking Status: Current every day smoker Medications and Allergies Home Medications Medication Instructions Recorded Confirmed Type Baclofen 5 mg PO TID PRN 04/07/24 04/14/24 History Famotidine 20 mg PO BID 04/07/24 04/14/24 History Warfarin [Coumadin] 2.5 mg PO SUWESA 04/07/24 04/14/24 History Warfarin [Coumadin] 5 mg PO MOTUTHFR 04/07/24 04/14/24 History amLODIPine [Norvasc] 10 mg PO DAILY 04/07/24 04/14/24 History Aspirin 81 mg PO DAILY #30 tab 04/11/24 04/14/24 Rx Atorvastatin [Lipitor] 40 mg PO HS #30 tab 04/11/24 04/14/24 Rx Isosorbide Mononitrate ER [Imdur] 30 mg PO DAILY #30 tab 04/11/24 04/14/24 Rx Sodium Bicarbonate Tab 650 mg PO BID #60 tab 04/11/24 04/14/24 Rx carvediloL [Coreg*] 12.5 mg PO BID-W/MEALS #60 tab 04/11/24 04/14/24 Rx hydrALAZINE HCL [Apresoline] 25 mg PO QID #120 tab 04/11/24 04/14/24 Rx Allergies Allergy/AdvReac Type Severity Reaction Status Date / Time No Known Allergies Allergy Verified 04/14/24 10:56 Physical Exam Vitals: Vital Signs Temp Pulse Pulse Resp BP Pulse Ox 04/15/24 11:44 67 18 106/58 97 04/15/24 09:07 99 04/15/24 08:07 98.3 F 78 18 119/72 99 04/15/24 04:00 99.6 F 59 L 17 109/58 99 04/14/24 23:52 98.5 F 60 17 112/70 96 04/14/24 21:00 97.8 F 70 17 118/70 97 04/14/24 20:45 36.7 F L 18 118/77 04/14/24 17:14 98.3 F 75 16 145/90 95 04/14/24 16:57 98.3 F 75 16 145/90 95 Intake and Output 04/15/24 04/15/24 04/15/24 06:59 14:59 22:59 Intake Total 260 Output Total 200 900 Balance -200 -640 Intake: IV 20 Invasive Line 1 10 Invasive Line 2 10 Oral 240 Output: Urine 200 900 Other: Voiding Method Urinal Urinal Weight 71.4 kg Results 04/15/24 09:57 04/15/24 09:57 Lipids 04/15/24 Range/Units 09:57 Triglycerides 72.40 (0.00-149.00) mg/dL Cholesterol 116.00 (0.00-200.00) mg/dL HDL Cholesterol 44.20 (40.00-60.00) mg/dL Cholesterol/HDL Ratio 2.62 Ratio CBC 04/15/24 Range/Units 09:57 WBC 5.4 (3.8-10.6) k/uL RBC 2.67 L (4.30-5.90) m/uL Hgb 8.3 L (13.0-17.5) gm/dL Hct 25.6 L (39.0-53.0) % Plt Count 190 (150-450) k/uL Comprehensive Metabolic Panel 04/15/24 Range/Units 09:57 Sodium 139 (137-145) mmol/L Potassium 3.8 (3.5-5.1) mmol/L Chloride 105 (98-107) mmol/L Carbon Dioxide 25 (22-30) mmol/L BUN 60 H (9-20) mg/dL Creatinine 5.06 H (0.66-1.25) mg/dL Glucose 118 H (74-99) mg/dL Calcium 7.9 L (8.4-10.2) mg/dL Current Medications Generic Name Dose Route Start Last Admin Trade Name Freq PRN Reason Stop Dose Admin Amlodipine Besylate 10 mg 04/15/24 09:00 04/15/24 08:10 Amlodipine 10 Mg Tab PO 10 mg DAILY [facility] Administration Aspirin 81 mg 04/15/24 09:00 04/15/24 08:10 Aspirin 81 Mg PO 81 mg DAILY NIKO Administration Atorvastatin Calcium 40 mg 04/15/24 21:00 Atorvastatin 40 Mg Tab PO HS [facility] Clopidogrel Bisulfate 75 mg 04/15/24 15:15 Clopidogrel 75 Mg Tab PO DAILY [facility] Famotidine 20 mg 04/16/24 09:00 Famotidine 20 Mg Tab PO DAILY [facility] Furosemide 80 mg 04/14/24 09:45 04/15/24 08:10 Furosemide 10 Mg/Ml 10 Ml Vial IV 80 mg Q12HR [facility] Administration Hydralazine HCl 25 mg 04/15/24 09:00 04/15/24 14:20 Hydralazine Hcl 25 Mg Tab PO Not Given QID [facility] Ferric Sodium Gluconate 125 mg 110 mls @ 100 mls/hr 04/15/24 09:30 04/15/24 11:44 / Sodium Chloride IVPB 04/18/24 09:29 100 mls/hr DAILY [facility] Administration Isosorbide Mononitrate 30 mg 04/15/24 09:00 04/15/24 08:10 Isosorbide Mononitrate Er 30 Mg Tab.Er.24h PO 30 mg DAILY [facility] Administration Metoprolol Succinate 25 mg 04/14/24 18:15 04/15/24 08:10 Metoprolol Succinate (Er) 25 Mg Tab.Er.24h PO 25 mg DAILY [facility] Administration Nitroglycerin 0.4 mg 04/14/24 06:34 Nitroglycerin Sl Tabs 0.4 Mg Tab SUBLINGUAL Q5M PRN Chest Pain Sodium Bicarbonate 650 mg 04/14/24 09:45 04/15/24 08:09 Sodium Bicarbonate Tab 650 Mg Tab PO 650 mg BID NIKO Administration Intake and Output 04/15/24 04/15/24 04/15/24 06:59 14:59 22:59 Intake Total 260 Output Total 200 900 Balance -200 -640 Intake: IV 20 Invasive Line 1 10 Invasive Line 2 10 Oral 240 Output: Urine 200 900 Other: Voiding Method Urinal Urinal Weight 71.4 kg 04/15/24 09:57 04/15/24 09:57
[2024-04-15] MEDS: CLOPIDOGREL 75 MG TAB PO SCH (16:44)
[2024-04-15] MEDS: ATORVASTATIN 40 MG TAB PO SCH (21:34)
[2024-04-16 07:05] LABS: African American GFR (CKD) 10 (>60 ml/min/1.73 sqM); Anion Gap 8 mmol/L; Blood Urea Nitrogen 70 mg/dL (9-20); Calcium 7.8 mg/dL (8.4-10.2); Carbon Dioxide 26 mmol/L (22-30); Chloride 105 mmol/L (98-107); Glucose 89 mg/dL (74-99); Non-African American GFR(CKD) 8 (>60 ml/min/1.73 sqM); Potassium 3.6 mmol/L (3.5-5.1); Sodium 139 mmol/L (137-145)
[2024-04-16] MEDS: FAMOTIDINE 20 MG TAB PO SCH (08:57)
[2024-04-16 09:52] LABS: INR 1.6 (<1.2); Prothrombin Time 16.5 sec (10.0-12.5)
--- NOTE | 2024-04-16 11:29 | P.PN ---
Subjective patient is seen for follow-up for acute kidney injury and chronic kidney disease. Started hemodialysis on 04/14/2024 Scheduled for hemodialysis today. No complaints of shortness of breath. 24-hour urine output charted at 1.7 L. Objective - Vital Signs Vital signs: Vital Signs Temp 98.2 F 04/16/24 08:00 Pulse 69 04/16/24 08:00 Resp 18 04/16/24 08:00 BP 123/52 04/16/24 08:00 Pulse Ox 97 04/16/24 08:00 FiO2 40 04/14/24 14:52 Intake & Output 04/15/24 04/16/24 04/16/24 18:59 06:59 18:59 Intake Total 400 40 240 Output Total 900 850 Balance -500 -810 240 Weight 70.9 kg Intake: IV 40 40 Invasive Line 1 20 20 Invasive Line 2 20 20 Oral 360 240 Output: Urine 900 850 Other: Voiding Method Urinal Urinal - Exam patient is awake, comfortable, no acute distress. Examination of the heart S1 and S2 Examination of the lungs bilateral breath sounds are heard Abdomen is soft nontender Examination of lower extremities shows no significant edema [employer] exam grossly intact - Labs CBC & Chem 7: 04/15/24 09:57 04/16/24 06:24 Labs: Abnormal Lab Results - Last 24 Hours (Table) 04/16/24 04/16/24 Range/Units 06:24 09:20 PT 16.5 H (10.0-12.5) sec INR 1.6 H (<1.2) BUN 70 H (9-20) mg/dL Creatinine 6.35 H (0.66-1.25) mg/dL Calcium 7.8 L (8.4-10.2) mg/dL Assessment and Plan Assessment: 1. Acute kidney injury secondary to ATN secondary to cardiorenal syndrome versus progression of underlying chronic kidney disease. Creatinine 6.03 on admission. Ultrasound from this month showed no evidence of obstructive uropathy. Started on hemodialysis April 14, 2024 via temporary dialysis catheter. 2. Chronic kidney disease stage IV with baseline creatinine at 3.5. Patient refused kidney biopsy in the past. 3. Acute hypoxic respiratory failure secondary to volume overload. Improved. 4. Acute on chronic systolic CHF ejection fraction of 30 to 35% with mild to moderate mitral regurgitation. 5. Anemia of chronic kidney disease. Iron deficiency noted. 6. Metabolic acidosis secondary to acute kidney injury. Improved with dialysis Plan: discontinue sodium bicarb Hemodialysis today Repeat labs in a.m.
[2024-04-16] MEDS ORDERED: HEPARIN SODIUM 1,000 UN/ML (10ML VL) IV PRN (13:02)
--- NOTE | 2024-04-16 13:04 | P.PN ---
Subjective Progress Note Date: 04/16/24 63 year old M with PMH CVA, HTN, AFib, GERD, CKD, HFrEF, Carotid stenosis presents to the ED for shortness of breath and chest pain. Previously admitted from 04/07-04/12 for aphasia, CT head showed old infarct in the cerebellum. His creatinine was 5.92 (Last creatinine in our system is 3.5 on 01/04/2023). Psychiatry consulted on admission, patient does not have decision making capacity at this time. Nephrology following the patient for acute kidney injury on CKD, Renal US no obstruction, patient refused HD. Carotid doppler > 70% stenosis bilaterally of the carotid bifurcation, Vascular surgery recomm ending medical management. Troponins elevated at 0.166, 0.196. Cardiology consulted, Echo showed EF 30-35%, hypokinetic septum and apex, mild-mod MR, recommended medical management for Type II AR due to poor renal clearance. MRI brain was unable to be done due to inability for patient to fill out the MRI form. Psyc re-evaluated the patient the day before discharge and reported the patient has decision making capacity. He left AMA on 04/12. He presents back the ED on 04/14 for shortness of breath and chest pain. He underwent extensive evaluation. BP 156/83, RR 26, T 97.8F, HR 66, 100% on BiPAP. CBC, Coag panel, CMP significant for RBC 3, Hg 9.3, Hct 29.1, PT 31.9, INR 3.3, APTT 41.9, Cl 113, bicarb 17, BUN 71, Cr 6.03, glu 119. VBG pH 7.23, pCO2 44. Trop 12.3, 11.8. BNP 99525. EKG sinus rhythm with Q wave and ST T wave changes. CXR shows pulmonary edema. Underwent R femoral permacath with Dr. Snow on 04/14. Underwent HD 04/14. Plans for HD 04/16. 04/16 Patient was seen and examined. Patient reports that he does not want HD or cardiac cath and wanting to sign out AMA. He is alert and oriented x 3. He understands that he may and is okay with that. However he was agreeable for HD 2 days ago. BMP significant for BUN 70, Cr 6.35, Ca 7.8. INR is 1.3. General: non toxic, no distress, appears at stated age Derm: warm, dry Head: atraumatic, normocephalic, symmetric Eyes: EOMI, no lid lag, anicteric sclera Mouth: no lip lesion, mucus membranes moist Cardiovascular: S1S2 reg, no murmur Lungs: Decreased BS bilaterally, no rhonchi, no rales , no accessory muscle use Neuro: no focal neuro deficits besides expressive aphasia Psych: AO x 3 Based on my assessment of this patient, this patient meets a high complexity level of care. Acute metabolic encephalopathy likely due to old CVA + uremia: His mentation appears to wax and wane. On discharge 04/12 he appeared to have decision making capacity. Agreeable for HD on 04/14 but now refusing HD and wants to sign out AMA. He is NOT capable of making decisions at this time. Discussed with Himanshu CASILLAS, we will need to obtain guardianship. Acute kidney injury on CKD stage V: Underwent R femoral permacath with Dr. Snow on 04/14. Underwent HD 04/14. Plans for HD 04/16. Nephrology on board. NSTEMI: Heparin drip discontinued by Cardiology 04/15 however his INR is subtherapeutic. Restart Heparin drip while bridging with Coumadin. ASA 81 mg PO QD. Lipitor 40 mg PO QHS. Metoprolol 25 mg PO QD. Discussed with JALEEL Fontanez for cardiac cath if patient agreeable. Acute on Chronic HFrEF: Echo as above. Metoprolol as above. Imdur 30 mg PO QD. No ACEi or Aldactone or SGLT2 due to renal disease. Lasix 80 mg IV BID. Cardiology on board. Carotid stenosis: ASA and Lipitor as above. Outpatient Vascular follow up. Hypertension: Amlodipine 10 mg PO QD. Imdur as above. Hydralazine 25 mg PO QID. Metoprolol as above. A-Fib: Metoprolol 25 mg PO QD. Heparin drip while bridging with Coumadin. CODE STATUS: FULL CODE. DVT Prophylaxis: Heparin infusion. GI Prophylaxis: Designated medical POA if patient is not able to make medical decisions for themselves: I have reviewed the following medical sales consultant notes: Vascular, Nephrology, Cardiology. I have reviewed the results of the following tests: BMP, INR I have ordered the following tests: Coag panel. BMP in the AM. I have discussed the care of this patient with the following independent histo shakeel: PHOEBE. I have independently interpreted the following test below: I have discussed the management of this patient with the following physician: Objective - Vital Signs Vital signs: Vital Signs Temp 98.2 F 04/16/24 08:00 Pulse 69 04/16/24 08:00 Resp 18 04/16/24 08:00 BP 123/52 04/16/24 08:00 Pulse Ox 97 04/16/24 08:00 FiO2 40 04/14/24 14:52 Intake & Output 04/15/24 04/16/24 04/16/24 18:59 06:59 18:59 Intake Total 400 40 Output Total 900 850 Balance -500 -810 Weight 70.9 kg Intake: IV 40 40 Invasive Line 1 20 20 Invasive Line 2 20 20 Oral 360 Output: Urine 900 850 Other: Voiding Method Urinal Urinal - Labs CBC & Chem 7: 04/15/24 09:57 04/16/24 06:24 Labs: Abnormal Lab Results - Last 24 Hours (Table) 04/15/24 04/15/24 04/16/24 Range/Units 09:57 09:57 06:24 RBC 2.67 L (4.30-5.90) m/uL Hgb 8.3 L (13.0-17.5) gm/dL Hct 25.6 L (39.0-53.0) % Lymphocytes # 0.7 L (1.0-4.8) k/uL BUN 60 H 70 H (9-20) mg/dL Creatinine 5.06 H 6.35 H (0.66-1.25) mg/dL Glucose 118 H (74-99) mg/dL Calcium 7.9 L 7.8 L (8.4-10.2) mg/dL
[2024-04-16 13:28] LABS: INR 1.7 (<1.2); Prothrombin Time 17.3 sec (10.0-12.5)
--- NOTE | 2024-04-16 13:36 | P.PN ---
Subjective HISTORY OF PRESENT ILLNESS: This is a 63-year-old male who does not regularly follow with a polymer specialist. Patient was brought to the hospital for altered mental status. Patient was found to have acute kidney injury requiring initiation of hemodialysis. Patient examined this morning at the bedside. Patient currently denies any chest pain or pressure. He denies any shortness of breath. Patient was also found to have elevated troponins. Patient has been refusing any type of further cardiac testing. Recent echo performed in April 2024 revealed ejection fraction 3035%, hypokinetic septum, apex akinetic, mild to moderate mitral regurgitation, and negative bubble study. PHYSICAL EXAM: VITAL SIGNS: Reviewed. GENERAL: Well-developed in no acute distress. NECK: Supple. No JVD or thyromegaly LUNGS: Respirations even and unlabored. Lungs with expiratory wheezing noted. HEART: Irregular rate and rhythm. S1 and S2 heard. EXTREMITIES: Normal range of motion. No clubbing or cyanosis. Peripheral pulses intact. No lower extremity edema ASSESSMENT: Altered mental status Non-STEMI, refusing any further cardiac testing Acute kidney injury requiring initiation of hemodialysis Chronic kidney disease Persistent atrial fibrillation with controlled ventricular rate History of cardiomyopathy, 25 to 30%, ischemic versus nonischemic History of non-STEMI, 2020, refused cardiac catheterization at that time History of CVA Nicotine dependence PLAN: Patient refusing any type of further cardiac workup such as cardiac catheterization. Patient understands risk of and patient verbalized understanding. Continue dual antiplatelet therapy with aspirin and Plavix Continue statin therapy Unable to maximize cardiomyopathy regimen due to acute kidney injury Continue current cardiac medications Continue IV diuretics per nephrology Continue Coumadin. Monitor INR. Patient was resumed on IV heparin per internal medicine as INR was subtherapeutic. Further recommendations pending patient course Nurse practitioner note has been reviewed by physician. Signing provider agrees with the documented findings, assessment, and plan of care documented by PIPE RECOVERY SPECIALIST as a scribe. Objective - Vital Signs Vital signs: Vital Signs Temp 98.2 F 04/16/24 08:00 Pulse 69 04/16/24 08:00 Resp 18 04/16/24 08:00 BP 123/52 04/16/24 08:00 Pulse Ox 97 04/16/24 08:00 FiO2 40 04/14/24 14:52 Intake & Output 04/15/24 04/16/24 04/16/24 18:59 06:59 18:59 Intake Total 400 40 260 Output Total 900 850 Balance -500 -810 260 Weight 70.9 kg Intake: IV 40 40 20 Invasive Line 1 20 20 10 Invasive Line 2 20 20 10 Oral 360 240 Output: Urine 900 850 Other: Voiding Method Urinal Urinal - Labs CBC & Chem 7: 04/15/24 09:57 04/16/24 06:24 Labs: Abnormal Lab Results - Last 24 Hours (Table) 04/16/24 04/16/24 Range/Units 06:24 09:20 PT 16.5 H (10.0-12.5) sec INR 1.6 H (<1.2) BUN 70 H (9-20) mg/dL Creatinine 6.35 H (0.66-1.25) mg/dL Calcium 7.8 L (8.4-10.2) mg/dL
[2024-04-16] MEDS: HEPARIN SOD,PORK IN 0.45% NACL 25,000 UNIT in 0.45% NACL 1 250ML.BAG IV SCH (17:38)
[2024-04-16] MEDS: WARFARIN 2 MG TAB PO ONE (17:38)
[2024-04-16] MEDS: HALOPERIDOL LACTATE 5 MG/ML 1 ML VIAL IVP PRN (18:00)
[2024-04-17 06:39] LABS: INR 1.6 (<1.2); Prothrombin Time 16.6 sec (10.0-12.5)
[2024-04-17 06:54] LABS: African American GFR (CKD) 13 (>60 ml/min/1.73 sqM); Anion Gap 4 mmol/L; Basophils % (A) 1 %; Blood Urea Nitrogen 46 mg/dL (9-20); Calcium 7.8 mg/dL (8.4-10.2); Carbon Dioxide 30 mmol/L (22-30); Chloride 104 mmol/L (98-107); Eosinophils % (A) 0 %; Glucose 96 mg/dL (74-99); HCT 24.1 % (39.0-53.0); HGB 7.9 gm/dL (13.0-17.5); Lymphocytes # (A) 0.6 k/uL (1.0-4.8); Lymphocytes % (A) 20 %; MCH 31.4 pg (25.0-35.0); MCHC 32.7 g/dL (31.0-37.0); MCV 96.2 fL (80.0-100.0); Mean Platelet Volume 8.4; Monocytes # (A) 0.4 k/uL (0-1.0); Monocytes % (A) 13 %; Neutrophils % (A) 63 %; Non-African American GFR(CKD) 11 (>60 ml/min/1.73 sqM); Platelet Count 183 k/uL (150-450); Potassium 3.7 mmol/L (3.5-5.1); RDW 15.1 % (11.5-15.5); Sodium 138 mmol/L (137-145); WBC 3.1 k/uL (3.8-10.6)
[2024-04-17 10:26] VITALS: TEMP 98.1
--- NOTE | 2024-04-17 11:56 | P.PN ---
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 Patient was brought to the hospital for altered mental status. Patient was found to have acute kidney injury requiring initiation of hemodialysis. Patient examined this morning at the bedside. Patient currently denies any chest pain or pressure. He denies any shortness of breath. Patient was also found to have elevated troponins. Patient has been refusing any type of further cardiac testing. Recent echo performed in April 2024 revealed ejection fraction 3035%, hypokinetic septum, apex akinetic, mild to moderate mitral regurgitation, and negative bubble study. 04/17/2024 Patient examined this morning at the bedside. Patient's brother is present. Patient currently denies any chest pain or pressure. He denies any shortness of breath. Patient's INR today is 1.6. He refused his Coumadin last night. Patient is also refusing IV heparin. PHYSICAL EXAM: VITAL SIGNS: Reviewed. GENERAL: Well-developed in no acute distress. NECK: Supple. No JVD or thyromegaly LUNGS: Respirations even and unlabored. Lungs with expiratory wheezing noted. HEART: Irregular rate and rhythm. S1 and S2 heard. EXTREMITIES: Normal range of motion. No clubbing or cyanosis. Peripheral pulses intact. No lower extremity edema ASSESSMENT: Altered mental status Non-STEMI, refusing any further cardiac testing Acute kidney injury requiring initiation of hemodialysis Chronic kidney disease Persistent atrial fibrillation with controlled ventricular rate History of cardiomyopathy, 25 to 30%, ischemic versus nonischemic History of non-STEMI, 2020, refused cardiac catheterization at that time History of CVA Nicotine dependence PLAN: Patient refusing any type of further cardiac workup such as cardiac catheterization. Patient understands risk of and patient verbalized understanding. Continue dual antiplatelet therapy with aspirin and Plavix Continue statin therapy Unable to maximize cardiomyopathy regimen due to acute kidney injury Continue current cardiac medications Continue IV diuretics per nephrology Continue Coumadin if patient agreeable. Monitor INR. Patient currently refusing Coumadin and IV heparin. No further inpatient recommendations from a cardiac standpoint We will sign off. Please reconsult if needed. Nurse practitioner note has been reviewed by physician. Signing provider agrees with the documented findings, assessment, and plan of care documented by MINERAL WOOL INSULATION SUPERVISOR as a scribe. Objective - Vital Signs Vital signs: Vital Signs Temp 98.1 F 04/17/24 10:25 Pulse 79 04/17/24 10:25 Resp 16 04/17/24 10:25 BP 107/56 04/17/24 10:25 Pulse Ox 99 04/17/24 10:25 FiO2 40 04/14/24 14:52 Intake & Output 04/16/24 04/17/24 04/17/24 18:59 06:59 18:59 Intake Total 516 2410 Output Total 2800 Balance 516 -390 Weight 68.6 kg Intake: IV 40 10 Invasive Line 1 20 Invasive Line 2 20 10 Oral 476 Hemodialysis 2400 Output: Urine 400 Hemodialysis 400 Hemodialysis Net Amount 2000 Other: Voiding Method Urinal - Labs CBC & Chem 7: 04/17/24 06:04 04/17/24 06:04 Labs: Abnormal Lab Results - Last 24 Hours (Table) 04/16/24 04/16/24 04/17/24 Range/Units 13:12 18:43 06:04 WBC 3.1 L (3.8-10.6) k/uL RBC 2.50 L (4.30-5.90) m/uL Hgb 7.9 L (13.0-17.5) gm/dL Hct 24.1 L (39.0-53.0) % Lymphocytes # 0.6 L (1.0-4.8) k/uL PT 17.3 H (10.0-12.5) sec INR 1.7 H (<1.2) APTT 46.7 H (22.0-30.0) sec BUN (9-20) mg/dL Creatinine (0.66-1.25) mg/dL Calcium (8.4-10.2) mg/dL 04/17/24 04/17/24 Range/Units 06:04 06:04 WBC (3.8-10.6) k/uL RBC (4.30-5.90) m/uL Hgb (13.0-17.5) gm/dL Hct (39.0-53.0) % Lymphocytes # (1.0-4.8) k/uL PT 16.6 H (10.0-12.5) sec INR 1.6 H (<1.2) APTT (22.0-30.0) sec BUN 46 H (9-20) mg/dL Creatinine 5.14 H (0.66-1.25) mg/dL Calcium 7.8 L (8.4-10.2) mg/dL
--- NOTE | 2024-04-17 12:29 | P.PN ---
Subjective patient is seen for follow-up for acute kidney injury and chronic kidney disease. Started hemodialysis on 04/14/2024 Patient's brother is present at bedside and the patient and family have decided to proceed with hospice care. Patient will be discharged today. Dialysis catheter will be removed prior to discharge. Objective - Vital Signs Vital signs: Vital Signs Temp 98.1 F 04/17/24 10:25 Pulse 79 04/17/24 10:25 Resp 16 04/17/24 10:25 BP 107/56 04/17/24 10:25 Pulse Ox 99 04/17/24 10:25 FiO2 40 04/14/24 14:52 Intake & Output 04/16/24 04/17/24 04/17/24 18:59 06:59 18:59 Intake Total 516 2410 Output Total 2800 Balance 516 -390 Weight 68.6 kg Intake: IV 40 10 Invasive Line 1 20 Invasive Line 2 20 10 Oral 476 Hemodialysis 2400 Output: Urine 400 Hemodialysis 400 Hemodialysis Net Amount 2000 Other: Voiding Method Urinal - Exam patient is awake, comfortable, no acute distress. Examination of the heart S1 and S2 Examination of the lungs bilateral breath sounds are heard Abdomen is soft nontender Examination of lower extremities shows no significant edema BUDGET CONSULTANT exam grossly intact - Labs CBC & Chem 7: 04/17/24 06:04 04/17/24 06:04 Labs: Abnormal Lab Results - Last 24 Hours (Table) 04/16/24 04/16/24 04/17/24 Range/Units 13:12 18:43 06:04 WBC 3.1 L (3.8-10.6) k/uL RBC 2.50 L (4.30-5.90) m/uL Hgb 7.9 L (13.0-17.5) gm/dL Hct 24.1 L (39.0-53.0) % Lymphocytes # 0.6 L (1.0-4.8) k/uL PT 17.3 H (10.0-12.5) sec INR 1.7 H (<1.2) APTT 46.7 H (22.0-30.0) sec BUN (9-20) mg/dL Creatinine (0.66-1.25) mg/dL Calcium (8.4-10.2) mg/dL 11/12/24 11/12/24 Range/Units 06:04 06:04 WBC (3.8-10.6) k/uL RBC (4.30-5.90) m/uL Hgb (13.0-17.5) gm/dL Hct (39.0-53.0) % Lymphocytes # (1.0-4.8) k/uL PT 16.6 H (10.0-12.5) sec INR 1.6 H (<1.2) APTT (22.0-30.0) sec BUN 46 H (9-20) mg/dL Creatinine 5.14 H (0.66-1.25) mg/dL Calcium 7.8 L (8.4-10.2) mg/dL Assessment and Plan Assessment: 1. Acute kidney injury secondary to ATN secondary to cardiorenal syndrome andreia supriya progression of underlying chronic kidney disease. Creatinine 6.03 on admission. Ultrasound from this month showed no evidence of obstructive uropathy. Started on hemodialysis April 14, 2024 via temporary dialysis catheter. Patient will be discontinuing renal replacement therapy and proceed with hospice care. 2. Chronic kidney disease stage IV with baseline creatinine at 3.5. Patient re fused kidney biopsy in the past. 3. Acute hypoxic respiratory failure secondary to volume overload. Improved. 4. Acute on chronic systolic CHF ejection fraction of 30 to 35% with mild to moderate mitral regurgitation. 5. Anemia of chronic kidney disease. Iron deficiency noted. 6. Metabolic acidosis secondary to acute kidney injury. Improved with dialysis Plan: There are plans to pursue hospice care. Dialysis catheter will be discontinued prior to discharge.
--- NOTE | 2024-04-17 12:35 | P.DS ---
Providers Date of admission: 04/14/24 06:34 Attending physician: Micheline Hercules MD Consults: 04/14/24 06:40 Consult Physician Routine Consulting Provider: Eduin Claudio Consult Reason/Comments: acute on chronic renal failure Do you want consulting provider notified?: Yes 04/14/24 10:10 Consult Physician Stat Consulting Provider: Gurinder Snow Consult Reason/Comments: Permanent cath placment. Dialysis Port Do you want consulting provider notified?: Yes 04/16/24 13:04 Consult Physician Routine Consulting Provider: Jennifer Mckinley Consult Reason/Comments: decision making capacity Do you want consulting provider notified?: Yes Primary care physician: [facility] Course: Discharge Diagnosis: Acute metabolic encephalopathy likely due to uremia Acute kidney injury on CKD stage V Non-ST elevation VA Acute on chronic heart failure Carotid stenosis Hypertension Atrial fibrillation Hospital Course: 63 year old M with PMH CVA, HTN, AFib, GERD, CKD, HFrEF, Carotid stenosis presents to the ED for shortness of breath and chest pain. Patient was recently admitted and the plan was to start him on hemodialysis however patient refused and left AGAINST MEDICAL ADVICE. Patient returned to the ED today and was found to have BUN of 71 and creatinine 6.03. Patient had temporary dialysis catheter placed and he was started on hemodialysis. Patient also had elevated troponin of 12.3. Cardiology was following the patient and recommended heart catheterization however patient refused. After a couple sessions of hemod ialysis patient said that he no longer wants to do dialysis. Patient wanted to go home with hospice. There was a question if patient was able to make decisions on his own. Patient has been seen by psychiatry on previous admission who said patient can make his own decisions. As per my exam patient also able to make his own decisions. Patient's brother also came to see the patient in the hospital and said that he is at his baseline. The brother is patient's next of kin. Per brother patient is able to take care of himself at home and also pay his bills. Brother was amenable to patient going home with hospice. Patient is hospice appropriate as he has an EF of 30 to 35% and also end-stage renal disease and also COPD on oxygen. Patient will be discharged home with hospice Patient seen and examined at bedside.[] Vital signs reviewed and stable. General: [non toxic], [no distress], appears chronically debilitated Derm: [warm], [dry] Head: [atraumatic], [normocephalic], [symmetric] Eyes: [EOMI], [no lid lag], [anicteric sclera] Mouth: [no lip lesion], [mucus membranes moist] Cardiovascular: [S1S2 reg], [no murmur], [positive posterior tibial pulse bilateral], Lungs: [CTA bilateral], [no rhonchi, no rales] , [no accessory muscle use] Abdominal: [soft], [ nontender to palpation], [no guarding], [no appreciable organomegaly] Ext: [no gross muscle atrophy], [no edema], [no contractures] Neuro: [ CN II-XI grossly intact], [no focal neuro deficits] Psych: [Alert], [oriented], [appropriate affect] A total of [33] minutes of time were spent preparing this complex discharge summary . Patient discharged on [04/17/2024] Plan - Discharge Summary Discharge Rx Participant: No New Discharge Prescriptions: Continue hydrALAZINE HCL [Apresoline] 25 mg PO QID #120 tab Isosorbide Mononitrate ER [Imdur] 30 mg PO DAILY #30 tab Atorvastatin [Lipitor] 40 mg PO HS #30 tab amLODIPine [Norvasc] 10 mg PO DAILY Famotidine 20 mg PO BID Aspirin 81 mg PO DAILY #30 tab Discontinued Baclofen 5 mg PO TID PRN PRN Reason: Muscle Spasm Warfarin [Coumadin] 2.5 mg PO SUWESA Warfarin [Coumadin] 5 mg PO MOTUTHFR carvediloL [Coreg*] 12.5 mg PO BID-W/MEALS #60 tab Sodium Bicarbonate Tab 650 mg PO BID #60 tab Discharge Medication List Famotidine 20 mg PO BID 04/07/24 [History] amLODIPine [Norvasc] 10 mg PO DAILY 04/07/24 [History] Aspirin 81 mg PO DAILY #30 tab 04/11/24 [Rx] Atorvastatin [Lipitor] 40 mg PO HS #30 tab 04/11/24 [Rx] Isosorbide Mononitrate ER [Imdur] 30 mg PO DAILY #30 tab 04/11/24 [Rx] hydrALAZINE HCL [Apresoline] 25 mg PO QID #120 tab 11/06/24 [Rx] Follow up Appointment(s)/Referral(s): [facility] [Primary Care Provider] - 1-2 days Discharge Disposition: HOME WITH HOSPICE
--- NOTE | 2024-04-17 14:54 | P.CN ---
Psychiatric Consult - . Consult date: 04/17/24 Consult:: 04/17/24 13:54 IDENTIFYING DATA: This patient is a single 63 yo male with limited social support, never , no children, lives alone. REASON FOR REFERRAL: Decision-making capacity HISTORY OF PRESENT ILLNESS: Patient was admitted to the hospital on 04/14 for shortness of breath, he was brought in by EMS apparently. Patient's pulse oximetry on room air was below 80%. Patient has a chronic history of COPD CHF and chronic kidney disease. Patient had elevated levels of troponins, he was started on hemodialysis on 04/14. Patient was admitted about a week ago and left AMA and emergency were soon received came back to the hospital. Patient's brother was at his side and agreeable to speak to newspaper writer. He states that patient was requesting to be on hospice and at home. Patient's brother claims that patient is at his baseline with decision making and also his cognition. Patient's brother is in support of this. Patient was agreeable to speak to newspaper writer, he was fairly pleasant cooperative. He believes that it is Tuesday today 16 April 2024. He knew that he was in [facility], he knew his full name his age date of . He was attempting to answer questions as best as he could. He briefly knows what he is being treated for in terms of his "heart condition" and also his breathing. He is denying any depression at this time, denying any anxiety. He was fairly pleasant during the interaction. he is able to describe some of the end of life care and medical treatment he was being given. Denies any problems with sleep or appetite. He was able to correctly list the days of the week backwards, was appropriate for most of the conversation. At this time he is denying any suicidal homicidal ideations intent or plan. Denying any auditory or visual loose Nations. He claims that he is not using any drugs at this time. PAST PSYCHIATRIC HISTORY: Patient denies being on any psychiatric medications. Patient denies any previous psychiatric hospitalizations. Patient denies any psychiatric outpatient follow- up. Patient denies any history of suicide attempts in the past. Patient was last seen for psychiatric consult by Dr. Guardado and newspaper writerreji reece a week ago for decision making capacity PAST MEDICAL HISTORY: Past Medical History: CVA/TIA, Hypertension History of Any Multi-Drug Resistant Organisms: None Reported Past Surgical History: No Surgical Hx Reported Past Anesthesia/Blood Transfusion Reactions: No Reported Reaction Past Psychological History: No Psychological Hx Reported Smoking Status: Current every day smoker Past Alcohol Use History: None Reported Past Drug Use History: None Reported ALLERGIES: as per EMR. CHEMICAL DEPENDENCY HISTORY: as per HPI. FAMILY PSYCHIATRIC/SUBSTANCE USE HISTORY: denies SOCIAL HISTORY: Lives alone in a house he owns. Never , no children. No support system he can identify. Has 1, possibly 2, living brothers that he has not had a relationship with in over 20 years. MENTAL STATUS EXAM: General Appearance: Patient appears to be older than stated age, with pallor, disheveled. Behavior: Patient is calmly lying in bed without any agitated behavior, attempts to cooperate, mostly pleasant with good eye contact, smiles Speech: Patient's speech is fluent and non-pressured. Mood/Affect: Patient reports their mood is "alright", affect is currently euthymic Suicidality/Homicidality: Patient denies having any suicidal or homicidal ideation intent or plan. Perceptions: Patient denies any visual hallucinations and reports auditory hallucinations. Though content/process: There is no evidence of delusional thinking, somewhat organized and appropriate. Memory and concentration: Alert and oriented to person and place and date. Attention is fair Judgment and insight: fair IMPRESSIONS: adjustment disorder PLAN: -At this time, patient DOES NOT appear to meet criteria for inpatient psychiatric admission. -Delirium precautions recommended with patient including - avoiding use of narcotics and LEAN SIX SIGMA SENIOR SPECIALIST sedatives, limit anticholinergic medications when possible, frequent re-orientation, minimize use of restraints, open window shades during the day and close them at night. -Would recommend the following medication changes/additions: patient is not interested in medications at this time -Communicated plan to patient's nurse and social service worker. newspaper writer also spoke with patients younger brother Darvin who claims that he is in agreement with the plan of having home hospice care as he claims that his brother has expressed that he would prefer to pass away at home and not in the hospital. -at this time psychiatry will sign off -Please contact with any questions. 04/17/24 14:44 04/17/24 14:51
[2024-04-17 16:41] VITALS: BP 102/52; PULSE 68; RESP 18
[2024-04-17] MEDS: WARFARIN 2 MG TAB PO ONE (17:58)
--- NOTE | 2024-04-17 21:36 | OP ---
OPERATIVE REPORT DATE OF SERVICE : 04/17/2024 PROCEDURE: Removal of dialysis catheter, right femoral approach. PROCEDURE IN DETAIL: Right groin was prepped and stitches were removed. The patient had a dialysis catheter, right femoral approach, which was removed. Pressures were held and pressure dressing applied. The patient tolerated the procedure well. MARIN / KELLYN: [id number] / [id number]
== END 2024-04-17 18:04 | disposition hospice, home (50) | DRG 280 ==
LOC: EC 05:20 → 3SCARD 06:34
PROVIDERS: ADMIT Internal Medicine; ATTEND Internal Medicine
PROC: 5A1D70Z Performance of Urinary Filtration, Intermittent, Less than 6 Hours Per Day (ICD-10-PCS; 2024-04-14)
PROC: 06HY33Z Insertion of Infusion Device into Lower Vein, Percutaneous Approach (ICD-10-PCS; principal; 2024-04-14 12:45)
DX: I13.2 Hypertensive heart and chronic kidney disease with heart failure and with stage 5 chronic kidney disease, or end stage renal disease (principal); G93.41 Metabolic encephalopathy; I21.A1 Myocardial infarction type 2; N17.0 Acute kidney failure with tubular necrosis; I50.23 Acute on chronic systolic (congestive) heart failure; J96.01 Acute respiratory failure with hypoxia; N18.6 End stage renal disease; I48.19 Other persistent atrial fibrillation; E87.20 Acidosis, unspecified; Z51.5 Encounter for palliative care; I42.9 Cardiomyopathy, unspecified; J44.9 Chronic obstructive pulmonary disease, unspecified; D63.1 Anemia in chronic kidney disease; Z99.81 Dependence on supplemental oxygen; Z79.01 Long term (current) use of anticoagulants; I34.0 Nonrheumatic mitral (valve) insufficiency; I65.29 Occlusion and stenosis of unspecified carotid artery; T45.516A Underdosing of anticoagulants, initial encounter; F17.210 Nicotine dependence, cigarettes, uncomplicated; F43.20 Adjustment disorder, unspecified; Z91.128 Patient's intentional underdosing of medication regimen for other reason; E61.1 Iron deficiency; E78.5 Hyperlipidemia, unspecified; Z60.8 Other problems related to social environment; I25.2 Old myocardial infarction; Z79.82 Long term (current) use of aspirin; Z79.899 Other long term (current) drug therapy; I69.320 Aphasia following cerebral infarction
CPT/HCPCS: 36415; 36556; 71045; 80048; 80053; 80061; 82728; 82803; 83540; 83550; 83605; 83880; 84484; 85025; 85379; 85610; 85730; 86706; 87340; 90935; 93005; 94640; 94660; 94760; 96365; 96366; 96375; 99291

== ENCOUNTER 2024-05-06 14:40 | Inpatient (IN) | payer MEDICAID, MEDICARE, OTHER ==
[2024-05-06] MEDS: FUROSEMIDE 10 MG/ML 4 ML VIAL IV STA (15:02)
[2024-05-06] MEDS: NITROGLYCERIN OINT 1 INCH/GM PACKET TOPICAL STA (15:03)
[2024-05-06 15:09] LABS: Basophils % (A) 0 %; Eosinophils % (A) 1 %; HCT 30.1 % (39.0-53.0); Hypochromasia Slight; Lymphocytes % (A) 17 %; MCH 30.6 pg (25.0-35.0); MCHC 32.2 g/dL (31.0-37.0); MCV 95.1 fL (80.0-100.0); Mean Platelet Volume 7.8; Monocytes # (A) 0.4 k/uL (0-1.0); Monocytes % (A) 7 %; Neutrophils # (A) 4.3 k/uL (1.3-7.7); Neutrophils % (A) 70 %; Platelet Count 396 k/uL (150-450); RBC 3.17 m/uL (4.30-5.90); RDW 15.3 % (11.5-15.5); WBC 6.2 k/uL (3.8-10.6)
--- NOTE | 2024-05-06 15:11 | ED ---
General Adult HPI - General Chief complaint: Shortness of Breath Stated complaint: copd Time Seen by Provider: 05/06/24 14:40 Source: patient, RN notes reviewed, old records reviewed Mode of arrival: EMS Limitations: no limitations - History of Present Illness Initial comments: This is a 63-year-old who complain of difficulty breathing. Patient states he is a COPD year. Patient also states he had fluid on his leg. Patient states last couple days he had his sleep sitting up but was not that short of breath but this morning he woke up and he was significantly short of breath. Patient denies any fever chills or cough. Patient denies abdominal pain patient is nausea vomiting diarrhea. Patient denies any back pain. Patient states his swelling in his legs has gotten worse lately - Related Data Home Medications Medication Instructions Recorded Confirmed Famotidine 20 mg PO BID 04/07/24 04/14/24 amLODIPine [Norvasc] 10 mg PO DAILY 04/07/24 04/14/24 Previous Rx's Medication Instructions Recorded Aspirin 81 mg PO DAILY #30 tab 04/11/24 Atorvastatin [Lipitor] 40 mg PO HS #30 tab 04/11/24 Isosorbide Mononitrate ER [Imdur] 30 mg PO DAILY #30 tab 04/11/24 hydrALAZINE HCL [Apresoline] 25 mg PO QID #120 tab 04/11/24 Allergies Allergy/AdvReac Type Severity Reaction Status Date / Time No Known Allergies Allergy Verified 04/14/24 10:56 Review of Systems ROS Statement: Those systems with pertinent positive or pertinent negative responses have been documented in the HPI. ROS Other: All systems not noted in ROS Statement are negative. Past Medical History Past Medical History: COPD, CVA/TIA, Hypertension History of Any Multi-Drug Resistant Organisms: None Reported Past Surgical History: No Surgical Hx Reported Additional Past Surgical History / Comment(s): diallysis catheter placed Past Anesthesia/Blood Transfusion Reactions: No Reported Reaction Past Psychological History: No Psychological Hx Reported Smoking Status: Current every day smoker Past Alcohol Use History: None Reported Past Drug Use History: None Reported General Exam - General Exam Comments Initial Comments: GENERAL: Patient is well-developed and well-nourished. Patient is nontoxic and well- hydrated and is in mild distress. ENT: Neck is soft and supple. No significant lymphadenopathy is noted. Oropharynx is clear. Moist mucous membranes. Neck has full range of motion without eliciting any pain. EYES: The sclera were anicteric and conjunctiva were pink and moist. Extraocular movements were intact and pupils were equal round and reactive to light. Eyelids were unremarkable. PULMONARY: Patient has crackles bilaterally worse on the left than the right CARDIOVASCULAR: There is a regular rate and rhythm without any murmurs gallops or rubs. ABDOMEN: Soft and nontender with normal bowel sounds. SKIN: Skin is clear with no lesions or rashes and otherwise unremarkable. NEUROLOGIC: Patient is alert and oriented x3. Cranial nerves II through XII are grossly intact. Motor and sensory are also intact. Normal speech, volume and content. Symmetrical smile. MUSCULOSKELETAL: Normal extremities with adequate strength and full range of motion. 2+ edema bilateral legs LYMPHATICS: No significant lymphadenopathy is noted PSYCHIATRIC: Normal psychiatric evaluation. Limitations: no limitations Course Vital Signs 05/06/24 05/06/24 05/06/24 14:44 14:48 15:18 Temperature 97.8 F Pulse Rate 116 H 95 107 H Respiratory 24 24 26 H Rate Blood Pressure 125/82 125/82 99/52 O2 Sat by Pulse 98 99 63 L Oximetry 05/06/24 05/06/24 15:30 15:47 Temperature Pulse Rate 103 H 80 Respiratory 24 22 Rate Blood Pressure 103/79 95/61 O2 Sat by Pulse 50 L 86 L Oximetry Medical Decision Making - Medical Decision Making EKG shows A-fib at a rate of 99 bpm QRS is 94 QT interval 353 QTc is 409. Patient's EKG shows no ST segment elevation or depression Was pt. sent in by a medical professional or institution (, PA, SCOURING PADS SUPERVISOR, urgent care, hospital, or snf...) When possible be specific @ -No Did you speak to anyone other than the patient for history (EMS, parent, family, police, friend...)? What history was obtained from this source @ -No Did you review nursing and triage notes (agree or disagree)? Why? @ -I reviewed and agree with nursing and triage notes Were old charts reviewed (outside hosp., previous admission, EMS record, old EKG, old radiological studies, urgent care reports/EKG's, snf records)? Report findings @ -No old charts were reviewed Differential Diagnosis? @ -Differential Dyspnea: Coronary syndrome, arrhythmia, tamponade, asthma, COPD, pulmonary embolism, pneumonia, pneumothorax, pulmonary effusion, anaphylaxis, diabetic ketoacidosis, flailed chest, pulmonary contusion, diaphragmatic rupture, anemia, neuromuscular, this is not meant to be an all-inclusive list. EKG interpreted by me (3pts min.). @ -As above X-rays interpreted by me (1pt min.). @ -Chest x-ray shows pulmonary edema CT interpreted by me (1pt min.). @ -None done U/S interpreted by me (1pt. min.). @ -None done What testing was considered but not performed or refused? (CT, X-rays, U/S, labs)? Why? @ -None What meds were considered but not given or refused? Why? @ -None Did you discuss the management of the patient with other professionals (professionals i.e. , PA, SCOURING PADS SUPERVISOR, lab, RT, psych nurse, social human services assistants, guide cruise, teacher, parking officer, upper caser)? Give summary @ -I spoke with sound physicians agreed to admit the patient admit the patient I wrote admitting orders Was smoking cessation discussed for >3mins.? @ -No Was critical care preformed (if so, how long)? @ -35 minutes Were there social determinants of health that impacted care today? How? (Home lessness, low income, unemployed, alcoholism, drug addiction, transportation, low edu. Level, literacy, decrease access to med. care, shelter, rehab)? @ -No Was there de-escalation of care discussed even if they declined (Discuss DNR or withdrawal of care, Hospice)? DNR status @ -No What co-morbidities impacted this encounter? (DM, HTN, Smoking, COPD, CAD, Cancer, CVA, ARF, Chemo, Hep., AIDS, mental health diagnosis, sleep apnea, morbid obesity)? @ -None Was patient admitted / discharged? Hospital course, mention meds given and route, prescriptions, significant lab abnormalities, going to OR and other pertinent info. @ -Patient's chest x-ray showed pulmonary edema, patient had pedal edema 2+. Patient was given Lasix and Nitropaste and placed on BiPAP because his O2 sat was 65%. Undiagnosed new problem with uncertain prognosis? @ -No Drug Therapy requiring intensive monitoring for toxicity (Heparin, Nitro, Insulin, Cardizem)? @ -No Were any procedures done? @ -No Diagnosis/symptom? @ -Acute pulmonary edema Acute, or Chronic, or Acute on Chronic? @ -Acute Uncomplicated (without systemic symptoms) or Complicated (systemic symptoms)? @ -Complicated Side effects of treatment? @ -No Exacerbation, Progression, or Severe Exacerbation? @ -No Poses a threat to life or bodily function? How? (Chest pain, USA, DC, pneumonia, PE, COPD, DKA, ARF, appy, cholecystitis, CVA, Diverticulitis, Homicidal, Suicidal, threat to staff... and all critical care pts) @ -Yes this could lead to hypoxia and endorgan dysfunction - Lab Data Result diagrams: 05/06/24 14:44 Lab Results 05/06/24 05/06/24 05/06/24 Range/Units 14:44 14:44 14:44 WBC 6.2 (3.8-10.6) k/uL RBC 3.17 L (4.30-5.90) m/uL Hgb 9.7 L D (13.0-17.5) gm/dL Hct 30.1 L (39.0-53.0) % MCV 95.1 (80.0-100.0) fL MCH 30.6 (25.0-35.0) pg MCHC 32.2 (31.0-37.0) g/dL RDW 15.3 (11.5-15.5) % Plt Count 396 D (150-450) k/uL MPV 7.8 Neutrophils % 70 % Lymphocytes % 17 % Monocytes % 7 % Eosinophils % 1 % Basophils % 0 % Neutrophils # 4.3 (1.3-7.7) k/uL Lymphocytes # 1.0 (1.0-4.8) k/uL Monocytes # 0.4 (0-1.0) k/uL Eosinophils # 0.0 (0-0.7) k/uL Basophils # 0.0 (0-0.2) k/uL Manual Slide Review Performed Hypochromasia Slight PT 11.6 (10.0-12.5) sec INR 1.1 (<1.2) APTT 23.0 (22.0-30.0) sec Plasma Lactic Acid David 1.8 (0.7-2.0) mmol/L Disposition Clinical Impression: Acute pulmonary edema Disposition: ADMITTED IP TO THIS HOSP Referrals: [facility] [Primary Care Provider] - 1-2 days Time of Disposition: 15:56
[2024-05-06 15:20] LABS: INR 1.1 (<1.2); Prothrombin Time 11.6 sec (10.0-12.5)
[2024-05-06 15:21] LABS: ALT 13 U/L (4-49); AST 13 U/L (17-59); African American GFR (CKD) 6 (>60 ml/min/1.73 sqM); Albumin 3.8 g/dL (3.5-5.0); Alkaline Phosphatase 55 U/L (38-126); Anion Gap 15 mmol/L; Blood Urea Nitrogen 89 mg/dL (9-20); Calcium 8.8 mg/dL (8.4-10.2); Carbon Dioxide 17 mmol/L (22-30); Chloride 111 mmol/L (98-107); Glucose 119 mg/dL (74-99); Magnesium 2.2 mg/dL (1.6-2.3); Non-African American GFR(CKD) 5 (>60 ml/min/1.73 sqM); Sodium 143 mmol/L (137-145); Total Bilirubin 0.6 mg/dL (0.2-1.3); Total Protein 6.7 g/dL (6.3-8.2)
--- NOTE | 2024-05-06 15:26 | XR ---
EXAMINATION TYPE: XR chest 1V portable DATE OF EXAM: 05/06/2024 3:20 PM COMPARISON: Previous chest radiograph, most as needed 04/14/2024. CLINICAL INDICATION: Male, 63 years old with history of difficulty breathing; [facility] TECHNIQUE: XR chest 1V portable Frontal view of the chest. FINDINGS: Cardiomegaly. Patchy bilateral pleural and parenchymal opacities. Possible trace bilateral pleural effusions. No pneumothorax. No acute osseous abnormality. IMPRESSION: Patchy bilateral pleural-parenchymal opacities which could reflect multifocal pneumonia versus pulmon rochelle edema. Recommend clinical correlation. [facility], , 05/06/2024 3:23 PM
[2024-05-06 15:42] LABS: HGB 9.7 gm/dL (13.0-17.5)
[2024-05-06 16:01] LABS: NT-Pro-B-Type Natriuretic Pept 55200 pg/mL; Potassium 6.1 mmol/L (3.5-5.1)
[2024-05-06] MEDS: DEXAMETHASONE SOD PHOSPHATE 10 MG/ML 1 ML VIAL IVP STA (16:10)
[2024-05-06 16:14] LABS: ABG PH 7.29 (7.35-7.45); Allen Test Performed? Yes
[2024-05-06 16:15] LABS: ABG HCO3 17 mmol/L (21-25); ABG PCO2 35 mmHg (35-45); ABG PO2 38 mmHg (83-108); ABG TCO2 18 mmol/L (19-24)
[2024-05-06] MEDS: FUROSEMIDE 10 MG/ML 4 ML VIAL IV SCH (16:15)
[2024-05-06 16:16] LABS: ABG Base Excess 8.4 mmol/L; ABG Oxygen Saturation 65.2 % (94-97)
[2024-05-06] MEDS ORDERED: LORazepam 2 MG/ML INJ IV PRN (16:26)
[2024-05-06] MEDS ORDERED: MORPHINE SULFATE 4 MG/ML SYRINGE IV PRN (16:26)
[2024-05-06] MEDS: SODIUM ZIRCONIUM CYCLOSILICATE 10 GM PACKET PO ONE (17:07)
[2024-05-06] MEDS: CALCIUM CHLORIDE 100 MG/ML 10 ML SYRINGE IVP STA (17:08)
[2024-05-06] MEDS: SODIUM BICARB 8.4% 50 ML SYR (1 MEQ/ML) IV STA (17:08)
[2024-05-06] MEDS: DEXTROSE 50% SYRINGE 50 ML IVP STA (17:08)
[2024-05-06] MEDS: INSULIN REGULAR 100 UNIT/ML VIAL (IV) IV ONE (17:08)
[2024-05-06] MEDS: MORPHINE SULFATE (100 MG/2 ML) 100 MG in SODIUM CHLORIDE 0.9% 100 ML IV SCH (17:20)
--- NOTE | 2024-05-06 17:21 | P.HPIM ---
History of Present Illness H&P Date: 05/06/24 Chief Complaint: comfort care, dyspnea 63-year-old man with medical history of end-stage renal disease, heart failure with reduced ejection fraction presented for evaluation of dyspnea for 1 week. Patient is enrolled in [facility], presented to the hospital due to worsening symptom control. In discussion with this patient, he was adamantly against any sort of therapeutic intervention and was in favor of comfort measures. However, patient did appear to be a little bit confused due to ongoing issues of hypoxia requiring BiPAP dependence upon my evaluation. Therefore, I called his next of kin, his brother Darvin Andersen, who confirmed that comfort care is in line with the patient's previously stated wishes and that he would not be amenable to intubation, CPR, dialysis, or other life prolonging measures. This case was discussed with the emergency room provider, and decision was made to admit the patient for comfort care. In the emergency room, patient was 103/79, afebrile, 50% on room air. Hemoglobin is 9.7. Coags are unremarkable. Basic metabolic panel shows creatinine of 9.2, BUN of 89, potassium of 6.1, bicarb of 17, anion gap of 15. BNP was 55,200. Troponin is 0.35. COVID was positive. ABG was done and showed pH of 7.29, pCO2 of 35, pO2 of 38. Chest x-ray is consistent with bilateral vascular congestion. EKG shows atrial fibrillation with no evidence of ischemia. Gen: In moderate distress from dyspnea, non-toxic HEENT: normocephalic, atraumatic, hearing acuity is intant, mucous membranes moist CVS: perfusing all extremities well, no pitting edema, Respiratory: symmetric chest expansion, no accessory muscle use, GI: soft, NTTP, ND, : no suprapubic tenderness, no CVA tenderness MSK/Derm: no rashes, cyanosis Neuro: CN II-XII intact, no motor weakness, Labs and images as above Assessment/plan: Acute Hypoxemic Respiratory Failure Acute on Chronic Systolic Heart Failure Exacerbation ESRD with hyperkalemia COVID-19 Pneumonia - patient has declined therapeutic treatment at this time, he is currently enrolled in hospice with [facility] - admitted for comfort care - morphine gtt and titrate to comfort, morphine PRN IVP for breakthrough air hunger - ativan PRN for anxiety - atropine gtt prn for secretions - lasix 40mg IV TID for dyspnea - titrate pt off of bipap and onto nasal cannula once comfortable on morphine - pt may be a candidate for transfer to hospice house Pt is DNR/DNI Past Medical History Past Medical History: COPD, CVA/TIA, Hypertension History of Any Multi-Drug Resistant Organisms: None Reported Past Surgical History: No Surgical Hx Reported Additional Past Surgical History / Comment(s): diallysis catheter placed Past Anesthesia/Blood Transfusion Reactions: No Reported Reaction Past Psychological History: No Psychological Hx Reported Smoking Status: Current every day smoker Past Alcohol Use History: None Reported Past Drug Use History: None Reported Medications and Allergies Home Medications Medication Instructions Recorded Confirmed Type RX: Famotidine 20 mg PO BID 04/07/24 04/14/24 History RX: amLODIPine [Norvasc] 10 mg PO DAILY 04/07/24 04/14/24 History RX: Aspirin 81 mg PO DAILY #30 tab 04/11/24 04/14/24 Rx RX: Atorvastatin [Lipitor] 40 mg PO HS #30 tab 04/11/24 04/14/24 Rx RX: Isosorbide Mononitrate ER 30 mg PO DAILY #30 tab 04/11/24 04/14/24 Rx [Imdur] RX: hydrALAZINE HCL [Apresoline] 25 mg PO QID #120 tab 04/11/24 04/14/24 Rx Allergies Allergy/AdvReac Type Severity Reaction Status Date / Time No Known Allergies Allergy Verified 04/14/24 10:56 Physical Exam Osteopathic Statement: *. No significant issues noted on an osteopathic structural exam other than those noted in the History and Physical/Consult. Vitals: Vital Signs Temp Pulse Resp BP Pulse Ox FiO2 05/06/24 16:05 87 20 115/77 99 05/06/24 16:02 100 05/06/24 16:01 100 05/06/24 15:47 80 22 95/61 86 L 05/06/24 15:30 103 H 24 103/79 50 L 05/06/24 15:18 107 H 26 H 99/52 63 L 05/06/24 14:48 95 24 125/82 99 05/06/24 14:44 97.8 F 116 H 24 125/82 98 Intake and Output 05/06/24 05/06/24 05/06/24 06:59 14:59 22:59 Other: Weight 73.028 kg Results CBC & Chem 7: 05/06/24 14:44 05/06/24 14:44 Labs: Abnormal Lab Results - Last 24 Hours (Table) 05/06/24 05/06/24 05/06/24 Range/Units 14:44 14:44 14:44 RBC 3.17 L (4.30-5.90) m/uL Hgb 9.7 L D (13.0-17.5) gm/dL Hct 30.1 L (39.0-53.0) % ABG pH (7.35-7.45) ABG pO2 (83-108) mmHg ABG HCO3 (21-25) mmol/L ABG Total CO2 (19-24) mmol/L ABG O2 Saturation (94-97) % Potassium 6.1 H* (3.5-5.1) mmol/L Chloride 111 H (98-107) mmol/L Carbon Dioxide 17 L (22-30) mmol/L BUN 89 H (9-20) mg/dL Creatinine 9.20 H* (0.66-1.25) mg/dL Glucose 119 H (74-99) mg/dL AST 13 L (17-59) U/L Troponin I 0.357 H* (0.000-0.034) ng/mL SARS-CoV-2 (PCR) (Not Detectd) 05/06/24 05/06/24 Range/Units 15:20 15:46 RBC (4.30-5.90) m/uL Hgb (13.0-17.5) gm/dL Hct (39.0-53.0) % ABG pH 7.29 L (7.35-7.45) ABG pO2 38 L* (83-108) mmHg ABG HCO3 17 L (21-25) mmol/L ABG Total CO2 18 L (19-24) mmol/L ABG O2 Saturation 65.2 L (94-97) % Potassium (3.5-5.1) mmol/L Chloride (98-107) mmol/L Carbon Dioxide (22-30) mmol/L BUN (9-20) mg/dL Creatinine (0.66-1.25) mg/dL Glucose (74-99) mg/dL AST (17-59) U/L Troponin I (0.000-0.034) ng/mL SARS-CoV-2 (PCR) Detected A (Not Detectd)
[2024-05-07 08:12] VITALS: TEMP 97.8
[2024-05-07] MEDS ORDERED: DEXAMETHASONE SOD PHOSPHATE 10 MG/ML 1 ML VIAL IVP SCH (09:00)
[2024-05-07] MEDS ORDERED: MORPHINE SULFATE 4 MG/ML SYRINGE IV PRN (12:27)
--- NOTE | 2024-05-07 16:17 | P.PN ---
Subjective Progress Note Date: 05/07/24 Patient has no new complaints at this time. Putting out significant urine. Able to be down titrated to nasal cannula. There is a possibility as patient can return home with hospice rather than remain inpatient per his wishes, to be determined tomorrow. He is on a morphine drip for air hunger however, which may preclude this. Gen: In moderate distress from dyspnea, non-toxic HEENT: normocephalic, atraumatic, hearing acuity is intant, mucous membranes moist CVS: perfusing all extremities well, no pitting edema, Respiratory: symmetric chest expansion, no accessory muscle use, GI: soft, NTTP, ND, : no suprapubic tenderness, no CVA tenderness MSK/Derm: no rashes, cyanosis Neuro: CN II-XII intact, no motor weakness, Hospital course: 63-year-old man with medical history of end-stage renal disease, heart failure with reduced ejection fraction presented for evaluation of dyspnea for 1 week. In the emergency room, patient was 103/79, afebrile, 50% on room air. Hemoglobin is 9.7. Coags are unremarkable. Basic metabolic panel shows creatinine of 9.2, BUN of 89, potassium of 6.1, bicarb of 17, anion gap of 15. BNP was 55,200. Troponin is 0.35. COVID was positive. ABG was done and showed pH of 7.29, pCO2 of 35, pO2 of 38. Chest x-ray is consistent with bilateral vascular congestion. EKG shows atrial fibrillation with no evidence of ischemia. Assessment/plan: Acute Hypoxemic Respiratory Failure Acute on Chronic Systolic Heart Failure Exacerbation ESRD with hyperkalemia COVID-19 Pneumonia - patient has declined therapeutic treatment at this time, he is currently enrol led in hospice with [facility] - admitted for comfort care - morphine gtt and titrate to comfort, morphine PRN IVP for breakthrough air hunger - ativan PRN for anxiety - atropine gtt prn for secretions - lasix 40mg IV TID for dyspnea - titrate pt off of bipap and onto nasal cannula once comfortable on morphine - pt may be a candidate for transfer to hospice house Pt is DNR/DNI Objective - Vital Signs Vital signs: Vital Signs Temp 97.8 F 05/07/24 08:00 Pulse 82 05/07/24 08:09 Resp 11 L 05/07/24 13:46 BP 137/71 05/07/24 08:00 Pulse Ox 100 05/07/24 08:00 FiO2 100 05/06/24 16:02 Intake & Output 05/06/24 05/07/24 05/07/24 18:59 06:59 18:59 Intake Total 240 19.584 Output Total 150 Balance 90 19.584 Weight 73.028 kg 76 kg Intake: Intake, IV Titration 19.584 Amount Morphine Sulfate (100 mg/ 19.584 2 ml) 100 mg In Sodium Chloride 0.9% 100 ml @ 1 MG/HR 1.02 mls/hr IV . Q24H [facility] Rx#:[id number] Oral 240 Output: Urine 150 Other: Voiding Method External Catheter External Catheter - Labs CBC & Chem 7: 05/06/24 14:44 05/06/24 14:44 Labs: Abnormal Lab Results - Last 24 Hours (Table) 05/06/24 Range/Units 15:46 ABG pH 7.29 L (7.35-7.45) ABG pO2 38 L* (83-108) mmHg ABG HCO3 17 L (21-25) mmol/L ABG Total CO2 18 L (19-24) mmol/L ABG O2 Saturation 65.2 L (94-97) %
[2024-05-07 16:27] VITALS: BMI 29.7
[2024-05-07] MEDS: ATROPINE OPHTH SOLN 1% 5ML BTL SUBLINGUAL PRN (17:14)
[2024-05-07 23:45] VITALS: BP 101/62
[2024-05-08 05:16] VITALS: PULSE 62
--- NOTE | 2024-05-08 13:21 | P.PN ---
Subjective Progress Note Date: 05/08/24 Patient with agonal breathing. Gen: non-toxic HEENT: normocephalic, atraumatic, hearing acuity is intant, mucous membranes moist CVS: perfusing all extremities well, no pitting edema, Respiratory: symmetric chest expansion, no accessory muscle use, GI: soft, NTTP, ND, : no suprapubic tenderness, no CVA tenderness MSK/Derm: no rashes, cyanosis Hospital course: 63-year-old man with medical history of end-stage renal disease, heart failure with reduced ejection fraction presented for evaluation of dyspnea for 1 week. In the emergency room, patient was 103/79, afebrile, 50% on room air. Hemogl obin is 9.7. Coags are unremarkable. Basic metabolic panel shows creatinine of 9.2, BUN of 89, potassium of 6.1, bicarb of 17, anion gap of 15. BNP was 55,200. Troponin is 0.35. COVID was positive. ABG was done and showed pH of 7.29, pCO2 of 35, pO2 of 38. Chest x-ray is consistent with bilateral vascular congestion. EKG shows atrial fibrillation with no evidence of ischemia. Assessment/plan: Acute Hypoxemic Respiratory Failure Acute on Chronic Systolic Heart Failure Exacerbation ESRD with hyperkalemia COVID-19 Pneumonia - patient has declined therapeutic treatment at this time, he is currently enrolled in hospice with [facility] - admitted for comfort care - morphine gtt and titrate to comfort, morphine PRN IVP for breakthrough air hunger - ativan PRN for anxiety - atropine gtt prn for secretions - lasix 40mg IV TID for dyspnea - titrate pt off of bipap and onto nasal cannula once comfortable on morphine - pt may be a candidate for transfer to hospice house Pt is DNR/DNI Objective - Vital Signs Vital signs: Vital Signs Temp 97.8 F 05/07/24 08:00 Pulse 62 05/08/24 05:14 Resp 2 L 05/08/24 10:02 BP 101/62 05/07/24 23:43 Pulse Ox 88 L 05/08/24 05:14 FiO2 100 05/06/24 16:02 Intake & Output 05/07/24 05/08/24 05/08/24 18:59 06:59 18:59 Intake Total 34.629 Output Total 400 0 Balance -365.371 0 Weight 76 kg Intake: Intake, IV Titration 34.629 Amount Morphine Sulfate (100 mg/ 34.629 2 ml) 100 mg In Sodium Chloride 0.9% 100 ml @ 1 MG/HR 1.02 mls/hr IV . Q24H [facility] Rx#:[id number] Output: Urine 400 0 Other: Voiding Method External Catheter External Catheter External Catheter - Labs CBC & Chem 7: 05/06/24 14:44 05/06/24 14:44 Labs: Microbiology - Last 24 Hours (Table) 05/06/24 14:44 Blood Culture - Preliminary Blood
[2024-05-08 14:40] VITALS: RESP 4
--- NOTE | 2024-05-09 08:10 | P.DS ---
Providers Date of admission: 05/06/24 15:56 Expected date of discharge: 05/09/24 Attending physician: Ridge Asher MD Primary care physician: [facility] Hospital Course: note 63 year old M with PMH CVA, HTN, AFib, GERD, CKD, HFrEF, Carotid stenosis presents to the ED for SOB. Patient is enrolled in [facility]ice with [facility], presented to the hospital due to worsening symptom control. In the emergency room, patient was 103/79, afebrile, 50% on room air. Hemoglobin is 9.7. Coags are unremarkable. Basic metabolic panel shows creatinine of 9.2, BUN of 89, potassium of 6.1, bicarb of 17, anion gap of 15. BNP was 55,200. Troponin is 0.35. COVID was positive. ABG was done and showed pH of 7.29, pCO2 of 35, pO2 of 38. Chest x-ray is consistent with bilateral vascular congestion. EKG shows atrial fibrillation with no evidence of ischemia. He was started on comfort measures. His code status was confirmed with his next of kin Darvin Andersen. He peacefully on 05/08. Discharge Diagnosis: Acute Hypoxemic Respiratory Failure Acute on Chronic Systolic Heart Failure Exacerbation COVID-19 Pneumonia ESRD Hyperkalemia Troponin elevation Anemia of chronic disease Plan - Discharge Summary New Discharge Prescriptions: No Action hydrALAZINE HCL [Apresoline] 25 mg PO QID #120 tab Isosorbide Mononitrate ER [Imdur] 30 mg PO DAILY #30 tab Atorvastatin [Lipitor] 40 mg PO HS #30 tab amLODIPine [Norvasc] 10 mg PO DAILY Famotidine 20 mg PO BID Aspirin 81 mg PO DAILY #30 tab Discharge Medication List Famotidine 20 mg PO BID 04/07/24 [History] amLODIPine [Norvasc] 10 mg PO DAILY 04/07/24 [History] Aspirin 81 mg PO DAILY #30 tab 04/11/24 [Rx] Atorvastatin [Lipitor] 40 mg PO HS #30 tab 04/11/24 [Rx] Isosorbide Mononitrate ER [Imdur] 30 mg PO DAILY #30 tab 04/11/24 [Rx] hydrALAZINE HCL [Apresoline] 25 mg PO QID #120 tab 04/11/24 [Rx] Follow up Appointment(s)/Referral(s): [facility] [Primary Care Provider] - 1-2 days Discharge Disposition: - Preliminary Cause of Preliminary Cause of : systolic chf exacerbation
== END 2024-05-08 21:33 | disposition expired | DRG 951 ==
LOC: EC 14:40 → 3SCARD 15:56 → 4SSUR 16:39
PROVIDERS: ADMIT Internal Medicine; ATTEND Internal Medicine
PROC: 5A09457 Assistance with Respiratory Ventilation, 24-96 Consecutive Hours, Continuous Positive Airway Pressure (ICD-10-PCS; principal; 2024-05-06)
DX: Z51.5 Encounter for palliative care (principal); J96.01 Acute respiratory failure with hypoxia; J12.82 Pneumonia due to coronavirus disease 2019; I50.23 Acute on chronic systolic (congestive) heart failure; N18.6 End stage renal disease; U07.1 COVID-19; I13.2 Hypertensive heart and chronic kidney disease with heart failure and with stage 5 chronic kidney disease, or end stage renal disease; J44.0 Chronic obstructive pulmonary disease with (acute) lower respiratory infection; F05 Delirium due to known physiological condition; D63.1 Anemia in chronic kidney disease; Z66 Do not resuscitate; Z99.2 Dependence on renal dialysis; I48.91 Unspecified atrial fibrillation; I65.29 Occlusion and stenosis of unspecified carotid artery; E87.5 Hyperkalemia; K21.9 Gastro-esophageal reflux disease without esophagitis; F17.210 Nicotine dependence, cigarettes, uncomplicated; Z86.73 Personal history of transient ischemic attack (TIA), and cerebral infarction without residual deficits; Z79.82 Long term (current) use of aspirin; Z79.899 Other long term (current) drug therapy
CPT/HCPCS: 36415; 36600; 71045; 80053; 82805; 83605; 83735; 83880; 84484; 85025; 85610; 85730; 87040; 87636; 93005; 94660; 96365; 96366; 96375; 96376; 99291